=== PATIENT | male | born 1980 | race Caucasian/White ===

== ENCOUNTER 2019-05-05 13:33 | Inpatient (IN) | payer SELFPAY ==
--- NOTE | 2019-05-05 15:06 | CT ---
CT LEFT FOOT WITHOUT CONTRAST: 05/05/19 HISTORY: Ulcer. Prior amputation. COMPARISON: Foot radiographs same day. FINDINGS: There is a large plantar ulcer centered at the third metatarsal head with gas extending up to the fle xor tendon without significant gas within the tendon sheath. No definite loss of cortical integrity o f the third metatarsal head. The gas is approximately 5 mm from the cortex of the third metatarsal head. Prior fourth metatarsal amputation. Gas does not extend into the musculature. Mild circumferential so ft tissue swelling of the forefoot and hindfoot. IMPRESSION: 1. Plantar soft tissue ulcer at the level of the third metatarsal head with gas extending up to 5 mm from the cortex without loss of cortical integrity. No definite CT evidence of osteomyelitis. Ga s does extend up to the level of the flexor digitorum brevis tendon although without definite evidenc e for infectious tenosynovitis although MRI has greater sensitivity. 2. Circumferential soft tissue swelling may reflect cellulitis or venous insufficiency versus ly mphedema. 3. Prior fourth metatarsal amputation with sharp margins. POS: HOME
[2019-05-05] MEDS ORDERED: Morphine 4 MG/ML VIAL ONE (15:09)
[2019-05-05] MEDS ORDERED: Insulin Regular 300 UNITS/3 ML VIAL ONE (15:13)
[2019-05-05] MEDS ORDERED: Benzocaine 20% Spray 60 ML CAN ONE (15:13)
[2019-05-05] MEDS ORDERED: Ondansetron PF 4 MG/2 ML Vial IVP PRN ×2 (17:12→19:21)
[2019-05-05] MEDS ORDERED: Ondansetron ODT 4 MG TAB SL PRN (17:12)
[2019-05-05] MEDS ORDERED: Sodium Chloride 0.9% 1,000 ML IV SCH (17:12)
[2019-05-05 18:25] VITALS: BMI 38.1
[2019-05-05] MEDS: Piperacillin/Tazobactam 3.375 GM in Sodium Chloride 0.9% 100 ML IVPB SCH (19:02)
[2019-05-05] MEDS: Sodium Chloride 0.9% 1,000 ML IV SCH (19:02)
[2019-05-05] MEDS ORDERED: Acetaminophen 325 MG TAB PO PRN (19:21)
[2019-05-05] MEDS ORDERED: Ondansetron ODT 4 MG TAB PO PRN (19:21)
[2019-05-05] MEDS ORDERED: Calcium Carbonate 500 MG ChewTAB PO PRN (19:21)
--- NOTE | 2019-05-05 20:02 | HP ---
PRIMARY CARE PHYSICIAN: [facility]. PRIMARY INSTRUMENTATION TECHNICIAN: Asif Steve DPM CHIEF COMPLAINT: Fever with increased drainage from the diabetic foot ulcer. HISTORY OF PRESENT ILLNESS: The patient is a 38-year-old male with diabetes mellitus type 2, on insulin, hypertension, hyperlipidemia, was presented to the emergency room at [facility] with above complaints. The patient underwent left fourth toe amputation in the left foot in October of this year at [facility] by Dr. Mathis. Later on, he started developing chronic ulcer around this wound. He is currently followed by Dr. Steve, research lab assistant. Two weeks ago, he was evaluated by Dr. Steve and was started on doxycycline. There was some improvement in the wound. However, over the last 2 days, he has not been feeling well. He has significant fever along with chills. He also noticed increased pain along with drainage from the wound. He denies any injuries. He is compliant with insulin. In the emergency room at [facility], his initial vital signs showed temperature of 99.1, pulse rate of 130, blood pressure of 141/97 with O2 saturation of 96% on room air. He received vancomycin and Zosyn with IV fluids, and was sent to this facility for hospital admission. At this facility, he underwent lower extremity CT scan, that showed plantar soft tissue ulcer at the level of the third metatarsal head with gas extending up to 5 mm from the cortex without loss of cortical integrity. There was no CT evidence of osteomyelitis. PAST MEDICAL HISTORY: 1. Diabetes mellitus, type 2. 2. Hypertension. 3. Hyperlipidemia. 4. Obesity with a BMI of 38.2. 5. Anxiety. 6. Depression. PAST SURGICAL HISTORY: 1. Fourth toe amputation of the left foot in October of this year. 2. Appendectomy in 2013. ALLERGIES: NO KNOWN DRUG ALLERGIES. CURRENT HOME MEDICATIONS: 1. Amlodipine 10 mg daily. 2. Abilify 10 mg daily. 3. TriCor 48 mg daily. 4. Humalog 25 units three times daily. 5. Levemir 70 units at bedtime. 6. Lisinopril 40 mg daily. 7. Ibuprofen as needed. SOCIAL HISTORY: The patient currently lives at home with his family. He denies tobacco or drug use. He denies any history of obstructive sleep apnea. FAMILY HISTORY: Positive for heart disease. REVIEW OF SYSTEMS: All other review of systems reviewed and were found negative. PHYSICAL EXAMINATION: VITAL SIGNS: As discussed above. GENERAL: This is a 38-year-old male, in no significant distress. HEENT: Head, atraumatic and normocephalic. Sclerae anicteric. Moist mucous membranes. No oral lesion. NECK: Supple. No JVD. No carotid bruit. LUNGS: Clear to auscultation bilaterally. No wheezing, rales or rhonchi. HEART: S1 and S2 present. Regular rate and rhythm. Tachycardic. No heaves or pulsation. ABDOMEN: Soft, obese. Bowel sounds present. EXTREMITIES: No calf tenderness. SKIN: There is amputation of the fourth toe of the left foot. He has 2 plantar foot ulcers, which are chronic. There is foul order along with necrotic tissue in one of the ulcers. There is significant erythema along with tenderness on palpation. LYMPH NODES: No palpable lymph nodes in the neck or groin. NEUROLOGIC: Grossly nonfocal, moves all 4 extremities. PSYCHIATRIC: Alert, awake, and oriented x3. LABORATORY FINDINGS: WBC 14.4, hemoglobin 14.6, hematocrit 44.9, and platelet of 341. Chemistry showed sodium 129, potassium 4, chloride 96, bicarb 20, BUN 13, and creatinine 1.04. CRP of 17.2. Lactic acid 1.8. Serum osmolality 292. Ketones were 0.72. RADIOLOGICAL FINDINGS: Lower extremity CT by my review showed changes consistent with cellulitis along with gas extending from the plantar soft tissue ulcer. EKG by my review showed sinus tachycardia. IMPRESSION: 1. Sepsis with acute organ dysfunction secondary to infected diabetic foot ulcer. 2. Uncontrolled diabetes mellitus, type 2. 3. Hypertension. 4. Obesity with a body mass index of 38. 5. Metabolic acidosis. 6. Chronic kidney disease, stage 2. 7. Diabetic neuropathy. 8. Anxiety. 9. Depression, mild, stable. 10. Dyslipidemia. PLAN: The patient will be monitored on the medical floor. I discussed the case with Podiatry, Dr. Steve. We will continue IV fluids. We will continue vancomycin and Zosyn. We will add clindamycin. The patient will be kept n.p.o. past midnight. Vital signs q.4 hourly. Recheck labs in a.m. Resume selected home medications. We will start Lantus at low dose. Plan of care was discussed with the patient in detail. He stated understanding. Job ID: [id number]
[2019-05-05] MEDS: Senokot S 8.6-50 MG TAB PO SCH (20:36)
[2019-05-05] MEDS: Lisinopril 10 MG TAB PO SCH (20:38)
[2019-05-05] MEDS: Clindamycin/D5W 300 MG/50 ML BAG IVPB SCH (20:39)
[2019-05-05] MEDS: Vancomycin HCl 1.75 GM in Sodium Chloride 0.9% 500 ML IVPB SCH (20:52)
[2019-05-05] MEDS ORDERED: Dextrose 50% Abboject 50 ML SYRINGE SLOW IVP PRN (22:09)
[2019-05-05] MEDS ORDERED: Dextrose 5% in Water 1,000 ML IV PRN (22:09)
[2019-05-05] MEDS ORDERED: Vancomycin HCl 1 GM in Premix Bag 1 BAG IVPB SCH (23:59)
[2019-05-06] MEDS: Piperacillin/Tazobactam 3.375 GM in Sodium Chloride 0.9% 100 ML IVPB SCH ×4 (00:08→18:41)
[2019-05-06] MEDS: HYDROcodone/Acetaminophen 5/325 mg Tablet PO PRN (00:11)
[2019-05-06] MEDS: Sodium Chloride 0.9% 1,000 ML IV SCH ×3 (01:30→18:42)
--- NOTE | 2019-05-06 02:13 | HP ---
REASON FOR CONSULTATION: Left foot infected ulceration. HISTORY OF PRESENT ILLNESS: This 38-year-old male with history of diabetes, hypertension, and hyperlipidemia. He has been seen in my office, being treated for a chronic ulceration to the plantar aspect of the left foot, and this was after he had a previous amputation of the 4th toe performed by another physician back in October when he had a history of recurrent infections. He recently was on doxycycline, once he finished the doxycycline, he said immediately started to smell and began getting swelling and redness. He had fevers and chills and presented to the emergency department where he was admitted for IV antibiotics. PAST MEDICAL HISTORY: 1. Diabetes. 2. Hypertension. 3. Hyperlipidemia. 4. Obesity. 5. Anxiety. 6. Depression. PAST SURGICAL HISTORY: 1. 4th toe amputation of left foot. 2. Appendectomy. HOME MEDICATIONS: 1. Amlodipine. 2. Abilify. 3. Tricor. 4. Humalog. 5. Levemir. 6. Lisinopril. 7. Ibuprofen. ALLERGIES: NO KNOWN DRUG ALLERGIES. SOCIAL HISTORY: Lives at home with family. Denies tobacco or drug use. Denies sleep apnea. FAMILY HISTORY: Positive for heart disease. REVIEW OF SYSTEMS: CONSTITUTIONAL: Relates some fevers and chills. INTEGUMENTARY: Relates a wound which has worsened to the left foot. MUSCULOSKELETAL: Denies pain in the lower extremity. PHYSICAL EXAMINATION: VITAL SIGNS: Temperature 99.8, pulse 123, respirations 16, blood pressure 134/71. EXTREMITIES: Focal lower extremity dermatological exam of the left foot shows full-thickness ulceration with necrotic tissue measuring 2 cm in diameter to the plantar aspect of the left 3rd metatarsal head. Wound probes to deep tissues, but not to bone. There is some tunneling to the lateral ulceration, smaller in size, which is under the 5th metatarsal head. There is malodor. There is purulent drainage expressed from the wound. Periwound is erythematous. Plantar aspect of the foot is entirely erythematous, erythema extends on the dorsal foot over the 3rd toe, but not onto the dorsum of the forefoot. LABORATORY DATA: X-rays were negative for signs of osseous destruction or cortical erosion. CT exam shows some gas within the soft tissues extending from the wound site, but does not extend to the flexor tendons, most likely this is air from the wound itself. ASSESSMENT: Nonhealing wound to the left forefoot, now with abscess formation and cellulitis, failed conservative treatment. PLAN: This patient needs incision and drainage and debridement of the wound. We will subsequently put on a wound VAC. Deep cultures to be taken at that time to determine sensitivities for outpatient therapy once he is stabilized. The patient is on-call to the OR tomorrow afternoon. We will have him n.p.o. after breakfast tomorrow. Thank you for the consultation. Job ID: [id number]
[2019-05-06] MEDS: Clindamycin/D5W 300 MG/50 ML BAG IVPB SCH ×4 (02:58→19:49)
[2019-05-06] MEDS: Vancomycin HCl 1.75 GM in Sodium Chloride 0.9% 500 ML IVPB SCH ×2 (03:02→12:44)
[2019-05-06 06:04] LABS: #Basophils 0.1 thou/uL (0.0-0.2); #Eosinphils 0.3 thou/uL (0.0-0.7); #Lymphocytes 2.3 thou/uL (1.20-3.40); #Monocytes 1.2 thou/uL (0.11-0.59); #Neutrophils 9.4 thou/uL (1.40-6.50); %Basophils 0.6 % (0.0-1.0); %Eosinophils 2.1 % (0.0-10.0); %Monocytes 9.1 % (0.0-10.0); %Neutrophils 71.2 % (42.0-75.0); Hemoglobin 14.2 g/dL (14.0-18.0); Mean Corpuscular HGB CONC 30.7 g/dL (32.0-36.0); Mean Corpuscular Hemoglobin 26.6 pg (27.0-31.0); Mean Corpuscular Volume 86.4 fL (78.0-98.0); Mean Platelet Volume 7.3 fL (7.4-10.4); Platelet Count 393 thou/uL (130-400); RBC Distribution Width 11.8 % (11.5-14.5); Red Blood Cell (RBC) Count 5.34 mill/uL (4.70-6.10); White Blood Cell (WBC) Count 13.3 thou/uL (4.8-10.8)
[2019-05-06] MEDS: HumaLOG 300 UNITS/3 ML VIAL SC PRN (06:11)
[2019-05-06 06:22] LABS: ALT (SGPT) 15 U/L (8-55); AST (SGOT) 15 U/L (5-34); Albumin 3.3 g/dL (3.5-5.0); Alkaline Phosphatase 94 U/L (40-150); Anion Gap 15 mmol/L (10-20); BUN (Urea Nitrogen) 11 mg/dL (8.9-20.6); Bilirubin, Total 0.7 mg/dL (0.2-1.2); Calc. Creatinine Clearance 211 mL/min (70-130); Calcium 9.5 mg/dL (7.8-10.44); Carbon Dioxide 24 mmol/L (22-29); Chloride 101 mmol/L (98-107); Estimated GFR-MDRD Greater than 90; Globulin 4.1 g/dL (2.4-3.5); Glucose 233 mg/dL (70-105); Magnesium 1.5 mg/dL (1.6-2.6); Potassium 3.8 mmol/L (3.5-5.1); Protein, Total 7.4 g/dL (6.0-8.3); Sodium 136 mmol/L (136-145)
[2019-05-06] MEDS ORDERED: Magnesium 2 GM/50 ML 2 GM in Premix Bag 1 BAG IVPB SCH (07:00)
[2019-05-06] MEDS: Aripiprazole 10 MG TAB PO SCH (08:05)
[2019-05-06] MEDS: Saccharomyces boulardii 250 MG CAP PO SCH (08:05)
[2019-05-06] MEDS: Lisinopril 10 MG TAB PO SCH ×2 (08:06→19:49)
[2019-05-06] MEDS: Fenofibrate 48 MG TAB PO SCH (08:06)
[2019-05-06] MEDS: Amlodipine 5 MG TAB PO SCH ×2 (08:06→19:49)
[2019-05-06] MEDS: Senokot S 8.6-50 MG TAB PO SCH ×2 (08:07→21:42)
--- NOTE | 2019-05-06 10:11 | PRG ---
DATE OF SERVICE: 05/06/2019 SUBJECTIVE: A 38-year-old male with diabetes mellitus type 2 with chronic ulceration, hypertension, hyperlipidemia, presented with fever along with increased drainage from the chronic foot ulcer. His workup was consistent with sepsis secondary to infected diabetic foot ulcer. He is currently on broad-spectrum antibiotics. He denies any overnight event. He is scheduled for incision and drainage and debridement of the wound later today by Dr. Steve. He denies significant pain. No significant change in the erythema of the foot reported. REVIEW OF SYSTEMS: The patient denies any nausea, vomiting, diarrhea, chest pain, shortness of breath, or palpitations. OBJECTIVE: VITAL SIGNS: Temperature 99.4 with T-max of 100.5, pulse rate of 111, respirations of 18, blood pressure 139/84, O2 saturation 92% on room air. GENERAL: A 38-year-old male, in no apparent distress. LUNGS: Clear to auscultation bilaterally. No wheezing, rales, or rhonchi. HEART: S1 and S2 present. Regular rate and rhythm. No rubs or gallops. ABDOMEN: Soft, obese. Bowel sounds present. EXTREMITIES: Dressing over the left foot noted. No calf tenderness. There is 1+ edema in left lower extremity. PSYCHIATRY: Normal affect. The patient is alert, awake, and oriented x3. NEUROLOGIC: Grossly nonfocal. LABORATORY FINDINGS: WBC 13.3 with hemoglobin 14.2. Magnesium 1.5 with potassium 3.8, sodium 136, CRP 17.2. Blood cultures so far negative. Lower extremity CT by my review showed cellulitis with gas extending from the plantar soft tissue ulcer. IMPRESSION: 1. Sepsis with acute organ dysfunction secondary to infected diabetic foot ulcer. Please note, the patient failed conservative treatment. He also failed outpatient therapy. 2. Diabetes mellitus type 2, uncontrolled. 3. Hypertension. 4. Obesity with a BMI of 38. 5. Metabolic acidosis, improving. 6. Chronic kidney disease, stage 2. 7. Anxiety. 8. Dyslipidemia. 9. Depression, mild, stable. 10. Diabetic neuropathy. 11. Hypomagnesemia. PLAN: The patient will continue vancomycin, Zosyn along with clindamycin. I discussed the case with Dr. Steve. We will monitor vancomycin level. We will continue moderate sliding scale. We will resume Lantus tonight. We will recheck labs in a.m. Wound care. We will change the sliding scale to aggressive later today. Recheck labs in a.m. Vancomycin level later today. Plan was discussed with the patient in detail. He stated understanding. Job ID: [id number]
[2019-05-06] MEDS ORDERED: ePHEDrine 50 MG/ML VIAL ONE (11:16)
[2019-05-06] MEDS ORDERED: Succinylcholine Chloride 20 MG/ML 10 ml SYRINGE FS ONE (11:16)
[2019-05-06] MEDS ORDERED: Lidocaine 1% PF 5 ML VIAL ONE (11:16)
[2019-05-06] MEDS ORDERED: Ondansetron PF 4 MG/2 ML Vial ONE (11:16)
[2019-05-06] MEDS ORDERED: PROPOFOL 200 MG/20 ML VIAL ONE (11:16)
[2019-05-06] MEDS ORDERED: Fentanyl 100 MCG/2 ML VIAL ONE (16:30)
[2019-05-06] MEDS ORDERED: Bupivacaine PF 0.5% 30 ML VIAL ONE (16:43)
[2019-05-06] MEDS ORDERED: Sodium Chloride 0.9% 30 ML ONE (16:44)
[2019-05-06] MEDS ORDERED: Albuterol Sulfate HFA (OR ONLY) ONE ×2 (17:17→17:18)
[2019-05-06] MEDS ORDERED: Ondansetron HCl/PF 4 MG/2 ML Vial IVP PRN (17:51)
[2019-05-06] MEDS ORDERED: HYDROmorphone 2 MG/ML VIAL SLOW IVP PRN (17:51)
[2019-05-06] MEDS ORDERED: Meperidine HCl/PF 25 MG/ML VIAL SLOW IVP PRN (17:51)
[2019-05-06] MEDS ORDERED: Promethazine HCl 25 MG/ML VIAL SLOW IVP PRN (17:51)
[2019-05-06] MEDS ORDERED: Promethazine HCl 25 MG/ML VIAL IM PRN (17:51)
[2019-05-06] MEDS ORDERED: PACU-Morphine 4MG/ML VIAL SLOW IVP PRN (17:51)
[2019-05-06] MEDS ORDERED: Morphine Sulfate 2 MG/ML SYRINGE SLOW IVP PRN (17:51)
[2019-05-06 19:19] LABS: Vancomycin, Trough 22.6 ug/mL
[2019-05-06] MEDS: Vancomycin HCl 1.5 GM in Sodium Chloride 0.9% 250 ML 300 ML IVPB SCH (20:43)
[2019-05-06] MEDS ORDERED: Insulin Glargine 25 UNITS in Pre-Filled Syringe 1 EACH SC SCH (21:00)
--- NOTE | 2019-05-07 00:04 | OP ---
DATE OF PROCEDURE: 05/06/2019 PREOPERATIVE DIAGNOSIS: Abscess, left foot. POSTOPERATIVE DIAGNOSIS: Abscess, left foot. PROCEDURE PERFORMED: Incision and drainage of left foot abscess. PATHOLOGY: Deep tissue culture of the deep abscess for Gram stain, aerobic and anaerobic and fungal cultures. HEMOSTASIS: None. ESTIMATED BLOOD LOSS: 30 mL. MATERIALS: Bandage materials including Surgicel, 4x4s, ABD pad, Kerlix, and Mateus wrap. INJECTABLES: 10 mL 0.5% Marcaine plain preoperatively. COMPLICATIONS: None. DESCRIPTION OF PROCEDURE: The patient was brought to the operative suite, placed supine on the operative table. Time-out performed, identifying correct patient, procedure, and operative site. The foot was prepped and draped in an aseptic manner. Attention was directed to the plantar aspect of the foot. He had two ulcerations, one sub 3rd metatarsal head and one sub 5th metatarsal head. Probing of these areas did notice communication tunnel between the two, so incision was made between the two wounds. The necrotic tissue within the sub 3rd metatarsal head wound was excised in total. All nonviable tissue was excised with a 15 blade. Deep probing to the area just under the 3rd metatarsal head ulceration found a large pocket of purulence approximately 10 mL of creamy white purulent drainage along with a significant malodor coming from the wound once this was released. This pus and deep abscess were cultured for aerobic, anaerobic, and fungal cultures. All nonviable tissue within the wound including portion of the plantar fascia and flexor tendons to the 3rd toe was excised. Probing of the wound found that there was also communicative tract continued proximally along the course of the plantar fascia and another incision was made from the 3rd metatarsal head wound proximally along this tunnel, opening this area and removing all nonviable tissue from this site. The wound was then irrigated with pulse lavage, 3 L mixed with 3 vials of bacitracin, 50,000 units of bacitracin per vial. After irrigation, all postop bleeders were cauterized. There was still a significant amount of bleeding from the wound edges, so decision was made not to apply the wound VAC at this time, placed in a compressive bandage until tomorrow when they can place a wound VAC. Surgicel was placed into the bandage base, the bandages were 4x4 gauze, ABD pad, Kerlix, and an Mateus wrap for compression. The patient tolerated the procedure well. He was transported out of the operative suite to the postanesthetic care unit for monitoring until stable and then transferred back to his room. Job ID: [id number]
[2019-05-07] MEDS: Sodium Chloride 0.9% 1,000 ML IV SCH ×4 (00:47→17:43)
[2019-05-07] MEDS: Piperacillin/Tazobactam 3.375 GM in Sodium Chloride 0.9% 100 ML IVPB SCH ×4 (01:11→17:51)
[2019-05-07] MEDS: Clindamycin/D5W 300 MG/50 ML BAG IVPB SCH ×4 (01:11→20:38)
[2019-05-07] MEDS: Vancomycin HCl 1.5 GM in Sodium Chloride 0.9% 250 ML 300 ML IVPB SCH ×2 (04:27→12:11)
[2019-05-07] MEDS: HumaLOG 300 UNITS/3 ML VIAL SC PRN ×4 (04:28→20:39)
[2019-05-07] MEDS: HYDROcodone/Acetaminophen 5/325 mg Tablet PO PRN ×3 (04:32→13:56)
[2019-05-07 04:52] LABS: #Eosinphils 0.2 thou/uL (0.0-0.7); #Lymphocytes 1.4 thou/uL (1.20-3.40); #Monocytes 0.9 thou/uL (0.11-0.59); #Neutrophils 6.1 thou/uL (1.40-6.50); %Eosinophils 2.2 % (0.0-10.0); %Lymphocytes 15.9 % (21.0-51.0); %Monocytes 10.8 % (0.0-10.0); %Neutrophils 71.1 % (42.0-75.0); Hemoglobin 12.4 g/dL (14.0-18.0); Mean Corpuscular HGB CONC 31.8 g/dL (32.0-36.0); Mean Corpuscular Hemoglobin 27.7 pg (27.0-31.0); Mean Corpuscular Volume 87.3 fL (78.0-98.0); Mean Platelet Volume 7.1 fL (7.4-10.4); Platelet Count 334 thou/uL (130-400); RBC Distribution Width 11.7 % (11.5-14.5); Red Blood Cell (RBC) Count 4.48 mill/uL (4.70-6.10); White Blood Cell (WBC) Count 8.6 thou/uL (4.8-10.8)
[2019-05-07 05:12] LABS: Anion Gap 13 mmol/L (10-20); BUN (Urea Nitrogen) 16 mg/dL (8.9-20.6); Calc. Creatinine Clearance 116 mL/min (70-130); Calcium 8.7 mg/dL (7.8-10.44); Carbon Dioxide 21 mmol/L (22-29); Chloride 103 mmol/L (98-107); Estimated GFR-MDRD 48; Glucose 366 mg/dL (70-105); Sodium 133 mmol/L (136-145)
[2019-05-07] MEDS ORDERED: HumaLOG 300 UNITS/3 ML VIAL SC SCH ×5 (08:00→17:00)
[2019-05-07] MEDS ORDERED: Insulin Glargine 35 UNITS in Pre-Filled Syringe 1 EACH SC SCH (09:00)
[2019-05-07] MEDS: Saccharomyces boulardii 250 MG CAP PO SCH (10:04)
[2019-05-07] MEDS: Lisinopril 10 MG TAB PO SCH ×2 (10:04→20:39)
[2019-05-07] MEDS: Amlodipine 5 MG TAB PO SCH ×2 (10:05→20:38)
[2019-05-07] MEDS: Fenofibrate 48 MG TAB PO SCH (10:06)
[2019-05-07] MEDS: Aripiprazole 10 MG TAB PO SCH (10:06)
[2019-05-07] MEDS: Senokot S 8.6-50 MG TAB PO SCH ×2 (10:10→20:40)
[2019-05-07] MEDS: HumaLOG 300 UNITS/3 ML VIAL SC SCH (17:45)
[2019-05-07 19:52] LABS: Vancomycin, Trough 35.8 ug/mL
[2019-05-07] MEDS: Insulin Glargine 40 UNITS in Pre-Filled Syringe 1 EACH SC SCH (20:39)
--- NOTE | 2019-05-07 22:52 | PDOC.PN ---
- Subjective Encounter Start Date: 05/07/19 Encounter Start Time: 17:00 Patient seen and examined for diabetic foot infection. Pain controlled. No fever. No new complaints. No overnight events - Objective Resuscitation Status - Order Detail: 05/05/19 19:21 Resuscitation Status Routine Resuscitation Status: FULL: Full Resuscitation MAR Reviewed: Yes Vital Signs & Weight: Vital Signs (12 hours) Temp Pulse Resp BP Pulse Ox 05/07/19 19:00 98.6 F 105 H 20 139/87 96 Weight Admit Weight 289 lb 4 oz Weight 289 lb 4 oz I&O: 05/06/19 05/07/19 05/08/19 06:59 06:59 06:59 Intake Total 2280 1440 Balance 2280 1440 Result Diagrams: 05/09/19 05:44 05/09/19 05:44 Additional Labs: Accuchecks 05/07/19 05/07/19 05/07/19 20:35 16:49 10:58 POC Glucose 336 H 356 H 415 H 05/07/19 03:05 POC Glucose 345 H Phys Exam - Physical Examination Constitutional: NAD Respiratory: no wheezing, no rhonchi Cardiovascular: RRR, no rub Gastrointestinal: soft, non-tender, positive bowel sounds Musculoskeletal: no edema foot dressing + Dx/Plan - Plan plan discussed w/ family, continue antibiotics, DVT proph w/lovenox, DVT proph w /SCDs IMPRESSION: 1. Sepsis with acute organ dysfunction secondary to infected diabetic foot ulcer. (failed conservative treatment) 2. Diabetes mellitus type 2, uncontrolled. 3. Hypertension. 4. Obesity with a BMI of 38. 5. Metabolic acidosis, improving. 6. Chronic kidney disease, stage 2. 7. Anxiety. 8. Dyslipidemia. 9. Depression, mild, stable. 10. Diabetic neuropathy. 11. Hypomagnesemia. PLAN: Cont Vancomycin, Zosyn and clindamycin. Monitor vancomycin level. Change sliding scale to aggressive Add 10 units to sliding scale TID Increase Lantus to 40 BID. Cont Wound care. AM labs Reduce IV fluids ID consult Review of Systems - Review of Systems Respiratory: negative: Cough, Dry, Shortness of Breath, Hemoptysis, SOB with Excertion, Pleuritic Pain, Sputum, Wheezing Cardiovascular: negative: chest pain, palpitations, orthopnea, paroxysmal nocturnal dyspnea, edema, light headedness, other Gastrointestinal: negative: Nausea, Vomiting, Abdominal Pain, Diarrhea, Constipation, Melena, Hematochezia, Other - Medications/Allergies Allergies/Adverse Reactions: Allergies Allergy/AdvReac Type Severity Reaction Status Date / Time No Known Allergies Allergy Verified 05/05/19 18:29 Medications: Current Medications Acetaminophen (Tylenol) 650 mg PO Q4H PRN PRN Reason: Headache/Fever/Mild Pain (1-3) Last Admin: 05/05/19 20:36 Dose: 650 mg Hydrocodone Bitart/Acetaminophen ([place] 5/325) 1 tab PO Q4H PRN PRN Reason: Mild-Moderate Pain (1-5) Last Admin: 05/07/19 13:56 Dose: 1 tab Amlodipine Besylate (Norvasc) 5 mg PO BID [facility] Last Admin: 05/07/19 20:38 Dose: 5 mg Aripiprazole (Abilify) 10 mg PO DAILY [facility] Last Admin: 05/07/19 10:06 Dose: 10 mg Calcium Carbonate (Tums) 1,000 mg PO Q4H PRN PRN Reason: Heartburn or Indigestion Clindamycin Phosphate/Dextrose (Cleocin) 300 mg IVPB 0200,0800,1400,2000 [facility] Last Admin: 05/07/19 20:38 Dose: 300 mg Dextrose/Water (Dextrose 50%) 25 gm SLOW IVP PRN PRN PRN Reason: Hypoglycemia Fenofibrate (Tricor) 48 mg PO DAILY [facility] Last Admin: 05/07/19 10:06 Dose: 48 mg Glucagon (Glucagon) 1 mg IM PRN PRN PRN Reason: Hypoglycemia Piperacillin Sod/Tazobactam (Sod 3.375 gm/ Sodium Chloride) 100 mls @ 200 mls/ hr IVPB 0100,0700,1300,1900 [facility] Last Admin: 05/07/19 17:51 Dose: 100 mls Sodium Chloride (Normal Saline 0.9%) 1,000 mls @ 150 mls/hr IV .Q6H40M [facility] Last Admin: 05/07/19 17:43 Dose: 1,000 mls Dextrose/Water (D5w) 1,000 mls @ 0 mls/hr IV .Q0M PRN PRN Reason: Hypoglycemia Insulin Glargine 40 units/ (Miscellaneous Medication) 0.4 mls @ 0 mls/hr SC BID [facility] Last Admin: 05/07/19 20:39 Dose: 0.4 mls Insulin Human Lispro (Humalog) 0 units SC .BEDTIME SLIDING SC PRN PRN Reason: Bedtime Correctional Scale Last Admin: 05/07/19 20:39 Dose: 4 units Insulin Human Lispro (Humalog) 0 units SC .AGGRESSIVE SLIDING PRN PRN Reason: Aggressive Correctional Scale Last Admin: 05/07/19 17:49 Dose: 13 units Insulin Human Lispro (Humalog) 10 units SC 0800,1200,1700 [facility] Last Admin: 05/07/19 17:45 Dose: 10 units Lisinopril (Zestril) 10 mg PO BID [facility] Last Admin: 05/07/19 20:39 Dose: 10 mg Miscellaneous Medication (Pharmacy To Dose) 1 each IVPB ONE PRN PRN Reason: Pharmacy to dose Stop: 05/17/19 19:56 Ondansetron HCl (Zofran Odt) 4 mg PO Q6H PRN PRN Reason: Nausea/Vomiting Ondansetron HCl (Zofran) 4 mg IVP Q6H PRN PRN Reason: Nausea/Vomiting Saccharomyces Boulardii (Florastor) 250 mg PO DAILY [facility] Last Admin: 05/07/19 10:04 Dose: 250 mg Senna/Docusate Sodium (Senokot S) 2 tab PO BID [facility] Last Admin: 05/07/19 20:40 Dose: Not Given Sodium Chloride (Flush - Normal Saline) 10 ml IVF PRN PRN PRN Reason: Saline Flush
[2019-05-08] MEDS: Piperacillin/Tazobactam 3.375 GM in Sodium Chloride 0.9% 100 ML IVPB SCH ×4 (00:36→18:08)
[2019-05-08] MEDS: Sodium Chloride 0.9% 1,000 ML IV SCH (00:39)
--- NOTE | 2019-05-08 01:15 | PRG ---
DATE OF SERVICE: 05/07/2019 SUBJECTIVE: A 38-year-old male patient seen at bedside today. He is in no acute distress. He is 1 day status post incision and drainage of left foot abscess. States he has been feeling little sweats and chills throughout the day, but overall is feeling better. Occasional sharp pains in the foot. PHYSICAL EXAMINATION: The dressing to the left foot is clean, dry, and intact. It was left in place. Wound VAC was placed today and is set to be changed again on Saturday. No calf tenderness. Still some erythema seen at the base of the toes. LABORATORY DATA: White blood cell count today was 8.6, down from 13.3, hemoglobin and hematocrit were 12.4 and 39.2. ASSESSMENT: 1. One day status post incision and drainage of abscess to the left foot. PLAN: 1. Culture results are pending. Initial Gram stain shows polymicrobial infection with many gram-variable rods and moderate gram-positive cocci in pairs, chains and clusters. We will need to wait until we get sensitivities on this before determining what oral antibiotics to switch him to. 2. We could see his white blood cell count has already trended downward, although he is still somewhat feverish. Expect this will improve. We will continue the IV antibiotics as ordered. 3. I plan to come and check on the patient on Saturday when they do the wound VAC change, so I can evaluate the wound at that time. Job ID: [id number]
[2019-05-08] MEDS: Clindamycin/D5W 300 MG/50 ML BAG IVPB SCH ×4 (02:00→20:08)
[2019-05-08 05:45] LABS: #Eosinphils 0.3 thou/uL (0.0-0.7); #Lymphocytes 1.4 thou/uL (1.20-3.40); #Monocytes 0.7 thou/uL (0.11-0.59); #Neutrophils 4.8 thou/uL (1.40-6.50); %Basophils 0.1 % (0.0-1.0); %Eosinophils 3.7 % (0.0-10.0); %Lymphocytes 19.1 % (21.0-51.0); %Monocytes 9.7 % (0.0-10.0); %Neutrophils 67.4 % (42.0-75.0); Hemoglobin 11.5 g/dL (14.0-18.0); Mean Corpuscular HGB CONC 32.3 g/dL (32.0-36.0); Mean Corpuscular Hemoglobin 27.7 pg (27.0-31.0); Mean Corpuscular Volume 85.6 fL (78.0-98.0); Mean Platelet Volume 6.9 fL (7.4-10.4); Platelet Count 314 thou/uL (130-400); RBC Distribution Width 11.7 % (11.5-14.5); Red Blood Cell (RBC) Count 4.16 mill/uL (4.70-6.10); White Blood Cell (WBC) Count 7.1 thou/uL (4.8-10.8)
[2019-05-08 06:18] LABS: Anion Gap 11 mmol/L (10-20); BUN (Urea Nitrogen) 16 mg/dL (8.9-20.6); Calc. Creatinine Clearance 112 mL/min (70-130); Calcium 8.8 mg/dL (7.8-10.44); Carbon Dioxide 20 mmol/L (22-29); Chloride 107 mmol/L (98-107); Estimated GFR-MDRD 46; Glucose 253 mg/dL (70-105); Potassium 3.4 mmol/L (3.5-5.1); Sodium 135 mmol/L (136-145)
[2019-05-08] MEDS ORDERED: Sodium Chloride 0.9% 1,000 ML IV SCH (07:08)
[2019-05-08] MEDS: Lisinopril 10 MG TAB PO SCH (08:29)
[2019-05-08] MEDS: Amlodipine 5 MG TAB PO SCH ×2 (08:29→20:08)
[2019-05-08] MEDS: Saccharomyces boulardii 250 MG CAP PO SCH ×2 (08:30→20:08)
[2019-05-08] MEDS: Senokot S 8.6-50 MG TAB PO SCH (08:30)
[2019-05-08] MEDS: Aripiprazole 10 MG TAB PO SCH (08:32)
[2019-05-08] MEDS: Fenofibrate 48 MG TAB PO SCH (08:33)
[2019-05-08] MEDS: HumaLOG 300 UNITS/3 ML VIAL SC SCH ×3 (08:35→18:09)
[2019-05-08] MEDS: Enoxaparin Sodium 40 MG/0.4 ML SYRINGE SC SCH (08:37)
[2019-05-08] MEDS: Insulin Glargine 40 UNITS in Pre-Filled Syringe 1 EACH SC SCH (08:39)
--- NOTE | 2019-05-08 12:42 | MRI ---
EXAM: MRI left forefoot PROVIDED CLINICAL HISTORY: Wound COMPARISON: None FINDINGS: There is cutaneous deficiency at the plantar aspect of the third MTP joint compatible with the provid ed clinical history of wound in this region. There is patchy signal alteration on fluid sensitive sequences involving the third metatarsal head with mild signal alteration on T1-weighted sequences. T here is second-third intermetatarsal bursal fluid. There is greater than physiologic third MTP joint fluid. There is diffuse signal alteration within the intrinsic foot musculature typical for diabetic patient s. There is no significant tenosynovial fluid. Intact fibers of the third digit flexor tendon are not identified. IMPRESSION: 1. 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 2. Second-third metatarsal bursitis, possibly infectious. 3. Greater than physiologic third MTP joint fluid may reflect septic arthritis.
[2019-05-08] MEDS ORDERED: cloNIDine 0.1 MG TAB PO PRN (14:41)
--- NOTE | 2019-05-08 15:15 | PRG ---
DATE OF SERVICE: 05/08/2019 SUBJECTIVE: A 38-year-old male with diabetes mellitus type 2. He is currently admitted for sepsis secondary to diabetic foot ulcer. He underwent debridement by Dr. Steve on May 08. He denies any fever or chills. He started developing diarrhea since last night. He denies any abdominal pain. REVIEW OF SYSTEMS: As discussed above. No hematochezia or melena reported. OBJECTIVE: VITAL SIGNS: Temperature 98.6, pulse 100, respirations 20, blood pressure 139/84, and O2 saturation 94% on room air. Intake of 1440, output unavailable. Weight of 289 pounds. GENERAL: A 38-year-old male, in no apparent distress. LUNGS: Clear to auscultation bilaterally. HEART: S1 and S2 present. Regular. ABDOMEN: Soft and obese. Bowel sounds present. EXTREMITIES: No edema or calf tenderness in right lower extremity. There is dressing on the left foot. There is also some edema and erythema in the left leg. CURRENT MEDICATIONS: Reviewed. The patient is on; 1. Lantus. 2. Vancomycin. 3. Clindamycin. 4. Zosyn, along with other home medications. LABORATORY FINDINGS: WBC 7.1 and hemoglobin 11.5. Sodium 135, potassium 3.5, chloride 107, bicarb 20, and creatinine 1.68. Vancomycin trough last night was 35.8. Blood cultures negative. Wound cultures showed group B Streptococcus. MRI of the lower extremity showed findings compatible with third metatarsal head, osteomyelitis with second and third metatarsal bursitis with questionable septic arthritis. IMPRESSION: 1. Sepsis with acute organ dysfunction secondary to infected diabetic foot ulcer with third metatarsal head osteomyelitis (the patient failed outpatient therapy). 2. Diarrhea, rule out Clostridium difficile colitis. 3. Hypokalemia. 4. Acute kidney injury, probably secondary to sepsis. 5. Diabetes mellitus type 2, uncontrolled. 6. Hypertension. 7. Obesity with a BMI of 38. 8. Chronic kidney disease stage 2. 9. Metabolic acidosis. 10. Anxiety. 11. Dyslipidemia. 12. Depression. 13. Diabetic neuropathy. 14. Hypomagnesemia. PLAN: IV antibiotics will be continued. We will increase Lantus to 45 units b.i.d. We will continue aggressive sliding scale along with 10 units of Humalog 3 times daily with meals. Per the patient request, IV fluids were discontinued. We will hold lisinopril for now due to acute kidney injury. We will recheck labs in a.m. Monitor vancomycin level. We will continue probiotic. We will stop Senokot-S. Continue other medications as below. Recheck labs in a.m. Plan was discussed with the patient in detail, he stated understanding. Job ID: [id number]
[2019-05-08] MEDS: HumaLOG 300 UNITS/3 ML VIAL SC PRN ×2 (18:09→20:20)
[2019-05-08] MEDS: HYDROcodone/Acetaminophen 5/325 mg Tablet PO PRN (18:36)
[2019-05-08 19:22] LABS: Vancomycin, Random 14.1 ug/mL (See Comment)
--- NOTE | 2019-05-08 19:35 | CON ---
DATE OF CONSULTATION: 05/08/2019 REASON FOR CONSULTATION: New ulcer, left foot plantar aspect, status post debridement. HISTORY OF PRESENT ILLNESS: A 38-year-old, whom I had treated at [facility] for left foot osteomyelitis involving the fourth toe status post amputation and protracted IV antimicrobial therapy. The patient now has developed an ulcer in third MPJ skin site, plantar aspect and was admitted for management. He had some fever, chills, drainage, and [id number] pain. No headaches. No shortness of breath or chest pain. No abdominal pain or diarrhea. Voiding without difficulty. PAST MEDICAL HISTORY: Type 2 diabetes, neuropathy, hypertension, hyperlipidemia, obesity, anxiety, and depression. PAST SURGICAL HISTORY: Fourth toe amputation left foot in [facility] on protracted IV antimicrobial therapy and appendectomy. ALLERGIES: NONE. SOCIAL HISTORY: Lives with family in [place]. Does not smoke cigarettes. No drug use. He is disabled. FAMILY HISTORY: Coronary artery disease. CURRENT MEDICATIONS: 1. Tylenol. 2. [place]. 3. Norvasc. 4. Abilify. 5. Tums. 6. Clindamycin. 7. Enoxaparin. 8. TriCor. 9. Insulin. 10. Zestril. 11. Zofran. 12. Zosyn. PHYSICAL EXAMINATION: VITAL SIGNS: T-max 100.5. He has been afebrile since. Other vital signs are fairly normal. O2 saturation 94. SKIN: Shows the ulcer with inflammatory changes and callus at the forefoot plantar aspect left side right behind the MPJ skin site. The previous amputation site fourth toe appears normal with no inflammatory changes. Then, we have the photo from after the debridements with white area of irregular debridements with whitish material at the center and red material with some linear darkish baez material interspersed and at the bottom aspect of the plantar sore. The patient has a peripheral IV access. No lymphadenopathy. HEENT: Ocular movements conjugate. Oral cavity was not remarkable. NECK: Supple. LUNGS: Symmetric clear breath sounds. HEART: S1 and S2. Regular rate. No S3 or S4. ABDOMEN: Soft, not distended or tender. No ascites. No bladder distention. EXTREMITIES: Pulses are 1+ in dorsalis pedis and posterior tibialis. Cap refill normal. Popliteals are 1+. He moves extremities equally with limitations imposed by inflammatory process. NEUROLOGIC: Cognitive function appears to be intact. LABORATORY DATA: White cell count was 13.3 down to 7.1, hemoglobin 11.5, platelets 314, 67% neutrophils, and 19% lymphocytes. Sodium 135 and creatinine 1.68, which is higher than baseline, which was 0.89. Liver profile was normal. Albumin 3.3. Vancomycin trough 35. Microbiology with group G and group B strep retrieved. This is a preliminary result. In the Gram stain, there is some Gram variable rods, but no Gram negatives. There are some gram-positive cocci in clusters. The patient had a lower extremity MRI done just now and it showed osteomyelitis of the third metatarsal head. ASSESSMENT AND DISCUSSION: Type 2 diabetes, neuropathy, recent amputation fourth toe left foot for osteomyelitis of the toe, now with osteomyelitis of the third metatarsophalangeal joint, status post debridement. The patient will need continuation of protracted antimicrobial therapy. Depending on the organisms retrieved, we could try oral antimicrobial therapy. For example, if he had just streptococci isolated, we could try a combination of Keflex plus a rifampin for protracted periods of time. In the other hand, if there is Staphylococcus aureus, the possibility of methicillin-resistant Staphylococcus aureus, gram-negative rods, then I would advise a peripherally inserted central catheter line placement and protracted IV antimicrobial therapy administration. We will wait for the final identification susceptibility profile of the organisms retrieved from the culture and then make a decision. No other sites of distant involvement noted at this time. Job ID: [id number]
[2019-05-08] MEDS: Insulin Glargine 45 UNITS in Pre-Filled Syringe 1 EACH SC SCH (20:20)
[2019-05-08] MEDS: Vancomycin HCl 1.5 GM in Sodium Chloride 0.9% 250 ML 300 ML IVPB SCH (20:21)
[2019-05-09] MEDS: HumaLOG 300 UNITS/3 ML VIAL SC PRN ×5 (01:24→21:14)
[2019-05-09] MEDS: Piperacillin/Tazobactam 3.375 GM in Sodium Chloride 0.9% 100 ML IVPB SCH ×2 (01:25→06:18)
[2019-05-09] MEDS: Clindamycin/D5W 300 MG/50 ML BAG IVPB SCH ×2 (01:29→08:50)
[2019-05-09 06:39] LABS: #Eosinphils 0.2 thou/uL (0.0-0.7); #Lymphocytes 1.1 thou/uL (1.20-3.40); #Monocytes 0.6 thou/uL (0.11-0.59); %Basophils 0.2 % (0.0-1.0); %Eosinophils 3.2 % (0.0-10.0); %Lymphocytes 18.9 % (21.0-51.0); %Monocytes 10.2 % (0.0-10.0); %Neutrophils 67.5 % (42.0-75.0); Hemoglobin 12.1 g/dL (14.0-18.0); Mean Corpuscular HGB CONC 32.5 g/dL (32.0-36.0); Mean Corpuscular Hemoglobin 27.9 pg (27.0-31.0); Mean Corpuscular Volume 85.8 fL (78.0-98.0); Platelet Count 325 thou/uL (130-400); RBC Distribution Width 11.6 % (11.5-14.5); Red Blood Cell (RBC) Count 4.33 mill/uL (4.70-6.10); White Blood Cell (WBC) Count 5.9 thou/uL (4.8-10.8)
[2019-05-09 07:01] LABS: Albumin 2.8 g/dL (3.5-5.0); Anion Gap 11 mmol/L (10-20); BUN (Urea Nitrogen) 13 mg/dL (8.9-20.6); BUN/Creatinine Ratio 7.07; Calc. Creatinine Clearance 102 mL/min (70-130); Calcium 9.3 mg/dL (7.8-10.44); Carbon Dioxide 24 mmol/L (22-29); Chloride 104 mmol/L (98-107); Estimated GFR-MDRD 42; Glucose 360 mg/dL (70-105); Magnesium 1.6 mg/dL (1.6-2.6); Phosphorus 4.2 mg/dL (2.3-4.7); Potassium 3.2 mmol/L (3.5-5.1); Sodium 136 mmol/L (136-145)
[2019-05-09] MEDS ORDERED: Loperamide HCl 2 MG CAP PO PRN (08:09)
[2019-05-09] MEDS: Sodium Chloride 0.9% 1,000 ML IV SCH (08:24)
[2019-05-09] MEDS: Vancomycin HCl 1.5 GM in Sodium Chloride 0.9% 250 ML 300 ML IVPB SCH (08:27)
[2019-05-09] MEDS: Aripiprazole 10 MG TAB PO SCH (08:32)
[2019-05-09] MEDS: Fenofibrate 48 MG TAB PO SCH (08:33)
[2019-05-09] MEDS: HumaLOG 300 UNITS/3 ML VIAL SC SCH ×3 (08:33→17:43)
[2019-05-09] MEDS: Amlodipine 5 MG TAB PO SCH ×2 (08:33→21:14)
[2019-05-09] MEDS: Saccharomyces boulardii 250 MG CAP PO SCH (08:33)
[2019-05-09] MEDS: Enoxaparin Sodium 40 MG/0.4 ML SYRINGE SC SCH (08:49)
[2019-05-09] MEDS: Magnesium Chloride 64 MG TAB PO SCH ×2 (08:49→21:14)
--- NOTE | 2019-05-09 10:04 | HP ---
SUBJECTIVE: A 38-year-old male patient seen at bedside today, in no acute distress. He is 3 days status post incision and drainage of abscess of left foot. He denies nausea, vomiting, fevers, or chills. At this time, said he is feeling much better and still having a little bit of pain in the foot. Did see Dr. Ortez with Infectious Disease, and has had an MRI since I last saw him, but I had not heard anything about the results of that. PHYSICAL EXAMINATION: Dressing was removed today with large surgical wound site on the plantar surface of the left forefoot, 90% granulation tissue with 10% slough. No necrosis within the wound. No purulence or areas of fluctuance identified. Erythema has significantly decreased on the foot. No exposed bone. IMAGING STUDIES: MRI was ordered. MRI results were consistent with osteomyelitis in the third metatarsal head. While I viewed the MRI, it did not appear that there was any cortical breakdown or erosions, but there was certainly fluid within the metatarsal and the third metatarsophalangeal joint. ASSESSMENT: Three days status post incision and drainage of left foot abscess with apparent osteomyelitis of the left third metatarsal. PLAN: Discussed these results with the patient and told that I am going to defer to Dr. Ortez' recommendations for antibiotics, but more than likely he will require some long-term IV antibiotics as an outpatient. Preliminary culture results show group G and group B hemolytic Streptococcus, which is globally sensitive to penicillin, but again I will defer to Dr. Ortez for antibiotic choice. I am going to continue to monitor his progress, and he will need a wound VAC on discharge. He is also scheduled for another wound VAC change on Saturday, if he is still here, and I will be there to evaluate the wound at that time. Job ID: [id number]
[2019-05-09] MEDS: Insulin Glargine 45 UNITS in Pre-Filled Syringe 1 EACH SC SCH ×2 (10:52→21:14)
--- NOTE | 2019-05-09 11:56 | PDOC.PN ---
- Subjective Encounter Start Date: 05/09/19 Encounter Start Time: 10:00 Patient seen and examined for diabetic foot infection. Diarrhea improved. No new complaints. No overnight events - Objective Resuscitation Status - Order Detail: 05/05/19 19:21 Resuscitation Status Routine Resuscitation Status: FULL: Full Resuscitation MAR Reviewed: Yes Vital Signs & Weight: Vital Signs (12 hours) Temp Pulse Resp BP BP Pulse Ox 05/09/19 11:00 98.7 F 100 18 140/88 94 L 05/09/19 08:33 92 154/96 H 05/09/19 08:25 96 05/09/19 07:18 98.0 F 92 18 154/96 H 96 05/09/19 04:00 98.8 F 97 18 160/98 H 92 L 05/09/19 00:00 98.6 F 96 18 168/111 H 93 L Weight Admit Weight 289 lb 4 oz Weight 289 lb 4 oz I&O: 05/08/19 05/09/19 05/10/19 06:59 06:59 06:59 Intake Total 1440 Balance 1440 Result Diagrams: 05/09/19 05:44 05/09/19 05:44 Additional Labs: Accuchecks 05/09/19 05/09/19 05/08/19 05:45 01:26 20:21 POC Glucose 307 H 379 H 346 H 05/08/19 05/08/19 16:02 11:10 POC Glucose 308 H 283 H Phys Exam - Physical Examination Constitutional: NAD Respiratory: no wheezing, no rhonchi Cardiovascular: RRR, no rub Gastrointestinal: soft, non-tender, positive bowel sounds Musculoskeletal: no edema wound vac+ Neurological: moves all 4 limbs Dx/Plan - Plan DVT proph w/lovenox, DVT proph w/SCDs IMPRESSION: 1. Sepsis with acute organ dysfunction secondary to infected diabetic foot ulcer.(failed conservative treatment) 2. Diabetes mellitus type 2. 3. Hypertension. 4. Obesity with a BMI of 38. 5. Metabolic acidosis, improving. 6. TRACY on CKD 2 - prob due to Sepsis 7. Anxiety. 8. Dyslipidemia. 9. Depression, mild, stable. 10. Diabetic neuropathy. 11. Hypomagnesemia/Hypokalemia 12. Diarrhea - resolved PLAN: Replace Potassium Cont Vancomycin, Zosyn and clindamycin. Monitor vancomycin level. Cont Agg. sliding scale with 15 units TID Add 10 units to sliding scale TID Cont Wound care/wound vac AM labs Restart IVF Review of Systems - Review of Systems Respiratory: negative: Cough, Dry, Shortness of Breath, Hemoptysis, SOB with Excertion, Pleuritic Pain, Sputum, Wheezing Cardiovascular: negative: chest pain, palpitations, orthopnea, paroxysmal nocturnal dyspnea, edema, light headedness, other - Medications/Allergies Allergies/Adverse Reactions: Allergies Allergy/AdvReac Type Severity Reaction Status Date / Time No Known Allergies Allergy Verified 05/05/19 18:29 Medications: Current Medications Acetaminophen (Tylenol) 650 mg PO Q4H PRN PRN Reason: Headache/Fever/Mild Pain (1-3) Last Admin: 05/05/19 20:36 Dose: 650 mg Hydrocodone Bitart/Acetaminophen ([place] 5/325) 1 tab PO Q4H PRN PRN Reason: Mild-Moderate Pain (1-5) Last Admin: 05/08/19 18:36 Dose: 1 tab Amlodipine Besylate (Norvasc) 5 mg PO BID [facility] Last Admin: 05/09/19 08:33 Dose: 5 mg Aripiprazole (Abilify) 10 mg PO DAILY [facility] Last Admin: 05/09/19 08:32 Dose: 10 mg Calcium Carbonate (Tums) 1,000 mg PO Q4H PRN PRN Reason: Heartburn or Indigestion Clindamycin Phosphate/Dextrose (Cleocin) 300 mg IVPB 0200,0800,1400,2000 [facility] Last Admin: 05/09/19 08:50 Dose: 300 mg Clonidine (Catapres) 0.1 mg PO Q4H PRN PRN Reason: SBP Greater Than 180 Dextrose/Water (Dextrose 50%) 25 gm SLOW IVP PRN PRN PRN Reason: Hypoglycemia Enoxaparin Sodium (Lovenox) 40 mg SC 0900 [facility] Last Admin: 05/09/19 08:49 Dose: 40 mg Fenofibrate (Tricor) 48 mg PO DAILY [facility] Last Admin: 05/09/19 08:33 Dose: 48 mg Glucagon (Glucagon) 1 mg IM PRN PRN PRN Reason: Hypoglycemia Piperacillin Sod/Tazobactam (Sod 3.375 gm/ Sodium Chloride) 100 mls @ 200 mls/ hr IVPB 0100,0700,1300,1900 [facility] Last Admin: 05/09/19 06:18 Dose: 100 mls Dextrose/Water (D5w) 1,000 mls @ 0 mls/hr IV .Q0M PRN PRN Reason: Hypoglycemia Insulin Glargine 45 units/ (Miscellaneous Medication) 0.45 mls @ 0 mls/hr SC BID [facility] Last Admin: 05/09/19 10:52 Dose: 0.45 mls Vancomycin HCl 1.5 gm/ Sodium (Chloride) 300 mls @ 200 mls/hr IVPB Q12H [facility] Last Admin: 05/09/19 08:27 Dose: 300 mls Sodium Chloride (Normal Saline 0.9%) 1,000 mls @ 70 mls/hr IV .[id number] [facility] Last Admin: 05/09/19 08:24 Dose: 1,000 mls Insulin Human Lispro (Humalog) 0 units SC .BEDTIME SLIDING SC PRN PRN Reason: Bedtime Correctional Scale Last Admin: 05/09/19 01:24 Dose: 5 units Insulin Human Lispro (Humalog) 0 units SC .AGGRESSIVE SLIDING PRN PRN Reason: Aggressive Correctional Scale Last Admin: 05/09/19 06:19 Dose: 11 units Insulin Human Lispro (Humalog) 15 units SC 0800,1200,1700 [facility] Last Admin: 05/09/19 08:33 Dose: 15 unit Lisinopril (Zestril) 10 mg PO BID [facility] Last Admin: 05/08/19 08:29 Dose: 10 mg Loperamide HCl (Imodium) 2 mg PO PRN PRN PRN Reason: Diarrhea/Loose Stools Magnesium Chloride (Slow-Mag) 64 mg PO BID [facility] Last Admin: 05/09/19 08:49 Dose: 64 mg Miscellaneous Medication (Pharmacy To Dose) 1 each IVPB ONE PRN PRN Reason: Pharmacy to dose Stop: 05/17/19 19:56 Ondansetron HCl (Zofran Odt) 4 mg PO Q6H PRN PRN Reason: Nausea/Vomiting Ondansetron HCl (Zofran) 4 mg IVP Q6H PRN PRN Reason: Nausea/Vomiting Potassium Chloride (Klor-Con 10) 10 meq PO TID[facility] Stop: 05/10/19 08:01 Saccharomyces Boulardii (Florastor) 250 mg PO BID [facility] Last Admin: 05/09/19 08:33 Dose: 250 mg Sodium Chloride (Flush - Normal Saline) 10 ml IVF PRN PRN PRN Reason: Saline Flush
[2019-05-09] MEDS ORDERED: Cephalexin 250 MG CAP PO SCH (12:15)
[2019-05-09] MEDS: Potassium Chloride 10 MEQ TAB PO SCH ×2 (12:51→17:42)
[2019-05-09] MEDS: Cephalexin 250 MG CAP PO SCH (17:42)
[2019-05-09] MEDS: Rifampin 300 MG CAP PO SCH (21:14)
[2019-05-10] MEDS: Sodium Chloride 0.9% 1,000 ML IV SCH (00:08)
[2019-05-10] MEDS: Cephalexin 250 MG CAP PO SCH ×4 (00:08→17:17)
[2019-05-10 05:27] LABS: #Eosinphils 0.2 thou/uL (0.0-0.7); #Lymphocytes 1.6 thou/uL (1.20-3.40); #Monocytes 0.6 thou/uL (0.11-0.59); #Neutrophils 4.3 thou/uL (1.40-6.50); %Basophils 0.7 % (0.0-1.0); %Lymphocytes 24.1 % (21.0-51.0); %Monocytes 8.5 % (0.0-10.0); %Neutrophils 63.7 % (42.0-75.0); Hemoglobin 12.4 g/dL (14.0-18.0); Mean Corpuscular HGB CONC 32.6 g/dL (32.0-36.0); Mean Corpuscular Hemoglobin 27.8 pg (27.0-31.0); Mean Corpuscular Volume 85.4 fL (78.0-98.0); Mean Platelet Volume 6.5 fL (7.4-10.4); Platelet Count 368 thou/uL (130-400); RBC Distribution Width 11.6 % (11.5-14.5); Red Blood Cell (RBC) Count 4.46 mill/uL (4.70-6.10); White Blood Cell (WBC) Count 6.7 thou/uL (4.8-10.8)
[2019-05-10 05:34] LABS: Hemoglobin A1c 12.4 % (4.0-6.0)
[2019-05-10 05:48] LABS: Anion Gap 12 mmol/L (10-20); BUN (Urea Nitrogen) 13 mg/dL (8.9-20.6); Calc. Creatinine Clearance 124 mL/min (70-130); Calcium 9.7 mg/dL (7.8-10.44); Carbon Dioxide 22 mmol/L (22-29); Chloride 107 mmol/L (98-107); Estimated GFR-MDRD 52; Glucose 184 mg/dL (70-105); Potassium 3.3 mmol/L (3.5-5.1); Sodium 138 mmol/L (136-145)
[2019-05-10] MEDS: HumaLOG 300 UNITS/3 ML VIAL SC PRN ×4 (06:28→21:12)
[2019-05-10] MEDS ORDERED: Sodium Chloride 0.9% 1,000 ML IV SCH (08:03)
[2019-05-10] MEDS: Potassium Chloride 10 MEQ TAB PO SCH (08:39)
[2019-05-10] MEDS: Rifampin 300 MG CAP PO SCH ×2 (08:39→21:10)
[2019-05-10] MEDS: Insulin Glargine 45 UNITS in Pre-Filled Syringe 1 EACH SC SCH ×2 (08:40→21:11)
[2019-05-10] MEDS: Aripiprazole 10 MG TAB PO SCH (08:40)
[2019-05-10] MEDS: Saccharomyces boulardii 250 MG CAP PO SCH (08:40)
[2019-05-10] MEDS: Enoxaparin Sodium 40 MG/0.4 ML SYRINGE SC SCH (08:40)
[2019-05-10] MEDS: Fenofibrate 48 MG TAB PO SCH (08:40)
[2019-05-10] MEDS: Amlodipine 5 MG TAB PO SCH ×2 (08:40→21:10)
[2019-05-10] MEDS: HumaLOG 300 UNITS/3 ML VIAL SC SCH ×3 (08:41→17:17)
[2019-05-10] MEDS: Magnesium Chloride 64 MG TAB PO SCH ×2 (12:13→21:11)
--- NOTE | 2019-05-10 15:19 | PDOC.PN ---
- Subjective Encounter Start Date: 05/10/19 Encounter Start Time: 07:00 Patient seen and examined for foot infection. No pain/fever. No new complaints. No overnight events - Objective Resuscitation Status - Order Detail: 05/05/19 19:21 Resuscitation Status Routine Resuscitation Status: FULL: Full Resuscitation MAR Reviewed: Yes Vital Signs & Weight: Vital Signs (12 hours) Temp Pulse Resp BP BP Pulse Ox 05/10/19 11:00 98.7 F 95 18 162/96 H 93 L 05/10/19 09:00 155/88 H 92 L 05/10/19 08:40 97 155/88 H 05/10/19 07:15 98.6 F 97 18 92 L 05/10/19 04:00 98.2 F 89 18 156/98 H 95 Weight Admit Weight 289 lb 4 oz Weight 289 lb 4 oz Result Diagrams: 05/10/19 04:54 05/10/19 04:54 Additional Labs: Accuchecks 05/10/19 05/10/19 05/10/19 11:23 05:38 01:24 POC Glucose 184 H 179 H 162 H 05/09/19 05/09/19 20:15 16:15 POC Glucose 212 H 173 H Laboratory Tests 05/10/19 05/10/19 04:54 04:54 Potassium 3.3 L Creatinine 1.51 H Hemoglobin A1c 12.4 H Phys Exam - Physical Examination Constitutional: NAD Respiratory: no wheezing, no rhonchi Cardiovascular: RRR, no rub Gastrointestinal: soft, non-tender, positive bowel sounds Musculoskeletal: no edema foot dressing + Dx/Plan - Plan DVT proph w/lovenox, DVT proph w/SCDs IMPRESSION: 1. Sepsis with acute organ dysfunction secondary to infected diabetic foot ulcer (failed conservative treatment) 2. Diabetes mellitus type 2. on Lantus/sliding scale 3. Hypertension. 4. Obesity with a BMI of 38. 5. Metabolic acidosis, improving. 6. TRACY on CKD 2 - prob due to Sepsis - improving, Lisinopril on hold 7. Anxiety. 8. Dyslipidemia. 9. Depression, mild, stable. 10. Diabetic neuropathy. 11. Hypomagnesemia/Hypokalemia 12. Diarrhea - resolved PLAN: On Keflex with Rifampin per ID Stable for dc once wound care/vac is arranged Cont Aggressive sliding scale with 15 units TID Cont Wound care/wound vac DC IVF - patient requested Review of Systems - Review of Systems Respiratory: negative: Cough, Dry, Shortness of Breath, Hemoptysis, SOB with Excertion, Pleuritic Pain, Sputum, Wheezing Cardiovascular: negative: chest pain, palpitations, orthopnea, paroxysmal nocturnal dyspnea, edema, light headedness, other - Medications/Allergies Allergies/Adverse Reactions: Allergies Allergy/AdvReac Type Severity Reaction Status Date / Time No Known Allergies Allergy Verified 05/05/19 18:29 Medications: Current Medications Acetaminophen (Tylenol) 650 mg PO Q4H PRN PRN Reason: Headache/Fever/Mild Pain (1-3) Last Admin: 05/05/19 20:36 Dose: 650 mg Hydrocodone Bitart/Acetaminophen ([place] 5/325) 1 tab PO Q4H PRN PRN Reason: Mild-Moderate Pain (1-5) Last Admin: 05/08/19 18:36 Dose: 1 tab Amlodipine Besylate (Norvasc) 5 mg PO BID [facility] Last Admin: 05/10/19 08:40 Dose: 5 mg Aripiprazole (Abilify) 10 mg PO DAILY [facility] Last Admin: 05/10/19 08:40 Dose: 10 mg Calcium Carbonate (Tums) 1,000 mg PO Q4H PRN PRN Reason: Heartburn or Indigestion Cephalexin (Keflex) 500 mg PO Q6HR [facility] Last Admin: 05/10/19 12:13 Dose: 500 mg Clonidine (Catapres) 0.1 mg PO Q4H PRN PRN Reason: SBP Greater Than 180 Dextrose/Water (Dextrose 50%) 25 gm SLOW IVP PRN PRN PRN Reason: Hypoglycemia Enoxaparin Sodium (Lovenox) 40 mg SC 0900 [facility] Last Admin: 05/10/19 08:40 Dose: 40 mg Fenofibrate (Tricor) 48 mg PO DAILY [facility] Last Admin: 05/10/19 08:40 Dose: 48 mg Glucagon (Glucagon) 1 mg IM PRN PRN PRN Reason: Hypoglycemia Dextrose/Water (D5w) 1,000 mls @ 0 mls/hr IV .Q0M PRN PRN Reason: Hypoglycemia Insulin Glargine 45 units/ (Miscellaneous Medication) 0.45 mls @ 0 mls/hr SC BID [facility] Last Admin: 05/10/19 08:40 Dose: 0.45 mls Insulin Human Lispro (Humalog) 0 units SC .BEDTIME SLIDING SC PRN PRN Reason: Bedtime Correctional Scale Last Admin: 05/09/19 21:14 Dose: 2 units Insulin Human Lispro (Humalog) 0 units SC .AGGRESSIVE SLIDING PRN PRN Reason: Aggressive Correctional Scale Last Admin: 05/10/19 12:12 Dose: 3 units Insulin Human Lispro (Humalog) 15 units SC 0800,1200,1700 [facility] Last Admin: 05/10/19 12:11 Dose: 15 unit Lisinopril (Zestril) 10 mg PO BID [facility] Last Admin: 05/08/19 08:29 Dose: 10 mg Loperamide HCl (Imodium) 2 mg PO PRN PRN PRN Reason: Diarrhea/Loose Stools Magnesium Chloride (Slow-Mag) 64 mg PO BID [facility] Last Admin: 05/10/19 12:13 Dose: 64 mg Miscellaneous Medication (Pharmacy To Dose) 1 each IVPB PRN PRN PRN Reason: Pharmacy to dose Ondansetron HCl (Zofran Odt) 4 mg PO Q6H PRN PRN Reason: Nausea/Vomiting Ondansetron HCl (Zofran) 4 mg IVP Q6H PRN PRN Reason: Nausea/Vomiting Rifampin (Rifadin) 300 mg PO 1000,2200 [facility] Last Admin: 05/10/19 08:39 Dose: 300 mg Saccharomyces Boulardii (Florastor) 250 mg PO DAILY [facility] Last Admin: 05/10/19 08:40 Dose: 250 mg Sodium Chloride (Flush - Normal Saline) 10 ml IVF PRN PRN PRN Reason: Saline Flush
[2019-05-11] MEDS: Cephalexin 250 MG CAP PO SCH ×4 (00:21→17:16)
[2019-05-11] MEDS: HumaLOG 300 UNITS/3 ML VIAL SC PRN ×4 (00:22→17:17)
[2019-05-11 05:26] LABS: Anion Gap 15 mmol/L (10-20); BUN (Urea Nitrogen) 15 mg/dL (8.9-20.6); Calc. Creatinine Clearance 114 mL/min (70-130); Calcium 9.5 mg/dL (7.8-10.44); Carbon Dioxide 20 mmol/L (22-29); Chloride 104 mmol/L (98-107); Estimated GFR-MDRD 48; Glucose 256 mg/dL (70-105); Potassium 3.5 mmol/L (3.5-5.1); Sodium 135 mmol/L (136-145)
[2019-05-11] MEDS: Sodium Chloride 0.9% 1,000 ML IV SCH (08:03)
--- NOTE | 2019-05-11 08:58 | PDOC.PN ---
- Subjective Encounter Start Date: 05/11/19 Encounter Start Time: 08:55 Patient seen and examined for foot infection. No pain/fever. No new complaints. No overnight events - Objective Resuscitation Status - Order Detail: 05/05/19 19:21 Resuscitation Status Routine Resuscitation Status: FULL: Full Resuscitation MAR Reviewed: Yes Vital Signs & Weight: Vital Signs (12 hours) Temp Pulse Resp BP BP Pulse Ox 05/11/19 08:29 98.4 F 86 18 164/105 H 95 05/11/19 03:59 98.5 F 90 20 169/101 H 95 05/11/19 00:00 98.8 F 90 20 151/85 H 95 05/10/19 21:10 86 169/99 H Weight Admit Weight 289 lb 4 oz Weight 289 lb 4 oz I&O: 05/10/19 05/11/19 05/12/19 06:59 06:59 06:59 Intake Total 1600 Balance 1600 Result Diagrams: 05/10/19 04:54 05/11/19 04:54 Additional Labs: Accuchecks 05/11/19 05/11/19 05/10/19 04:05 00:20 19:08 POC Glucose 253 H 288 H 336 H 05/10/19 05/10/19 15:51 11:23 POC Glucose 308 H 184 H Phys Exam - Physical Examination Constitutional: NAD Respiratory: no wheezing, no rhonchi Cardiovascular: RRR, no rub Gastrointestinal: soft, non-tender, positive bowel sounds Musculoskeletal: no edema foot dressing with wound vac+ Neurological: non-focal, moves all 4 limbs Dx/Plan - Plan DVT proph w/SCDs IMPRESSION: 1. Sepsis with acute organ dysfunction secondary to infected diabetic foot ulcer (failed conservative treatment) 2. Diabetes mellitus type 2 - uncontrolled - A1c 12.4 - on Lantus/sliding scale 3. Hypertension. 4. Obesity with a BMI of 38. 5. Metabolic acidosis, improving. 6. TRACY on CKD 2 - prob due to Sepsis - improving, Lisinopril on hold 7. Anxiety. 8. Dyslipidemia. 9. Depression, mild, stable. Denies any suicidal ideation 10. Diabetic neuropathy. 11. Hypomagnesemia/Hypokalemia 12. Diarrhea - resolved PLAN: Cont Keflex/Rifampin per ID Stable for dc once wound care/vac is arranged Cont Lantus with sliding scale + 15 units TID Humalog Cont Wound care/wound vac Resume Abilify at home dose (30 mg daily - Patient has med at bedside) BMP in AM Check UA and consult Nephrology Review of Systems - Review of Systems Respiratory: negative: Cough, Dry, Shortness of Breath, Hemoptysis, SOB with Excertion, Pleuritic Pain, Sputum, Wheezing Cardiovascular: negative: chest pain, palpitations, orthopnea, paroxysmal nocturnal dyspnea, edema, light headedness, other - Medications/Allergies Allergies/Adverse Reactions: Allergies Allergy/AdvReac Type Severity Reaction Status Date / Time No Known Allergies Allergy Verified 05/05/19 18:29 Medications: Current Medications Acetaminophen (Tylenol) 650 mg PO Q4H PRN PRN Reason: Headache/Fever/Mild Pain (1-3) Last Admin: 05/05/19 20:36 Dose: 650 mg Hydrocodone Bitart/Acetaminophen ([place] 5/325) 1 tab PO Q4H PRN PRN Reason: Mild-Moderate Pain (1-5) Last Admin: 05/08/19 18:36 Dose: 1 tab Amlodipine Besylate (Norvasc) 5 mg PO BID [facility] Last Admin: 05/10/19 21:10 Dose: 5 mg Aripiprazole (Abilify) 30 mg PO DAILY [facility] Calcium Carbonate (Tums) 1,000 mg PO Q4H PRN PRN Reason: Heartburn or Indigestion Cephalexin (Keflex) 500 mg PO Q6HR [facility] Last Admin: 05/11/19 05:17 Dose: 500 mg Clonidine (Catapres) 0.1 mg PO Q4H PRN PRN Reason: SBP Greater Than 180 Dextrose/Water (Dextrose 50%) 25 gm SLOW IVP PRN PRN PRN Reason: Hypoglycemia Enoxaparin Sodium (Lovenox) 40 mg SC 0900 [facility] Last Admin: 05/10/19 08:40 Dose: 40 mg Fenofibrate (Tricor) 48 mg PO DAILY [facility] Last Admin: 05/10/19 08:40 Dose: 48 mg Glucagon (Glucagon) 1 mg IM PRN PRN PRN Reason: Hypoglycemia Dextrose/Water (D5w) 1,000 mls @ 0 mls/hr IV .Q0M PRN PRN Reason: Hypoglycemia Insulin Glargine 45 units/ (Miscellaneous Medication) 0.45 mls @ 0 mls/hr SC BID [facility] Last Admin: 05/10/19 21:11 Dose: 0.45 mls Insulin Human Lispro (Humalog) 0 units SC .BEDTIME SLIDING SC PRN PRN Reason: Bedtime Correctional Scale Last Admin: 05/11/19 00:22 Dose: 3 units Insulin Human Lispro (Humalog) 0 units SC .AGGRESSIVE SLIDING PRN PRN Reason: Aggressive Correctional Scale Last Admin: 05/11/19 05:18 Dose: 9 units Insulin Human Lispro (Humalog) 15 units SC 0800,1200,1700 [facility] Last Admin: 05/10/19 17:17 Dose: 15 unit Lisinopril (Zestril) 10 mg PO BID [facility] Last Admin: 05/08/19 08:29 Dose: 10 mg Loperamide HCl (Imodium) 2 mg PO PRN PRN PRN Reason: Diarrhea/Loose Stools Magnesium Chloride (Slow-Mag) 64 mg PO BID [facility] Last Admin: 05/10/19 21:11 Dose: 64 mg Miscellaneous Medication (Pharmacy To Dose) 1 each IVPB PRN PRN PRN Reason: Pharmacy to dose Miscellaneous Medication (Pharmacy To Dose) 1 each PO .KEFLEX/RIFAMPIN PRN PRN Reason: Pharmacy to dose Ondansetron HCl (Zofran Odt) 4 mg PO Q6H PRN PRN Reason: Nausea/Vomiting Ondansetron HCl (Zofran) 4 mg IVP Q6H PRN PRN Reason: Nausea/Vomiting Rifampin (Rifadin) 300 mg PO 1000,2200 [facility] Last Admin: 05/10/19 21:10 Dose: 300 mg Saccharomyces Boulardii (Florastor) 250 mg PO DAILY [facility] Last Admin: 05/10/19 08:40 Dose: 250 mg Sodium Chloride (Flush - Normal Saline) 10 ml IVF PRN PRN PRN Reason: Saline Flush
[2019-05-11] MEDS ORDERED: Senokot 8.6 MG TAB PO PRN (09:00)
[2019-05-11] MEDS: Saccharomyces boulardii 250 MG CAP PO SCH (09:14)
[2019-05-11] MEDS: Amlodipine 5 MG TAB PO SCH (09:14)
[2019-05-11] MEDS: Magnesium Chloride 64 MG TAB PO SCH (09:15)
[2019-05-11] MEDS: Fenofibrate 48 MG TAB PO SCH (09:15)
[2019-05-11] MEDS: Rifampin 300 MG CAP PO SCH (09:16)
[2019-05-11] MEDS: HumaLOG 300 UNITS/3 ML VIAL SC SCH ×3 (09:16→17:17)
[2019-05-11] MEDS: Insulin Glargine 45 UNITS in Pre-Filled Syringe 1 EACH SC SCH (09:17)
[2019-05-11] MEDS: Enoxaparin Sodium 40 MG/0.4 ML SYRINGE SC SCH (09:18)
[2019-05-11] MEDS ORDERED: Aripiprazole 15 MG TAB PO SCH (10:15)
--- NOTE | 2019-05-11 12:01 | PRG ---
DATE OF SERVICE: 05/10/2019 SUBJECTIVE: The patient denies any headaches. No shortness of breath or abdominal pain. No diarrhea. OBJECTIVE: VITAL SIGNS: His vital signs are stable except for elevation of systolic blood pressure. GENERAL: Appears in no distress. LUNGS: Clear. HEART: S1 and S2, regular rate. ABDOMEN: Soft, not distended. EXTREMITIES: The left foot dressing was not removed. LABORATORY DATA: White cell count 6.7, hemoglobin 12.4, platelets 368. Creatinine 1.64, GFR 48. Microbiology with group G Streptococcus and group B Streptococcus. ASSESSMENT AND DISCUSSION: Type 2 diabetes, neuropathy, recent fourth toe amputation, left foot for management of osteomyelitis with resolution and healing and now with a third MPJ skin site abscess with debridement and MRI findings that are concerning for early osteitis/osteomyelitis. In view of the organisms retrieved, we will advise oral Keflex plus oral rifampin for at least 6 weeks. Follow up in the clinic with followup x-rays and laboratory data on a weekly basis, CBC, C-reactive protein, comprehensive metabolic panel. Job ID: [id number]
[2019-05-11 12:17] LABS: Bacteria/HPF None Seen HPF (None Seen); Bilirubin Negative (Negative); Blood, Urine Trace (Negative); Clarity Clear (Clear); Glucose, Urine (Dipstick) Greater than 1000 mg/dL (Negative); Leukocyte Negative Leu/uL (Negative); Nitrite Negative (Negative); Protein, Urine (Dipstick) 10 mg/dL (Neg-Trace); RBC/HPF 0-3 HPF (0-3); Squamous Epithelial None Seen HPF (0-3); Urobilinogen Normal mg/dL (Less than 2); WBC/HPF 0-3 HPF (0-3)
[2019-05-11 16:25] VITALS: TEMP 97.9
[2019-05-11 17:09] LABS: Fungus Stain Final report (.)
[2019-05-11] MEDS ORDERED: hydrALAZINE 20 MG/ML VIAL SLOW IVP PRN (17:21)
[2019-05-11] MEDS ORDERED: hydrALAZINE 20 MG/ML VIAL SLOW IVP SCH (17:30)
[2019-05-11] MEDS ORDERED: Amlodipine 5 MG TAB PO SCH (17:45)
[2019-05-11] MEDS ORDERED: hydrALAZINE 25 MG TAB PO SCH ×2 (17:45→21:00)
--- NOTE | 2019-05-11 18:51 | CON ---
DATE OF CONSULTATION: CONSULTING PHYSICIAN: Froy Seaman MD. REQUESTING PHYSICIAN: Dr. Spears. REASON FOR CONSULTATION: Acute kidney injury. IMPRESSION: 1. Acute kidney injury. This is likely medication related in the context of supratherapeutic vancomycin. 2. Morbid obesity. 3. Hypertension. 4. Diabetes mellitus, type 2. PLAN: 1. Vancomycin to be placed on hold. 2. I do agree with holding lisinopril until the renal function improves. 3. Outpatient Nephrology followup within the next 2 weeks to re-evaluate the kidney function. HISTORY OF PRESENT ILLNESS: History is that of a 38-year-old gentleman, who presented here with left foot infected ulceration. The patient was started on broad-spectrum antibiotics including vancomycin on the 18th of this month and it was noted that vancomycin was supratherapeutic with the level above 37. The patient at the same time noted with elevated creatinine. Ever since then, creatinine has been above the patient's baseline creatinine of 0.8. The patient's creatinine now hovers around 1.6. As a result of these findings, decision has been taken to involve Renal in the management of this case. The patient did receive some IV fluid, but no significant change in the GFR. PAST MEDICAL HISTORY: Significant for diabetes mellitus type 2, hypertension, dyslipidemia, obesity, anxiety, and depression. MEDICATIONS: Reviewed and as documented on [employer]. The patient has been counseled on not to touch any nonsteroidal anti-inflammatory drugs. ALLERGIES: NO KNOWN DRUG ALLERGIES. SOCIAL HISTORY: , living with the . No alcohol, tobacco, or illicit drug use. REVIEW OF SYSTEMS: As documented in the body of the history. All the other systems were reviewed and found not to be significantly related to present illness. PHYSICAL EXAMINATION: GENERAL: The patient was found not to be in any obvious distress, very eager to go home. VITAL SIGNS: Noted with the following vital signs; afebrile, temperature 98.4, pulse 86, respiratory rate of 18, O2 saturations of 95%, with blood pressure of 164/105. HEENT: Unremarkable. Moist oral mucosa. NECK: Supple. No conjunctival injection or icterus. CARDIOVASCULAR SYSTEM: First and second heart sounds were heard. RESPIRATORY SYSTEM: Clear to auscultation. DIGESTIVE SYSTEM: Revealed a benign abdomen. EXTREMITIES: No peripheral edema. SKIN: No new gross rash. LYMPHATICS: No peripheral lymphadenopathy. SUMMARY: A 38-year-old morbidly obese gentleman with diabetes mellitus, who presented here with nonhealing diabetic ulcer, now experiencing acute kidney injury. Thank you for this consultation. We will follow with you. Job ID: [id number]
[2019-05-11 19:02] VITALS: BP 163/90
[2019-05-12] MEDS ORDERED: Aripiprazole 15 MG TAB PO SCH (09:00)
--- NOTE | 2019-05-12 09:53 | DIS ---
DATE OF ADMISSION: 05/05/2019 DATE OF DISCHARGE: 05/11/2019 DISCHARGE DISPOSITION: Home. FOLLOWUP: 1. Follow up with primary care physician at [facility]. 2. Follow up with Dr. Froy Seaman in 1 week. 3. Repeat basic metabolic profile next week is recommended. Primary care physician advised to follow. 4. Follow up with Dr. Ortez and Podiatry, Dr. Steve as scheduled. 5. CBC, CMP, and CRP every week. 6. Antibiotics for approximately 6 weeks, which include Keflex 500 mg every 6 hourly and rifampin 300 mg twice a day. Lisinopril was held due to acute kidney injury. Instead, hydralazine 25 mg t.i.d. was added. All other home medications were left unchanged. 7. The patient was seen and examined on the day of discharge. Denies any new complaints. Please refer to my progress notes for detail. DIAGNOSTIC TESTS: 1. WBC on admission 13.3, at discharge 6.7. 2. CRP 17.2, magnesium 1.5. Urinalysis was negative for WBC bacteria. 3. Fungal stain is pending at this time. 4. Blood cultures negative. Stool for Clostridium difficile was negative. Foot culture showed Streptococcus group B. Anaerobic cultures are pending at this time. Primary care physician advised to follow. 5. Lower extremity CT on admission showed plantar soft tissue ulcer at the level of the 3rd metatarsal head with gas extending up to 5 mm from the cortex. 6. MRI of the left lower extremity showed findings compatible with 3rd metatarsal head osteomyelitis and 2nd and 3rd metatarsal bursitis. Questionable septic arthritis of the 3rd MTP. BRIEF HOSPITAL COURSE: The patient is a 38-year-old male with diabetes mellitus type 2, hypertension, hyperlipidemia, and obesity, presented to the hospital with fever and increased drainage from the diabetic foot ulcer. His workup was consistent with sepsis with acute organ dysfunction secondary to diabetic foot ulcer. He was seen by Podiatry, Dr. Steve as well as Infectious Disease, Dr. Ortez. On 06 May 2019, the patient underwent incision and drainage of the left foot abscess. Cultures are still pending at this time. He will continue Keflex with rifampin per Infectious Disease recommendation for 6 weeks. The patient was initially placed on vancomycin, Zosyn, and clindamycin. He developed acute kidney injury with maximum creatinine of 1.84. His creatinine on admission was 0.89. He was seen by Nephrology, Dr. Mcduffie. Dr. Mcduffie will follow up the patient as outpatient. His acute kidney injury was probably due to supratherapeutic vancomycin level. Lisinopril will be held. He will follow up with Dr. Mcduffie as outpatient. FINAL DIAGNOSES: 1. Sepsis with acute organ dysfunction secondary to infected diabetic foot ulcer with osteomyelitis. 2. Diabetes mellitus type 2, uncontrolled. His A1c was 12.4. 3. Hypertension. 4. Obesity with a BMI of 38. 5. Metabolic acidosis. 6. Acute kidney injury on chronic kidney disease stage 2 probably secondary to sepsis/supratherapeutic vancomycin level. 7. Anxiety. 8. Dyslipidemia. 9. Depression, mild, stable. 10. Diabetic neuropathy. 11. Hypokalemia, replaced. 12. Hypomagnesemia, replaced. 13. Diarrhea. Clostridium difficile ruled out. TIME SPENT WITH PATIENT: Total time coordinating the discharge of this patient was 33 minutes. Job ID: [id number]
== END 2019-05-11 19:30 | disposition home or self-care (01) | DRG 872 ==
LOC: ERS 13:33 → T4-A 17:08
PROVIDERS: ADMIT Internal Medicine; ATTEND Internal Medicine
PROC: 0Y9N0ZZ Drainage of Left Foot, Open Approach (ICD-10-PCS; principal; 2019-05-06)
DX: A41.9 Sepsis, unspecified organism (principal); E87.2 Acidosis; N17.9 Acute kidney failure, unspecified; E78.5 Hyperlipidemia, unspecified; I12.9 Hypertensive chronic kidney disease with stage 1 through stage 4 chronic kidney disease, or unspecified chronic kidney disease; E11.22 Type 2 diabetes mellitus with diabetic chronic kidney disease; E66.9 Obesity, unspecified; F32.9 Major depressive disorder, single episode, unspecified; R65.20 Severe sepsis without septic shock; N18.2 Chronic kidney disease, stage 2 (mild); F41.9 Anxiety disorder, unspecified; E11.40 Type 2 diabetes mellitus with diabetic neuropathy, unspecified; E83.42 Hypomagnesemia; R19.7 Diarrhea, unspecified; E87.6 Hypokalemia; E11.621 Type 2 diabetes mellitus with foot ulcer; L97.529 Non-pressure chronic ulcer of other part of left foot with unspecified severity; Z79.899 Other long term (current) drug therapy; Z68.38 Body mass index [BMI] 38.0-38.9, adult; Z79.4 Long term (current) use of insulin
CPT/HCPCS: 36415; 36416; 80048; 80053; 80069; 80202; 81003; 81015; 82010; 83036; 83735; 83930; 85025; 85652; 86140; 87070; 87077; 87102; 87205; 87206; 87324; 87449; 96361; 96374; 96375; J1650; J1815; J2001; J2270; J2405; J2543; J2704; J3010; J3370; J3475; J3490; J7050; S0020

== ENCOUNTER 2019-05-13 13:09 | Outpatient (CLI) | payer SELFPAY ==
[2019-05-14] MEDS ORDERED: Sodium Chloride 0.9% 15 ML NEB ONE (19:00)
== END 2019-05-13 13:10 | disposition home or self-care (01) ==
LOC: WCC 13:09
PROVIDERS: ATTEND Family Medicine
DX: T81.89XD Other complications of procedures, not elsewhere classified, subsequent encounter (principal)
CPT/HCPCS: 97605

== ENCOUNTER 2019-05-18 09:35 | Outpatient (CLI) | payer SELFPAY ==
--- NOTE | 2019-05-18 11:05 | HP ---
HISTORY OF PRESENT ILLNESS: Mr. Ari Patricio is a very pleasant 38-year-old gentleman, who presents to the Wound Center for evaluation of a wound of the plantar surface of the left foot subsequent to incision and drainage of a left foot abscess on 05/06/[address] Steve. The patient states that negative pressure therapy was initiated subsequent to surgery and upon discharge from [facility], the patient was referred to the Wound Center for assistance with dressing changes of the wound VAC. MRI obtained on 05/08/2019 revealed osteomyelitis of the third metatarsal head. During the patient's hospital stay, Mr. Patricio was seen in consultation by Dr. Ray Ortez of Infectious Diseases. The patient states that he is now taking p.o. antibiotics as per Dr. Ortez. The patient states he will be taking p.o. antibiotics for 6 weeks. PAST MEDICAL HISTORY: 1. Diabetes mellitus. 2. Hypertension. PAST SURGICAL HISTORY: 1. Incision and drainage of a groin abscess. 2. Laparoscopic appendectomy on 09/09/2013. 3. Fourth toe amputation on the left at [facility] in October of this year by Dr. Lambert in conjunction with a 6-week course of IV antibiotics. 4. Incision and drainage of left foot abscess as per HPI. MEDICATIONS: 1. Hydralazine. 2. Rifampin. 3. Clonidine. 4. Cephalexin. 5. Levemir. 6. Humalog. 7. Norvasc. 8. TriCor. ALLERGIES: NO KNOWN DIAGNOSED ALLERGIES. SOCIAL HISTORY: The patient states that he dips tobacco. He states that he uses less than one can per day and has done so for the past 10 years. Social history is negative for EtOH use. FAMILY HISTORY: Family history is significant for diabetes mellitus. The patient states that his maternal grandfather was diagnosed with diabetes mellitus. Family history is also significant for coronary artery disease. The patient states that his maternal grandfather was also diagnosed with coronary artery disease. PHYSICAL EXAMINATION: VITAL SIGNS: Temperature 98.1, pulse 116, respirations 20, and blood pressure 181/117. Accu-Chek 238. GENERAL: A 38-year-old gentleman, sitting on table in examination room, in no acute distress. HEENT: Normocephalic and atraumatic. NECK: No nuchal rigidity. CHEST: Clear to auscultation. CV: Regular rate and rhythm. ABDOMEN: Soft. EXTREMITIES: A wound of the plantar surface of the left foot is present, which measures approximately 5.1 x 4.8 cm. Granulation tissue is present within the wound margins. No purulent drainage is associated with the wound. Erythema of the skin surrounding the wound is present. No maceration of the skin of the periwound is noted. A dorsalis pedis pulse and posterior tibial pulse are both palpable on the left. Edema of the left foot is also present on exam today. NEUROLOGIC: Grossly nonfocal. ASSESSMENT AND PLAN: 1. Wound of plantar surface of left foot as described above. Negative pressure therapy will be continued with dressing changes of the wound VAC here in the Wound Center. As stated above, the patient is receiving p.o. antibiotics as per Dr. Ray Ortez of Infectious Diseases. The patient states that he will be contacted by Dr. Steve in regard to a followup appointment. I will see Mr. Patricio again in 2 weeks. 2. Diabetes mellitus. The patient's Accu-Chek in clinic today is 238. The patient has been told that for optimal wound healing, his blood glucoses should remain below 150. 3. Hypertension. Job ID: [id number]
[2019-05-18] MEDS ORDERED: Sodium Chloride 0.9% 15 ML NEB ONE (15:00)
== END 2019-05-18 09:36 | disposition home or self-care (01) ==
LOC: WCC 09:35
PROVIDERS: ATTEND Family Medicine
DX: T81.89XD Other complications of procedures, not elsewhere classified, subsequent encounter (principal); E11.9 Type 2 diabetes mellitus without complications; I10 Essential (primary) hypertension
CPT/HCPCS: 97605; 99203; A4218; G0463

== ENCOUNTER 2019-05-21 16:12 | Outpatient (CLI) | payer SELFPAY ==
[2019-05-23] MEDS ORDERED: Sodium Chloride 0.9% 15 ML NEB ONE (14:34)
== END 2019-05-21 16:13 | disposition home or self-care (01) ==
LOC: WCC 16:12
PROVIDERS: ATTEND Family Medicine
DX: T81.89XD Other complications of procedures, not elsewhere classified, subsequent encounter (principal)
CPT/HCPCS: 97605

== ENCOUNTER 2019-05-29 11:04 | Outpatient (CLI) | payer SELFPAY ==
[2019-05-29] MEDS ORDERED: Sodium Chloride 0.9% 15 ML NEB ONE (15:00)
== END 2019-05-29 11:05 | disposition home or self-care (01) ==
LOC: WCC 11:04
PROVIDERS: ATTEND Family Medicine
DX: T81.89XD Other complications of procedures, not elsewhere classified, subsequent encounter (principal)
CPT/HCPCS: A4218

== ENCOUNTER 2019-06-01 15:23 | Outpatient (CLI) | payer SELFPAY ==
[~2019-06-01 15:23] MED LIST: Sodium Chloride 0.9% 15 ML NEB ONE
== END 2019-06-01 15:24 | disposition home or self-care (01) ==
LOC: WCC 15:23
PROVIDERS: ATTEND Family Medicine
DX: T81.89XD Other complications of procedures, not elsewhere classified, subsequent encounter (principal)
CPT/HCPCS: 97605; A4218

== ENCOUNTER 2019-06-04 09:35 | Outpatient (CLI) | payer SELFPAY ==
[2019-06-04] MEDS ORDERED: Sodium Chloride 0.9% 15 ML NEB ONE (11:11)
== END 2019-06-04 09:36 | disposition home or self-care (01) ==
LOC: WCC 09:35
PROVIDERS: ATTEND Family Medicine
DX: T81.89XD Other complications of procedures, not elsewhere classified, subsequent encounter (principal)
CPT/HCPCS: 87070; 87077; 87186; 87205; 97605; A4218

== ENCOUNTER 2019-06-09 10:57 | Outpatient (CLI) | payer SELFPAY | END 2019-06-09 10:58 | disposition home or self-care (01) | LOC: WCC 10:57 | PROVIDERS: ATTEND Family Medicine | DX: T81.89XD Other complications of procedures, not elsewhere classified, subsequent encounter (principal) | CPT/HCPCS: 97605 ==

== ENCOUNTER 2019-06-12 11:02 | Outpatient (CLI) | payer SELFPAY | END 2019-06-12 11:03 | disposition home or self-care (01) | LOC: WCC 11:02 | PROVIDERS: ATTEND Family Medicine | DX: T81.89XD Other complications of procedures, not elsewhere classified, subsequent encounter (principal) | CPT/HCPCS: 97605 ==

== ENCOUNTER 2019-06-16 10:47 | Outpatient (CLI) | payer SELFPAY | END 2019-06-16 10:48 | disposition home or self-care (01) | LOC: WCC 10:47 | PROVIDERS: ATTEND Family Medicine | DX: T81.89XD Other complications of procedures, not elsewhere classified, subsequent encounter (principal) | CPT/HCPCS: A4218 ==

== ENCOUNTER 2019-06-19 12:02 | Outpatient (CLI) | payer SELFPAY | END 2019-06-19 12:03 | disposition home or self-care (01) | LOC: WCC 12:02 | PROVIDERS: ATTEND Family Medicine | DX: T81.89XD Other complications of procedures, not elsewhere classified, subsequent encounter (principal) | CPT/HCPCS: 97605; A4218 ==

== ENCOUNTER 2019-06-20 22:39 | Emergency (ER) | payer SELFPAY | END 2019-06-21 00:40 | disposition home or self-care (01) | LOC: ERS 22:39 | DX: T85.698A Other mechanical complication of other specified internal prosthetic devices, implants and grafts, initial encounter (principal); I10 Essential (primary) hypertension; E11.9 Type 2 diabetes mellitus without complications; E78.5 Hyperlipidemia, unspecified; E78.00 Pure hypercholesterolemia, unspecified; F41.9 Anxiety disorder, unspecified; F32.9 Major depressive disorder, single episode, unspecified; F17.220 Nicotine dependence, chewing tobacco, uncomplicated; Z79.899 Other long term (current) drug therapy; Z79.4 Long term (current) use of insulin | CPT/HCPCS: 99282 ==

== ENCOUNTER 2019-06-23 09:55 | Outpatient (CLI) | payer SELFPAY | END 2019-06-23 09:56 | disposition home or self-care (01) | LOC: WCC 09:55 | PROVIDERS: ATTEND Family Medicine | DX: T81.89XD Other complications of procedures, not elsewhere classified, subsequent encounter (principal) | CPT/HCPCS: 97605 ==

== ENCOUNTER 2019-06-26 09:38 | Outpatient (CLI) | payer SELFPAY | END 2019-06-26 09:39 | disposition home or self-care (01) | LOC: WCC 09:38 | PROVIDERS: ATTEND Family Medicine | DX: T81.89XD Other complications of procedures, not elsewhere classified, subsequent encounter (principal) | CPT/HCPCS: 97605; A4218 ==

== ENCOUNTER 2019-06-30 11:15 | Outpatient (CLI) | payer SELFPAY | END 2019-06-30 11:16 | disposition home or self-care (01) | LOC: WCC 11:15 | PROVIDERS: ATTEND Family Medicine | DX: T81.89XD Other complications of procedures, not elsewhere classified, subsequent encounter (principal) | CPT/HCPCS: A4218 ==

== ENCOUNTER 2019-07-02 11:41 | Outpatient (CLI) | payer SELFPAY ==
--- NOTE | 2019-07-02 12:05 | PRG ---
DATE OF SERVICE: 07/02/2019 HISTORY: Mr. Ari Patricio is a very pleasant 38-year-old gentleman who presents to the Wound Center for evaluation of a wound of the plantar surface of the left foot subsequent to incision and drainage of a left foot abscess on 05/06/2019, by Dr. Steve. The patient stated that negative pressure therapy was initiated subsequent to surgery and upon discharge from [facility], the patient was referred to the Wound Center for assistance with dressing changes of the wound VAC. MRI obtained on 05/08/2019, revealed osteomyelitis of the third metatarsal head. During the patient's hospital stay, Mr. Patricio was seen in consultation by Dr. Ray Ortez of Infectious Diseases. The patient was placed on a course of p.o. antibiotics by Dr. Ortez which he stated he will be taking for 6 weeks. PHYSICAL EXAMINATION: VITAL SIGNS: Temperature 97.8, pulse 110, respirations 21, and blood pressure 139/104. Accu-Chek 200. EXTREMITIES: A wound of the plantar surface of the left foot is present, which measures approximately 4.8 x 4.8 cm. Granulation tissue is present within the wound margins. No purulent drainage is associated with the wound. No cellulitis of the left foot is appreciated. No maceration of the skin of the periwound is noted. A dorsalis pedis pulse and posterior tibial pulse are both palpable on the left. No significant edema of the left foot is present on exam today. ASSESSMENT AND PLAN: 1. Wound of plantar surface of left foot as described above. Negative pressure therapy will be continued with dressing changes of the wound VAC here in the Wound Center. As stated above, the patient is receiving p.o. antibiotics as per Dr. Ray Ortez of Infectious Diseases. The patient states that he was seen by Dr. Steve last week. I will see Mr. Patricio again in 2 weeks. 2. Diabetes mellitus. he patient's Accu-Chek in clinic today is 200. The patient has been reminded that for optimal wound healing, his blood glucoses should remain below 150. 3. Hypertension. Job ID: [id number]
== END 2019-07-02 11:42 | disposition home or self-care (01) ==
LOC: WCC 11:41
PROVIDERS: ATTEND Family Medicine
DX: T81.89XD Other complications of procedures, not elsewhere classified, subsequent encounter (principal); E11.9 Type 2 diabetes mellitus without complications; I10 Essential (primary) hypertension
CPT/HCPCS: A4218

== ENCOUNTER 2019-07-07 14:57 | Outpatient (CLI) | payer SELFPAY ==
[2019-07-07] MEDS ORDERED: Sodium Chloride 0.9% 15 ML NEB ONE (15:00)
== END 2019-07-07 14:58 | disposition home or self-care (01) ==
LOC: WCC 14:57
PROVIDERS: ATTEND Family Medicine
DX: T81.89XD Other complications of procedures, not elsewhere classified, subsequent encounter (principal)
CPT/HCPCS: A4218

== ENCOUNTER 2019-07-10 14:41 | Outpatient (CLI) | payer SELFPAY ==
[2019-07-10] MEDS ORDERED: Sodium Chloride 0.9% 15 ML NEB ONE (17:55)
== END 2019-07-10 14:42 | disposition home or self-care (01) ==
LOC: WCC 14:41
PROVIDERS: ATTEND Family Medicine
DX: T81.89XD Other complications of procedures, not elsewhere classified, subsequent encounter (principal)
CPT/HCPCS: 97605; A4218

== ENCOUNTER 2019-07-14 13:04 | Outpatient (CLI) | payer SELFPAY | END 2019-07-14 13:05 | disposition home or self-care (01) | LOC: WCC 13:04 | PROVIDERS: ATTEND Family Medicine | DX: T81.89XD Other complications of procedures, not elsewhere classified, subsequent encounter (principal) | CPT/HCPCS: 97605 ==

== ENCOUNTER 2019-07-17 10:51 | Outpatient (CLI) | payer SELFPAY ==
[2019-07-17] MEDS ORDERED: Sodium Chloride 0.9% 15 ML NEB ONE (15:00)
== END 2019-07-17 10:52 | disposition home or self-care (01) ==
LOC: WCC 10:51
PROVIDERS: ATTEND Family Medicine
DX: T81.89XD Other complications of procedures, not elsewhere classified, subsequent encounter (principal)
CPT/HCPCS: A4218

== ENCOUNTER 2019-07-20 14:18 | Outpatient (CLI) | payer SELFPAY ==
[2019-07-20] MEDS ORDERED: Sodium Chloride 0.9% 15 ML NEB ONE (18:22)
== END 2019-07-20 14:19 | disposition home or self-care (01) ==
LOC: WCC 14:18
PROVIDERS: ATTEND Family Medicine
DX: T81.89XD Other complications of procedures, not elsewhere classified, subsequent encounter (principal)
CPT/HCPCS: 97605; A4218

== ENCOUNTER 2019-07-23 15:29 | Outpatient (CLI) | payer SELFPAY | END 2019-07-23 15:30 | disposition home or self-care (01) | LOC: WCC 15:29 | PROVIDERS: ATTEND Family Medicine | DX: T81.89XD Other complications of procedures, not elsewhere classified, subsequent encounter (principal) | CPT/HCPCS: 97605 ==

== ENCOUNTER 2019-08-10 12:21 | Inpatient (IN) | payer SELFPAY ==
[2019-08-10 12:58] LABS: #Basophils 0.1 thou/uL (0.0-0.2); #Eosinphils 0.1 thou/uL (0.0-0.7); #Lymphocytes 2.2 thou/uL (1.20-3.40); #Monocytes 0.7 thou/uL (0.11-0.59); #Neutrophils 8.6 thou/uL (1.40-6.50); %Basophils 0.4 % (0.0-1.0); %Eosinophils 1.2 % (0.0-10.0); %Lymphocytes 19.1 % (21.0-51.0); %Neutrophils 73.4 % (42.0-75.0); Hemoglobin 14.3 g/dL (14.0-18.0); Mean Corpuscular HGB CONC 33.7 g/dL (32.0-36.0); Mean Corpuscular Hemoglobin 27.2 pg (27.0-31.0); Mean Corpuscular Volume 80.6 fL (78.0-98.0); Mean Platelet Volume 7.3 fL (7.4-10.4); Platelet Count 473 thou/uL (130-400); RBC Distribution Width 12.3 % (11.5-14.5); Red Blood Cell (RBC) Count 5.27 mill/uL (4.70-6.10); White Blood Cell (WBC) Count 11.7 thou/uL (4.8-10.8)
[2019-08-10 13:20] LABS: ALT (SGPT) 10 U/L (8-55); AST (SGOT) 9 U/L (5-34); Albumin 3.3 g/dL (3.5-5.0); Alkaline Phosphatase 122 U/L (40-110); Anion Gap 20 mmol/L (10-20); BUN (Urea Nitrogen) 9 mg/dL (8.9-20.6); Bilirubin, Total 0.3 mg/dL (0.2-1.2); Calc. Creatinine Clearance 0 mL/min (70-130); Calcium 9.4 mg/dL (7.8-10.44); Carbon Dioxide 19 mmol/L (22-29); Chloride 96 mmol/L (98-107); Estimated GFR-MDRD 71; Globulin 4.6 g/dL (2.4-3.5); Glucose 526 mg/dL (70-105); Potassium 3.8 mmol/L (3.5-5.1); Protein, Total 7.9 g/dL (6.0-8.3); Sodium 131 mmol/L (136-145)
[2019-08-10] MEDS ORDERED: Insulin Regular 300 UNITS/3 ML VIAL ONE (13:43)
--- NOTE | 2019-08-10 13:56 | RAD ---
Left foot:3 views INDICATION:Foot infection COMPARISON:05/05/2019 FINDINGS: Tarsals appear intact. There is been prior amputation of the fourth metatarsal, midshaft. Destructive process is now seen involving the mid and distal fifth metatarsal consistent with osteomy elitis. This is occurred since prior exam. Erosive change involving the head of the third metatarsal consistent with osteomyelitis. Erosive murrell ge involving the proximal phalanx of third digit at the MTP joint. Periosteal reaction involving proximal phalanx of third and fifth toes. Soft tissue swelling laterally and dorsally. I cannot exclude gas in the dorsal soft tissues. IMPRESSION: Evidence of osteomyelitis involving the fifth metatarsal, distal third metatarsal, proximal phalanx o f the third and fifth toes. Soft tissue swelling with soft tissue gas density.
[2019-08-10] MEDS ORDERED: Heparin 1,000 UNITS/ML VIAL ONE (15:00)
[2019-08-10 17:18] LABS: Lactic Acid 2.6 mmol/L (0.5-2.2)
[2019-08-10 18:40] VITALS: BMI 35.7
[2019-08-10] MEDS ORDERED: Dextrose 50% Abboject 50 ML SYRINGE SLOW IVP PRN (20:10)
[2019-08-10] MEDS ORDERED: Acetaminophen 500 MG TAB PO PRN (20:10)
[2019-08-10] MEDS ORDERED: Ondansetron ODT 4 MG TAB PO PRN (20:10)
[2019-08-10] MEDS ORDERED: hydrALAZINE 20 MG/ML VIAL SLOW IVP PRN (20:10)
[2019-08-10] MEDS ORDERED: Ondansetron PF 4 MG/2 ML Vial IVP PRN (20:10)
[2019-08-10] MEDS ORDERED: HumaLOG 300 UNITS/3 ML VIAL SC PRN (20:10)
[2019-08-10] MEDS ORDERED: Dextrose 5% in Water 1,000 ML IV PRN (20:10)
[2019-08-10] MEDS ORDERED: Non-Formulary Item 1 EACH (Insulin Detemir [Levemir] 50 UNIT) SQ SCH (21:00)
[2019-08-10] MEDS: Sodium Chloride 0.9% 1,000 ML IV SCH (21:11)
[2019-08-10] MEDS: Famotidine 20 MG TAB PO SCH (21:46)
[2019-08-10] MEDS: Insulin Glargine 50 UNITS in Pre-Filled Syringe 1 EACH SC SCH (21:48)
[2019-08-10] MEDS: HumaLOG 300 UNITS/3 ML VIAL SC SCH (21:51)
[2019-08-10] MEDS: Piperacillin/Tazobactam 4.5 GM in Sodium Chloride 0.9% 100 ML IVPB SCH (23:10)
--- NOTE | 2019-08-11 01:08 | HP ---
[facility] CHIEF COMPLAINT: Diabetic left foot infection. HISTORY OF PRESENT ILLNESS: This is a 38-year-old male, who presented to [facility] complaining of 2-3 day history of malodorous discharge from the left foot wound in the context of prior diabetic foot ulceration. The patient was admitted to [facility] in April 2019, diagnosed with diabetic foot infection including sepsis with osteomyelitis. The patient underwent incision and drainage of the left foot abscess and discharged home on oral Keflex and rifampin x6 weeks. The patient had been initially treated with vancomycin, Zosyn, and clindamycin. However, developed acute kidney injury due to likely vancomycin component. The patient states he noted a dime-sized ulcer on the top portion of his left foot within the last 24 to 48 hours with malodorous discharge. The patient states he has been compliant with his diabetic regimen, however, has been titrated on his home insulin regimen by his primary care provider. Last A1c evaluation on review of the electronic record shows hemoglobin A1c of 12.4 on 05/10/2019. The patient describes minimal pain to the left foot with decreased and loss of sensation to the left outer portion of his foot and small toe. In the emergency room, the patient underwent general evaluation including plain radiographs of the left foot showing evidence of osteomyelitis with bony destruction of the distal 3rd and 5th metatarsals as well as proximal phalanx of the same toes. The patient received IV Levaquin in addition to vancomycin and intravenous normal saline. PAST MEDICAL HISTORY: 1. Left diabetic foot osteomyelitis and infection, status post incision and drainage of abscess. 2. Diabetes mellitus type 2, insulin-requiring with peripheral neuropathy and chronic kidney disease. 3. Hyperlipidemia. 4. Morbid obesity. 5. Hyperlipidemia. 6. Anxiety/depression. 7. Smokeless tobacco use. PAST SURGICAL HISTORY: 1. 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 2. Status post incision and drainage of left foot abscess, 04/2019. 3. Status post appendectomy 2012. CURRENT MEDICATIONS: 1. Amlodipine 10 mg p.o. daily. 2. Abilify 30 mg p.o. daily. 3. Tricor 48 mg p.o. daily. 4. Humalog 30 units subcutaneously t.i.d. 5. Levemir 50 units subcutaneously b.i.d. 6. Lisinopril 40 mg p.o. daily. ALLERGIES: NO KNOWN DRUG ALLERGIES. FAMILY HISTORY: Positive for coronary artery disease. SOCIAL HISTORY: The patient lives with his family in [place], [place]. Smokeless tobacco use daily. Occasional alcohol use. No illicit drug use. REVIEW OF SYSTEMS: CONSTITUTIONAL: Negative for weight loss or gain, ability to conduct usual activities. SKIN: Negative for rash, itching. EYES: Negative for double vision, pain. ENT/MOUTH: Negative for nose bleeding, neck stiffness, pain, tenderness. CARDIOVASCULAR: Negative for palpitations, dyspnea on exertion, orthopnea. RESPIRATORY: Negative for shortness of breath, wheezing, cough, hemoptysis, fever or night sweats. GASTROINTESTINAL: Negative for poor appetite, abdominal pain, heartburn, nausea, vomiting, constipation, or diarrhea. GENITOURINARY: Negative for urgency, frequency, dysuria, nocturia. MUSCULOSKELETAL: Negative for pain, swelling. NEUROLOGIC/PSYCHIATRIC: Negative for anxiety, depression. ALLERGY/IMMUNOLOGIC: Negative for skin rash, bleeding tendency. Otherwise negative except as stated per HPI. PHYSICAL EXAMINATION: VITAL SIGNS: On admission, blood pressure 143/72, pulse 110, respiratory rate 16, temperature 98.3 degrees Fahrenheit, O2 saturation 93% on room air. GENERAL APPEARANCE: This is a 38-year-old male, alert and oriented x3, pleasant, responsive, in no acute distress. HEENT: Pupils are equal, round, reactive to light and accommodation. Extraocular muscles are intact. No scleral icterus. No conjunctival injection. Nares patent, OP is clear, teeth in fair repair. NECK: Supple. No cervical adenopathy. No thyromegaly. No carotid bruits. No JVD appreciated. Cervical spine with full active and passive range of motion. No meningeal signs noted. CHEST: Lungs are clear to auscultation bilaterally. CARDIOVASCULAR: S1, S2 without noted murmur, rub, or gallop. Positive tachycardia. ABDOMEN: Obese, soft, nontender, and nondistended. Bowel sounds are positive in all 4 quadrants. There is no hepatosplenomegaly. No abdominal bruits. No rebound or guarding appreciated. EXTREMITIES: Warm and dry with fair turgor. Edema noted to the left foot with amputation of the left 4th toe. Ulceration noted on the dorsum and lateral aspect of the left foot with malodorous purulence. Positive erythema and edema with mild tenderness to palpation. NEUROLOGIC: Cranial nerves 2 through 12 are grossly intact. Decreased sensation to light and sharp discrimination of the left lower extremity and foot. PERTINENT LAB AND X-RAY FINDINGS: Sodium 131, potassium 3.8, chloride 96, CO2 of 19, BUN 9, creatinine 1.16, estimated GFR 71, glucose 526, lactic acid level ranged between 2.6 to 3.7. LFTs within normal limits. CBC showed a white blood cell count of 11.7, hemoglobin 14, hematocrit 43, platelet count 473 with 73% neutrophils. Three views of the left foot dated 08/10/2019, showed osteomyelitis of the 3rd and 5th metatarsal as well as proximal phalanx of the 3rd and 5th toes. Soft tissue edema and gas noted. IMAGING: EKG dated 08/10/2019 by my interpretation shows sinus tachycardia with heart rates in the 120s. Poor R-wave progression noted in the precordial leads. Normal axis. No acute ST-T wave changes noted. ASSESSMENT/PLAN: 1. Sepsis secondary to left diabetic foot infection. The patient will be admitted to the medical floor. We will continue vancomycin 1.75 g IV q.12 hours with additional Zosyn 4.5 g IV q.6 hours. Blood cultures pending. Consult Surgical Service for evaluation and consideration for debridement versus amputation. Wound care consult for local care and monitoring. 2. Diabetes mellitus type 2 with diabetic nephropathy, uncontrolled. Continue insulin sliding scale for reflexive coverage. Confirm home insulin regimen. ADA diet. Consider repeat hemoglobin A1c assessment. 3. Hyponatremia. Suspect secondary to hyperglycemia. We will continue intravenous normal saline at 100 mL/hour. Repeat sodium level in the a.m. 4. Chronic kidney disease, stage 2. Avoid nephrotoxic agents limit contrast exposure. Serial creatinine monitoring. 5. Hypertension. Resume home antihypertensive regimen and monitor clinical response. 6. Prophylaxis. Hold sequential compression devices due to edema of the left lower extremity and active infection. Lovenox 40 mg subcutaneously daily. Wound care consult. CODE STATUS: Full. Surrogate medical decision maker is the patient's spouse. Job ID: [id number]
[2019-08-11] MEDS: Vancomycin HCl 1.75 GM in Sodium Chloride 0.9% 500 ML IVPB SCH ×2 (01:18→13:21)
[2019-08-11] MEDS: Piperacillin/Tazobactam 4.5 GM in Sodium Chloride 0.9% 100 ML IVPB SCH ×2 (05:28→11:30)
[2019-08-11] MEDS: Sodium Chloride 0.9% 1,000 ML IV SCH ×4 (05:31→21:49)
[2019-08-11] MEDS: HumaLOG 300 UNITS/3 ML VIAL SC PRN ×3 (05:34→17:17)
[2019-08-11 05:38] LABS: Band 1 % (5-11); Eosinophils 4 % (0-10); Hemoglobin 12.6 g/dL (14.0-18.0); Lymphocytes 37 % (21-51); MDiff Complete? YES; Mean Corpuscular HGB CONC 34.1 g/dL (32.0-36.0); Mean Corpuscular Hemoglobin 27.2 pg (27.0-31.0); Mean Corpuscular Volume 79.9 fL (78.0-98.0); Mean Platelet Volume 6.9 fL (7.4-10.4); Metamyelocyte 1 % (0-0); Monocytes 7 % (0-10); Neutrophil 50 % (42-75); Platelet Count 408 thou/uL (130-400); Platelet Morphology Comment Appears Increased; RBC Distribution Width 12.1 % (11.5-14.5); Red Blood Cell (RBC) Count 4.61 mill/uL (4.70-6.10); White Blood Cell (WBC) Count 7.3 thou/uL (4.8-10.8)
[2019-08-11 05:51] LABS: Anion Gap 11 mmol/L (10-20); BUN (Urea Nitrogen) 9 mg/dL (8.9-20.6); Calc. Creatinine Clearance 202 mL/min (70-130); Calcium 8.8 mg/dL (7.8-10.44); Carbon Dioxide 27 mmol/L (22-29); Chloride 104 mmol/L (98-107); Estimated GFR-MDRD Greater than 90; Glucose 178 mg/dL (70-105); Potassium 3.5 mmol/L (3.5-5.1); Sodium 138 mmol/L (136-145)
[2019-08-11] MEDS: Lisinopril 20 MG TAB PO SCH (08:26)
[2019-08-11] MEDS: Fenofibrate 48 MG TAB PO SCH (08:26)
[2019-08-11] MEDS: Amlodipine 10 MG TAB PO SCH (08:26)
[2019-08-11] MEDS: Famotidine 20 MG TAB PO SCH ×2 (08:26→20:01)
[2019-08-11] MEDS: Aripiprazole 10 MG TAB PO SCH (08:26)
[2019-08-11] MEDS: Enoxaparin Sodium 40 MG/0.4 ML SYRINGE SC SCH (08:27)
[2019-08-11] MEDS: Insulin Glargine 50 UNITS in Pre-Filled Syringe 1 EACH SC SCH ×2 (08:28→21:48)
[2019-08-11] MEDS: HumaLOG 300 UNITS/3 ML VIAL SC SCH ×3 (08:29→21:49)
[2019-08-11] MEDS ORDERED: FLU VACC QS2019-20(6MOS UP)/PF 60 MCG/0.5 ML SYRINGE IM ONE (09:00)
--- NOTE | 2019-08-11 11:04 | PDOC.HOSPP ---
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 - Objective Vital Signs & Weight: Vital Signs (12 hours) Temp Pulse Resp BP Pulse Ox 08/11/19 08:30 99 08/11/19 07:14 98.0 F 87 18 159/97 H 99 08/11/19 04:00 97.6 F 76 18 154/87 H 97 08/11/19 00:00 97.6 F 87 18 131/77 94 L Weight Weight 271 lb I&O: 08/10/19 08/11/19 08/12/19 06:59 06:59 06:59 Intake Total 1840 Balance 1840 Result Diagrams: 08/11/19 05:09 08/11/19 05:09 Additional Labs: Accuchecks 08/11/19 08/10/19 08/10/19 04:15 19:22 18:00 POC Glucose 153 H 319 H 305 H Hospitalist ROS - Medication Medications: Active Medications Generic Name Dose Route Start Last Admin Trade Name Freq PRN Reason Stop Dose Admin Acetaminophen 1,000 mg 08/10/19 20:10 08/10/19 21:30 Tylenol PO 1,000 mg Q6H PRN Administration Mild Pain (1-3) Amlodipine Besylate 10 mg 08/11/19 09:00 08/11/19 08:26 Norvasc PO 10 mg DAILY BHAVNA Administration Aripiprazole 30 mg 08/11/19 09:00 08/11/19 08:26 Abilify PO 30 mg DAILY BHAVNA Administration Enoxaparin Sodium 40 mg 08/11/19 09:00 08/11/19 08:27 Lovenox SC 40 mg 0900 BHAVNA Administration Famotidine 20 mg 08/10/19 21:00 08/11/19 08:26 Pepcid PO 20 mg BID BHAVNA Administration Fenofibrate 48 mg 08/11/19 09:00 08/11/19 08:26 Tricor PO 48 mg DAILY BHAVNA Administration Sodium Chloride 1,000 mls @ 100 mls/hr 08/10/19 20:10 08/11/19 05:31 Normal Saline 0.9% IV Not Given .Q10H BHAVNA Piperacillin Sod/Tazobactam 100 mls @ 200 mls/hr 08/10/19 23:59 08/11/19 05: 28 Sod 4.5 gm/ Sodium Chloride IVPB 100 mls Q6HR BHAVNA Administration Vancomycin HCl 1.75 gm/ Sodium 500 mls @ 250 mls/hr 08/11/19 01:00 08/11/19 01:18 Chloride IVPB 500 mls 0100,1300 BHAVNA Administration Insulin Glargine 50 units/ 0.5 mls @ 0 mls/hr 08/10/19 21:00 08/11/19 08:28 Miscellaneous Medication SC 0.5 mls BID BHAVNA Administration Insulin Human Lispro 0 units 08/10/19 20:10 08/11/19 05:34 Humalog SC 2 unit .MODERATE SLIDING SC PRN Administration Moderate Correctional Scale Insulin Human Lispro 30 units 08/10/19 21:00 08/11/19 08:29 Humalog SC Not Given TID BHAVNA Lisinopril 40 mg 08/11/19 09:00 08/11/19 08:26 Zestril PO 40 mg DAILY BHAVNA Administration Sodium Chloride 10 ml 08/10/19 21:00 08/11/19 08:27 Flush - Normal Saline IVF 10 ml Q12HR BHAVNA Administration - Exam General Appearance: NAD, awake alert, ill appearing Eye: PERRL, anicteric sclera, scleral icterus ENT: normocephalic atraumatic, no oropharyngeal lesions, moist mucosa, dry oral mucosa Neck: supple, symmetric, no JVD, no thyromegaly, no lymphadenopathy, no carotid bruit, JVD Heart: RRR, no murmur, no gallops, no rubs, normal peripheral pulses, irregular , diminshed peripheral pulses, murmur present, II/IV, III/IV Gastrointestinal: soft, non-tender, non-distended, normal bowel sounds, no palpable masses, no hepatomegaly, no splenomegaly, no bruit, no guarding, no rigidity, tender to palpation, distended, diminished bowl sounds, voluntary guarding Extremities: no cyanosis, no clubbing, no edema, 1+ LE edema, 2+ LE edema, clubbing Extremities - other findings: bandage applied Hosp A/P (1) Osteomyelitis Code(s): M86.9 - OSTEOMYELITIS, UNSPECIFIED Status: Acute (2) Diabetic foot infection Code(s): E11.628 - TYPE 2 DIABETES MELLITUS WITH OTHER SKIN COMPLICATIONS; L08.9 - LOCAL INFECTION OF THE SKIN AND SUBCUTANEOUS TISSUE, UNSP Status: Acute - Plan plan discussed w/ family, continue antibiotics, PT/OT, DVT proph w/lovenox Continue antibiotics, consult ID and podiatry. General surgery deffered the care to Podiatry.
[2019-08-11] MEDS: Cefepime 1 GM in Sodium Chloride 0.9% 100 ML IVPB SCH ×2 (13:27→21:47)
[2019-08-11] MEDS: metroNIDAZOLE 500 MG TAB PO SCH ×2 (15:59→20:01)
--- NOTE | 2019-08-11 18:10 | CON ---
DATE OF CONSULTATION: REASON FOR CONSULTATION: Left foot inflammatory process recrudescence. HISTORY OF PRESENT ILLNESS: This is a 38-year-old, whom I had seen recently in April when he presented with an inflammatory process in the left 5th metatarsal and a history of type 2 diabetes mellitus. He had previously been treated at [facility] for left foot osteomyelitis involving the 4th toe, had an amputation and protracted IV antimicrobial therapy, and developed an ulcer in the 3rd MPJ skin site plantar aspect and was admitted for management. He had debridement of the area. The operative report is reviewed again with an intervention by Dr. Steve and the foot was prepped and there were 2 ulcerations, 1 below the 3rd metatarsal head and 1 below the 5th metatarsal head. Probing of the area showed communication between the 2, so incision was made between the 2 wounds and necrotic tissue within the sub 3rd metatarsal head was excised and there was a large pocket of purulence under the 3rd metatarsal head. All nonviable tissue was excised. There was a communicative contract proximally along the course of the plantar fascia. Another incision was made from the 3rd metatarsal along this tunnel. The patient had an MRI of the area in April and it showed findings consistent with 3rd metatarsal head osteomyelitis and 2nd and 3rd metatarsal bursitis. His cultures then yielded Strep group G, group B strep in 3 different anaerobes. The anaerobes were actually reported after discharge date. By the discharge date, the only organisms identified were group G Streptococcus and group B strep. He was discharged on oral Keflex plus oral rifampin and followup in the clinic recommended. I did not see him in the clinic and he had a wound VAC placed and 6 weeks later the dressing was removed and the plantar wound had almost completely healed and the erythematous changes had improved as well. Then 2 or 3 weeks later, he developed what he describes as an odor and a new opening at this time in the dorsal aspect of the 4th metatarsal, associated with erythema around that area. Also, the wound in the plantar aspect re-opened with quite prominent drainage with purulent bloody drainage as well. He was therefore referred for re-admission. He denied any headaches. No shortness of breath or chest pain. No abdominal pain or diarrhea. No vomiting. No bleeding. No genitourinary symptoms. PAST MEDICAL HISTORY: 1. Type 2 diabetes. 2. Neuropathy. 3. Complications in the left foot, which have led to the partial amputations and surgical debridement. PROCEDURES: Prior appendectomy. SOCIAL HISTORY: Current smoker. No other drug use. ALLERGIES: NONE. FAMILY HISTORY: Noncontributory. CURRENT MEDICATIONS: 1. [place]. 2. Abilify. 3. Lovenox. 4. Pepcid. 5. TriCor. 6. Insulin. 7. Lisinopril. 8. Zosyn. 9. Vancomycin. PHYSICAL EXAMINATION: VITAL SIGNS: Temperature has been normal, blood pressure 150/90, pulse 92, respirations 20, and O2 saturation 96. GENERAL: He appears in no distress. SKIN: The left foot inflammatory changes with 2 openings, 1 in the dorsal aspect of the 4th metatarsal and a second 1 in the plantar aspect. There is moderate swelling associated with this area. The bottom aspect ulcer is about 2 cm in diameter with a bloody purulent drainage at the base. The patient has a peripheral IV access and is voiding in the toilet. No lymphadenopathy. HEENT: Ocular movements conjugate. Nasal passages are patent. Oral cavity with numerous teeth with some decay and gum disease. NECK: Supple. No jugular vein distention or carotid bruits. LUNGS: Symmetric. Clear breath sounds. HEART: S1 and S2. Regular rate. No S3 or S4. ABDOMEN: Soft, not distended or tender. No ascites. No bladder distention. Abdomen is flat. EXTREMITIES: No joint inflammatory activity. Pulses are 1+ in dorsalis pedis. Cap refill is normal. NEUROLOGIC: Nonfocal including cognitive function. LABORATORY DATA: White cell count is 11.7 and 7.3, hemoglobin 12.6, and platelets 408 with 50% neutrophils. Sodium 138 and creatinine 0.87. Liver profile within normal limits except for alkaline phosphatase of 122 and albumin 3.3. Two sets of blood cultures are pending. The final anaerobic culture from May was no growth in 4 days. Foot x-ray from this admission with osteomyelitis 5th and distal 3rd metatarsal and proximal phalanx of 3rd and 5th toes. ASSESSMENT: Type 2 diabetes with recurrent inflammatory process in the left foot at the 3rd and 5th metatarsal amputation areas and recent debridement. DISCUSSION: The recrudescence is probably due to the anaerobic component was present plus the presence of osteomyelitis. He will likely need amputation of the 3rd and debridement of the 5th ray again plus debridement of the areas of necrotic tissue. At this time, he will require PICC line placement and protracted IV antimicrobial therapy administration following the results of the cultures obtained during surgery. For the time being, we will continue with the current regimen. Job ID: [id number]
[2019-08-11] MEDS: HYDROcodone/Acetaminophen 5/325 mg Tablet PO PRN (19:41)
[2019-08-12 00:59] LABS: Vancomycin, Trough 3.5 ug/mL
[2019-08-12] MEDS: Cefepime 1 GM in Sodium Chloride 0.9% 100 ML IVPB SCH ×3 (05:29→21:01)
[2019-08-12] MEDS: HumaLOG 300 UNITS/3 ML VIAL SC PRN (05:30)
[2019-08-12] MEDS: metroNIDAZOLE 500 MG TAB PO SCH ×3 (08:53→20:19)
[2019-08-12] MEDS: Aripiprazole 10 MG TAB PO SCH (08:53)
[2019-08-12] MEDS: Fenofibrate 48 MG TAB PO SCH (08:53)
[2019-08-12] MEDS: Famotidine 20 MG TAB PO SCH ×2 (08:53→20:18)
[2019-08-12] MEDS: Enoxaparin Sodium 40 MG/0.4 ML SYRINGE SC SCH (08:54)
[2019-08-12] MEDS: Lisinopril 20 MG TAB PO SCH (08:54)
[2019-08-12] MEDS: Amlodipine 10 MG TAB PO SCH (08:59)
[2019-08-12] MEDS: Insulin Glargine 50 UNITS in Pre-Filled Syringe 1 EACH SC SCH ×2 (09:06→20:20)
[2019-08-12] MEDS: HumaLOG 300 UNITS/3 ML VIAL SC SCH ×3 (09:07→20:19)
--- NOTE | 2019-08-12 09:53 | PDOC.HOSPP ---
- Subjective Encounter Date: 08/12/19 Encounter Time: 09:51 Subjective: No new complaints, the patient has been resting - Objective Vital Signs & Weight: Vital Signs (12 hours) Temp Pulse Resp BP BP Pulse Ox 08/12/19 08:59 98 166/109 H 08/12/19 08:54 166/109 H 08/12/19 07:19 98.4 F 89 18 159/100 H 96 08/12/19 04:00 97.9 F 87 18 160/98 H 97 08/12/19 00:00 97.8 F 94 18 134/74 97 Weight Admit Weight 271 lb Weight 271 lb I&O: 08/11/19 08/12/19 08/13/19 06:59 06:59 06:59 Intake Total 1840 4800 Balance 1840 4800 Result Diagrams: 08/11/19 05:09 08/11/19 05:09 Additional Labs: Accuchecks 08/12/19 08/11/19 08/11/19 04:36 20:16 16:27 POC Glucose 201 H 296 H 315 H 08/11/19 10:39 POC Glucose 201 H Hospitalist ROS - Medication Medications: Active Medications Generic Name Dose Route Start Last Admin Trade Name Freq PRN Reason Stop Dose Admin Acetaminophen 1,000 mg 08/10/19 20:10 08/10/19 21:30 Tylenol PO 1,000 mg Q6H PRN Administration Mild Pain (1-3) Hydrocodone Bitart/Acetaminophen 1 tab 08/10/19 20:10 08/11/19 19:41 [place] 5/325 PO 1 tab Q4H PRN Administration Moderate Pain (4-6) Amlodipine Besylate 10 mg 08/11/19 09:00 08/12/19 08:59 Norvasc PO 10 mg DAILY BHAVNA Administration Aripiprazole 30 mg 08/11/19 09:00 08/12/19 08:53 Abilify PO 30 mg DAILY BHAVNA Administration Enoxaparin Sodium 40 mg 08/11/19 09:00 08/12/19 08:54 Lovenox SC 40 mg 0900 BHAVNA Administration Famotidine 20 mg 08/10/19 21:00 08/12/19 08:53 Pepcid PO 20 mg BID BHAVNA Administration Fenofibrate 48 mg 08/11/19 09:00 08/12/19 08:53 Tricor PO 48 mg DAILY BHAVNA Administration Sodium Chloride 1,000 mls @ 100 mls/hr 08/10/19 20:10 08/11/19 21:49 Normal Saline 0.9% IV 1,000 mls .Q10H BHAVNA Administration Insulin Glargine 50 units/ 0.5 mls @ 0 mls/hr 08/10/19 21:00 08/11/19 21:48 Miscellaneous Medication SC 0.5 mls BID BHAVNA Administration Cefepime HCl 1 gm/ Sodium 100 mls @ 200 mls/hr 08/11/19 14:00 08/12/19 05:29 Chloride IVPB 100 mls Q8HR BHAVNA Administration Insulin Human Lispro 0 units 08/10/19 20:10 08/12/19 05:30 Humalog SC 4 unit .MODERATE SLIDING SC PRN Administration Moderate Correctional Scale Insulin Human Lispro 30 units 08/10/19 21:00 08/11/19 21:49 Humalog SC 30 unit TID BHAVNA Administration Lisinopril 40 mg 08/11/19 09:00 08/12/19 08:54 Zestril PO 40 mg DAILY BHAVNA Administration Metronidazole 500 mg 08/11/19 15:00 08/12/19 08:53 Flagyl PO 500 mg TID BHAVNA Administration Sodium Chloride 10 ml 08/10/19 21:00 08/11/19 19:45 Flush - Normal Saline IVF Not Given Q12HR BHAVNA - Exam General Appearance: NAD, awake alert, ill appearing Eye: PERRL, anicteric sclera, scleral icterus ENT: normocephalic atraumatic, no oropharyngeal lesions, moist mucosa, dry oral mucosa Neck: supple, symmetric, no JVD, no thyromegaly, no lymphadenopathy, no carotid bruit, JVD Heart: RRR, no murmur, no gallops, no rubs, normal peripheral pulses, irregular , diminshed peripheral pulses, murmur present, II/IV, III/IV Gastrointestinal: soft, non-tender, non-distended, normal bowel sounds, no palpable masses, no hepatomegaly, no splenomegaly, no bruit, no guarding, no rigidity, tender to palpation, distended, diminished bowl sounds, voluntary guarding Extremities: no cyanosis, no clubbing, no edema, 1+ LE edema, 2+ LE edema, clubbing Extremities - other findings: the banadage applied this morning. Hosp A/P (1) Osteomyelitis Code(s): M86.9 - OSTEOMYELITIS, UNSPECIFIED Status: Acute (2) Diabetic foot infection Code(s): E11.628 - TYPE 2 DIABETES MELLITUS WITH OTHER SKIN COMPLICATIONS; L08.9 - LOCAL INFECTION OF THE SKIN AND SUBCUTANEOUS TISSUE, UNSP Status: Acute - Plan Continue antibiotics, consult ID and podiatry. General surgery deffered the care to Podiatry. Apreciate ID consult. Await podiatry consult.
[2019-08-12] MEDS: Sodium Chloride 0.9% 1,000 ML IV SCH ×2 (12:42→20:24)
[2019-08-12] MEDS: HYDROcodone/Acetaminophen 5/325 mg Tablet PO PRN (15:35)
--- NOTE | 2019-08-12 16:21 | PRG ---
DATE OF SERVICE: 08/12/2019 SUBJECTIVE: Feeling well. Dr. Ruff has not yet scheduled the procedure. No changes in symptoms. OBJECTIVE: VITAL SIGNS: T-max 99.1, slight elevation of systolic blood pressure. GENERAL: Awake, alert, oriented. LUNGS: Clear. HEART: S1, S2, regular rate. ABDOMEN: Soft, not distended. EXTREMITIES: Foot unchanged. LABORATORY DATA: White cell count 7.3, hemoglobin 12.6, platelets 408 with 50% neutrophils. Sodium 138 from yesterday. Creatinine 0.87. Blood culture, no growth. ASSESSMENT AND DISCUSSION: Type 2 diabetes and recurrent inflammatory process of left foot third and fifth metatarsal amputation areas with recrudescence of the infection is the likely scenario with osteomyelitis of the remnant. The patient to undergo surgical resection and protracted IV antimicrobial therapy following the culture results, probably something like Flagyl oral plus Rocephin intravenously depending on the culture results of course. Job ID: [id number]
[2019-08-13] MEDS: Cefepime 1 GM in Sodium Chloride 0.9% 100 ML IVPB SCH ×3 (05:37→21:03)
[2019-08-13] MEDS: HumaLOG 300 UNITS/3 ML VIAL SC PRN (05:38)
[2019-08-13] MEDS: Amlodipine 10 MG TAB PO SCH (09:29)
[2019-08-13] MEDS: Famotidine 20 MG TAB PO SCH ×2 (09:32→20:50)
[2019-08-13] MEDS: Fenofibrate 48 MG TAB PO SCH (09:32)
[2019-08-13] MEDS: Lisinopril 20 MG TAB PO SCH (09:32)
[2019-08-13] MEDS: metroNIDAZOLE 500 MG TAB PO SCH ×3 (09:33→20:50)
[2019-08-13] MEDS: Aripiprazole 10 MG TAB PO SCH (09:40)
[2019-08-13] MEDS: Sodium Chloride 0.9% 1,000 ML IV SCH ×2 (09:40→20:52)
[2019-08-13] MEDS: Enoxaparin Sodium 40 MG/0.4 ML SYRINGE SC SCH (09:41)
[2019-08-13] MEDS: Insulin Glargine 50 UNITS in Pre-Filled Syringe 1 EACH SC SCH ×2 (09:42→20:51)
[2019-08-13] MEDS: HumaLOG 300 UNITS/3 ML VIAL SC SCH ×3 (09:42→20:51)
[2019-08-13] MEDS ORDERED: Lidocaine 1% PF 5 ML VIAL ONE (12:49)
[2019-08-13] MEDS ORDERED: PROPOFOL 200 MG/20 ML VIAL ONE (12:49)
--- NOTE | 2019-08-13 16:11 | PDOC.HOSPP ---
- Subjective Encounter Date: 08/13/19 Encounter Time: 16:09 - Objective Vital Signs & Weight: Vital Signs (12 hours) Temp Pulse Resp BP BP Pulse Ox 08/13/19 15:35 98.5 F 100 16 149/84 H 97 08/13/19 10:56 98.3 F 104 H 16 158/100 H 99 08/13/19 09:32 166/107 H 08/13/19 09:29 102 H 166/107 H 08/13/19 08:00 96 08/13/19 07:55 98.2 F 97 16 179/111 H 96 08/13/19 05:25 98.2 F 96 19 157/105 H 97 08/13/19 05:15 169/99 H Weight Admit Weight 271 lb Weight 271 lb I&O: 08/12/19 08/13/19 08/14/19 06:59 06:59 06:59 Intake Total 4800 1900 Balance 4800 1900 Result Diagrams: 08/11/19 05:09 08/11/19 05:09 Additional Labs: Accuchecks 08/13/19 08/13/19 08/12/19 11:01 04:30 19:47 POC Glucose 205 H 171 H 227 H 08/12/19 16:13 POC Glucose 196 H Hospitalist ROS - Medication Medications: Active Medications Generic Name Dose Route Start Last Admin Trade Name Freq PRN Reason Stop Dose Admin Acetaminophen 1,000 mg 08/10/19 20:10 08/10/19 21:30 Tylenol PO 1,000 mg Q6H PRN Administration Mild Pain (1-3) Hydrocodone Bitart/Acetaminophen 1 tab 08/10/19 20:10 08/12/19 15:35 [place] 5/325 PO 1 tab Q4H PRN Administration Moderate Pain (4-6) Amlodipine Besylate 10 mg 08/11/19 09:00 08/13/19 09:29 Norvasc PO 10 mg DAILY BHAVNA Administration Aripiprazole 30 mg 08/11/19 09:00 08/13/19 09:40 Abilify PO 30 mg DAILY BHAVNA Administration Enoxaparin Sodium 40 mg 08/11/19 09:00 08/13/19 09:41 Lovenox SC 40 mg 0900 BHAVNA Administration Famotidine 20 mg 08/10/19 21:00 08/13/19 09:32 Pepcid PO 20 mg BID BHAVNA Administration Fenofibrate 48 mg 08/11/19 09:00 08/13/19 09:32 Tricor PO 48 mg DAILY BHAVNA Administration Hydralazine HCl 10 mg 08/10/19 20:10 08/12/19 20:22 Apresoline SLOW IVP 10 mg Q4H PRN Administration SBP > 180 and HR < 70 Sodium Chloride 1,000 mls @ 100 mls/hr 08/10/19 20:10 08/13/19 09:40 Normal Saline 0.9% IV 1,000 mls .Q10H BHAVNA Administration Insulin Glargine 50 units/ 0.5 mls @ 0 mls/hr 08/10/19 21:00 08/13/19 09:42 Miscellaneous Medication SC 0.5 mls BID BHAVNA Administration Cefepime HCl 1 gm/ Sodium 100 mls @ 200 mls/hr 08/11/19 14:00 08/13/19 15:06 Chloride IVPB 100 mls Q8HR BHAVNA Administration Insulin Human Lispro 0 units 08/10/19 20:10 08/13/19 05:38 Humalog SC 2 unit .MODERATE SLIDING SC PRN Administration Moderate Correctional Scale Insulin Human Lispro 30 units 08/10/19 21:00 08/13/19 15:06 Humalog SC 30 unit TID BHAVNA Administration Lisinopril 40 mg 08/11/19 09:00 08/13/19 09:32 Zestril PO 40 mg DAILY BHAVNA Administration Metronidazole 500 mg 08/11/19 15:00 08/13/19 15:05 Flagyl PO 500 mg TID BHAVNA Administration Sodium Chloride 10 ml 08/10/19 21:00 08/13/19 09:41 Flush - Normal Saline IVF Not Given Q12HR BHAVNA - Exam General Appearance: NAD, awake alert, ill appearing Eye: PERRL, anicteric sclera, scleral icterus ENT: normocephalic atraumatic, no oropharyngeal lesions, moist mucosa, dry oral mucosa Neck: supple, symmetric, no JVD, no thyromegaly, no lymphadenopathy, no carotid bruit, JVD Heart: RRR, no murmur, no gallops, no rubs, normal peripheral pulses, irregular , diminshed peripheral pulses, murmur present, II/IV, III/IV Respiratory: CTAB, no wheezes, no rales, no ronchi, normal chest expansion, no tachypnea, normal percussion, rales, rhonchi, tachypneic, wheezes Gastrointestinal: soft, non-tender, non-distended, normal bowel sounds, no palpable masses, no hepatomegaly, no splenomegaly, no bruit, no guarding, no rigidity, tender to palpation, distended, diminished bowl sounds, voluntary guarding Extremities: no cyanosis, no clubbing, no edema, 1+ LE edema, 2+ LE edema, clubbing Neurological: cranial nerve grossly intact, normal sensation to touch, no weakness, no focal deficits, no new deficit, facial droop, hemiplegia, speech deficit, vision deficit Musculoskeletal: normal tone, normal strength, no muscle wasting, generalized weakness, diffuse muscle atrophy Hosp A/P (1) Osteomyelitis Code(s): M86.9 - OSTEOMYELITIS, UNSPECIFIED Status: Acute (2) Diabetic foot infection Code(s): E11.628 - TYPE 2 DIABETES MELLITUS WITH OTHER SKIN COMPLICATIONS; L08.9 - LOCAL INFECTION OF THE SKIN AND SUBCUTANEOUS TISSUE, UNSP Status: Acute Plan: Possible surgery in am(podiatry). Hold lovenox in am - Plan Continue antibiotics, consult ID and podiatry. General surgery deffered the care to Podiatry. Apreciate ID consult. Await podiatry consult.
[2019-08-14] MEDS: Cefepime 1 GM in Sodium Chloride 0.9% 100 ML IVPB SCH ×3 (05:14→22:25)
[2019-08-14] MEDS: Sodium Chloride 0.9% 1,000 ML IV SCH ×2 (05:16→14:15)
[2019-08-14] MEDS ORDERED: Fentanyl 100 MCG/2 ML VIAL ONE ×2 (07:51→10:37)
[2019-08-14] MEDS ORDERED: Bupivacaine PF 0.5% 30 ML VIAL ONE (08:54)
[2019-08-14] MEDS ORDERED: Lidocaine 2% PF 5 ML VIAL ONE (08:54)
[2019-08-14] MEDS ORDERED: Neomycin-Polymyxin 1 ML AMP ONE (08:54)
[2019-08-14] MEDS: metroNIDAZOLE 500 MG TAB PO SCH ×3 (10:50→20:06)
[2019-08-14] MEDS: HumaLOG 300 UNITS/3 ML VIAL SC SCH ×3 (10:50→20:08)
[2019-08-14] MEDS: Insulin Glargine 50 UNITS in Pre-Filled Syringe 1 EACH SC SCH ×2 (10:51→20:09)
[2019-08-14] MEDS: Famotidine 20 MG TAB PO SCH ×2 (12:01→20:07)
[2019-08-14] MEDS: Fenofibrate 48 MG TAB PO SCH (12:02)
[2019-08-14] MEDS: Lisinopril 20 MG TAB PO SCH (12:02)
[2019-08-14] MEDS: Amlodipine 10 MG TAB PO SCH (12:02)
[2019-08-14] MEDS: Aripiprazole 10 MG TAB PO SCH (12:18)
--- NOTE | 2019-08-14 12:56 | RAD ---
XR Foot Lt 2 View HISTORY: Left foot infection and amputation FINDINGS: Intraoperative spot fluoroscopic images of the left foot demonstrate changes of amputation of the sha fts of the third and fourth metatarsals in the amputation at the level of the base of the fifth metatarsal.
[2019-08-14] MEDS: HYDROcodone/Acetaminophen 5/325 mg Tablet PO PRN ×2 (14:14→20:06)
--- NOTE | 2019-08-14 14:44 | PDOC.HOSPP ---
- Subjective Encounter Date: 08/14/19 Encounter Time: 14:43 Subjective: The patient is scheduled for the surgery. - Objective Vital Signs & Weight: Vital Signs (12 hours) Temp Pulse Resp BP BP Pulse Ox 08/14/19 12:32 97.5 F L 93 14 158/102 H 96 08/14/19 12:23 98.2 F 94 16 161/110 H 94 L 08/14/19 12:02 94 166/107 H 08/14/19 07:04 98.1 F 94 12 161/114 H 97 08/14/19 05:18 97.8 F 95 19 157/101 H 98 Weight Admit Weight 271 lb Weight 271 lb I&O: 08/13/19 08/14/19 08/15/19 06:59 06:59 06:59 Intake Total 1899 1859 Balance 1899 1859 Result Diagrams: 08/11/19 05:09 08/11/19 05:09 Additional Labs: Accuchecks 08/14/19 08/14/19 08/13/19 12:35 04:35 19:20 POC Glucose 189 H 195 H 252 H 08/13/19 15:41 POC Glucose 249 H Hospitalist ROS - Medication Medications: Active Medications Generic Name Dose Route Start Last Admin Trade Name Freq PRN Reason Stop Dose Admin Acetaminophen 1,000 mg 08/10/19 20:10 08/10/19 21:30 Tylenol PO 1,000 mg Q6H PRN Administration Mild Pain (1-3) Hydrocodone Bitart/Acetaminophen 1 tab 08/10/19 20:10 08/14/19 14:14 [place] 5/325 PO 1 tab Q4H PRN Administration Moderate Pain (4-6) Amlodipine Besylate 10 mg 08/11/19 09:00 08/14/19 12:02 Norvasc PO 10 mg DAILY BHAVNA Administration Aripiprazole 30 mg 08/11/19 09:00 08/14/19 12:18 Abilify PO 30 mg DAILY BHAVNA Administration Famotidine 20 mg 08/10/19 21:00 08/14/19 12:01 Pepcid PO 20 mg BID BHAVNA Administration Fenofibrate 48 mg 08/11/19 09:00 08/14/19 12:02 Tricor PO 48 mg DAILY BHAVNA Administration Hydralazine HCl 10 mg 08/10/19 20:10 08/12/19 20:22 Apresoline SLOW IVP 10 mg Q4H PRN Administration SBP > 180 and HR < 70 Sodium Chloride 1,000 mls @ 100 mls/hr 08/10/19 20:10 08/14/19 14:15 Normal Saline 0.9% IV 1,000 mls .Q10H BHAVNA Administration Insulin Glargine 50 units/ 0.5 mls @ 0 mls/hr 08/10/19 21:00 08/14/19 10:51 Miscellaneous Medication SC Not Given BID BHAVNA Cefepime HCl 1 gm/ Sodium 100 mls @ 200 mls/hr 08/11/19 14:00 08/14/19 14:15 Chloride IVPB 100 mls Q8HR BHAVNA Administration Insulin Human Lispro 0 units 08/10/19 20:10 08/13/19 05:38 Humalog SC 2 unit .MODERATE SLIDING SC PRN Administration Moderate Correctional Scale Insulin Human Lispro 30 units 08/10/19 21:00 08/14/19 10:50 Humalog SC Not Given TID BHAVNA Lisinopril 40 mg 08/11/19 09:00 08/14/19 12:02 Zestril PO 40 mg DAILY BHAVNA Administration Metronidazole 500 mg 08/11/19 15:00 08/14/19 14:13 Flagyl PO 500 mg TID BHAVNA Administration Ondansetron HCl 4 mg 08/10/19 20:10 08/14/19 12:00 Zofran IVP 4 mg Q6H PRN Administration Nausea/Vomiting Sodium Chloride 10 ml 08/10/19 21:00 08/14/19 10:51 Flush - Normal Saline IVF Not Given Q12HR BHAVNA - Exam General Appearance: NAD, awake alert, ill appearing Eye: PERRL, anicteric sclera, scleral icterus ENT: normocephalic atraumatic, no oropharyngeal lesions, moist mucosa, dry oral mucosa Neck: supple, symmetric, no JVD, no thyromegaly, no lymphadenopathy, no carotid bruit, JVD Heart: RRR, no murmur, no gallops, no rubs, normal peripheral pulses, irregular , diminshed peripheral pulses, murmur present, II/IV, III/IV Respiratory: CTAB, no wheezes, no rales, no ronchi, normal chest expansion, no tachypnea, normal percussion, rales, rhonchi, tachypneic, wheezes Gastrointestinal: soft, non-tender, non-distended, normal bowel sounds, no palpable masses, no hepatomegaly, no splenomegaly, no bruit, no guarding, no rigidity, tender to palpation, distended, diminished bowl sounds, voluntary guarding Extremities: no cyanosis, no clubbing, no edema, 1+ LE edema, 2+ LE edema, clubbing Skin: normal turgor, no lesions, no rashes, tenting Hosp A/P (1) Osteomyelitis Code(s): M86.9 - OSTEOMYELITIS, UNSPECIFIED Status: Acute (2) Diabetic foot infection Code(s): E11.628 - TYPE 2 DIABETES MELLITUS WITH OTHER SKIN COMPLICATIONS; L08.9 - LOCAL INFECTION OF THE SKIN AND SUBCUTANEOUS TISSUE, UNSP Status: Acute - Plan Continue antibiotics, consult ID and podiatry. General surgery deffered the care to Podiatry. Apreciate ID consult. Await podiatry consult.Going for surgery today
[2019-08-14] MEDS: HumaLOG 300 UNITS/3 ML VIAL SC PRN (16:32)
[2019-08-15] MEDS: Sodium Chloride 0.9% 1,000 ML IV SCH ×3 (05:28→21:45)
[2019-08-15] MEDS: Cefepime 1 GM in Sodium Chloride 0.9% 100 ML IVPB SCH ×3 (05:28→21:44)
[2019-08-15] MEDS: Lisinopril 20 MG TAB PO SCH (08:13)
[2019-08-15] MEDS: Fenofibrate 48 MG TAB PO SCH (08:14)
[2019-08-15] MEDS: Famotidine 20 MG TAB PO SCH ×2 (08:14→21:42)
[2019-08-15] MEDS: HYDROcodone/Acetaminophen 5/325 mg Tablet PO PRN ×3 (08:14→21:45)
[2019-08-15] MEDS: Aripiprazole 10 MG TAB PO SCH (08:15)
[2019-08-15] MEDS: metroNIDAZOLE 500 MG TAB PO SCH ×3 (08:15→21:43)
[2019-08-15] MEDS: Amlodipine 10 MG TAB PO SCH (08:15)
[2019-08-15] MEDS: Insulin Glargine 50 UNITS in Pre-Filled Syringe 1 EACH SC SCH ×2 (09:17→21:43)
[2019-08-15] MEDS: HumaLOG 300 UNITS/3 ML VIAL SC SCH ×3 (09:17→21:43)
--- NOTE | 2019-08-15 22:54 | PDOC.HOSPP ---
- Subjective Encounter Date: 08/15/19 Encounter Time: 16:00 Subjective: Kj ruggiero states that he is having some mild pain after his amputation. He denies any malodorous discharge or pus. Denies any fevers, chills. Dressing changed this morning - Objective Vital Signs & Weight: Vital Signs (12 hours) Temp Pulse Resp BP Pulse Ox 08/15/19 20:00 98.5 F 105 H 18 111/73 94 L Weight Admit Weight 271 lb Weight 271 lb I&O: 08/14/19 08/15/19 08/16/19 06:59 06:59 06:59 Intake Total 1860 1440 2655 Output Total 320 Balance 1860 1120 2655 Result Diagrams: 08/11/19 05:09 08/11/19 05:09 Additional Labs: Accuchecks 08/15/19 08/15/19 08/15/19 19:48 16:15 11:06 POC Glucose 220 H 179 H 186 H 08/15/19 04:52 POC Glucose 110 Hospitalist ROS - Review of Systems Constitutional: denies: fever, chills Eyes: denies: vision change - Medication Medications: Active Medications Generic Name Dose Route Start Last Admin Trade Name Freq PRN Reason Stop Dose Admin Acetaminophen 1,000 mg 08/10/19 20:10 08/10/19 21:30 Tylenol PO 1,000 mg Q6H PRN Administration Mild Pain (1-3) Hydrocodone Bitart/Acetaminophen 1 tab 08/10/19 20:10 08/14/19 14:14 [place] 5/325 PO 1 tab Q4H PRN Administration Moderate Pain (4-6) Hydrocodone Bitart/Acetaminophen 2 tab 08/10/19 20:10 08/15/19 21:45 [place] 5/325 PO 2 tab Q4H PRN Administration Severe Pain (7-10) Amlodipine Besylate 10 mg 08/11/19 09:00 08/15/19 08:15 Norvasc PO 10 mg DAILY BHAVNA Administration Aripiprazole 30 mg 08/11/19 09:00 08/15/19 08:15 Abilify PO 30 mg DAILY BHAVNA Administration Famotidine 20 mg 08/10/19 21:00 08/15/19 21:42 Pepcid PO 20 mg BID BHAVNA Administration Fenofibrate 48 mg 08/11/19 09:00 08/15/19 08:14 Tricor PO 48 mg DAILY BHAVNA Administration Hydralazine HCl 10 mg 08/10/19 20:10 08/12/19 20:22 Apresoline SLOW IVP 10 mg Q4H PRN Administration SBP > 180 and HR < 70 Sodium Chloride 1,000 mls @ 100 mls/hr 08/10/19 20:10 08/15/19 21:45 Normal Saline 0.9% IV 1,000 mls .Q10H BHAVNA Administration Insulin Glargine 50 units/ 0.5 mls @ 0 mls/hr 08/10/19 21:00 08/15/19 21:43 Miscellaneous Medication SC 0.5 mls BID BHAVNA Administration Cefepime HCl 1 gm/ Sodium 100 mls @ 200 mls/hr 08/11/19 14:00 08/15/19 21:44 Chloride IVPB 100 mls Q8HR BHAVNA Administration Insulin Human Lispro 0 units 08/10/19 20:10 08/14/19 16:32 Humalog SC 6 unit .MODERATE SLIDING SC PRN Administration Moderate Correctional Scale Insulin Human Lispro 30 units 08/10/19 21:00 08/15/19 21:43 Humalog SC 30 unit TID BHAVNA Administration Lisinopril 40 mg 08/11/19 09:00 08/15/19 08:13 Zestril PO 40 mg DAILY BHAVNA Administration Metronidazole 500 mg 08/11/19 15:00 08/15/19 21:43 Flagyl PO 500 mg TID BHAVNA Administration Ondansetron HCl 4 mg 08/10/19 20:10 08/14/19 12:00 Zofran IVP 4 mg Q6H PRN Administration Nausea/Vomiting Sodium Chloride 10 ml 08/10/19 21:00 08/15/19 21:44 Flush - Normal Saline IVF Not Given Q12HR BHAVNA - Exam General Appearance: NAD, awake alert Eye: PERRL, anicteric sclera ENT: normocephalic atraumatic, no oropharyngeal lesions Neck: supple, symmetric, no JVD Heart: RRR, no murmur, no gallops, no rubs Respiratory: CTAB, no wheezes, no rales, no ronchi Gastrointestinal: soft, non-tender, non-distended Hosp A/P - Plan Foot X ray 08/10: osteomyelitis fifth metatarsal, distal third metatarsal, proximal phalanx of third and fifth toes Foot X ray 08/14: SC soft tissue swelling This is 38 year old female with past medical history of diabetes, hypertension who presented with ulcer on his left foot Left third and fifth toe osteomyelitis - patient is s/p amputation of left third and fifth toe . Blood cultures negative, bacterial cultures pending from surgery but prelim negative - on metronidazole and cefepime. Discussed with Dr. rider regarding antibiotic duration. He will inform case filler tomorrow Hypertension - continue amlodipine and lisinopril Leukocytosis - resolved ANemia - Hb 12.6, recheck tomorrow Dispo: await ID recs with regards to abx duration Code status: full code
[2019-08-16] MEDS: Cefepime 1 GM in Sodium Chloride 0.9% 100 ML IVPB SCH ×3 (05:07→21:21)
[2019-08-16 06:32] LABS: Hemoglobin 12.8 g/dL (14.0-18.0); Mean Corpuscular HGB CONC 31.2 g/dL (32.0-36.0); Mean Corpuscular Hemoglobin 25.6 pg (27.0-31.0); Mean Corpuscular Volume 82.2 fL (78.0-98.0); Mean Platelet Volume 6.3 fL (7.4-10.4); Platelet Count 436 thou/uL (130-400); RBC Distribution Width 12.7 % (11.5-14.5); Red Blood Cell (RBC) Count 5.01 mill/uL (4.70-6.10); White Blood Cell (WBC) Count 9.2 thou/uL (4.8-10.8)
[2019-08-16 06:46] LABS: Anion Gap 8 mmol/L (10-20); BUN (Urea Nitrogen) 6 mg/dL (8.9-20.6); Calc. Creatinine Clearance 238 mL/min (70-130); Calcium 8.8 mg/dL (7.8-10.44); Carbon Dioxide 29 mmol/L (22-29); Chloride 106 mmol/L (98-107); Estimated GFR-MDRD Greater than 90; Glucose 109 mg/dL (70-105); Potassium 3.7 mmol/L (3.5-5.1); Sodium 139 mmol/L (136-145)
[2019-08-16] MEDS: Aripiprazole 10 MG TAB PO SCH (07:52)
[2019-08-16] MEDS: metroNIDAZOLE 500 MG TAB PO SCH ×3 (07:53→20:41)
[2019-08-16] MEDS: Famotidine 20 MG TAB PO SCH ×2 (07:53→20:41)
[2019-08-16] MEDS: Fenofibrate 48 MG TAB PO SCH (07:53)
[2019-08-16] MEDS: Lisinopril 20 MG TAB PO SCH (07:53)
[2019-08-16] MEDS: HYDROcodone/Acetaminophen 5/325 mg Tablet PO PRN ×2 (07:54→20:41)
[2019-08-16] MEDS: Insulin Glargine 50 UNITS in Pre-Filled Syringe 1 EACH SC SCH ×2 (07:54→20:43)
[2019-08-16] MEDS: Amlodipine 10 MG TAB PO SCH (07:55)
[2019-08-16] MEDS: Sodium Chloride 0.9% 1,000 ML IV SCH ×2 (07:55→18:22)
[2019-08-16] MEDS: HumaLOG 300 UNITS/3 ML VIAL SC SCH ×3 (08:12→20:42)
--- NOTE | 2019-08-16 19:09 | PDOC.HOSPP ---
- Subjective Encounter Date: 08/16/19 Encounter Time: 15:00 Subjective: The patient states he has no complaints, no foot pain or swelling. No discharge. Discussed ID recommendation about IV antibiotics until October 01. Patient states he does not have insurance and may not be able to afford this. Alternative regimen is cipro and flagyl for four weeks. - Objective Vital Signs & Weight: Vital Signs (12 hours) Temp Pulse Resp BP BP Pulse Ox 08/16/19 16:00 98.6 F 101 H 20 157/96 H 98 08/16/19 11:00 98.3 F 95 18 137/84 96 08/16/19 07:55 98 159/98 H 08/16/19 07:53 159/98 H 08/16/19 07:52 98.3 F 98 18 159/98 H 100 08/16/19 07:45 100 Weight Admit Weight 271 lb Weight 271 lb I&O: 08/15/19 08/16/19 08/17/19 06:59 06:59 06:59 Intake Total 1440 2655 3700 Output Total 320 Balance 1120 2655 3700 Result Diagrams: 08/16/19 06:05 08/16/19 06:05 Additional Labs: Accuchecks 08/16/19 08/16/19 08/16/19 16:27 11:42 00:40 POC Glucose 232 H 152 H 154 H 08/15/19 19:48 POC Glucose 220 H Hospitalist ROS - Review of Systems Constitutional: denies: fever, chills - Medication Medications: Active Medications Generic Name Dose Route Start Last Admin Trade Name Freq PRN Reason Stop Dose Admin Acetaminophen 1,000 mg 08/10/19 20:10 08/10/19 21:30 Tylenol PO 1,000 mg Q6H PRN Administration Mild Pain (1-3) Hydrocodone Bitart/Acetaminophen 1 tab 08/10/19 20:10 08/14/19 14:14 [place] 5/325 PO 1 tab Q4H PRN Administration Moderate Pain (4-6) Hydrocodone Bitart/Acetaminophen 2 tab 08/10/19 20:10 08/16/19 07:54 [place] 5/325 PO 2 tab Q4H PRN Administration Severe Pain (7-10) Amlodipine Besylate 10 mg 08/11/19 09:00 08/16/19 07:55 Norvasc PO 10 mg DAILY BHAVNA Administration Aripiprazole 30 mg 08/11/19 09:00 08/16/19 07:52 Abilify PO 30 mg DAILY BHAVNA Administration Famotidine 20 mg 08/10/19 21:00 08/16/19 07:53 Pepcid PO 20 mg BID BHAVNA Administration Fenofibrate 48 mg 08/11/19 09:00 08/16/19 07:53 Tricor PO 48 mg DAILY BHAVNA Administration Hydralazine HCl 10 mg 08/10/19 20:10 08/12/19 20:22 Apresoline SLOW IVP 10 mg Q4H PRN Administration SBP > 180 and HR < 70 Sodium Chloride 1,000 mls @ 100 mls/hr 08/10/19 20:10 08/16/19 18:22 Normal Saline 0.9% IV 1,000 mls .Q10H BHAVNA Administration Insulin Glargine 50 units/ 0.5 mls @ 0 mls/hr 08/10/19 21:00 08/16/19 07:54 Miscellaneous Medication SC 0.5 mls BID BHAVNA Administration Cefepime HCl 1 gm/ Sodium 100 mls @ 200 mls/hr 08/11/19 14:00 08/16/19 14:23 Chloride IVPB 100 mls Q8HR BHAVNA Administration Insulin Human Lispro 0 units 08/10/19 20:10 08/14/19 16:32 Humalog SC 6 unit .MODERATE SLIDING SC PRN Administration Moderate Correctional Scale Insulin Human Lispro 30 units 08/10/19 21:00 08/16/19 16:34 Humalog SC 30 unit TID BHAVNA Administration Lisinopril 40 mg 08/11/19 09:00 08/16/19 07:53 Zestril PO 40 mg DAILY BHAVNA Administration Metronidazole 500 mg 08/11/19 15:00 08/16/19 14:22 Flagyl PO 500 mg TID BHAVNA Administration Ondansetron HCl 4 mg 08/10/19 20:10 08/14/19 12:00 Zofran IVP 4 mg Q6H PRN Administration Nausea/Vomiting Sodium Chloride 10 ml 08/10/19 21:00 08/16/19 07:56 Flush - Normal Saline IVF Not Given Q12HR BHAVNA - Exam General Appearance: NAD, awake alert Eye: PERRL, anicteric sclera ENT: normocephalic atraumatic Neck: supple, symmetric, no JVD Heart: RRR, no murmur, no gallops, no rubs Respiratory: CTAB, no wheezes, no rales, no ronchi Gastrointestinal: soft, non-tender, non-distended, normal bowel sounds Extremities: no cyanosis, no clubbing, no edema Skin: normal turgor, no lesions, no rashes Neurological: cranial nerve grossly intact, normal sensation to touch, no focal deficits, no new deficit Musculoskeletal: normal tone, normal strength, no muscle wasting Psychiatric: normal affect, normal behavior, A&O x 3, oriented to person Hosp A/P - Plan Foot X ray 08/10: osteomyelitis fifth metatarsal, distal third metatarsal, proximal phalanx of third and fifth toes Foot X ray 08/14: SC soft tissue swelling This is 38 year old female with past medical history of diabetes, hypertension who presented with ulcer on his left foot Left third and fifth toe osteomyelitis - patient is s/p amputation of left third and fifth toe . Blood cultures negative, bacterial cultures pending from surgery but prelim negative - on metronidazole and cefepime. Discussed with Dr. rider regarding antibiotic duration. Needs IV antibiotics until October 01. Will discuss with case management about whether insurance will cover or not. - otherwise d/c with cipro and flagyl for four weeks Hypertension - continue amlodipine and lisinopril Leukocytosis - resolved ANemia - Hb 12.6, recheck tomorrow Dispo: PICC line tomorrow if IV antibiotics managed, otherwise d/c on oral Code status: full code
[2019-08-17] MEDS: Cefepime 1 GM in Sodium Chloride 0.9% 100 ML IVPB SCH ×3 (05:38→22:22)
[2019-08-17] MEDS: Sodium Chloride 0.9% 1,000 ML IV SCH ×2 (05:42→14:07)
[2019-08-17 07:13] LABS: Hemoglobin 13.1 g/dL (14.0-18.0); Mean Corpuscular HGB CONC 32.1 g/dL (32.0-36.0); Mean Corpuscular Hemoglobin 26.5 pg (27.0-31.0); Mean Corpuscular Volume 82.5 fL (78.0-98.0); Mean Platelet Volume 6.6 fL (7.4-10.4); Platelet Count 405 thou/uL (130-400); RBC Distribution Width 12.6 % (11.5-14.5); Red Blood Cell (RBC) Count 4.94 mill/uL (4.70-6.10); White Blood Cell (WBC) Count 6.7 thou/uL (4.8-10.8)
[2019-08-17 08:12] LABS: Prothrombin Time 13.5 SEC (12.0-14.7)
[2019-08-17] MEDS: Amlodipine 10 MG TAB PO SCH (09:35)
[2019-08-17] MEDS: metroNIDAZOLE 500 MG TAB PO SCH ×3 (09:35→20:18)
[2019-08-17] MEDS: Aripiprazole 10 MG TAB PO SCH (09:35)
[2019-08-17] MEDS: Famotidine 20 MG TAB PO SCH ×2 (09:36→20:19)
[2019-08-17] MEDS: Fenofibrate 48 MG TAB PO SCH (09:36)
[2019-08-17] MEDS: Lisinopril 20 MG TAB PO SCH (09:36)
[2019-08-17] MEDS: HumaLOG 300 UNITS/3 ML VIAL SC SCH ×3 (09:38→20:17)
[2019-08-17] MEDS: Insulin Glargine 50 UNITS in Pre-Filled Syringe 1 EACH SC SCH ×2 (09:39→20:17)
[2019-08-17] MEDS: HumaLOG 300 UNITS/3 ML VIAL SC PRN (12:40)
[2019-08-17] MEDS: HYDROcodone/Acetaminophen 5/325 mg Tablet PO PRN (14:08)
--- NOTE | 2019-08-17 15:34 | SPC ---
SPC CVP LINE PICC INITAL >5 History: Long-term IV access Comparison: None Findings: Patient was brought to the specials suite. Informed consent was obtained. Timeout performed . The patient's left arm was prepped and draped in normal sterile fashion. Using ultrasound guidance th e left basilic vein was accessed. Over a wire and through a peel-away sheath using fluoroscopic guidance a 44 cm single lumen PICC was placed with tip in good position at the inferior SVC. Patient tolerated the procedure well without complication. Impression: Technically successful ultrasound fluoroscopic guided PICC line placement. Fluoroscopy time: 1.7 minutes
--- NOTE | 2019-08-17 17:12 | PDOC.HOSPP ---
- Subjective Encounter Date: 08/17/19 Encounter Time: 17:00 Subjective: Patient is doing well and has no complaints. He denies tingling or numbness in his foot, no discharge. Patient got PICC line today. He has no insurance, currently waiting on approval. Alternative is oral but patient already failed a course of oral antibiotics. - Objective Vital Signs & Weight: Vital Signs (12 hours) Temp Pulse Resp BP BP Pulse Ox 08/17/19 09:36 141/93 H 08/17/19 09:35 96 141/93 H 08/17/19 08:00 96 08/17/19 07:21 98.4 F 96 16 141/93 H 97 Weight Admit Weight 271 lb Weight 271 lb I&O: 08/16/19 08/17/19 08/18/19 06:59 06:59 06:59 Intake Total 2655 5900 480 Balance 2655 5900 480 Result Diagrams: 08/17/19 06:33 08/16/19 06:05 Additional Labs: Accuchecks 08/17/19 08/17/19 08/16/19 11:35 05:04 20:33 POC Glucose 150 H 172 H 302 H 08/16/19 16:27 POC Glucose 232 H Hospitalist ROS - Review of Systems Constitutional: denies: fever, chills, sweats Eyes: denies: vision change Respiratory: denies: dry - Medication Medications: Active Medications Generic Name Dose Route Start Last Admin Trade Name Freq PRN Reason Stop Dose Admin Acetaminophen 1,000 mg 08/10/19 20:10 08/10/19 21:30 Tylenol PO 1,000 mg Q6H PRN Administration Mild Pain (1-3) Hydrocodone Bitart/Acetaminophen 1 tab 08/10/19 20:10 08/14/19 14:14 [place] 5/325 PO 1 tab Q4H PRN Administration Moderate Pain (4-6) Hydrocodone Bitart/Acetaminophen 2 tab 08/10/19 20:10 08/17/19 14:08 [place] 5/325 PO 2 tab Q4H PRN Administration Severe Pain (7-10) Amlodipine Besylate 10 mg 08/11/19 09:00 08/17/19 09:35 Norvasc PO 10 mg DAILY BHAVNA Administration Aripiprazole 30 mg 08/11/19 09:00 08/17/19 09:35 Abilify PO 30 mg DAILY BHAVNA Administration Famotidine 20 mg 08/10/19 21:00 08/17/19 09:36 Pepcid PO Not Given BID BHAVNA Fenofibrate 48 mg 08/11/19 09:00 08/17/19 09:36 Tricor PO 48 mg DAILY BHAVNA Administration Hydralazine HCl 10 mg 08/10/19 20:10 08/12/19 20:22 Apresoline SLOW IVP 10 mg Q4H PRN Administration SBP > 180 and HR < 70 Sodium Chloride 1,000 mls @ 100 mls/hr 08/10/19 20:10 08/17/19 14:07 Normal Saline 0.9% IV 1,000 mls .Q10H BHAVNA Administration Insulin Glargine 50 units/ 0.5 mls @ 0 mls/hr 08/10/19 21:00 08/17/19 09:39 Miscellaneous Medication SC 0.5 mls BID BHAVNA Administration Cefepime HCl 1 gm/ Sodium 100 mls @ 200 mls/hr 08/11/19 14:00 08/17/19 14:07 Chloride IVPB 100 mls Q8HR BHAVNA Administration Insulin Human Lispro 0 units 08/10/19 20:10 08/17/19 12:40 Humalog SC 2 unit .MODERATE SLIDING SC PRN Administration Moderate Correctional Scale Insulin Human Lispro 30 units 08/10/19 21:00 08/17/19 15:59 Humalog SC 30 unit TID BHAVNA Administration Lisinopril 40 mg 08/11/19 09:00 08/17/19 09:36 Zestril PO 40 mg DAILY BHAVNA Administration Metronidazole 500 mg 08/11/19 15:00 08/17/19 15:59 Flagyl PO 500 mg TID BHAVNA Administration Ondansetron HCl 4 mg 08/10/19 20:10 08/14/19 12:00 Zofran IVP 4 mg Q6H PRN Administration Nausea/Vomiting Sodium Chloride 10 ml 08/10/19 21:00 08/17/19 09:39 Flush - Normal Saline IVF Not Given Q12HR BHAVNA - Exam General Appearance: NAD, awake alert Eye: PERRL, anicteric sclera ENT: normocephalic atraumatic, no oropharyngeal lesions Neck: supple, symmetric, no JVD, no thyromegaly Heart: RRR, no murmur, no gallops, no rubs Respiratory: CTAB, no wheezes, no rales, no ronchi Gastrointestinal: soft, non-tender, non-distended, normal bowel sounds Extremities: no cyanosis, no clubbing, no edema Extremities - other findings: Swelling left foot, 2+ pulses Skin: normal turgor, no lesions, no rashes Neurological: cranial nerve grossly intact, normal sensation to touch, no focal deficits, no new deficit Musculoskeletal: normal tone, normal strength, no muscle wasting Psychiatric: normal affect, normal behavior, A&O x 3, oriented to person Hosp A/P - Plan Foot X ray 08/10: osteomyelitis fifth metatarsal, distal third metatarsal, proximal phalanx of third and fifth toes Foot X ray 08/14: SC soft tissue swelling This is 38 year old female with past medical history of diabetes, hypertension who presented with ulcer on his left foot Left third and fifth toe osteomyelitis - patient is s/p amputation of left third and fifth toe . Blood cultures negative - on metronidazole and cefepime. Needed prolonged IV antibiotics with IV rocephin 2 grams/ day + cipro 500 mg bid+ flagyl 500 mg tid until 09/19. Then after 09/19 rocephin 2 g/day + cipro 500 bid until 10/01. Patient got PICC line today - Preliminarily cultures 08/17 now growing enterococcus and coag negative staph. Will ask ID about changes to this regimen Hypertension - continue amlodipine and lisinopril Leukocytosis - resolved ANemia - Hb 13.1 Dispo: PICC line today, pending insurance approval Code status: full code
[2019-08-18] MEDS: Cefepime 1 GM in Sodium Chloride 0.9% 100 ML IVPB SCH ×2 (05:22→12:40)
[2019-08-18 05:24] LABS: Hemoglobin 12.5 g/dL (14.0-18.0); Mean Corpuscular HGB CONC 31.6 g/dL (32.0-36.0); Mean Corpuscular Hemoglobin 25.7 pg (27.0-31.0); Mean Corpuscular Volume 81.2 fL (78.0-98.0); Mean Platelet Volume 6.5 fL (7.4-10.4); Platelet Count 423 thou/uL (130-400); RBC Distribution Width 12.7 % (11.5-14.5); Red Blood Cell (RBC) Count 4.86 mill/uL (4.70-6.10); White Blood Cell (WBC) Count 9.3 thou/uL (4.8-10.8)
[2019-08-18 05:51] LABS: Anion Gap 10 mmol/L (10-20); BUN (Urea Nitrogen) 8 mg/dL (8.9-20.6); Calc. Creatinine Clearance 259 mL/min (70-130); Calcium 8.8 mg/dL (7.8-10.44); Carbon Dioxide 26 mmol/L (22-29); Chloride 106 mmol/L (98-107); Estimated GFR-MDRD Greater than 90; Glucose 118 mg/dL (70-105); Potassium 3.4 mmol/L (3.5-5.1); Sodium 139 mmol/L (136-145)
[2019-08-18] MEDS: Aripiprazole 10 MG TAB PO SCH (08:43)
[2019-08-18] MEDS: metroNIDAZOLE 500 MG TAB PO SCH ×2 (08:43→15:46)
[2019-08-18] MEDS: Amlodipine 10 MG TAB PO SCH (08:43)
[2019-08-18] MEDS: Insulin Glargine 50 UNITS in Pre-Filled Syringe 1 EACH SC SCH (08:44)
[2019-08-18] MEDS: Famotidine 20 MG TAB PO SCH (08:44)
[2019-08-18] MEDS: Fenofibrate 48 MG TAB PO SCH (08:45)
[2019-08-18] MEDS: HumaLOG 300 UNITS/3 ML VIAL SC SCH ×2 (08:45→15:47)
[2019-08-18] MEDS: Lisinopril 20 MG TAB PO SCH (08:50)
[2019-08-18 10:03] VITALS: BP 164/101; TEMP 98.7
[2019-08-18] MEDS ORDERED: Potassium Chloride 20 MEQ TAB PO SCH (12:00)
--- NOTE | 2019-08-18 19:14 | OP ---
DATE OF PROCEDURE: 08/14/2019 ASSISTANTS: None. FACILITY: [place], [place]. PREOPERATIVE DIAGNOSIS: Left foot osteomyelitis, third metatarsal, base of proximal phalanx third digit, left fifth metatarsal. POSTOPERATIVE DIAGNOSIS: Left foot osteomyelitis third metatarsal, base of proximal phalanx third digit left fifth metatarsal. PROCEDURES: Amputation of third and fifth digits, partial amputation of left fifth metatarsal, partial amputation of left third metatarsal. ANESTHESIA: General with local. FLUIDS: P.r.n. anesthesia. ESTIMATED BLOOD LOSS: Less than 20 mL. DESCRIPTION OF PROCEDURE: The patient was brought to the OR and placed in the supine position. Left foot was prepped and draped in the usual sterile manner. Approximately 20 mL of 2% plain lidocaine and 0.5% Marcaine mixed 50:50 were injected in H-block across the left third and left fifth metatarsal bases. A surgical marker was then used to delineate 2 racquet-shaped incisions compassing the left third digit and the left fifth digit, lines extending dorsal proximally. The tourniquet was inflated to 100 over systolic. Identical procedures were performed on left third and left fifth metatarsals. A #10 blade was used to make a single linear incision dorsally with a left third metatarsal extending distally into a racquet-shaped incision. The left third toe was amputated. A #15 blade was then used to extend the depth of the incision down to the third metatarsal. The soft tissue was retracted exposing the dorsal aspect of the left third metatarsal. A 15-blade along with Metzenbaums were then used to separate the soft tissue structures from the metatarsal. Sagittal saw was used to transect the third metatarsal proximal to the osteomyelitic area. This portion of the metatarsal was then removed from the site. The osteomyelitic fifth metatarsal was palpated and bony fragments were noted within the soft tissue. Bony fragments were then dissected free and removed from the wound site as pathology for culture. Both incisions were palpated and no bony fragments were noted. The wounds were then copiously lavaged with a solution. Racquet-shaped incisions distally were closed with 3-0 prolene in a simple interrupted manner on both digits 3 and 5. Vertical mattress sutures were placed into the proximal aspect of both incisions, however, approximately 80% of both wounds were packed open with 0.5 inch iodoform gauze. The ulcer on the plantar aspect of the left foot beneath the fifth metatarsal was debrided. This area was then flushed with a sterile solution. All wounds were then dressed with 4x4, Kerlix, and Mateus wrap. X-rays were obtained to evaluate for remaining bony fragments. None were noted. The tourniquet was deflated. Tourniquet time was approximately 1 hour. The patient was discharged back to the room. Orders were left for elevation of the foot. Wound Care consulted. The patient tolerated the procedure well and left the OR with all vital signs stable and intact. Job ID: [id number]
--- NOTE | 2019-08-19 14:24 | DIS ---
DATE OF ADMISSION: 08/10/2019 DATE OF DISCHARGE: 08/18/2019 DISCHARGE DIAGNOSES: Left third and fifth toe osteomyelitis, status post amputation, hypertension, leukocytosis, anemia. CONSULTATIONS: Podiatry, Dr. Ruff; Infectious Disease, Dr. Ray Ortez. BRIEF HISTORY OF PRESENT ILLNESS: This is a 38-year-old male who presented to [facility] ER complaining of 2 to 3 day history of malodorous discharge from his left foot. The patient was treated for osteomyelitis in April with Keflex and rifampin for 6 weeks. However, over the past 24 to 48 hours, he noticed an ulcer on the top portion of his left foot. The patient had an x-ray of his left foot in the ER, which showed osteomyelitis of the distal third and fifth metatarsals. The patient was given IV Levaquin and vancomycin. Left third and fifth toe osteomyelitis: The patient underwent partial amputation of his left third and fifth toes on 08/14. The patient was initially treated with metronidazole and cefepime. Bacterial cultures from the surgery grew Enterococcus faecalis and coag-negative staph. Blood cultures were negative. Infectious Disease was consulted and recommended the patient be treated with prolonged IV antibiotics. The patient will get IV Rocephin 2 g a day plus Cipro 500 mg b.i.d. plus Flagyl 500 mg t.i.d. until 09/19, and then afterwards, Rocephin 2 g a day plus Cipro 500 b.i.d. until 10/01. The patient received a PICC line on 08/17. After discussion with Case Management, the patient was improved for home infusion. The patient will need weekly labs including CBC , CMP, CRP. He needs to follow up with his PCP in a week and Dr. Steve in a week and Dr. Ray Ortez in a week. Hypertension: Continue amlodipine and lisinopril. Leukocytosis: The patient had a white count of 11.7 on 08/10 that resolved to 9.3 on 08/18. Anemia: Stable with a hemoglobin of 12.5. The patient should have a repeat CBC as an outpatient. DISCHARGE PHYSICAL EXAMINATION: VITAL SIGNS: Temperature 98.7, heart rate 105, BP 154/97, O2 saturation 98% on room air General: The patient is morbidly obese. Alert and oriented x3. CVS: Regular rate and rhythm with no murmurs, rubs, or gallops. LUNGS: Clear to auscultation bilaterally. ABDOMEN: Positive bowel sounds, soft, nontender, and nondistended. EXTREMITIES: The patient is status post amputation of his left third and fifth toes. There is serous drainage noted with gauze wrapped around the area. No purulence noted. PERTINENT LABS: CBC, 08/18: Remarkable for anemia with a hemoglobin and hematocrit of 12.5/39.4. BMP, 08/18: Potassium was 3.4. This was replaced prior to discharge. PERTINENT IMAGING: Foot x-ray, 08/10: Osteomyelitis of the fifth metatarsal, distal third metatarsal, proximal phalanx of third and fifth toes. Foot x-ray, 08/14: Subcutaneous soft tissue swelling. DISCHARGE CONDITION: Stable. The patient was given an offloading boot to wear on his foot and was advised to wear it for 1 month. DIET: Heart healthy diet and consistent carbohydrate diet. DISCHARGE MEDICATIONS: 1. Amlodipine 10 mg p.o. daily. 2. Aripiprazole 30 mg p.o. daily. 3. Ceftriaxone 2 g IV daily. 4. Cipro 500 mg p.o. q.12 hours. 5. Fenofibrate 40 mg p.o. daily. 6. Humalog 30 units subcu t.i.d. 7. Insulin Levemir 50 units subcu b.i.d. 8. Lisinopril 40 mg p.o. daily. 9. Metronidazole 500 mg p.o. t.i.d. DISCHARGE INSTRUCTIONS: The patient should follow up with his PCP in a week and Dr. Steve in a week and Dr. Ray Ortez in a week. He needs weekly labs including CBC, CMP, CRP. He needs to wear an offloading boot for every day for a month. Job ID: [id number] [facility]
--- NOTE | 2019-08-20 09:01 | PQF ---
Ari Patricio CHARLES DO [id number] CLINICAL DOCUMENTATION CLARIFICATION FORM: POST DISCHARGE Addendum to original discharge summary date: ____ Late entry note date: __ Send query to Dr. Joshi who saw the patient the most during the hospital stay. I admitted them only and they stayed for a week. Thanks, Dr. Dumont DATE:08/20/2019 ATTN: TREVA DUMONT DO Please exercise your independent, professional judgment in responding to the clarification form. Clinical indicators are provided on the bottom of this form for your review Please check appropriate box(s) to clarify if the following diagnosis has been ruled in or ruled out: Sepsis [ ] Ruled in diagnosis [ ] Continue to treat [ ] Resolved [ ] Ruled out diagnosis [ ] Cannot rule out diagnosis [ ] Other diagnosis [ ] Unable to determine In addition, please specify: Present on Admission (POA): [ ] Yes [ ] No [ ] Unable to determine For continuity of documentation, please document condition throughout progress notes and discharge summary. Thank You. CLINICAL INDICATORS - SIGNS / SYMPTOMS / LABS [id number] in ED on 08/10 by Erika Sánchez Dgkr-11-Jjciqeddru in ED on 08/10 by Erika Sánchez Left foot osteomyelitis-Documented in ED on 08/10 by Erika Sánchez Sepsis secondary to left diabtic foot infection-Documented in H&P on 08/10 by TREVA DUMONT DO WBC-11.7-Documented in Laboratory RISK FACTORS DM-Documented in H&P on 08/10 by TREVA DUMONT DO HTN-Documented in H&P on 08/10 by TREVA DUMONT DO Left foot osteomyelitis-Documented in ED on 08/10 by Erika Sánchez TREATMENTS Vancomycin 1.75 g IV-Documented in H&P on 08/10 by TREVA DUMONT DO Zosyn 4.5 g IV-Documented in H&P on 08/10 by TREVA DUMONT DO 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 All Rights Reserved [email or web address] [not provided] MTDD
--- NOTE | 2019-08-24 22:50 | PQF ---
Ari Patricio UMA [id number] CLINICAL DOCUMENTATION CLARIFICATION FORM: POST DISCHARGE Addendum to original discharge summary date: ____ Late entry note date: __ DATE:08/24/2019 ATTN:CHEYANNE HANSON Please exercise your independent, professional judgment in responding to the clarification form. Clinical indicators are provided on the bottom of this form for your review Please check appropriate box(s) to clarify if the following diagnosis has been ruled in or ruled out: Sepsis [X ] Ruled in diagnosis [ ] Continue to treat [ ] Resolved [ ] Ruled out diagnosis [ ] Cannot rule out diagnosis [ ] Other diagnosis [ ] Unable to determine In addition, please specify: Present on Admission (POA): [ X ] Yes [ ] No [ ] Unable to determine For continuity of documentation, please document condition throughout progress notes and discharge summary. Thank You. CLINICAL INDICATORS - SIGNS / SYMPTOMS / LABS [id number] in ED on 08/10 by Erika Sánchez Pwac-[id number] in ED on 08/10 by Erika Sánchez Left foot osteomyelitis-Documented in ED on 08/10 by Erika Sánchez Sepsis secondary to left diabtic foot infection-Documented in H&P on 08/10 by mary marino Do WBC-11.7-Documented in laboratory RISK FACTORS DM-Documented in H&P on 08/10 by mary marino Do HTN-Documented in H&P on 08/10 by mary marino Do Left foot osteomyelitis-Documented in ED on 08/10 by Erika Sánchez TREATMENTS Vancomycin 1.75 g IV-Documented in H&P on 08/10 by mary marino Do Zosyn 4.5 g IV-Documented in H&P on 08/10 by mary marino Do 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 All Rights Reserved [email or web address] [not provided] MTDD
== END 2019-08-18 17:25 | disposition home or self-care (01) | DRG 854 ==
LOC: ERS 12:21 → T4-B 14:38
PROVIDERS: ADMIT Family Medicine; ATTEND Family Medicine
PROC: 0Y6N0ZC Detachment at Left Foot, Partial 3rd Ray, Open Approach (ICD-10-PCS; principal; 2019-08-14)
PROC: 0Y6N0ZF Detachment at Left Foot, Partial 5th Ray, Open Approach (ICD-10-PCS; 2019-08-14)
DX: A41.9 Sepsis, unspecified organism (principal); M86.8X7 Other osteomyelitis, ankle and foot; E87.1 Hypo-osmolality and hyponatremia; E11.69 Type 2 diabetes mellitus with other specified complication; F41.9 Anxiety disorder, unspecified; F32.9 Major depressive disorder, single episode, unspecified; E78.5 Hyperlipidemia, unspecified; E11.65 Type 2 diabetes mellitus with hyperglycemia; E11.51 Type 2 diabetes mellitus with diabetic peripheral angiopathy without gangrene; I12.9 Hypertensive chronic kidney disease with stage 1 through stage 4 chronic kidney disease, or unspecified chronic kidney disease; E11.22 Type 2 diabetes mellitus with diabetic chronic kidney disease; N18.2 Chronic kidney disease, stage 2 (mild); E11.621 Type 2 diabetes mellitus with foot ulcer; L97.529 Non-pressure chronic ulcer of other part of left foot with unspecified severity; D64.9 Anemia, unspecified
CPT/HCPCS: 36415; 36416; 36569; 76000; 80048; 80053; 80202; 83605; 85007; 85025; 85027; 85610; 87040; 87070; 87077; 87186; 87205; 88305; 88307; 88311; 90471; 90686; 93005; 96365; 96366; 96367; 96375; C1751; G0008; J0360; J0692; J1644; J1650; J1815; J1956; J2001; J2405; J2543; J2704; J3010; J3370; J3490; J7050; S0020

== ENCOUNTER 2019-11-15 11:56 | Inpatient (IN) | payer SELFPAY ==
[2019-11-15] MEDS ORDERED: Cefepime 2 GM VIAL ONE (12:46)
[2019-11-15 13:03] LABS: Hemoglobin 15.4 g/dL (14.0-18.0); Mean Corpuscular HGB CONC 32.2 g/dL (32.0-36.0); Mean Corpuscular Hemoglobin 27.1 pg (27.0-31.0); Mean Corpuscular Volume 84.1 fL (78.0-98.0); Mean Platelet Volume 7.7 fL (7.4-10.4); Platelet Count 246 thou/uL (130-400); RBC Distribution Width 12.6 % (11.5-14.5); White Blood Cell (WBC) Count 16.2 thou/uL (4.8-10.8)
--- NOTE | 2019-11-15 13:17 | RAD ---
EXAM: Left foot: 3 views INDICATIONS: Diabetic foot ulcer COMPARISON: 08/10/2019 FINDINGS: There has been amputation of the third, fourth, and fifth digits since prior exam. Third an d fourth digits have been amputated at the mid metatarsal. Fifth digit has been amputated at the proximal fifth metatarsal. Soft tissue prominence at the amputation site in the forefoot and midfoot region. Subtle lucency with in this soft tissue could potentially represent soft tissue gas. First and second digits are unremarkable. No evidence of acute osteomyelitis. IMPRESSION: Amputations involving third, fourth, and fifth digits as described. Soft tissue prominenc e with subtle lucency within the soft tissue as noted above.
[2019-11-15 13:18] LABS: Band 4 % (5-11); Eosinophils 1 % (0-10); Lymphocytes 9 % (21-51); MDiff Complete? YES; Monocytes 2 % (0-10); Neutrophil 83 % (42-75); Platelet Morphology Comment Appears Adequate; RBC Morphology Normal
[2019-11-15 13:20] LABS: ALT (SGPT) 18 U/L (8-55); AST (SGOT) 18 U/L (5-34); Albumin 3.6 g/dL (3.5-5.0); Alkaline Phosphatase 72 U/L (40-110); Anion Gap 13 mmol/L (10-20); BUN (Urea Nitrogen) 16 mg/dL (8.9-20.6); Bilirubin, Total 1.2 mg/dL (0.2-1.2); Calc. Creatinine Clearance 0 mL/min (70-130); Calcium 9.5 mg/dL (7.8-10.44); Carbon Dioxide 24 mmol/L (22-29); Chloride 98 mmol/L (98-107); Estimated GFR-MDRD 76; Globulin 3.3 g/dL (2.4-3.5); Glucose 403 mg/dL (70-105); Protein, Total 6.9 g/dL (6.0-8.3); Sodium 131 mmol/L (136-145)
[2019-11-15] MEDS ORDERED: Clindamycin/D5W 900 mg/50 ml Premix Bag ONE (13:20)
[2019-11-15 13:50] LABS: Bacteria/HPF None Seen HPF (None Seen); Bilirubin Negative (Negative); Blood, Urine 1+ (Negative); Clarity Clear (Clear); Glucose, Urine (Dipstick) Greater than 1000 mg/dL (Negative); Leukocyte Negative Leu/uL (Negative); Nitrite Negative (Negative); Protein, Urine (Dipstick) 70 mg/dL (Neg-Trace); RBC/HPF 0-3 HPF (0-3); Squamous Epithelial 0-3 HPF (0-3); Urobilinogen Normal mg/dL (Less than 2); WBC/HPF 0-3 HPF (0-3)
[2019-11-15 16:17] LABS: Lactic Acid 1.5 mmol/L (0.5-2.2)
[2019-11-15] MEDS ORDERED: Dextrose 50% Abboject 50 ML SYRINGE SLOW IVP PRN (17:05)
[2019-11-15] MEDS ORDERED: Dextrose 5% in Water 1,000 ML IV PRN (17:05)
[2019-11-15] MEDS ORDERED: hydrALAZINE 20 MG/ML VIAL SLOW IVP PRN (17:05)
[2019-11-15] MEDS ORDERED: Acetaminophen 325 MG TAB PO PRN (17:05)
[2019-11-15] MEDS: Piperacillin/Tazobactam 3.375 GM in Sodium Chloride 0.9% 100 ML IVPB SCH ×2 (17:58→23:57)
[2019-11-15 18:06] VITALS: BMI 36.7
[2019-11-15] MEDS: HumaLOG 300 UNITS/3 ML VIAL SC PRN (20:26)
--- NOTE | 2019-11-15 22:57 | HP ---
PRIMARY CARE PHYSICIAN: Chayo Parr PA-C CHIEF COMPLAINT: "I have a callus on left foot, which is getting worse." HISTORY OF PRESENT ILLNESS: Mr. Patricio is a pleasant 38-year-old gentleman who has a history of diabetes mellitus, type 2. He has been diabetic; he says for about 12 years. He says back in October, he developed a pressure sore on his foot, which got progressively worse. This resulted in the amputation of his 3rd through 5th toes on the left foot. He says after the amputation, the pressure sore seems to move more medially and got progressively worse. He says that he noticed that there has been odor coming from the foot as well as some drainage. He also noticed some chills at home and says that he "was not really feeling well." He vomited this morning as well and as a result, he came to the ER for further evaluation. In the ER, it was noted that he had leukocytosis. The area of the foot is there is a deep ulcer there as well as on x-ray, there is possible gas, and for this reason, he is being admitted for further evaluation. Otherwise, the patient has no other complaints. REVIEW OF SYSTEMS: All systems were reviewed and are negative except for that mentioned in the History of Present Illness. PAST MEDICAL HISTORY: Significant for diabetes mellitus x12 years, hypertension, obesity, and hyperlipidemia. He admits to smokeless tobacco use and he has had a history of left foot osteomyelitis. PAST SURGICAL HISTORY: He is status post amputation of the 3rd through 5th toes on the left foot. He also had an I and D in April of 2019 of the left foot. He also had an appendectomy in 2012. ALLERGIES: NO KNOWN ALLERGIES, BUT HE SAYS HE DEVELOPED ACUTE KIDNEY INJURY SECONDARY TO VANCOMYCIN. SOCIAL HISTORY: He admits to dipping snuff. He denies any alcohol or any drug use. 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 FAMILY HISTORY: Significant for coronary artery disease as well as diabetes in his grandfather. CURRENT MEDICATIONS: Include: 1. Amlodipine 10 mg p.o. daily. 2. Lisinopril 40 mg p.o. daily. 3. Fenofibrate 48 mg daily. 4. Abilify 30 mg daily. 5. Lantus insulin 110 units subcu at bedtime. 6. Humalog insulin 30 units twice a day with breakfast and dinner. PHYSICAL EXAMINATION: GENERAL: He is alert and oriented. He appears to be in no acute distress. He is well developed and well nourished. VITAL SIGNS: Blood pressure was 164/103, heart rate 118, respiratory rate of 22, and temperature is 99.9. HEENT: Pupils are equal, round, and reactive. Extraocular muscles are intact. His sclerae anicteric. Throat, there is no erythema, no exudates. NECK: No adenopathy. No bruits. LUNGS: Clear to auscultation. There is no wheezing, no rales, no rhonchi. CARDIOVASCULAR: He has a normal S1 and S2. I did not appreciate an S3 or S4. No murmurs or clicks. No rubs. ABDOMEN: Obese. It is soft, nontender, and nondistended. Positive for bowel sounds. There is no rebound, no guarding. EXTREMITIES: On his extremities, there is no calf tenderness, no joint effusions in the knees. NEUROLOGIC: Grossly intact. His cranial nerves 2 through 12 are intact, and muscle strength is 5/5 in both upper and lower extremities. SKIN AND INTEGUMENT: On the left foot, he has an approximately quarter-sized diameter ulcer on the plantar aspect of the foot, which has a dark eschar approximately 1.5 cm deep. I was not able to express any pus, but there is odor emanating from the ulcer, and it is surrounded by callus. He has amputation of the 3rd through the 5th toes and then in between the 1st and 2nd toe, there is some callus and what appears to be some underlying fluctuance. His dorsalis pedis and posterior tibial pulses are palpable at 2+, and they are symmetric bilaterally, and he does have good capillary refill in both the right and left foot. On the right foot, there are no significant lesions except for some hammertoe deformities on the right foot. LABORATORY RESULTS: CBC; white blood cell count is 16.2, hemoglobin 15.4, hematocrit is 47.9, and platelet count is 246. Sodium 131, potassium 4.0, chloride is 98, CO2 is 24, BUN of 16, creatinine 1.09, and glucose is 403. He had a lactic acid of 2.7. Urinalysis was essentially negative other than a significant amount of glucose greater than a 1000 and 1+ blood. IMAGING STUDIES: On his x-ray, this is by my reading, he did have amputations of the 3rd through the 5th metatarsals and a very small lucency within the left foot. ASSESSMENT: This is a 38-year-old gentleman who has a long history of a chronic diabetic foot ulcer on the left foot. He has undergone amputations of the 3rd through 5th toes in the past, who has developed a worsening ulcer on the foot. Also signs of sepsis with an elevated white blood cell count and lactic acid level. 1. With regard to the diabetic foot cellulitis with sepsis, he will be placed on IV antibiotics. We will avoid vancomycin. We will also consult ID to carpet installer helper in the choice and length of therapy. He will also need surgical debridement, possibly even amputation of the at least forefoot. Therefore, we will consult General Surgery. Clinically, he has adequate circulation down to the at least past the dorsalis pedis and posterior tibial. 2. Sepsis. Hopefully, this will improve with IV antibiotics. We will also place him on a moderate amount of IV fluid resuscitation. 3. Diabetes mellitus. We will continue his usual dose of Lantus and place him on NovoLog as well as a sliding scale insulin. Check hemoglobin A1c. He says his last one was around 14. 4. Hypertension. The patient says that he stopped taking amlodipine because he thought the lisinopril was "doing the job by itself." We will restart lisinopril. Continue to monitor his blood pressures and have p.r.n. medications as needed, and we will also titrate the medications as needed. 5. The patient was placed on both deep venous thrombosis and gastrointestinal prophylaxis. Job ID: [id number]
[2019-11-16] MEDS: Piperacillin/Tazobactam 3.375 GM in Sodium Chloride 0.9% 100 ML IVPB SCH ×2 (05:18→14:07)
[2019-11-16] MEDS: HumaLOG 300 UNITS/3 ML VIAL SC PRN ×3 (05:26→17:49)
[2019-11-16 05:46] LABS: #Basophils 0.1 thou/uL (0.0-0.2); #Eosinphils 0.2 thou/uL (0.0-0.7); #Lymphocytes 1.7 thou/uL (1.20-3.40); #Neutrophils 7.5 thou/uL (1.40-6.50); %Basophils 0.7 % (0.0-1.0); %Eosinophils 1.9 % (0.0-10.0); %Lymphocytes 16.2 % (21.0-51.0); %Monocytes 9.2 % (0.0-10.0); %Neutrophils 72.1 % (42.0-75.0); Hemoglobin 13.6 g/dL (14.0-18.0); Mean Corpuscular HGB CONC 30.7 g/dL (32.0-36.0); Mean Corpuscular Volume 84.6 fL (78.0-98.0); Mean Platelet Volume 7.5 fL (7.4-10.4); Platelet Count 213 thou/uL (130-400); RBC Distribution Width 12.3 % (11.5-14.5); Red Blood Cell (RBC) Count 5.24 mill/uL (4.70-6.10); White Blood Cell (WBC) Count 10.4 thou/uL (4.8-10.8)
[2019-11-16 06:08] LABS: Anion Gap 10 mmol/L (10-20); BUN (Urea Nitrogen) 11 mg/dL (8.9-20.6); Calc. Creatinine Clearance 214 mL/min (70-130); Calcium 8.5 mg/dL (7.8-10.44); Carbon Dioxide 24 mmol/L (22-29); Chloride 106 mmol/L (98-107); Estimated GFR-MDRD Greater than 90; Glucose 254 mg/dL (70-105); Potassium 3.6 mmol/L (3.5-5.1); Sodium 136 mmol/L (136-145)
[2019-11-16] MEDS: Enoxaparin Sodium 40 MG/0.4 ML SYRINGE SC SCH (09:18)
[2019-11-16] MEDS ORDERED: Non-Formulary Item 1 EACH (Lisinopril [Lisinopril] 40 MG) PO SCH (09:44)
[2019-11-16] MEDS ORDERED: Lisinopril 20 MG TAB PO SCH (10:00)
[2019-11-16] MEDS ORDERED: Piperacillin/Tazobactam 3.375 GM VIAL ONE (13:07)
[2019-11-16] MEDS ORDERED: Magnevist 469MG/ML 20 ML VIAL ONE (13:34)
[2019-11-16] MEDS ORDERED: Meropenem 1 GM in Sodium Chloride 0.9% 100 ML IVPB SCH (14:00)
--- NOTE | 2019-11-16 15:37 | PDOC.HOSPP ---
- Subjective Encounter Date: 11/16/19 Encounter Time: 15:35 Subjective: Mr. Patricio was seen today in follow-up of diabetic foot infection. He does not have any new complaints. - Objective Vital Signs & Weight: Vital Signs (12 hours) Temp Pulse Resp BP BP Pulse Ox 11/16/19 11:41 98.6 F 102 H 18 142/95 H 97 11/16/19 07:48 98.4 F 101 H 18 151/100 H 97 11/16/19 05:04 98.6 F 95 20 143/90 H 96 Weight Admit Weight 270 lb 15.875 oz Weight 270 lb 15.875 oz I&O: 11/15/19 11/16/19 11/17/19 06:59 06:59 06:59 Intake Total 450 Balance 450 Result Diagrams: 11/16/19 05:29 11/16/19 05:29 Additional Labs: Accuchecks 11/16/19 11/16/19 11/15/19 11:24 05:06 19:53 POC Glucose 309 H 224 H 302 H Hospitalist ROS - Medication Medications: Active Medications Generic Name Dose Route Start Last Admin Trade Name Freq PRN Reason Stop Dose Admin Acetaminophen 650 mg 11/15/19 17:05 11/15/19 20:25 Tylenol PO 650 mg Q4H PRN Administration Headache/Fever/Mild Pain (1-3) Enoxaparin Sodium 40 mg 11/16/19 09:00 11/16/19 09:18 Lovenox SC 40 mg 0900 BHAVNA Administration Hydralazine HCl 10 mg 11/15/19 17:05 11/15/19 18:22 Apresoline SLOW IVP 10 mg Q4H PRN Administration SBP > 180 and HR < 70 Insulin Human Lispro 0 units 11/15/19 17:05 11/16/19 13:05 Humalog SC 8 unit .MODERATE SLIDING SC PRN Administration Moderate Correctional Scale Insulin Human Lispro 0 units 11/15/19 17:11/15/19 20:26 Humalog SC 4 unit .BEDTIME SLIDING SC PRN Administration Bedtime Correctional Scale Sodium Chloride 10 ml 11/16/19 21:00 11/16/19 11:11 Flush - Normal Saline IVF 10 ml Q12HR BHAVNA Administration - Exam Eye: PERRL Heart: RRR, no murmur, no gallops, no rubs, normal peripheral pulses Respiratory: CTAB, no wheezes, no rales, no ronchi, normal chest expansion Gastrointestinal: soft, non-tender, non-distended, normal bowel sounds, no palpable masses, no hepatomegaly Extremities: no cyanosis Hosp A/P (1) Diabetes mellitus type 2 in obese Code(s): E11.69 - TYPE 2 DIABETES MELLITUS WITH OTHER SPECIFIED COMPLICATION; E66.9 - OBESITY, UNSPECIFIED Status: Acute (2) Diabetic foot infection Code(s): E11.628 - TYPE 2 DIABETES MELLITUS WITH OTHER SKIN COMPLICATIONS; L08.9 - LOCAL INFECTION OF THE SKIN AND SUBCUTANEOUS TISSUE, UNSP Status: Acute (3) Hypertension Code(s): I10 - ESSENTIAL (PRIMARY) HYPERTENSION Status: Acute (4) Obesity (BMI 30-39.9) Code(s): E66.9 - OBESITY, UNSPECIFIED Status: Chronic - Plan * Diabetic foot infection- continue local wound care * MRI results are pending * Continue IV antibiotics which have been changed to Meropenem * HTN-- blood pressure is a bit elevated- will continue Lisinopril, and monitor the effect, and titrate the medications as needed * Consult placed to Podiatry
--- NOTE | 2019-11-16 15:44 | MRI ---
MRI LEFT FOREFOOT WITH AND WITHOUT IV CONTRAST: Date: 11/16/2019 PROVIDED CLINICAL HISTORY: Plantar foot wound. FINDINGS: Postoperative changes of prior resection of the third through fifth rays at the level of the metatars als demonstrated. There is cutaneous irregularity and subcutaneous signal alteration at the plantar aspect of the foref oot in the region of the second metatarsal head. There is nonenhancement of a portion of this tissue compatible with devitalization. There is a circumscribed fluid signal intensity structure with peripheral rim enhancement immediately deep and posterior to the plantar wound. This measures approximately 1.4 cm in transverse dimension and approximately 1.0 cm in AP dimension. There is diffuse signal alteration involving the intrinsic foot musculature with enhancement noted involving the more distal forefoot intrinsic musculature. There are second digit MTP and IP joint effusions. There is minimal patchy signal alteration at the p lantar aspect of the second metatarsal head comprised of diminished T1, increased T2 signal intensity , and associated with contrast enhancement. No additional focal marrow signal alteration is evident. There is no evidence for significant regiona l tenosynovial fluid. IMPRESSION: 1. Soft tissue findings at the plantar aspect of the second metatarsal head compatible with the prov ided clinical history of wound. Nonenhancing tissue in this region suggests tissue devitalization. 2. Signal changes within the subjacent second metatarsal head compatible with osteomyelitis. 3. Signal alteration with associated enhancement involving the intrinsic foot musculature suspicious for infectious myositis. There is an abscess noted within the subcutaneous tissues at the plantar as pect of the second metatarsal neck as described above. POS: TPC
[2019-11-16] MEDS: MEROPENEM 1 GM/50 ML 1 GM in Premix Bag 1 BAG IVPB SCH ×2 (16:37→21:32)
[2019-11-16] MEDS ORDERED: Amlodipine 5 MG TAB PO SCH (20:45)
[2019-11-16] MEDS ORDERED: HumaLOG 300 UNITS/3 ML VIAL SC SCH (21:00)
[2019-11-16] MEDS ORDERED: INSULIN GLARGINE SC SCH (21:00)
[2019-11-16] MEDS ORDERED: PRE FILLED SC SCH (21:00)
[2019-11-16] MEDS ORDERED: INSULIN DETEMIR SQ SCH (21:00)
[2019-11-16] MEDS: HumaLOG 300 UNITS/3 ML VIAL SC SCH (21:32)
[2019-11-17] MEDS: HYDROcodone/Acetaminophen 5/325 mg Tablet PO PRN ×2 (04:13→08:36)
[2019-11-17] MEDS: MEROPENEM 1 GM/50 ML 1 GM in Premix Bag 1 BAG IVPB SCH (05:34)
[2019-11-17] MEDS: Fenofibrate 48 MG TAB PO SCH (08:34)
[2019-11-17] MEDS: Aripiprazole 10 MG TAB PO SCH (08:34)
[2019-11-17] MEDS: Lisinopril 20 MG TAB PO SCH (08:34)
[2019-11-17] MEDS: HumaLOG 300 UNITS/3 ML VIAL SC SCH ×2 (08:37→20:47)
[2019-11-17] MEDS: Enoxaparin Sodium 40 MG/0.4 ML SYRINGE SC SCH (08:37)
[2019-11-17] MEDS: HumaLOG 300 UNITS/3 ML VIAL SC PRN ×2 (12:52→18:08)
--- NOTE | 2019-11-17 13:06 | PRG ---
DATE OF SERVICE: 11/17/2019 SUBJECTIVE: Status quo, no changes in his subjective component. OBJECTIVE: VITAL SIGNS: Stable. Some elevation in systolic and diastolic blood pressures. LUNGS: Not changed. HEART: Not changed. ABDOMEN: Not changed. FOOT: Not changed. LABORATORY DATA: White cell count down to 10.4, hemoglobin 13.6, and platelets 213. Creatinine 0.82. Microbiology with Stenotrophomonas maltophilia and Streptococcus group G, either involving the deep infection or just superficial colonization. MRI showed osteomyelitis of the second toe metatarsal head and small abscess in the area right above the ulcerated region. ASSESSMENT AND DISCUSSION: Type 2 diabetes with recurring complications in the right and left feet with now an area of ulceration under the second toe, left feet, with associated osteomyelitis. The patient will need surgical intervention. Hopefully, conservative management with limited debridement if possible. Discontinue antimicrobial therapy and then wait for the cultures and define long-term treatment. Job ID: [id number]
--- NOTE | 2019-11-17 13:54 | CON ---
DATE OF CONSULTATION: 11/16/2019 REASON FOR CONSULTATION: Left foot ulcer with inflammatory changes. HISTORY OF PRESENT ILLNESS: This is a 38-year-old with type 2 diabetes, obesity, neuropathy with recurrent complications in right and left feet, which have led to toe amputations and ray amputations in the past. At the last visit, there was an inflammatory process in the left foot, which required 3rd and 5th ray amputations. He took protracted antimicrobial therapy for it and now he comes in with a new ulcer at the bottom aspect of this second remaining toe, left foot, associated with odor, fever and weakness. No diarrhea or genitourinary symptoms. No neurological symptoms. PAST MEDICAL HISTORY: Type 2 diabetes, neuropathy, obesity, hyperlipidemia, and multiple toe complications with amputations of right and left feet. ALLERGIES: NONE. MEDICATIONS: 1. Abilify. 2. Insulin. 3. Fenofibrate. 4. Lisinopril. 5. Norvasc. 6. Currently, he is also on meropenem. FAMILY HISTORY: Diabetes type 2. PHYSICAL EXAMINATION: VITAL SIGNS: T-max 100.5 on admission, blood pressure 130/90, pulse 94, respirations 20, and O2 sat 95 on room air. SKIN: Round-shaped ulcer at the bottom aspect of the second left toe right behind the metatarsal head skin site. The ulcer measures about 1.5 cm, and I was not able to probe any exposed bone with a Q-tip. There is a little undermining. There is quite a bit of callus formation around the ulcer. The patient has a peripheral IV access and is voiding in the toilet. No lymphadenopathy. HEENT: Ocular movements conjugate. Oral cavity with numerous missing teeth. NECK: Supple. No jugular vein distention. LUNGS: Symmetric with clear breath sounds. HEART: S1 and S2, regular rate. No S3 or S4. ABDOMEN: Soft, not distended or tender. No ascites. No bladder distention. MUSCULOSKELETAL: No other joint inflammatory process. Popliteal is 1+. Dorsalis pedis 1+. Cap refill normal. NEUROLOGIC: Cognitive function normal. LABORATORY DATA: White cell count 16.2, hemoglobin 15, and platelets 246 with a predominance of mature neutrophils. Creatinine is 1.09. Liver profile normal. Sodium 131. Urinalysis is normal except for glycosuria. Previous microbiology from July with coag-negative staph, Enterococcus faecalis. ASSESSMENT: Type 2 diabetes, neuropathy with recurring complications, which have led to amputations, now the remainder of the forefoot region with an ulcer at the bottom aspect of the second metatarsophalangeal. DISCUSSION: The differential diagnosis includes simple cellulitis associated with the ulceration versus abscess plus-minus osteomyelitis of the second MPJ. MRI of the area with contrast and then define management if the patient will need surgical intervention or not. Meropenem for now. Job ID: [id number]
--- NOTE | 2019-11-17 16:24 | PDOC.HOSPP ---
- Subjective Encounter Date: 11/17/19 Encounter Time: 16:23 Subjective: Mr. Patricio was seen today in follow-up of diabetic foot infection. He does not have any new complaints. - Objective Vital Signs & Weight: Vital Signs (12 hours) Temp Pulse Resp BP Pulse Ox 11/17/19 08:00 95 11/17/19 07:43 98.5 F 94 20 137/90 95 Weight Admit Weight 270 lb 15.875 oz Weight 270 lb 15.875 oz I&O: 11/16/19 11/17/19 11/18/19 06:59 06:59 06:59 Intake Total 450 Balance 450 Result Diagrams: 11/16/19 05:29 11/16/19 05:29 Additional Labs: Accuchecks 11/17/19 11/17/19 11/17/19 10:46 04:12 00:21 POC Glucose 226 H 148 H 191 H 11/16/19 11/16/19 19:54 16:05 POC Glucose 345 H 304 H Hospitalist ROS - Medication Medications: Active Medications Generic Name Dose Route Start Last Admin Trade Name Freq PRN Reason Stop Dose Admin Acetaminophen 650 mg 11/15/19 17:05 11/15/19 20:25 Tylenol PO 650 mg Q4H PRN Administration Headache/Fever/Mild Pain (1-3) Hydrocodone Bitart/Acetaminophen 1 tab 11/15/19 17:05 11/17/19 08:36 [place] 5/325 PO 1 tab Q4H PRN Administration Moderate Pain (4-6) Aripiprazole 30 mg 11/17/19 09:00 11/17/19 08:34 Abilify PO 30 mg DAILY BHAVNA Administration Enoxaparin Sodium 40 mg 11/16/19 09:00 11/17/19 08:37 Lovenox SC 40 mg 0900 BHAVNA Administration Fenofibrate 48 mg 11/17/19 09:00 11/17/19 08:34 Tricor PO 48 mg DAILY BHAVNA Administration Hydralazine HCl 10 mg 11/15/19 17:05 11/15/19 18:22 Apresoline SLOW IVP 10 mg Q4H PRN Administration SBP > 180 and HR < 70 Insulin Glargine 110 units/ 1.1 mls @ 0 mls/hr 11/16/19 21:00 11/16/19 21:31 Miscellaneous Medication SC 1.1 mls HS BHAVNA Administration Insulin Human Lispro 0 units 11/15/19 17:05 11/17/19 12:52 Humalog SC 4 unit .MODERATE SLIDING SC PRN Administration Moderate Correctional Scale Insulin Human Lispro 0 units 11/15/19 17:05 11/15/19 20:26 Humalog SC 4 unit .BEDTIME SLIDING SC PRN Administration Bedtime Correctional Scale Insulin Human Lispro 30 units 11/16/19 21:00 11/17/19 08:37 Humalog SC 30 unit BID BHAVNA Administration Lisinopril 40 mg 11/17/19 09:00 11/17/19 08:34 Zestril PO 40 mg DAILY BHAVNA Administration Sodium Chloride 10 ml 11/16/19 21:00 11/17/19 08:40 Flush - Normal Saline IVF 10 ml Q12HR BHAVNA Administration Sodium Chloride 10 ml 11/16/19 09:59 11/16/19 16:38 Flush - Normal Saline IVF 10 ml PRN PRN Administration Saline Flush - Exam Heart: RRR, no murmur, no gallops, normal peripheral pulses Respiratory: CTAB, no wheezes, no rales, no ronchi, normal chest expansion Extremities: no cyanosis, no clubbing, no edema Hosp A/P (1) Diabetes mellitus type 2 in obese Code(s): E11.69 - TYPE 2 DIABETES MELLITUS WITH OTHER SPECIFIED COMPLICATION; E66.9 - OBESITY, UNSPECIFIED Status: Acute (2) Diabetic foot infection Code(s): E11.628 - TYPE 2 DIABETES MELLITUS WITH OTHER SKIN COMPLICATIONS; L08.9 - LOCAL INFECTION OF THE SKIN AND SUBCUTANEOUS TISSUE, UNSP Status: Acute (3) Hypertension Code(s): I10 - ESSENTIAL (PRIMARY) HYPERTENSION Status: Acute (4) Obesity (BMI 30-39.9) Code(s): E66.9 - OBESITY, UNSPECIFIED Status: Chronic - Plan * Diabetic foot infection- continue local wound care * MRI noted evidence of Osteomyelitis of the head of the 2nd metatarsal * Continue IV Meropenem * HTN-- blood pressure is a bit elevated but appears to be trending down- will continue with the current regimen * Dr. Ruff is here to evaluate the patient
[2019-11-17] MEDS: INSULIN GLARGINE SC SCH ×2 (20:46→20:47)
[2019-11-17] MEDS: PRE FILLED SC SCH ×2 (20:46→20:47)
[2019-11-18 08:24] LABS: Anion Gap 13 mmol/L (10-20); BUN (Urea Nitrogen) 9 mg/dL (8.9-20.6); Calc. Creatinine Clearance 220 mL/min (70-130); Calcium 9.1 mg/dL (7.8-10.44); Carbon Dioxide 25 mmol/L (22-29); Chloride 104 mmol/L (98-107); Estimated GFR-MDRD Greater than 90; Glucose 181 mg/dL (70-105); Potassium 3.9 mmol/L (3.5-5.1); Sodium 138 mmol/L (136-145)
[2019-11-18 08:37] LABS: Hemoglobin A1c 10.5 % (4.0-6.0)
[2019-11-18] MEDS: Fenofibrate 48 MG TAB PO SCH (09:06)
[2019-11-18] MEDS: Aripiprazole 10 MG TAB PO SCH (09:06)
[2019-11-18] MEDS: Lisinopril 20 MG TAB PO SCH (09:06)
[2019-11-18] MEDS: HumaLOG 300 UNITS/3 ML VIAL SC SCH ×2 (09:08→21:04)
[2019-11-18] MEDS: Enoxaparin Sodium 40 MG/0.4 ML SYRINGE SC SCH (09:09)
[2019-11-18] MEDS ORDERED: PROPOFOL 200 MG/20 ML VIAL ONE (09:10)
[2019-11-18] MEDS ORDERED: Dexamethasone 20 MG/5 ML VIAL ONE (09:10)
[2019-11-18] MEDS ORDERED: Ondansetron PF 4 MG/2 ML Vial ONE (09:10)
[2019-11-18] MEDS ORDERED: PHENYLEPHRINE-NS 100 MCG/ML 10 ML SYRINGE ONE (09:10)
[2019-11-18] MEDS ORDERED: Lidocaine 1% PF 5 ML VIAL ONE (09:10)
[2019-11-18] MEDS ORDERED: Ondansetron HCl/PF 4 MG/2 ML Vial IVP PRN (14:29)
[2019-11-18] MEDS ORDERED: Promethazine HCl 25 MG/ML VIAL IM PRN (14:29)
[2019-11-18] MEDS ORDERED: Promethazine HCl 25 MG/ML VIAL SLOW IVP PRN (14:29)
[2019-11-18] MEDS ORDERED: Fentanyl 100 MCG/2 ML VIAL ONE ×3 (14:44→17:19)
[2019-11-18] MEDS ORDERED: Bupivacaine PF 0.5% 30 ML VIAL ONE (14:47)
[2019-11-18] MEDS ORDERED: Neomycin-Polymyxin 1 ML AMP ONE ×2 (14:47→15:15)
[2019-11-18] MEDS ORDERED: Labetalol HCl 100 MG/20 ML VIAL ONE (16:56)
[2019-11-18] MEDS ORDERED: hydrALAZINE 20 MG/ML VIAL ONE (17:16)
[2019-11-18] MEDS ORDERED: Labetalol HCl 100 MG/20 ML VIAL SLOW IVP SCH (18:00)
--- NOTE | 2019-11-18 18:21 | PDOC.HOSPP ---
- Subjective Encounter Date: 11/18/19 Encounter Time: 18:18 Subjective: Mr. Patricio was seen today in follow-up of diabetic foot infection. He is back from debridement. He does not have any new complaints. - Objective Vital Signs & Weight: Vital Signs (12 hours) Temp Pulse Resp BP BP Pulse Ox 11/18/19 11:00 99.1 F 106 H 20 169/117 H 96 11/18/19 08:00 98.6 F 98 20 166/108 H 95 Weight Admit Weight 270 lb 15.875 oz Weight 270 lb 15.875 oz Result Diagrams: 11/16/19 05:29 11/18/19 07:50 Additional Labs: Accuchecks 11/18/19 11/18/19 11/17/19 11:14 04:52 19:40 POC Glucose 175 H 167 H 310 H Hospitalist ROS - Medication Medications: Active Medications Generic Name Dose Route Start Last Admin Trade Name Freq PRN Reason Stop Dose Admin Acetaminophen 650 mg 11/15/19 17:05 11/15/19 20:25 Tylenol PO 650 mg Q4H PRN Administration Headache/Fever/Mild Pain (1-3) Hydrocodone Bitart/Acetaminophen 1 tab 11/15/19 17:05 11/17/19 08:36 [place] 5/325 PO 1 tab Q4H PRN Administration Moderate Pain (4-6) Aripiprazole 30 mg 11/17/19 09:00 11/18/19 09:06 Abilify PO 30 mg DAILY BHAVNA Administration Enoxaparin Sodium 40 mg 11/16/19 09:00 11/18/19 09:09 Lovenox SC Not Given 899 BHAVNA Fenofibrate 48 mg 11/17/19 09:00 11/18/19 09:06 Tricor PO 48 mg DAILY BHAVNA Administration Hydralazine HCl 10 mg 11/15/19 17:05 11/15/19 18:22 Apresoline SLOW IVP 10 mg Q4H PRN Administration SBP > 180 and HR < 70 Insulin Glargine 57 units/ 0.57 mls @ 0 mls/hr 11/17/19 21:00 11/17/19 20:46 Miscellaneous Medication SC 0.57 mls HS BHAVNA Administration Insulin Glargine 57 units/ 0.57 mls @ 0 mls/hr 11/17/19 21:00 11/17/19 20:47 Miscellaneous Medication SC 0.57 mls HS BHAVNA Administration Insulin Human Lispro 0 units 11/15/19 17:05 11/17/19 18:08 Humalog SC 6 unit .MODERATE SLIDING SC PRN Administration Moderate Correctional Scale Insulin Human Lispro 0 units 11/15/19 17:05 11/15/19 20:26 Humalog SC 4 unit .BEDTIME SLIDING SC PRN Administration Bedtime Correctional Scale Insulin Human Lispro 30 units 11/16/19 21:00 11/18/19 09:08 Humalog SC 30 unit BID BHAVNA Administration Lisinopril 40 mg 11/17/19 09:00 11/18/19 09:06 Zestril PO 40 mg DAILY BHAVNA Administration Sodium Chloride 10 ml 11/16/19 21:00 11/18/19 09:09 Flush - Normal Saline IVF 10 ml Q12HR BHAVNA Administration Sodium Chloride 10 ml 11/16/19 09:59 11/16/19 16:38 Flush - Normal Saline IVF 10 ml PRN PRN Administration Saline Flush - Exam Eye: PERRL Heart: RRR, no murmur, no gallops, no rubs, normal peripheral pulses Respiratory: CTAB, no wheezes, no rales, no ronchi, normal chest expansion, no tachypnea, normal percussion Gastrointestinal: soft, non-tender, non-distended, normal bowel sounds, no palpable masses, no hepatomegaly Extremities: no cyanosis, 1+ LE edema (trace pedal edema) Hosp A/P (1) Diabetes mellitus type 2 in obese Code(s): E11.69 - TYPE 2 DIABETES MELLITUS WITH OTHER SPECIFIED COMPLICATION; E66.9 - OBESITY, UNSPECIFIED Status: Acute (2) Diabetic foot infection Code(s): E11.628 - TYPE 2 DIABETES MELLITUS WITH OTHER SKIN COMPLICATIONS; L08.9 - LOCAL INFECTION OF THE SKIN AND SUBCUTANEOUS TISSUE, UNSP Status: Acute (3) Hypertension Code(s): I10 - ESSENTIAL (PRIMARY) HYPERTENSION Status: Acute (4) Obesity (BMI 30-39.9) Code(s): E66.9 - OBESITY, UNSPECIFIED Status: Chronic - Plan * Diabetic foot infection- he is s/p wound debridement * Continue IV Meropenem * Will await further ID recommendations with regards to antibiotics going forward * HTN-- blood pressure continues to be elevated- will add Amlodipine * DM- blood glucose is a bit improved
[2019-11-18] MEDS: Piperacillin/Tazobactam 3.375 GM in Sodium Chloride 0.9% 100 ML IVPB SCH (18:45)
[2019-11-18] MEDS: HYDROcodone/Acetaminophen 5/325 mg Tablet PO PRN (18:51)
[2019-11-18] MEDS: INSULIN GLARGINE SC SCH (20:54)
[2019-11-18] MEDS: PRE FILLED SC SCH (20:54)
[2019-11-18] MEDS: Amlodipine 5 MG TAB PO SCH (20:54)
[2019-11-18] MEDS: HumaLOG 300 UNITS/3 ML VIAL SC PRN (20:55)
--- NOTE | 2019-11-18 22:44 | OP ---
DATE OF PROCEDURE: 11/18/2019 PREOPERATIVE DIAGNOSES: Osteomyelitis, left second metatarsal with abscess formation in the left foot. POSTOPERATIVE DIAGNOSES: Osteomyelitis, left second metatarsal with abscess formation in the left foot. PROCEDURE PERFORMED: Transmetatarsal amputation, left foot. ANESTHESIA: Local with monitored anesthetic care. HEMOSTASIS: Pneumatic tourniquet about the left ankle at 250 mmHg. ESTIMATED BLOOD LOSS: Less than 10 mL. MATERIALS: 1. 4-0 Vicryl. 2. 2-0 nylon. INJECTABLES: 10 mL of 0.5% Marcaine plain intraoperatively. COMPLICATIONS: None. JUSTIFICATION FOR SURGERY: The patient is a 38-year-old male, well known to me with history of multiple amputations of the left foot, and recurrent ulcerations and infections. He presented to the hospital with a new ulceration and infection to the left second toe. MRI and x-rays confirmed osteomyelitis of the second metatarsal. After my discussion with the patient, I was recommending a transmetatarsal amputation to complete the parabola and help to reduce any further forefoot pressures. The patient was in agreement, decision for surgery was made. DESCRIPTION OF PROCEDURE: The patient was brought into the operative suite, placed supine on the operative table. Time-out performed, identifying correct patient, procedure, and operative site. Well-padded tourniquet placed about the left ankle. The foot was prepped and draped in an aseptic manner. Tourniquet was raised to 250 mmHg. A fishmouth incision was made about the first and second toe metatarsophalangeal joint. Sharp and blunt dissection through the subcutaneous tissues, avoiding vital structures, ligated bleeders as necessary. The ulcer was ellipsed out at 3-to-1 fashion on the plantar surface of the foot in a proximal distal fashion connecting with the plantar incision for the amputation site. The first and second metatarsals were transected with the power saw, trying to realign a somewhat normal parabola of the metatarsal stumps. The toes and distal aspect of the metatarsals were amputated. A small sample of the second metatarsal head was taken and sent for culture and sensitivity. Bone was noted to be soft upon culturing. A small abscess was seen just deep to the ulceration site, approximately 5 mL of purulent drainage. All nonviable tissue and liquefactive tissue within the ulcer site and abscess site were excised in total. All avascular tissues and tendons were removed from the amputation site. The wound was irrigated with 3 L of normal saline mixed with 3 units of irrigant. The wound was noted to be clean and devoid of all non-devitalized tissue. Proximal amputation site stumps of the metatarsal bones were hard, white, and glistening. Decision was made to close the wound. Subcutaneous tissue was repaired with 4-0 Vicryl and skin with 2-0 nylon. Bandage applied including Xeroform gauze, roll gauze, ABD pad, and Mateus wrap. The patient tolerated the procedure and anesthesia well. Tourniquet was released and immediate hyperemia to the left lower extremity. He will be transferred over to the postanesthetic care unit and kept for a short period of monitoring and then transferred back to his room. He will be restarted on his diet and restarted on the Zosyn antibiotic until we get culture and sensitivity results. At that time, I will defer to Dr. Ortez for antibiotic selection and induration. Job ID: [id number] [facility]
[2019-11-19] MEDS: Piperacillin/Tazobactam 3.375 GM in Sodium Chloride 0.9% 100 ML IVPB SCH ×5 (00:44→23:34)
[2019-11-19] MEDS: Enoxaparin Sodium 40 MG/0.4 ML SYRINGE SC SCH (07:46)
[2019-11-19] MEDS: Aripiprazole 10 MG TAB PO SCH (07:46)
[2019-11-19] MEDS: Lisinopril 20 MG TAB PO SCH (07:47)
[2019-11-19] MEDS: Fenofibrate 48 MG TAB PO SCH (07:47)
[2019-11-19] MEDS: HumaLOG 300 UNITS/3 ML VIAL SC SCH ×2 (07:47→21:02)
[2019-11-19] MEDS: HumaLOG 300 UNITS/3 ML VIAL SC PRN ×2 (15:52→21:03)
--- NOTE | 2019-11-19 17:29 | PDOC.HOSPP ---
- Subjective Encounter Date: 11/19/19 Encounter Time: 17:27 Subjective: Mr. Patricio was seen today in follow-up of diabetic foot infection. He does not have any complaints. - Objective Vital Signs & Weight: Vital Signs (12 hours) Temp Pulse Resp BP Pulse Ox 11/19/19 15:50 98.1 F 107 H 20 143/87 H 98 11/19/19 10:55 98.5 F 107 H 20 156/89 H 97 11/19/19 08:00 96 11/19/19 07:52 97.6 F 92 20 130/79 96 Weight Admit Weight 270 lb 15.875 oz Weight 270 lb 15.875 oz I&O: 11/18/19 11/19/19 11/20/19 06:59 06:59 06:59 Intake Total 720 Balance 720 Result Diagrams: 11/16/19 05:29 11/18/19 07:50 Additional Labs: Accuchecks 11/19/19 11/19/19 11/19/19 15:51 10:56 03:50 POC Glucose 312 H 261 H 281 H 11/18/19 19:38 POC Glucose 346 H Hospitalist ROS - Medication Medications: Active Medications Generic Name Dose Route Start Last Admin Trade Name Freq PRN Reason Stop Dose Admin Acetaminophen 650 mg 11/15/19 17:05 11/15/19 20:25 Tylenol PO 650 mg Q4H PRN Administration Headache/Fever/Mild Pain (1-3) Hydrocodone Bitart/Acetaminophen 1 tab 11/15/19 17:05 11/18/19 18:51 [place] 5/325 PO 1 tab Q4H PRN Administration Moderate Pain (4-6) Amlodipine Besylate 5 mg 11/18/19 20:00 11/18/19 20:54 Norvasc PO 5 mg 2000 BHAVNA Administration Aripiprazole 30 mg 11/17/19 09:00 11/19/19 07:46 Abilify PO 30 mg DAILY BHAVNA Administration Enoxaparin Sodium 40 mg 11/16/19 09:00 11/19/19 07:46 Lovenox SC 40 mg 0900 BHAVNA Administration Fenofibrate 48 mg 11/17/19 09:00 11/19/19 07:47 Tricor PO 48 mg DAILY BHAVNA Administration Hydralazine HCl 10 mg 11/15/19 17:11/15/19 18:22 Apresoline SLOW IVP 10 mg Q4H PRN Administration SBP > 180 and HR < 70 Insulin Glargine 57 units/ 0.57 mls @ 0 mls/hr 11/17/19 21:00 11/18/19 20:54 Miscellaneous Medication SC 0.57 mls HS BHAVNA Administration Insulin Glargine 57 units/ 0.57 mls @ 0 mls/hr 11/17/19 21:00 11/18/19 20:54 Miscellaneous Medication SC 0.57 mls HS BHAVNA Administration Piperacillin Sod/Tazobactam 100 mls @ 200 mls/hr 11/18/19 18:00 11/19/19 17: 21 Sod 3.375 gm/ Sodium Chloride IVPB 100 mls Q6HR BHAVNA Administration Insulin Human Lispro 0 units 11/15/19 17:05 11/19/19 15:52 Humalog SC 8 unit .MODERATE SLIDING SC PRN Administration Moderate Correctional Scale Insulin Human Lispro 0 units 11/15/19 17:05 11/18/19 20:55 Humalog SC 5 unit .BEDTIME SLIDING SC PRN Administration Bedtime Correctional Scale Insulin Human Lispro 30 units 11/16/19 21:00 11/19/19 07:47 Humalog SC 30 unit BID BHAVNA Administration Lisinopril 40 mg 11/17/19 09:00 11/19/19 07:47 Zestril PO 40 mg DAILY BHAVNA Administration Sodium Chloride 10 ml 11/16/19 21:00 11/19/19 07:51 Flush - Normal Saline IVF 10 ml Q12HR BHAVNA Administration Sodium Chloride 10 ml 11/16/19 09:59 11/16/19 16:38 Flush - Normal Saline IVF 10 ml PRN PRN Administration Saline Flush - Exam Eye: PERRL Heart: RRR, no murmur, no gallops, no rubs, normal peripheral pulses Respiratory: CTAB, no wheezes, no rales, no ronchi, normal chest expansion Gastrointestinal: soft, non-tender, non-distended, normal bowel sounds, no palpable masses, no hepatomegaly, no splenomegaly Extremities: no cyanosis Hosp A/P (1) Diabetes mellitus type 2 in obese Code(s): E11.69 - TYPE 2 DIABETES MELLITUS WITH OTHER SPECIFIED COMPLICATION; E66.9 - OBESITY, UNSPECIFIED Status: Acute (2) Diabetic foot infection Code(s): E11.628 - TYPE 2 DIABETES MELLITUS WITH OTHER SKIN COMPLICATIONS; L08.9 - LOCAL INFECTION OF THE SKIN AND SUBCUTANEOUS TISSUE, UNSP Status: Acute (3) Hypertension Code(s): I10 - ESSENTIAL (PRIMARY) HYPERTENSION Status: Acute (4) Obesity (BMI 30-39.9) Code(s): E66.9 - OBESITY, UNSPECIFIED Status: Chronic - Plan * Diabetic foot infection- he is s/p wound debridement * He is on IV Meropenem * Will await further ID recommendations with regards to antibiotics going forward * HTN-- blood pressure is better * DM- blood glucose is still elevated- will add Metformin to see if this will improve his glycemic control.
[2019-11-19] MEDS ORDERED: metFORMIN 500 MG TAB PO SCH (17:45)
--- NOTE | 2019-11-19 21:00 | PRG ---
DATE OF SERVICE: 11/19/2019 SUBJECTIVE: The patient is seen at bedside today, in no acute distress, and relates having no pain. He is 1 day status post transmetatarsal amputation, left foot. Denies nausea, vomiting, fevers, or chills. OBJECTIVE: EXTREMITIES: Focal lower extremity exam; dressing to the left lower extremity is clean, dry, and intact. There is a small patch of dry blood on the plantar surface of the dressing. He is wearing postoperative shoe. No calf tenderness. VITAL SIGNS: T-max over the last 24 hours 98.5, pulse 107, respirations 20, blood pressure 143/87. ASSESSMENT: Day 1 status post left transmetatarsal amputation secondary to osteomyelitis and abscess formation of the left foot. PLAN: 1. Dressings left in place at this time, sterile dressing will be left in place until he will follow up with me in 1 week. No wound care necessary. All wounds have been primarily closed with sutures. 2. Per the Podiatry standpoint, the patient can be discharged. Pending final antibiotic recommendations per Infectious Disease. I have already discussed with the patient that he is to follow up with me and he is going to schedule an appointment tomorrow. Job ID: [id number]
[2019-11-19] MEDS: INSULIN GLARGINE SC SCH ×2 (21:03→21:04)
[2019-11-19] MEDS: PRE FILLED SC SCH ×2 (21:03→21:04)
[2019-11-19] MEDS: Amlodipine 5 MG TAB PO SCH (21:04)
[2019-11-20] MEDS: Piperacillin/Tazobactam 3.375 GM in Sodium Chloride 0.9% 100 ML IVPB SCH ×3 (05:52→18:01)
[2019-11-20] MEDS: Aripiprazole 10 MG TAB PO SCH (08:48)
[2019-11-20] MEDS: metFORMIN 500 MG TAB PO SCH ×2 (08:50→17:26)
[2019-11-20] MEDS: Fenofibrate 48 MG TAB PO SCH (08:51)
[2019-11-20] MEDS: Lisinopril 20 MG TAB PO SCH (08:51)
[2019-11-20] MEDS: Enoxaparin Sodium 40 MG/0.4 ML SYRINGE SC SCH (08:56)
[2019-11-20] MEDS: HumaLOG 300 UNITS/3 ML VIAL SC SCH (08:58)
[2019-11-20] MEDS: HYDROcodone/Acetaminophen 5/325 mg Tablet PO PRN (10:14)
[2019-11-20 15:27] VITALS: BP 145/96; TEMP 98.4
--- NOTE | 2019-11-20 15:29 | PDOC.HOSPP ---
- Subjective Encounter Date: 11/20/19 Encounter Time: 15:27 Subjective: Mr. Patricio was seen today in follow-up of Diabetic foot infection. He does not have any complaints. - Objective Vital Signs & Weight: Vital Signs (12 hours) Temp Pulse Resp BP BP Pulse Ox 11/20/19 15:27 98.4 F 101 H 18 145/96 H 93 L 11/20/19 11:51 98.6 F 85 16 148/93 H 95 11/20/19 07:27 98.0 F 92 16 134/84 94 L 11/20/19 04:00 98.6 F 93 18 128/82 96 Weight Admit Weight 270 lb 15.875 oz Weight 270 lb 15.875 oz I&O: 11/19/19 11/20/19 11/21/19 06:59 06:59 06:59 Intake Total 1080 820 Balance 1080 820 Result Diagrams: 11/16/19 05:29 11/18/19 07:50 Additional Labs: Accuchecks 11/20/19 11/20/19 11/19/19 11:55 05:10 19:57 POC Glucose 141 H 231 H 349 H 11/19/19 15:51 POC Glucose 312 H Hospitalist ROS - Medication Medications: Active Medications Generic Name Dose Route Start Last Admin Trade Name Freq PRN Reason Stop Dose Admin Acetaminophen 650 mg 11/15/19 17:05 11/15/19 20:25 Tylenol PO 650 mg Q4H PRN Administration Headache/Fever/Mild Pain (1-3) Hydrocodone Bitart/Acetaminophen 1 tab 11/15/19 17:05 11/20/19 10:14 [place] 5/325 PO 1 tab Q4H PRN Administration Moderate Pain (4-6) Amlodipine Besylate 5 mg 11/18/19 20:00 11/19/19 21:04 Norvasc PO 5 mg 2000 BHAVNA Administration Aripiprazole 30 mg 11/17/19 09:00 11/20/19 08:48 Abilify PO 30 mg DAILY BHAVNA Administration Enoxaparin Sodium 40 mg 11/16/19 09:00 11/20/19 08:56 Lovenox SC 40 mg 0900 BHAVNA Administration Fenofibrate 48 mg 11/17/19 09:00 11/20/19 08:51 Tricor PO 48 mg DAILY BHAVNA Administration Hydralazine HCl 10 mg 11/15/19 17:05 11/15/19 18:22 Apresoline SLOW IVP 10 mg Q4H PRN Administration SBP > 180 and HR < 70 Insulin Glargine 57 units/ 0.57 mls @ 0 mls/hr 11/17/19 21:00 11/19/19 21:04 Miscellaneous Medication SC 0.57 mls HS BHAVNA Administration Insulin Glargine 57 units/ 0.57 mls @ 0 mls/hr 11/17/19 21:00 11/19/19 21:03 Miscellaneous Medication SC 0.57 mls HS BHAVNA Administration Piperacillin Sod/Tazobactam 100 mls @ 200 mls/hr 11/18/19 18:00 11/20/19 12: 29 Sod 3.375 gm/ Sodium Chloride IVPB 100 mls Q6HR BHAVNA Administration Insulin Human Lispro 0 units 11/15/19 17:05 11/19/19 15:52 Humalog SC 8 unit .MODERATE SLIDING SC PRN Administration Moderate Correctional Scale Insulin Human Lispro 0 units 11/15/19 17:05 11/19/19 21:03 Humalog SC 4 unit .BEDTIME SLIDING SC PRN Administration Bedtime Correctional Scale Insulin Human Lispro 30 units 11/16/19 21:00 11/20/19 08:58 Humalog SC 30 unit BID BHAVNA Administration Lisinopril 40 mg 11/17/19 09:00 11/20/19 08:51 Zestril PO 40 mg DAILY BHAVNA Administration Metformin HCl 500 mg 11/20/19 08:00 11/20/19 08:50 Glucophage PO 500 mg BID- BHAVNA Administration Sodium Chloride 10 ml 11/16/19 21:00 11/20/19 12:30 Flush - Normal Saline IVF 10 ml Q12HR BHAVNA Administration Sodium Chloride 10 ml 11/16/19 09:59 11/16/19 16:38 Flush - Normal Saline IVF 10 ml PRN PRN Administration Saline Flush - Exam Eye: PERRL Heart: RRR, no murmur, no gallops, no rubs, normal peripheral pulses Respiratory: CTAB, no wheezes, no rales, no ronchi, normal chest expansion, no tachypnea, normal percussion Gastrointestinal: soft, non-tender, non-distended, normal bowel sounds Extremities: no cyanosis Hosp A/P (1) Diabetes mellitus type 2 in obese Code(s): E11.69 - TYPE 2 DIABETES MELLITUS WITH OTHER SPECIFIED COMPLICATION; E66.9 - OBESITY, UNSPECIFIED Status: Acute (2) Diabetic foot infection Code(s): E11.628 - TYPE 2 DIABETES MELLITUS WITH OTHER SKIN COMPLICATIONS; L08.9 - LOCAL INFECTION OF THE SKIN AND SUBCUTANEOUS TISSUE, UNSP Status: Acute (3) Hypertension Code(s): I10 - ESSENTIAL (PRIMARY) HYPERTENSION Status: Acute (4) Obesity (BMI 30-39.9) Code(s): E66.9 - OBESITY, UNSPECIFIED Status: Chronic - Plan * Diabetic foot infection- he is s/p wound debridement * Will transition him over to Cipro and Flagyl * Stable for discharge home
--- NOTE | 2019-11-20 17:06 | PDOC.EVN ---
Event Note - Event Note Event Note: I spoke communicated with Dr. Ortez, and he would like to increase the length of therapy to Cipro and Flagyl for 6 weeks. I have called the pharmacy to make this change.
--- NOTE | 2019-11-20 19:33 | DIS ---
DATE OF ADMISSION: 11/15/2019 DATE OF DISCHARGE: 11/20/2019 PRIMARY CARE PHYSICIAN: Chayo Parr PA-C DISCHARGE DISPOSITION: Home. DISCHARGE DIAGNOSES: 1. Diabetic foot infection. 2. Osteomyelitis of the second toe on the left foot. 3. Diabetes mellitus, type 2. 4. Hypertension. 5. Obesity. 6. Hyperlipidemia. DISCHARGE MEDICATIONS: Include; 1. Ciprofloxacin 500 mg twice daily. 2. Flagyl 500 mg t.i.d. 3. Amlodipine 5 mg daily. 4. Lisinopril 40 mg daily. 5. Levemir insulin 110 units q.p.m. 6. NovoLog 30 units twice a day with meals. 7. TriCor 48 mg daily. 8. Abilify 30 mg daily. CODE STATUS: Full code. ALLERGIES: NO KNOWN ALLERGIES. IMAGING DONE DURING HOSPITAL STAY: The patient had a lower extremity MRI showing some findings compatible with tissue devitalization and osteomyelitis of the second metatarsal. The patient also had a transmetatarsal amputation on the left foot. HOSPITAL COURSE: Mr. Patricio is a pleasant 38-year-old gentleman, who was admitted to the hospital after noticing increasing signs of infection of the foot. He has had an ongoing problem with ulceration and callus formation and has had previous amputation of the 3rd and 5th toes on the left foot. He also noted some drainage as well. He was admitted to the hospital and had an MRI done. The MRI showed changes consistent with osteomyelitis of the second digit. His deburring machine operator was consulted. He ultimately underwent transmetatarsal amputation. The patient tolerated the procedure well. The cultures of the wound grew Stenotrophomonas maltophilia, Streptococcus group G, and Staph aureus. The Staph aureus was pansensitive. He was sent home on Cipro and Flagyl. He is to follow up with his primary care physician, Dr. Parr, in 1 week and I also sent Dr. Keshav Gonzalez, notifying her of the discharge and also with Dr. Steve as recommended. Job ID: [id number]
--- NOTE | 2019-11-22 21:41 | PQF ---
Ari Patricio TONI MD [id number] CLINICAL DOCUMENTATION CLARIFICATION FORM: POST DISCHARGE Addendum to original discharge summary date: ____ Late entry note date: __ DATE:11/22/2019 ATTN: Sharif Weaver Please exercise your independent, professional judgment in responding to the clarification form. Clinical indicators are provided on the bottom of this form for your review Please check appropriate box(es): [ ] Sepsis due to Osteomyelitis related to Amputation stump Complication [ X ] Sepsis due to Osteomyelitis not related to Amputation [ ] Localized infection without sepsis [ ] Other diagnosis [ ] Unable to determine In addition, please specify: Present on Admission (POA): [ X ] Yes [ ] No [ ] Unable to determine For continuity of documentation, please document condition throughout progress notes and discharge summary. Thank You. CLINICAL INDICATORS - SIGNS / SYMPTOMS / LABS Vital signs 11/15 - Temp 100.0, Pulse 116, Resp 22, BP 150/79 Laboratory 11/15 WBC 16.2 Lactic Acid 2.7 H&P p1 11/15 Dr Castillo He says back in October, he developed a pressure sore on his foot, which got progressively worse. This resulted in amputation of oh 3rd through 5th toes on the left foot H&P p1 11/15 Dr Castillo HE says after the amputation, the pressure sore seems to move more medially and got progressively worse H&P p1 11/15 Dr Castillo He says that he noticed that there has been odor coming from the foot as well as some drainage. H&P p3 11/15 Dr Castillo He undergone amputations of 2rd to 5th toes in the past, who has developed a worsening ulcer on the foot RISK FACTORS H&P p1 11/15 History of Diabetes Mellitus, type 2 H&P p1 11/15 Admits to smokeless tobacco use H&P p3 11/15 Sepsis H&P p3 11/15 Diabetic foot cellulitis with Sepsis TREATMENTS: DEC 19 IV Cefepime 2gms DEC 19 IV Ceftaroline Fosamil 40 mg DEC 19 IV Zosyn 3.375gms DEC 19 Insulin 30 untis ID consult 11/17 Ray Godoy Operative report p1 11/18 Transmetatarsal Amputation, left foot (This form is maintained as a part of the permanent medical record) 2014 [email or web address]. All Rights Reserved [email or web address]
== END 2019-11-20 18:45 | disposition home or self-care (01) | DRG 854 ==
LOC: ERS 11:56 → T4-B 14:49
PROVIDERS: ADMIT Internal Medicine; ATTEND Internal Medicine
PROC: 0Y6N0Z9 Detachment at Left Foot, Partial 1st Ray, Open Approach (ICD-10-PCS; principal; 2019-11-18)
PROC: 0Y6N0ZB Detachment at Left Foot, Partial 2nd Ray, Open Approach (ICD-10-PCS; 2019-11-18)
DX: A40.8 Other streptococcal sepsis (principal); M86.8X7 Other osteomyelitis, ankle and foot; L02.612 Cutaneous abscess of left foot; A41.1 Sepsis due to other specified staphylococcus; E11.69 Type 2 diabetes mellitus with other specified complication; I10 Essential (primary) hypertension; E66.9 Obesity, unspecified; E78.5 Hyperlipidemia, unspecified; F17.290 Nicotine dependence, other tobacco product, uncomplicated; E11.40 Type 2 diabetes mellitus with diabetic neuropathy, unspecified; L03.032 Cellulitis of left toe; E11.621 Type 2 diabetes mellitus with foot ulcer; L97.529 Non-pressure chronic ulcer of other part of left foot with unspecified severity; B95.4 Other streptococcus as the cause of diseases classified elsewhere; Z68.36 Body mass index [BMI] 36.0-36.9, adult; Z90.49 Acquired absence of other specified parts of digestive tract; Z88.1 Allergy status to other antibiotic agents; Z79.899 Other long term (current) drug therapy; Z79.4 Long term (current) use of insulin; Z89.422 Acquired absence of other left toe(s)
CPT/HCPCS: 36415; 36416; 80048; 80053; 81003; 81015; 83036; 83605; 85025; 87040; 87070; 87076; 87077; 87086; 87186; 87205; 88305; 88311; 93005; 96361; 96365; 96367; A9579; J0360; J0692; J0712; J1100; J1650; J1815; J2001; J2185; J2405; J2543; J2704; J3010; J3370; J3490; J7050; S0020

== ENCOUNTER 2020-07-25 08:17 | Inpatient (IN) | payer OTHER, SELFPAY ==
[~2020-07-25 08:17] MED LIST changes: +Heparin 1,000 UNITS/ML VIAL ONE; -Sodium Chloride 0.9% 15 ML NEB ONE
[2020-07-25] MEDS ORDERED: Vancomycin 1 GM/200 ML BAG ONE (08:41)
[2020-07-25] MEDS ORDERED: Cefepime 2 GM VIAL ONE (08:41)
[2020-07-25 08:48] LABS: #Lymphocytes 1.2 thou/uL (1.20-3.40); #Monocytes 1.4 thou/uL (0.11-0.59); #Neutrophils 9.8 thou/uL (1.40-6.50); %Basophils 0.3 % (0.0-1.0); %Eosinophils 0.2 % (0.0-10.0); %Lymphocytes 9.3 % (21.0-51.0); %Monocytes 11.5 % (0.0-10.0); %Neutrophils 78.8 % (42.0-75.0); Hemoglobin 14.6 g/dL (14.0-18.0); Mean Corpuscular HGB CONC 33.2 g/dL (32.0-36.0); Mean Corpuscular Hemoglobin 27.5 pg (27.0-31.0); Mean Corpuscular Volume 82.8 fL (78.0-98.0); Mean Platelet Volume 7.6 fL (7.4-10.4); Platelet Count 230 thou/uL (130-400); RBC Distribution Width 12.9 % (11.5-14.5); Red Blood Cell (RBC) Count 5.32 mill/uL (4.70-6.10); White Blood Cell (WBC) Count 12.4 thou/uL (4.8-10.8)
--- NOTE | 2020-07-25 08:57 | RAD ---
Chest one view HISTORY: Cough and fever. COMPARISON: 03/23/2019. FINDINGS: Cardiac silhouette is magnified by projection. Shallow inspiration accentuates pulmonary ma rkings. Mediastinum is midline. Calcified granulomata are consistent with healed granulomatous disease. No lobar consolidation or evidence of pneumothorax. IMPRESSION : No active cardiopulmonary abnormalities are demonstrated.
[2020-07-25 09:15] LABS: ALT (SGPT) 9 U/L (8-55); AST (SGOT) 14 U/L (5-34); Albumin 2.6 g/dL (3.5-5.0); Alkaline Phosphatase 108 U/L (40-110); Anion Gap 16 mmol/L (10-20); BUN (Urea Nitrogen) 15 mg/dL (8.9-20.6); Bilirubin, Total 0.9 mg/dL (0.2-1.2); Calc. Creatinine Clearance 0 mL/min (70-130); Calcium 7.8 mg/dL (7.8-10.44); Carbon Dioxide 16 mmol/L (22-29); Chloride 97 mmol/L (98-107); Estimated GFR-MDRD 70; Globulin 3.5 g/dL (2.4-3.5); Glucose 469 mg/dL (70-105); Potassium 3.8 mmol/L (3.5-5.1); Protein, Total 6.1 g/dL (6.0-8.3); Sodium 125 mmol/L (136-145)
--- NOTE | 2020-07-25 09:30 | RAD ---
LEFT FOOT 3 VIEWS: INDICATION: History of lethargy and left foot infection. COMPARISON: Prior dated 05/31/2020. FINDINGS: There is soft tissue ulceration overlying the 2nd digit partial ray amputation as well as the 3rd dig it partial amputation. There is osteopenia and osteolysis involving the residual 3d digit metatarsal as well as irregularity involving the distal aspect of the 2nd digit metatarsal, some of which appea rs new from the prior exam. Findings are overall suspicious for osteomyelitis of the 2nd and 3rd met atarsal. There is soft tissue swelling of the amputation of the stump. There are partial ray amputa tions of the great toe, 4th digit and 5th digit. Lisfranc alignment is preserved. Enthesopathic all nge is seen off the posterior plantar calcaneus. IMPRESSION: Findings radiographically of osteomyelitis involving the distal tip of the 2nd digit metatarsal parti al amputation site as well as the 3rd digit metatarsal shaft. POS: [facility]
[2020-07-25] MEDS ORDERED: Ondansetron PF 4 MG/2 ML Vial IVP PRN (11:50)
[2020-07-25 11:56] LABS: Bilirubin Negative (Negative); Blood, Urine 3+ (Negative); Clarity Clear (Clear); Glucose, Urine (Dipstick) Greater than 1000 mg/dL (Negative); Ketone, Urine 10 mg/dL (Negative); Leukocyte Negative Leu/uL (Negative); Nitrite Negative (Negative); Protein, Urine (Dipstick) 300 mg/dL (Neg-Trace); Specific Gravity, Urine 1.027 (1.002-1.036); Squamous Epithelial 0-3 HPF (0-3); Urobilinogen Normal mg/dL (Less than 2); pH, Urine 5.5 (5.0-9.0)
[2020-07-25] MEDS ORDERED: Dextrose 50% Abboject 50 ML SYRINGE SLOW IVP PRN (12:00)
[2020-07-25] MEDS ORDERED: Dextrose 5% in Water 1,000 ML IV PRN (12:00)
[2020-07-25 12:07] LABS: Bacteria/HPF Rare-Few HPF (None Seen); Yeast-Budding Rare HPF (None Seen)
[2020-07-25] MEDS ORDERED: Insulin Regular 300 UNITS/3 ML VIAL ONE (12:20)
[2020-07-25 13:15] LABS: SARS-CoV-2 NAA Rapid Test Not Detected (NotDetected)
[2020-07-25 14:10] VITALS: BMI 37.1
[2020-07-25] MEDS ORDERED: FLU VACC QS2020-21(6MOS UP)/PF 60 MCG/0.5 ML SYRINGE IM ONE (14:30)
[2020-07-25] MEDS ORDERED: Amlodipine 10 MG TAB PO SCH (14:45)
[2020-07-25] MEDS ORDERED: Metoprolol Tartrate 25 MG TAB PO SCH (14:45)
[2020-07-25] MEDS: Sodium Chloride 0.9% 1,000 ML IV SCH ×2 (15:43→21:13)
[2020-07-25] MEDS: metroNIDAZOLE 500 MG in Premix Bag 1 BAG IVPB SCH (15:44)
[2020-07-25] MEDS: cefTRIAXone\\ROCEPHIN 1 GM in Sodium Chloride 0.9% 100 ML IVPB SCH (15:45)
[2020-07-25] MEDS: Vancomycin 1.5 GRAM/300 ML BAG 1.5 GM in Premix Bag 1 BAG IVPB SCH (17:30)
[2020-07-25] MEDS: HumaLOG 300 UNITS/3 ML VIAL SC PRN ×2 (17:58→21:09)
--- NOTE | 2020-07-25 20:06 | HP ---
CHIEF COMPLAINT: "I've a foot infection." HISTORY OF PRESENT ILLNESS: The patient is a 39-year-old male with past medical history of hypertension, hyperlipidemia, and diabetes mellitus, who underwent left foot ray amputation for diabetic foot infection in May 2020. The patient presented to the emergency department today with complaints of generalized malaise and left foot discharge and discomfort for the past week. The patient stated that the discharge is reddish in color. He denies fever or chills. The patient has been following up with Podiatry since his amputation. In the ER, he was found to be septic with elevated WBC count in addition to tachycardia and tachypnea. He has been complaining of cough over the past few days. His chest x-ray did not show any abnormalities. Rapid COVID test was sent and is pending at this time. REVIEW OF SYSTEMS: Negative except as noted in HPI. PAST MEDICAL HISTORY: As noted above. PAST SURGICAL HISTORY: Left foot amputation and history of appendectomy. SOCIAL HISTORY: The patient is current tobacco smoker. Denies alcohol or illicit drug use. ALLERGIES: MORPHINE. FAMILY HISTORY: Noncontributory for his current presentation. PHYSICAL EXAMINATION: GENERAL: The patient is alert and oriented x3. HEENT: Head is normocephalic and atraumatic. Extraocular muscles are intact. NECK: Supple. CHEST: Auscultation is clear bilaterally. CARDIOVASCULAR: Showing normal S1 and S2 with no murmurs, rubs, or gallops. Regular rate and rhythm. ABDOMEN: Soft, nontender, nondistended. EXTREMITIES: Show no edema or rashes. An ulcer is present over the left second and third metatarsal heads. NEUROLOGIC: Unremarkable. PERTINENT DATA: Chest x-ray did not show any acute abnormalities. LABORATORY STUDIES: Reveal mild leukocytosis of 12.4, normal H and H. His chemistry revealed hyponatremia with sodium of 125 and chloride of 97. His bicarb is low at 16, and his glucose level is elevated at 469. ASSESSMENT: 1. Sepsis. 2. Osteomyelitis of the left foot as seen on left foot x-ray involving the second and third metatarsal area with overlying ulcer. 3. Uncontrolled diabetes mellitus type 2. 4. Hyponatremia and hypochloremia. 5. Metabolic acidosis. 6. Hyperlipidemia. PLAN: The patient will be admitted to the medical floor. We will start him on IV vancomycin, ceftriaxone, and metronidazole to cover both MRSA gram-positive and gram-negative with anaerobes. We will start IV fluids per sepsis protocol. His hyponatremia and hypochloremia are likely hypovolemic and will hopefully improve with IV hydration. His diabetes mellitus will be managed with long-acting Lantus in addition to aggressive sliding scale. I have consulted ID and Podiatry to help with managing this patient. Lovenox for DVT prophylaxis and PT/OT consultation. The patient is requiring oxygen at this time and we are awaiting the results of the rapid COVID test. Job ID: [id number] [facility]
[2020-07-25] MEDS ORDERED: Insulin Glargine 50 UNITS in Pre-Filled Syringe 1 EACH SC SCH (21:00)
[2020-07-25] MEDS ORDERED: Vancomycin 1 GM in Premix Bag 1 BAG IVPB SCH (21:00)
[2020-07-25] MEDS: Insulin Glargine 50 UNITS in Pre-Filled Syringe 1 EACH SC SCH (21:06)
[2020-07-25] MEDS: Metoprolol Tartrate 25 MG TAB PO SCH (21:12)
[2020-07-26] MEDS: metroNIDAZOLE 500 MG in Premix Bag 1 BAG IVPB SCH ×3 (00:11→16:49)
[2020-07-26] MEDS: Vancomycin 1.5 GRAM/300 ML BAG 1.5 GM in Premix Bag 1 BAG IVPB SCH ×3 (00:29→19:02)
[2020-07-26] MEDS ORDERED: Acetaminophen 325 MG TAB PO PRN (00:46)
[2020-07-26] MEDS ORDERED: Morphine 2 MG/ML VIAL SLOW IVP SCH (01:00)
[2020-07-26] MEDS: HumaLOG 300 UNITS/3 ML VIAL SC PRN ×2 (06:11→16:49)
[2020-07-26 06:32] LABS: Anion Gap 10 mmol/L (10-20); BUN (Urea Nitrogen) 18 mg/dL (8.9-20.6); Calc. Creatinine Clearance 192 mL/min (70-130); Calcium 7.6 mg/dL (7.8-10.44); Carbon Dioxide 23 mmol/L (22-29); Chloride 101 mmol/L (98-107); Estimated GFR-MDRD 90; Glucose 275 mg/dL (70-105); Potassium 3.5 mmol/L (3.5-5.1); Sodium 130 mmol/L (136-145)
[2020-07-26 06:46] LABS: Band 3 % (5-11); Eosinophils 1 % (0-10); Hemoglobin 13.3 g/dL (14.0-18.0); Hypochromia SLIGHT = 6-15 cells (100X) (0-5/hpf); Lymphocytes 5 % (21-51); MDiff Complete? YES; Mean Corpuscular HGB CONC 32.5 g/dL (32.0-36.0); Mean Corpuscular Volume 82.9 fL (78.0-98.0); Mean Platelet Volume 7.7 fL (7.4-10.4); Monocytes 18 % (0-10); Neutrophil 73 % (42-75); Platelet Count 224 thou/uL (130-400); Platelet Morphology Comment Appears Adequate; RBC Distribution Width 12.9 % (11.5-14.5); Red Blood Cell (RBC) Count 4.93 mill/uL (4.70-6.10); White Blood Cell (WBC) Count 7.9 thou/uL (4.8-10.8)
--- NOTE | 2020-07-26 08:48 | PDOC.HOSPP ---
- Subjective Encounter Date: 07/26/20 Encounter Time: 08:47 Subjective: Patient seen and examined. No new complaints. No overnight events. Reports diarrhea improved, no BMs since last night. Was having 10-15 per day prior to admission. Denies any fever or chills or malaise. Denies any chest pain, SOB or abdominal pain. Overall, feeling good. - Objective Vital Signs & Weight: Vital Signs (12 hours) Temp Pulse Resp BP BP Pulse Ox 07/26/20 07:12 98.6 F 88 17 129/84 93 L 07/26/20 05:43 98.3 F 93 20 126/81 99 07/26/20 00:12 139/87 07/26/20 00:00 98.5 F 94 20 97 07/25/20 21:10 98.3 F 102 H 20 147/92 H 102 H Weight Weight 281 lb 8.485 oz I&O: 07/25/20 07/26/20 07/27/20 06:59 06:59 06:59 Intake Total 1300 Balance 1300 Result Diagrams: 07/26/20 05:37 07/26/20 05:37 Additional Labs: Accuchecks 07/26/20 07/25/20 07/25/20 05:45 21:10 17:58 POC Glucose 277 H 318 H 373 H 07/25/20 07/25/20 07/25/20 17:50 16:29 16:26 POC Glucose 317 H 349 H 338 H Hospitalist ROS - Review of Systems Constitutional: denies: fever, chills Respiratory: denies: cough, shortness of breath Cardiovascular: denies: chest pain, palpitations Gastrointestinal: denies: nausea, vomiting, abdominal pain Genitourinary: denies: dysuria All other systems reviewed; all pertinent +/- noted in HPI/Subj - Medication Medications: Active Medications Generic Name Dose Route Start Last Admin Trade Name Freq PRN Reason Stop Dose Admin Ceftriaxone Sodium 1 gm/ 100 mls @ 200 mls/hr 07/25/20 15:00 07/25/20 15:45 Sodium Chloride IVPB 100 mls Q24HR BHAVNA Administration Metronidazole 500 mg/ Device 100 mls @ 100 mls/hr 07/25/20 16:00 07/26/20 00:11 IVPB 100 mls 0800,1600,2359 BHAVNA Administration Sodium Chloride 1,000 mls @ 100 mls/hr 07/25/20 12:00 07/25/20 21:13 Normal Saline 0.9% IV 1,000 mls .Q10H BHAVNA Administration Insulin Glargine 50 units/ 0.5 mls @ 0 mls/hr 07/25/20 21:00 07/25/20 21:06 Miscellaneous Medication SC 0.5 mls HS BHAVNA Administration Insulin Glargine 50 units/ 0.5 mls @ 0 mls/hr 07/25/20 21:00 07/25/20 21:12 Miscellaneous Medication SC Not Given HS BHAVNA Vancomycin HCl 1.5 gm/ Device 300 mls @ 200 mls/hr 07/25/20 17:00 07/26/20 00:29 IVPB 300 mls 0100,0900,1700 BHAVNA Administration Insulin Human Lispro 0 units 07/25/20 12:00 07/26/20 06:11 Humalog 300 Units/3 Ml Vial SC 9 unit .AGGRESSIVE SLIDING PRN Administration Aggressive Correctional Scale Metoprolol Tartrate 25 mg 07/25/20 21:00 07/25/20 21:12 Metoprolol Tartrate 25 Mg Tab PO 25 mg Q12HR BHAVNA Administration - Exam General Appearance: NAD, awake alert Eye: anicteric sclera ENT: normocephalic atraumatic Neck: supple, symmetric Heart: RRR, no murmur, no gallops, no rubs, normal peripheral pulses Respiratory: CTAB, no wheezes, no rales, no ronchi, normal chest expansion, no tachypnea Gastrointestinal: soft, non-tender, normal bowel sounds, no guarding, no rigidity Extremities: no cyanosis, no edema Psychiatric: normal affect, A&O x 3 Hosp A/P (1) Sepsis Code(s): A41.9 - SEPSIS, UNSPECIFIED ORGANISM Status: Acute (2) Osteomyelitis of left foot Code(s): M86.9 - OSTEOMYELITIS, UNSPECIFIED Status: Acute (3) Uncontrolled diabetes mellitus Code(s): E11.65 - TYPE 2 DIABETES MELLITUS WITH HYPERGLYCEMIA Status: Acute (4) Hyponatremia Code(s): E87.1 - HYPO-OSMOLALITY AND HYPONATREMIA Status: Acute (5) Diarrhea Code(s): R19.7 - DIARRHEA, UNSPECIFIED Status: Acute (6) HTN (hypertension) Code(s): I10 - ESSENTIAL (PRIMARY) HYPERTENSION Status: Chronic (7) HLD (hyperlipidemia) Code(s): E78.5 - HYPERLIPIDEMIA, UNSPECIFIED Status: Chronic - Plan #Sepsis Cultures no growth at this time Continue IVF and antibiotics # Osteomyelitis left foot WBC trending down 7.9, blood CX negative at this time Continue Vanc, Rocephin, Flagyl IVPB Podiatry and ID consulted #Uncontrolled DM BS 300s Currently on Lantus 50u BID Takes lispro 30u BID at home Will start lispro 10u BID now. Continue Aggressive ISS AC/HS checks. HA1C 10.5 on 11/09. Recheck HA1C. #Hyponatremia Mild. Likely hypotonic from fluid loss Na 130, was 125 Continue IVFs recheck in am #Diarrhea Reports 10-15 watery stools prior to admission Reports 1 watery stool last night, improved Stool CX pending #HTN Continue metoprolol, amlodipine, lisinopril BP stable #HLD Continue fenofibrate. Discussed case with Dr. Mcmillan.
[2020-07-26] MEDS ORDERED: Non-Formulary Item 1 EACH (Lisinopril [Lisinopril] 40 MG Tablet) PO SCH (09:00)
[2020-07-26] MEDS ORDERED: HumaLOG 300 UNITS/3 ML VIAL SC SCH (09:00)
[2020-07-26] MEDS: Fenofibrate 48 MG TAB PO SCH (09:15)
[2020-07-26] MEDS: Aripiprazole 10 MG TAB PO SCH (10:27)
[2020-07-26] MEDS: Amlodipine 10 MG TAB PO SCH (10:29)
[2020-07-26] MEDS: Metoprolol Tartrate 25 MG TAB PO SCH ×2 (10:29→22:23)
[2020-07-26] MEDS: Lisinopril 20 MG TAB PO SCH (10:30)
[2020-07-26] MEDS: Enoxaparin Sodium 40 MG/0.4 ML SYRINGE SC SCH (10:31)
[2020-07-26] MEDS: Sodium Chloride 0.9% 1,000 ML IV SCH ×3 (10:32→22:22)
[2020-07-26] MEDS: HumaLOG 300 UNITS/3 ML VIAL SC SCH ×2 (15:27→22:23)
[2020-07-26] MEDS: cefTRIAXone\\ROCEPHIN 1 GM in Sodium Chloride 0.9% 100 ML IVPB SCH (16:48)
[2020-07-26 17:19] LABS: Vancomycin, Trough 42.7 ug/mL
[2020-07-26] MEDS ORDERED: Loperamide HCl 2 MG CAP PO PRN (19:31)
[2020-07-26] MEDS ORDERED: Vancomycin 1.5 GRAM/300 ML BAG 1.5 GM in Premix Bag 1 BAG IVPB SCH (22:00)
[2020-07-26] MEDS: Insulin Glargine 50 UNITS in Pre-Filled Syringe 1 EACH SC SCH (22:24)
--- NOTE | 2020-07-26 23:08 | CON ---
DATE OF CONSULTATION: REASON FOR CONSULT: General malaise, chills, diarrhea, and left foot changes. HISTORY OF PRESENT ILLNESS: A 39-year-old, who has been multiple times to this hospital for various complications. The last time I saw him was in May of this year when he presented with type 2 diabetes and a scalp abscess with cutaneous abscesses in the occipital area of skin and bacteremia. At that time, the left foot wounds appeared well since the previous amputation in October of this year, so he was treated with Rocephin for 2 weeks and transitioned to oral antimicrobial therapy after that. He did well. He was following with Dr. Steve and Dr. Steve last saw him this past . Apparently, there was a small area of bone exposure, but he said that Dr. Steve stated that his granulation tissue was starting to cover the area. He was not taking any antimicrobial therapy. Then this past Saturday, two days ago, he developed chills and general malaise and started having diarrhea. He had 15 bowel movements that day, liquid stool without blood associated with abdominal cramps. No headaches. No shortness of breath. No respiratory symptoms. No back pain. No genitourinary symptoms. PAST MEDICAL HISTORY: Includes type 2 diabetes, neuropathy, multiple toe amputations, obesity, hyperlipidemia, and scalp abscess. ALLERGIES: NONE. MEDICATIONS: 1. Abilify. 2. Insulin. 3. Fenofibrate. 4. Lisinopril. 5. Currently, he is on ceftriaxone, vancomycin, and Flagyl. FAMILY HISTORY: Noncontributory. PHYSICAL EXAMINATION: VITAL SIGNS: T-max 98.6, BP 108/77, pulse 94, respirations 16, and O2 sat 97. GENERAL: Appears in no distress. SKIN: Shows the two areas of ulceration in the bottom aspect of the transmetatarsal amputation tip at the plantar aspect. Both have irregular shapes, the one lateral is smaller than the one in the medially located. There seemed to have granulation tissue at the base. However, with Q-tip, I am able to probe bone both wounds. A small area of bone, but it is obviously there. Has a peripheral IV access. No Bernal catheter. HEENT: Alopecia. Ocular movements conjugate. Oral cavity was not remarkable. NECK: Supple. LUNGS: Symmetric. Clear breath sounds. HEART: S1, S2. Regular rate. No S3 or S4. ABDOMEN: Soft. Not distended or tender. No ascites. No bladder distention. EXTREMITIES: No joint inflammatory activity. Pulses 1+ in dorsalis pedis. LABORATORY DATA: White cell count 7.9, hemoglobin 13, platelets 224 with 72% neutrophils. Creatinine 0.94. Transaminases normal. Alkaline phosphatase normal. Albumin 2.6. Urinalysis with 300 protein, 4 to 6 wbc's. SARS-CoV is not detected. We have a Clostridium difficile negative. Two blood cultures pending. Stool culture pending. Campy and shiga toxin test negative. IMAGING: Includes a foot x-ray from July 25 with findings of osteomyelitis in the distal tip of the second digit metatarsal partial amputation site. Chest x-ray with no active cardiopulmonary abnormality demonstrated. ASSESSMENT: Type 2 diabetes, neuropathy with multiple toe amputations, persisting wounds with bone exposure at the tip of the left foot trans met amputation and profuse diarrhea. DISCUSSION: Differential diagnosis includes primary diarrhea with general malaise associated with it due to gastrointestinal infection or diarrhea as a secondary phenomenon from transient bacteremia due to the left foot wounds with exposure of bone that is the more likely scenario. Once final stool cultures are back, then we will have to make plans for continuing treatment. Dr. Steve has been consulted. He may have to do an I and D of the tip of the of the wounds to see if it will cover better with granulation tissue. I do not think we need to repeat the MRI at this time. The last cultures included group G strep, group B strep, and Staphylococcus aureus and would have to consider cultures from the site, probably potential for future debridement to be carried out by Dr. Steve. Job ID: [id number]
[2020-07-27] MEDS: metroNIDAZOLE 500 MG in Premix Bag 1 BAG IVPB SCH ×3 (00:19→16:03)
[2020-07-27 05:27] LABS: Vancomycin, Trough 23.4 ug/mL
[2020-07-27 05:38] LABS: Hemoglobin A1c 12.6 % (4.0-6.0)
[2020-07-27] MEDS: HumaLOG 300 UNITS/3 ML VIAL SC PRN ×3 (06:17→16:03)
--- NOTE | 2020-07-27 08:02 | PDOC.HOSPP ---
- Subjective Encounter Date: 07/27/20 Encounter Time: 08:00 Subjective: Patient seen and examined. No new complaints. No overnight events. Reports feeling same, no complaints. Reports still having loose stools, approximately 5 yesterday. Denies any abdominal pain, N/V. No chest pain, light headedness or SOB. Wants the IVF stopped, says its annoying to be connected to tubing all day. Says he is drinking plenty of water daily and tolerating food intake just fine. - Objective Vital Signs & Weight: Vital Signs (12 hours) Temp Pulse Resp BP BP Pulse Ox 07/27/20 07:00 97.6 F 81 16 152/98 H 96 07/27/20 04:57 97.5 F L 88 17 138/95 H 96 07/27/20 00:41 97.7 F 87 18 122/84 96 Weight Admit Weight 281 lb 8 oz Weight 281 lb 8.485 oz I&O: 07/26/20 07/27/20 07/28/20 06:59 06:59 06:59 Intake Total 1300 1300 Balance 1300 1300 Result Diagrams: 07/27/20 07:40 07/26/20 05:37 Additional Labs: Accuchecks 07/27/20 07/26/20 07/26/20 04:31 19:42 15:14 POC Glucose 186 H 277 H 281 H 07/26/20 07/25/20 07/25/20 11:15 21:10 16:29 POC Glucose 243 H 318 H 349 H 07/25/20 16:26 POC Glucose 338 H Hospitalist ROS - Review of Systems Constitutional: denies: fever, chills Respiratory: denies: cough, shortness of breath, hemoptysis Cardiovascular: denies: chest pain, palpitations, light headedness Gastrointestinal: reports: diarrhea. denies: nausea, vomiting, abdominal pain, melena, hematochezia Neurological: denies: weakness, change in speech All other systems reviewed; all pertinent +/- noted in HPI/Subj - Medication Medications: Active Medications Generic Name Dose Route Start Last Admin Trade Name Freq PRN Reason Stop Dose Admin Amlodipine Besylate 10 mg 07/26/20 09:00 07/26/20 10:29 Amlodipine 10 Mg Tab PO 10 mg DAILY BHAVNA Administration Aripiprazole 30 mg 07/26/20 09:00 07/26/20 10:27 Aripiprazole 10 Mg Tab PO 30 mg DAILY BHAVNA Administration Enoxaparin Sodium 40 mg 07/26/20 09:00 07/26/20 10:31 Enoxaparin Sodium 40 Mg/0.4 Ml Syringe SC 40 mg 0900 BHAVNA Administration Fenofibrate 48 mg 07/26/20 09:00 07/26/20 09:15 Fenofibrate 48 Mg Tab PO Not Given DAILY BHAVNA Ceftriaxone Sodium 1 gm/ 100 mls @ 200 mls/hr 07/25/20 15:00 07/26/20 16:48 Sodium Chloride IVPB 100 mls Q24HR BHVANA Administration Metronidazole 500 mg/ Device 100 mls @ 100 mls/hr 07/25/20 16:00 07/27/20 00: 19 IVPB 100 mls 0800,1600,2359 BHAVNA Administration Insulin Glargine 50 units/ 0.5 mls @ 0 mls/hr 07/25/20 21:00 07/26/20 22:24 Miscellaneous Medication SC 0.5 mls HS BHAVNA Administration Insulin Human Lispro 0 units 07/25/20 12:00 07/27/20 06:17 Humalog 300 Units/3 Ml Vial SC 3 unit .AGGRESSIVE SLIDING PRN Administration Aggressive Correctional Scale Lisinopril 40 mg 07/26/20 09:00 07/26/20 10:30 Lisinopril 20 Mg Tab PO 40 mg DAILY BHAVNA Administration Metoprolol Tartrate 25 mg 07/25/20 21:00 07/26/20 22:23 Metoprolol Tartrate 25 Mg Tab PO 25 mg Q12HR BHAVNA Administration - Exam General Appearance: NAD, awake alert Heart: RRR, no murmur, no gallops, no rubs, normal peripheral pulses Respiratory: CTAB, no wheezes, no rales, no ronchi, normal chest expansion, no tachypnea Gastrointestinal: soft, non-tender, non-distended, normal bowel sounds, no guarding, no rigidity Skin: no rashes Neurological: no focal deficits Psychiatric: normal affect, A&O x 3 Hosp A/P (1) Sepsis Code(s): A41.9 - SEPSIS, UNSPECIFIED ORGANISM Status: Acute (2) Osteomyelitis of left foot Code(s): M86.9 - OSTEOMYELITIS, UNSPECIFIED Status: Acute (3) Uncontrolled diabetes mellitus Code(s): E11.65 - TYPE 2 DIABETES MELLITUS WITH HYPERGLYCEMIA Status: Chronic (4) Hyponatremia Code(s): E87.1 - HYPO-OSMOLALITY AND HYPONATREMIA Status: Acute (5) Diarrhea Code(s): R19.7 - DIARRHEA, UNSPECIFIED Status: Acute (6) HTN (hypertension) Code(s): I10 - ESSENTIAL (PRIMARY) HYPERTENSION Status: Chronic (7) HLD (hyperlipidemia) Code(s): E78.5 - HYPERLIPIDEMIA, UNSPECIFIED Status: Chronic - Plan #Sepsis Cultures no growth at this time Continue IV abx. Tolerating oral intake, will stop IVF. # Osteomyelitis left foot Blood CX neg., no leukocytosis Continue Vanc, Rocephin, Flagyl IVPB ID recs appreciated. Awaiting podiatry input. #Uncontrolled DM BS 186 this morning Currently on Lantus 50u BID Takes lispro 30u BID at home, started lispro 10u BID Increase lispro to 15u BID Continue Aggressive ISS AC/HS checks. HA1C 12.6. #Hyponatremia Mild. adjusted for hyperglycemia 133. Stopped IVF, tolerating oral intake. recheck in am #Diarrhea Reports 5 loose stools yesterday. Stool Cx negative. Awaiting Blood CX results, no growth at this time. Add probiotic. #HTN Continue metoprolol, amlodipine, lisinopril BP stable. #HLD Continue fenofibrate. Discussed case with Dr. Mcmillan.
[2020-07-27 08:05] LABS: #Eosinphils 0.1 thou/uL (0.0-0.7); #Lymphocytes 1.1 thou/uL (1.20-3.40); #Monocytes 0.6 thou/uL (0.11-0.59); %Basophils 0.8 % (0.0-1.0); %Lymphocytes 23.4 % (21.0-51.0); %Monocytes 11.8 % (0.0-10.0); Hemoglobin 13.7 g/dL (14.0-18.0); Mean Corpuscular HGB CONC 33.2 g/dL (32.0-36.0); Mean Corpuscular Hemoglobin 27.6 pg (27.0-31.0); Mean Corpuscular Volume 83.1 fL (78.0-98.0); Mean Platelet Volume 7.8 fL (7.4-10.4); Platelet Count 238 thou/uL (130-400); RBC Distribution Width 12.9 % (11.5-14.5); Red Blood Cell (RBC) Count 4.95 mill/uL (4.70-6.10); White Blood Cell (WBC) Count 4.8 thou/uL (4.8-10.8)
[2020-07-27 08:32] LABS: Anion Gap 11 mmol/L (10-20); BUN (Urea Nitrogen) 16 mg/dL (8.9-20.6); Calc. Creatinine Clearance 226 mL/min (70-130); Calcium 7.7 mg/dL (7.8-10.44); Carbon Dioxide 22 mmol/L (22-29); Chloride 106 mmol/L (98-107); Estimated GFR-MDRD Greater than 90; Glucose 187 mg/dL (70-105); Potassium 3.5 mmol/L (3.5-5.1); Sodium 135 mmol/L (136-145)
[2020-07-27] MEDS: Amlodipine 10 MG TAB PO SCH (09:24)
[2020-07-27] MEDS: Lisinopril 20 MG TAB PO SCH (09:24)
[2020-07-27] MEDS: Fenofibrate 48 MG TAB PO SCH (09:24)
[2020-07-27] MEDS: Enoxaparin Sodium 40 MG/0.4 ML SYRINGE SC SCH (09:24)
[2020-07-27] MEDS: Aripiprazole 10 MG TAB PO SCH (09:24)
[2020-07-27] MEDS: Metoprolol Tartrate 25 MG TAB PO SCH ×2 (09:24→20:47)
[2020-07-27] MEDS: HumaLOG 300 UNITS/3 ML VIAL SC SCH ×2 (09:27→20:46)
[2020-07-27] MEDS: Insulin Glargine 50 UNITS in Pre-Filled Syringe 1 EACH SC SCH ×2 (09:27→20:46)
[2020-07-27] MEDS: Saccharomyces boulardii 250 MG CAP PO SCH (09:31)
[2020-07-27] MEDS: cefTRIAXone\\ROCEPHIN 1 GM in Sodium Chloride 0.9% 100 ML IVPB SCH (15:05)
[2020-07-28] MEDS: metroNIDAZOLE 500 MG in Premix Bag 1 BAG IVPB SCH ×3 (00:17→15:44)
[2020-07-28 06:36] LABS: #Eosinphils 0.1 thou/uL (0.0-0.7); #Lymphocytes 1.8 thou/uL (1.20-3.40); #Monocytes 0.5 thou/uL (0.11-0.59); #Neutrophils 3.6 thou/uL (1.40-6.50); %Basophils 0.3 % (0.0-1.0); %Monocytes 8.9 % (0.0-10.0); %Neutrophils 58.9 % (42.0-75.0); Hemoglobin 14.1 g/dL (14.0-18.0); Mean Corpuscular HGB CONC 32.7 g/dL (32.0-36.0); Mean Corpuscular Hemoglobin 27.4 pg (27.0-31.0); Mean Corpuscular Volume 83.8 fL (78.0-98.0); Mean Platelet Volume 7.4 fL (7.4-10.4); Platelet Count 264 thou/uL (130-400); RBC Distribution Width 12.8 % (11.5-14.5); Red Blood Cell (RBC) Count 5.14 mill/uL (4.70-6.10); White Blood Cell (WBC) Count 6.1 thou/uL (4.8-10.8)
[2020-07-28 07:10] LABS: Anion Gap 10 mmol/L (10-20); BUN (Urea Nitrogen) 9 mg/dL (8.9-20.6); Calc. Creatinine Clearance 262 mL/min (70-130); Calcium 7.9 mg/dL (7.8-10.44); Carbon Dioxide 20 mmol/L (22-29); Chloride 109 mmol/L (98-107); Estimated GFR-MDRD Greater than 90; Glucose 152 mg/dL (70-105); Potassium 3.2 mmol/L (3.5-5.1); Sodium 136 mmol/L (136-145)
[2020-07-28] MEDS: Enoxaparin Sodium 40 MG/0.4 ML SYRINGE SC SCH (10:12)
[2020-07-28] MEDS: Saccharomyces boulardii 250 MG CAP PO SCH (10:13)
[2020-07-28] MEDS: Aripiprazole 10 MG TAB PO SCH (10:13)
[2020-07-28] MEDS: Metoprolol Tartrate 25 MG TAB PO SCH ×2 (10:13→20:53)
[2020-07-28] MEDS: Lisinopril 20 MG TAB PO SCH (10:13)
[2020-07-28] MEDS: Amlodipine 10 MG TAB PO SCH (10:13)
[2020-07-28] MEDS: Fenofibrate 48 MG TAB PO SCH (10:14)
[2020-07-28] MEDS: Insulin Glargine 50 UNITS in Pre-Filled Syringe 1 EACH SC SCH ×2 (10:14→20:52)
[2020-07-28] MEDS: HumaLOG 300 UNITS/3 ML VIAL SC SCH ×2 (10:15→20:53)
--- NOTE | 2020-07-28 10:30 | MRI ---
MRI Lower Ext Jt Lt WO Con History: Evaluate for osteomyelitis Comparison: Foot radiograph 3 days prior Findings: Bones: Loss of normal marrow T1 signal within the second and third metatarsals. Mild loss o f normal marrow edema within the fourth metatarsal base. Moderate edema throughout the fourth metatarsal as well as cuboid and cuneiforms, stress related. Soft tissues: Although limited without intravenous contrast, abnormal phlegmonous collection of fluid surrounding the second metatarsal with a with large plantar ulcer an adjacent smaller plantar ulcer near the third metatarsal amputation site. Muscles: Mild muscle atrophy and diabetic myositis. Evaluation for pyomyositis is limited without int ravenous contrast. Impression: 1. Osteomyelitis of the second, third, and fourth metatarsals extending to the tarsometatarsal joints . 2. Stress type changes of the cuneiforms and cuboid. 3. 2 separate plantar ulcers of the soft tissue flap at the second and third metatarsal amputation si te with phlegmonous debris surrounding the second metatarsal diaphysis.
[2020-07-28] MEDS: HumaLOG 300 UNITS/3 ML VIAL SC PRN ×2 (12:43→18:36)
--- NOTE | 2020-07-28 12:59 | PDOC.HOSPP ---
- Subjective Encounter Date: 07/28/20 Encounter Time: 11:10 Subjective: is sitting in chair has chronic back pain - Objective Vital Signs & Weight: Vital Signs (12 hours) Temp Pulse Resp BP BP BP Pulse Ox 07/28/20 11:22 98.3 F 91 18 168/106 H 95 07/28/20 10:13 151/92 H 07/28/20 07:16 98.3 F 94 20 171/112 H 95 07/28/20 04:00 97.5 F L 90 18 168/111 H 96 Weight Admit Weight 281 lb 8 oz Weight 281 lb 8.485 oz I&O: 07/27/20 07/28/20 07/29/20 06:59 06:59 06:59 Intake Total 1300 1200 Balance 1300 1200 Result Diagrams: 07/28/20 05:40 07/28/20 05:40 Additional Labs: Accuchecks 07/28/20 07/28/20 07/27/20 11:31 05:30 20:28 POC Glucose 216 H 137 H 319 H 07/27/20 15:43 POC Glucose 193 H Hospitalist ROS - Medication Medications: Active Medications Generic Name Dose Route Start Last Admin Trade Name Freq PRN Reason Stop Dose Admin Amlodipine Besylate 10 mg 07/26/20 09:00 07/28/20 10:13 Amlodipine 10 Mg Tab PO 10 mg DAILY BHAVNA Administration Aripiprazole 30 mg 07/26/20 09:00 07/28/20 10:13 Aripiprazole 10 Mg Tab PO 30 mg DAILY BHAVNA Administration Enoxaparin Sodium 40 mg 07/26/20 09:00 07/28/20 10:12 Enoxaparin Sodium 40 Mg/0.4 Ml Syringe SC 40 mg 0900 BHAVNA Administration Fenofibrate 48 mg 07/26/20 09:00 07/28/20 10:14 Fenofibrate 48 Mg Tab PO 48 mg DAILY BHAVNA Administration Ceftriaxone Sodium 1 gm/ 100 mls @ 200 mls/hr 07/25/20 15:00 07/27/20 15:05 Sodium Chloride IVPB 100 mls Q24HR BHAVNA Administration Metronidazole 500 mg/ Device 100 mls @ 100 mls/hr 07/25/20 16:00 07/28/20 10:14 IVPB 100 mls 0800,1600,2359 BHAVNA Administration Insulin Glargine 50 units/ 0.5 mls @ 0 mls/hr 07/25/20 21:00 07/27/20 20:46 Miscellaneous Medication SC 0.5 mls HS BHAVNA Administration Insulin Glargine 50 units/ 0.5 mls @ 0 mls/hr 07/27/20 09:00 07/28/20 10:14 Miscellaneous Medication SC 0.5 mls QAM BHAVNA Administration As Directed Vancomycin HCl 2 gm/ Sodium 500 mls @ 250 mls/hr 07/27/20 09:00 07/28/20 11:32 Chloride IVPB 500 mls Q12HR BHAVNA Administration Insulin Human Lispro 0 units 07/25/20 12:00 07/28/20 12:43 Humalog 300 Units/3 Ml Vial SC 6 unit .AGGRESSIVE SLIDING PRN Administration Aggressive Correctional Scale Insulin Human Lispro 15 units 07/27/20 09:00 07/28/20 10:15 Humalog 300 Units/3 Ml Vial SC 15 unit BID BHAVNA Administration Lisinopril 40 mg 07/26/20 09:00 07/28/20 10:13 Lisinopril 20 Mg Tab PO 40 mg DAILY BHAVNA Administration Metoprolol Tartrate 25 mg 07/25/20 21:00 07/28/20 10:13 Metoprolol Tartrate 25 Mg Tab PO 25 mg Q12HR BHAVNA Administration Saccharomyces Boulardii 250 mg 07/27/20 09:00 07/28/20 10:13 Saccharomyces Boulardii 250 Mg Cap PO 250 mg DAILY BHAVNA Administration - Exam General Appearance: awake alert Eye: PERRL, anicteric sclera ENT: no oropharyngeal lesions, moist mucosa Neck: supple, no JVD Heart: RRR, no murmur Respiratory: no wheezes, no rales Gastrointestinal: soft, non-tender, non-distended, normal bowel sounds Extremities: no edema Extremities - other findings: left fore foot in dressing Neurological: cranial nerve grossly intact, no focal deficits Psychiatric: normal affect, A&O x 3 Hosp A/P (1) Osteomyelitis of left foot Code(s): M86.9 - OSTEOMYELITIS, UNSPECIFIED Status: Acute Qualifiers: Osteomyelitis type: unspecified type Qualified Code(s): M86.9 - Osteomyelitis, unspecified (2) DM type 2 (diabetes mellitus, type 2) Status: Chronic Qualifiers: Diabetes mellitus [employer] insulin use: with [facility] use (3) HLD (hyperlipidemia) Code(s): E78.5 - HYPERLIPIDEMIA, UNSPECIFIED Status: Chronic (4) HTN (hypertension) Code(s): I10 - ESSENTIAL (PRIMARY) HYPERTENSION Status: Chronic Qualifiers: Hypertension type: essential hypertension Qualified Code(s): I10 - Essential (primary) hypertension (5) Hypertension Code(s): I10 - ESSENTIAL (PRIMARY) HYPERTENSION Status: Chronic Qualifiers: Hypertension type: essential hypertension Qualified Code(s): I10 - Essential (primary) hypertension (6) Obesity (BMI 30-39.9) Code(s): E66.9 - OBESITY, UNSPECIFIED Status: Chronic - Plan is on ceftriaxone, flagyl and vancomycin MRI shows findings s/o osteomyelitis of 2,3,4 metatarsals extending to tar sometatarsal joints await 's opinion likely to OR in am hemostable continue lantus bid, humalog, tricor, abilify, norvasc, lopressor
[2020-07-28] MEDS: cefTRIAXone\\ROCEPHIN 1 GM in Sodium Chloride 0.9% 100 ML IVPB SCH (15:01)
[2020-07-28 20:45] LABS: Vancomycin, Trough 15.4 ug/mL
--- NOTE | 2020-07-28 23:52 | CON ---
DATE OF CONSULTATION: 07/28/2020 REASON FOR CONSULTATION: Infection of left foot. HISTORY OF PRESENT ILLNESS: This is a 39-year-old male, well known to myself for multiple foot infections and amputations, who presented to the hospital earlier in the week on the , presenting with malaise, diarrhea, and nausea. He was admitted for IV antibiotics, said this all began on Saturday. We have been treating him for an open wound on the plantar aspect of the left foot, status post left foot transmetatarsal amputation, had been improving, but recently developed a secondary wound lateral to the first, which did probe to bone. I have been performing outpatient conservative wound management for these wounds. PAST MEDICAL HISTORY: Hypertension, hyperlipidemia, and diabetes. PAST SURGICAL HISTORY: Multiple amputations of bilateral feet and appendectomy. SOCIAL HISTORY: Current tobacco user. Denies alcohol or illicit drug use. ALLERGIES: MORPHINE. FAMILY HISTORY: Noncontributory for his current presentation. FOCAL LOWER EXTREMITY PHYSICAL EXAM: Ulceration of the plantar aspect of the 2nd metatarsal measures approximately 1.4 cm in diameter, has a granular wound base. Just lateral and proximal to this wound is a secondary wound, which has about 0.8 cm of depth and about 0.5 cm in diameter. This does probe down to bone. Minimal periwound erythema, edema, and warmth. No purulent drainage. No areas of fluctuance noted. DIAGNOSTIC DATA: X-rays and MRI were reviewed which showed changes consistent with osteomyelitis to the 2nd, 3rd, and 4th metatarsals, 3rd metatarsal being consistent all the way to the tarsometatarsal joint. ASSESSMENT: 1. Osteomyelitis of the left foot. 2. Diabetes with peripheral neuropathy. PLAN: I discussed with the patient the different treatment options including revisional amputation proximally at the tarsometatarsal joint versus below-knee amputation, which would have a high rate of success, which he understands, but he would like to maintain as much of the foot as possible, so my plan is to proceed with the amputation at the level of the tarsometatarsal joint tomorrow. Hopefully, we can get primary closure, assuming all infection is excised. He will be placed n.p.o. tonight after midnight. He is on-call to the OR tomorrow afternoon. We will order a COVID-19 test for preoperative clearance, and I will follow up with him postoperatively. Job ID: [id number]
[2020-07-29] MEDS: metroNIDAZOLE 500 MG in Premix Bag 1 BAG IVPB SCH ×4 (00:30→23:01)
[2020-07-29] MEDS: Metoprolol Tartrate 25 MG TAB PO SCH ×2 (06:38→21:31)
[2020-07-29 06:57] LABS: #Basophils 0.1 thou/uL (0.0-0.2); #Eosinphils 0.1 thou/uL (0.0-0.7); #Monocytes 0.5 thou/uL (0.11-0.59); %Eosinophils 1.8 % (0.0-10.0); %Lymphocytes 25.8 % (21.0-51.0); %Monocytes 6.6 % (0.0-10.0); %Neutrophils 64.7 % (42.0-75.0); Hemoglobin 14.7 g/dL (14.0-18.0); Mean Corpuscular HGB CONC 34.2 g/dL (32.0-36.0); Mean Corpuscular Hemoglobin 28.2 pg (27.0-31.0); Mean Corpuscular Volume 82.4 fL (78.0-98.0); Mean Platelet Volume 7.2 fL (7.4-10.4); Platelet Count 327 thou/uL (130-400); RBC Distribution Width 12.9 % (11.5-14.5); Red Blood Cell (RBC) Count 5.24 mill/uL (4.70-6.10); White Blood Cell (WBC) Count 7.8 thou/uL (4.8-10.8)
[2020-07-29 07:18] LABS: Anion Gap 12 mmol/L (10-20); BUN (Urea Nitrogen) 5 mg/dL (8.9-20.6); Calc. Creatinine Clearance 251 mL/min (70-130); Carbon Dioxide 23 mmol/L (22-29); Chloride 106 mmol/L (98-107); Estimated GFR-MDRD Greater than 90; Glucose 147 mg/dL (70-105); Sodium 138 mmol/L (136-145)
[2020-07-29 07:21] LABS: Potassium 2.9 mmol/L (3.5-5.1)
[2020-07-29] MEDS: Lisinopril 20 MG TAB PO SCH (07:47)
[2020-07-29] MEDS ORDERED: Potassium Chloride 20 MEQ in Premix Bag 1 BAG IVPB SCH (08:15)
[2020-07-29] MEDS: Amlodipine 10 MG TAB PO SCH (09:03)
[2020-07-29] MEDS: Aripiprazole 10 MG TAB PO SCH (09:05)
[2020-07-29] MEDS: Fenofibrate 48 MG TAB PO SCH (09:06)
[2020-07-29] MEDS: Enoxaparin Sodium 40 MG/0.4 ML SYRINGE SC SCH (09:06)
[2020-07-29] MEDS: HumaLOG 300 UNITS/3 ML VIAL SC SCH ×2 (09:06→21:30)
[2020-07-29] MEDS: Saccharomyces boulardii 250 MG CAP PO SCH (09:07)
[2020-07-29] MEDS: Insulin Glargine 50 UNITS in Pre-Filled Syringe 1 EACH SC SCH ×2 (09:07→21:30)
[2020-07-29] MEDS ORDERED: Metoclopramide HCl 10 MG/2 ML VIAL ONE (10:11)
[2020-07-29] MEDS ORDERED: Ketorolac Tromethamine 30 MG/ML VIAL ONE (10:11)
[2020-07-29] MEDS ORDERED: Lidocaine 1% PF 5 ML VIAL ONE (10:11)
[2020-07-29] MEDS ORDERED: PROPOFOL 200 MG/20 ML VIAL ONE (10:11)
[2020-07-29] MEDS ORDERED: Ondansetron PF 4 MG/2 ML Vial ONE (10:11)
--- NOTE | 2020-07-29 12:10 | PDOC.HOSPP ---
- Subjective Encounter Date: 07/29/20 Encounter Time: 10:35 Subjective: is npo for surgery today no sob or palp - Objective Vital Signs & Weight: Vital Signs (12 hours) Temp Pulse Resp BP BP BP Pulse Ox 07/29/20 11:00 98.1 F 100 20 183/108 H 96 07/29/20 09:03 88 155/95 H 07/29/20 08:59 155/95 H 07/29/20 08:00 94 L 07/29/20 07:47 168/110 H 07/29/20 07:30 98.1 F 88 20 168/110 H 94 L 07/29/20 04:00 98.2 F 100 18 161/102 H 98 Weight Admit Weight 281 lb 8 oz Weight 281 lb 8.485 oz I&O: 07/28/20 07/29/20 07/30/20 06:59 06:59 06:59 Intake Total 2400 Balance 2400 Result Diagrams: 07/29/20 06:41 07/29/20 06:41 Additional Labs: Accuchecks 07/29/20 07/29/20 07/28/20 11:16 05:42 19:16 POC Glucose 129 H 107 H 242 H 07/28/20 16:17 POC Glucose 208 H Hospitalist ROS - Medication Medications: Active Medications Generic Name Dose Route Start Last Admin Trade Name Freq PRN Reason Stop Dose Admin Amlodipine Besylate 10 mg 07/26/20 09:00 07/29/20 09:03 Amlodipine 10 Mg Tab PO 10 mg DAILY BHAVNA Administration Aripiprazole 30 mg 07/26/20 09:00 07/29/20 09:05 Aripiprazole 10 Mg Tab PO Not Given DAILY BHAVNA Enoxaparin Sodium 40 mg 07/26/20 09:00 07/29/20 09:06 Enoxaparin Sodium 40 Mg/0.4 Ml Syringe SC Not Given 0900 BHAVNA Fenofibrate 48 mg 07/26/20 09:00 07/29/20 09:06 Fenofibrate 48 Mg Tab PO Not Given DAILY BHAVNA Ceftriaxone Sodium 1 gm/ 100 mls @ 200 mls/hr 07/25/20 15:00 07/28/20 15:01 Sodium Chloride IVPB 100 mls Q24HR BHAVNA Administration Metronidazole 500 mg/ Device 100 mls @ 100 mls/hr 07/25/20 16:00 07/29/20 07:47 IVPB 100 mls 0800,1600,2359 BHAVNA Administration Insulin Glargine 50 units/ 0.5 mls @ 0 mls/hr 07/25/20 21:00 07/28/20 20:52 Miscellaneous Medication SC 0.5 mls HS BHAVNA Administration Insulin Glargine 50 units/ 0.5 mls @ 0 mls/hr 07/27/20 09:00 07/29/20 09:07 Miscellaneous Medication SC Not Given QAM BHAVNA As Directed Vancomycin HCl 2 gm/ Sodium 500 mls @ 250 mls/hr 07/27/20 09:00 07/29/20 11:32 Chloride IVPB 500 mls Q12HR BHAVNA Administration Insulin Human Lispro 0 units 07/25/20 12:00 07/28/20 18:36 Humalog 300 Units/3 Ml Vial SC 6 unit .AGGRESSIVE SLIDING PRN Administration Aggressive Correctional Scale Insulin Human Lispro 15 units 07/27/20 09:00 07/29/20 09:06 Humalog 300 Units/3 Ml Vial SC Not Given BID BHANVA Lisinopril 40 mg 07/26/20 09:00 07/29/20 07:47 Lisinopril 20 Mg Tab PO 40 mg DAILY BHAVNA Administration Metoprolol Tartrate 25 mg 07/25/20 21:00 07/29/20 06:38 Metoprolol Tartrate 25 Mg Tab PO 25 mg Q12HR BHAVNA Administration Saccharomyces Boulardii 250 mg 07/27/20 09:00 07/29/20 09:07 Saccharomyces Boulardii 250 Mg Cap PO Not Given DAILY BHAVNA Sodium Chloride 10 ml 07/29/20 09:00 07/29/20 09:07 Flush - Normal Saline 10 Ml Syringe IVF 10 ml Q12HR BHAVNA Administration - Exam General Appearance: awake alert Eye: PERRL, anicteric sclera ENT: no oropharyngeal lesions, moist mucosa Neck: supple, no JVD Heart: RRR, no murmur Respiratory: no wheezes, no rales Gastrointestinal: soft, non-tender, non-distended, normal bowel sounds Extremities: no cyanosis, 1+ LE edema Neurological: cranial nerve grossly intact, no focal deficits Psychiatric: normal affect, A&O x 3 Hosp A/P (1) Osteomyelitis of left foot Code(s): M86.9 - OSTEOMYELITIS, UNSPECIFIED Status: Acute Qualifiers: Osteomyelitis type: unspecified type Qualified Code(s): M86.9 - Osteomyelitis, unspecified (2) DM type 2 (diabetes mellitus, type 2) Status: Chronic Qualifiers: Diabetes mellitus senior living insulin use: with senior living use (3) HLD (hyperlipidemia) Code(s): E78.5 - HYPERLIPIDEMIA, UNSPECIFIED Status: Chronic (4) HTN (hypertension) Code(s): I10 - ESSENTIAL (PRIMARY) HYPERTENSION Status: Chronic Qualifiers: Hypertension type: essential hypertension Qualified Code(s): I10 - Essential (primary) hypertension (5) Hypertension Code(s): I10 - ESSENTIAL (PRIMARY) HYPERTENSION Status: Chronic Qualifiers: Hypertension type: essential hypertension Qualified Code(s): I10 - Essential (primary) hypertension (6) Obesity (BMI 30-39.9) Code(s): E66.9 - OBESITY, UNSPECIFIED Status: Chronic - Plan is on ceftriaxone, flagyl and vancomycin MRI shows findings s/o osteomyelitis of 2,3,4 metatarsals extending to tarsome tatarsal joints for further amputation in OR today by hemcatrachita continue lantus bid, humalog, tricor, abilify, norvasc, lopressor
[2020-07-29] MEDS ORDERED: Potassium Chloride 20 MEQ TAB PO SCH (13:00)
[2020-07-29] MEDS ORDERED: Sodium Chloride 0.9% 100 ML ONE (14:49)
[2020-07-29] MEDS ORDERED: cefTRIAXone\\ROCEPHIN 1 GM VIAL ONE (14:49)
[2020-07-29] MEDS ORDERED: Fentanyl 100 MCG/2 ML VIAL ONE ×3 (16:27→18:53)
[2020-07-29] MEDS: cefTRIAXone\\ROCEPHIN 1 GM in Sodium Chloride 0.9% 100 ML IVPB SCH (16:34)
[2020-07-29] MEDS ORDERED: Bupivacaine PF 0.5% 30 ML VIAL ONE (16:56)
[2020-07-29] MEDS ORDERED: Neomycin-Polymyxin 1 ML AMP ONE (16:56)
[2020-07-29] MEDS ORDERED: Ondansetron HCl/PF 4 MG/2 ML Vial IVP PRN (17:43)
[2020-07-29] MEDS ORDERED: Labetalol HCl 100 MG/20 ML VIAL ONE (18:41)
[2020-07-29] MEDS: Potassium Chloride 20 MEQ TAB PO SCH (20:00)
[2020-07-29] MEDS: Morphine 2 MG/ML VIAL SLOW IVP PRN (22:57)
[2020-07-29 23:43] LABS: Hemoglobin 12.5 g/dL (14.0-18.0)
--- NOTE | 2020-07-30 00:29 | OP ---
DATE OF PROCEDURE: 07/29/2020 PREOPERATIVE DIAGNOSIS: Osteomyelitis, left foot second, third, and fourth metatarsals. POSTOPERATIVE DIAGNOSIS: Osteomyelitis, left foot second, third, and fourth metatarsals. PROCEDURE PERFORMED: Amputation through the tarsometatarsal joint, left foot. ANESTHESIA: Monitored anesthetic care. HEMOSTASIS: Pneumatic tourniquet about the left ankle at 250 mmHg. ESTIMATED BLOOD LOSS: Less than 10 mL. MATERIALS: 1. 4-0 Vicryl. 2. 2-0 nylon. INJECTABLES: None. COMPLICATIONS: None. PATHOLOGY: Amputation stump and metatarsal to Pathology for gross and microscopic evaluation and bone fragment from the third metatarsal to Microbiology for culture and sensitivity. DESCRIPTION OF PROCEDURE: The patient was brought to the operative suite, placed supine on the operative table. Time-out was performed, identifying correct patient, procedure, and operative site. Well-padded tourniquet placed on the left ankle. Foot was prepped and draped in an aseptic manner. Tourniquet was raised to 250 mmHg. [place] incision was made over the distal aspect of the stump, excising the ulcered tissue on the plantar aspect of the forefoot stump area, sharp and blunt dissection through the subcutaneous tissues, avoiding vital structures, ligating bleeders as necessary down to the metatarsal bases. The forefoot stump was amputated through the tarsometatarsal joint, disarticulating at the joint surfaces and removed. Samples were taken for microbiology and the remaining portion was sent to Pathology. The wound was then irrigated with 3 L of normal saline mixed with 3 units of in the irrigant by pulse lavage. After cleansing, there was no necrotic tissue or liquefactive tissue noted within the wound base. All remaining tissue appeared viable. The subcutaneous tissue was closed with 4-0 Vicryl and the skin was repaired with 2-0 nylon. Bandage applied including Xeroform gauze, roll gauze, bandage, and ABD pad. Tourniquet was released, noting immediate hyperemia to the amputation stump. The patient tolerated the procedure and anesthesia well and was transported out of the operative suite. Vital signs stable. Neurovascular status intact to the left lower extremity, kept for a short period of monitoring and then transferred back to his inpatient room. Job ID: [id number]
[2020-07-30] MEDS: Potassium Chloride 20 MEQ TAB PO SCH ×2 (01:35→06:05)
[2020-07-30] MEDS: Morphine 2 MG/ML VIAL SLOW IVP PRN ×2 (04:28→20:37)
[2020-07-30 06:08] LABS: #Basophils 0.1 thou/uL (0.0-0.2); #Eosinphils 0.2 thou/uL (0.0-0.7); #Lymphocytes 1.6 thou/uL (1.20-3.40); #Monocytes 0.9 thou/uL (0.11-0.59); #Neutrophils 9.7 thou/uL (1.40-6.50); %Basophils 0.6 % (0.0-1.0); %Eosinophils 1.8 % (0.0-10.0); %Lymphocytes 12.8 % (21.0-51.0); %Monocytes 7.3 % (0.0-10.0); %Neutrophils 77.5 % (42.0-75.0); Hemoglobin 12.7 g/dL (14.0-18.0); Mean Corpuscular HGB CONC 33.3 g/dL (32.0-36.0); Mean Corpuscular Hemoglobin 27.9 pg (27.0-31.0); Mean Corpuscular Volume 83.6 fL (78.0-98.0); Platelet Count 352 thou/uL (130-400); RBC Distribution Width 13.2 % (11.5-14.5); Red Blood Cell (RBC) Count 4.55 mill/uL (4.70-6.10); White Blood Cell (WBC) Count 12.5 thou/uL (4.8-10.8)
[2020-07-30 06:28] LABS: Anion Gap 10 mmol/L (10-20); BUN (Urea Nitrogen) 6 mg/dL (8.9-20.6); Calc. Creatinine Clearance 206 mL/min (70-130); Calcium 7.4 mg/dL (7.8-10.44); Carbon Dioxide 24 mmol/L (22-29); Chloride 107 mmol/L (98-107); Estimated GFR-MDRD Greater than 90; Glucose 169 mg/dL (70-105); Potassium 3.8 mmol/L (3.5-5.1); Sodium 137 mmol/L (136-145)
[2020-07-30 08:18] LABS: Vancomycin, Trough 23.4 ug/mL
[2020-07-30] MEDS: metroNIDAZOLE 500 MG in Premix Bag 1 BAG IVPB SCH (08:37)
[2020-07-30] MEDS: Saccharomyces boulardii 250 MG CAP PO SCH (08:44)
[2020-07-30] MEDS: Lisinopril 20 MG TAB PO SCH (08:44)
[2020-07-30] MEDS: Amlodipine 10 MG TAB PO SCH (08:45)
[2020-07-30] MEDS: Aripiprazole 10 MG TAB PO SCH (08:45)
[2020-07-30] MEDS: Fenofibrate 48 MG TAB PO SCH (08:46)
[2020-07-30] MEDS: Enoxaparin Sodium 40 MG/0.4 ML SYRINGE SC SCH (08:46)
[2020-07-30] MEDS: Metoprolol Tartrate 25 MG TAB PO SCH ×2 (08:57→20:50)
[2020-07-30] MEDS: Insulin Glargine 50 UNITS in Pre-Filled Syringe 1 EACH SC SCH ×3 (08:57→20:49)
[2020-07-30] MEDS: HumaLOG 300 UNITS/3 ML VIAL SC SCH ×2 (08:59→20:52)
--- NOTE | 2020-07-30 12:31 | PDOC.HOSPP ---
- Subjective Encounter Date: 07/30/20 Encounter Time: 09:00 Subjective: had bleeding in his surgical site over feet, currently stable mild pain in his foot has not ambulated yet post procedure - Objective Vital Signs & Weight: Vital Signs (12 hours) Temp Pulse Resp BP BP Pulse Ox 07/30/20 11:10 98.3 F 99 14 154/107 H 96 07/30/20 08:45 103 H 168/101 H 07/30/20 08:44 168/101 H 07/30/20 07:46 98.2 F 103 H 20 168/101 H 94 L 07/30/20 04:00 98.4 F 97 20 148/95 H 96 Weight Admit Weight 281 lb 8 oz Weight 281 lb 8.485 oz I&O: 07/29/20 07/30/20 07/31/20 06:59 06:59 06:59 Intake Total 2400 1550 Balance 2400 1550 Result Diagrams: 07/30/20 05:42 07/30/20 05:42 Additional Labs: Accuchecks 07/30/20 07/30/20 07/29/20 11:14 04:27 20:28 POC Glucose 157 H 172 H 182 H Hospitalist ROS - Medication Medications: Active Medications Generic Name Dose Route Start Last Admin Trade Name Freq PRN Reason Stop Dose Admin Amlodipine Besylate 10 mg 07/26/20 09:00 07/30/20 08:45 Amlodipine 10 Mg Tab PO 10 mg DAILY BHAVNA Administration Aripiprazole 30 mg 07/26/20 09:00 07/30/20 08:45 Aripiprazole 10 Mg Tab PO 30 mg DAILY BHAVNA Administration Enoxaparin Sodium 40 mg 07/26/20 09:00 07/30/20 08:46 Enoxaparin Sodium 40 Mg/0.4 Ml Syringe SC 40 mg 0900 BHAVNA Administration Fenofibrate 48 mg 07/26/20 09:00 07/30/20 08:46 Fenofibrate 48 Mg Tab PO 48 mg DAILY BHAVNA Administration Ceftriaxone Sodium 1 gm/ 100 mls @ 200 mls/hr 07/25/20 15:00 07/29/20 16:34 Sodium Chloride IVPB 100 mls Q24HR BHAVNA Administration Metronidazole 500 mg/ Device 100 mls @ 100 mls/hr 07/25/20 16:00 07/30/20 08:37 IVPB 100 mls 0800,1600,2359 BHAVNA Administration Insulin Glargine 50 units/ 0.5 mls @ 0 mls/hr 07/25/20 21:00 07/29/20 21:30 Miscellaneous Medication SC Not Given HS BHAVNA Insulin Glargine 50 units/ 0.5 mls @ 0 mls/hr 07/27/20 09:00 07/30/20 11:37 Miscellaneous Medication SC 0.5 mls QAM BHAVNA Administration As Directed Insulin Human Lispro 0 units 07/25/20 12:00 07/28/20 18:36 Humalog 300 Units/3 Ml Vial SC 6 unit .AGGRESSIVE SLIDING PRN Administration Aggressive Correctional Scale Insulin Human Lispro 15 units 07/27/20 09:00 07/30/20 08:59 Humalog 300 Units/3 Ml Vial SC 15 unit BID BHAVNA Administration Lisinopril 40 mg 07/26/20 09:00 07/30/20 08:44 Lisinopril 20 Mg Tab PO 40 mg DAILY BHAVNA Administration Metoprolol Tartrate 25 mg 07/25/20 21:00 07/30/20 08:57 Metoprolol Tartrate 25 Mg Tab PO 25 mg Q12HR BHAVNA Administration Morphine Sulfate 2 mg 07/29/20 21:28 07/30/20 04:28 Morphine 2 Mg/Ml Vial SLOW IVP 2 mg Q4H PRN Administration Moderate to Severe Pain (4-10) Saccharomyces Boulardii 250 mg 07/27/20 09:00 07/30/20 08:44 Saccharomyces Boulardii 250 Mg Cap PO 250 mg DAILY BHAVNA Administration Sodium Chloride 10 ml 07/29/20 09:00 07/30/20 08:59 Flush - Normal Saline 10 Ml Syringe IVF 10 ml Q12HR BHAVNA Administration - Exam General Appearance: awake alert Eye: PERRL, anicteric sclera ENT: no oropharyngeal lesions, moist mucosa Neck: supple, no JVD Heart: RRR, no murmur Respiratory: no wheezes, no rales Gastrointestinal: soft, non-tender, non-distended, normal bowel sounds Extremities: 1+ LE edema Extremities - other findings: left foot in dressing Neurological: cranial nerve grossly intact, no focal deficits Psychiatric: normal affect, A&O x 3 Hosp A/P (1) Osteomyelitis of left foot Code(s): M86.9 - OSTEOMYELITIS, UNSPECIFIED Status: Acute Qualifiers: Osteomyelitis type: unspecified type Qualified Code(s): M86.9 - Osteomyelitis, unspecified (2) DM type 2 (diabetes mellitus, type 2) Status: Chronic Qualifiers: Diabetes mellitus long term care administrator insulin use: with long term care administrator use (3) HLD (hyperlipidemia) Code(s): E78.5 - HYPERLIPIDEMIA, UNSPECIFIED Status: Chronic (4) HTN (hypertension) Code(s): I10 - ESSENTIAL (PRIMARY) HYPERTENSION Status: Chronic Qualifiers: Hypertension type: essential hypertension Qualified Code(s): I10 - Essential (primary) hypertension (5) Hypertension Code(s): I10 - ESSENTIAL (PRIMARY) HYPERTENSION Status: Chronic Qualifiers: Hypertension type: essential hypertension Qualified Code(s): I10 - Essential (primary) hypertension (6) Obesity (BMI 30-39.9) Code(s): E66.9 - OBESITY, UNSPECIFIED Status: Chronic - Plan s/p tarsometatarsal joint amputation at 2,3 and 4 metatarsals, operative wound cs are growing gm +ve cocci from 07/29/20 await full culture results for dc plan, weight bearing per 's advice. is on ceftriaxone, flagyl and vancomycin MRI shows findings s/o osteomyelitis of 2,3,4 metatarsals extending to tarsometatarsal joints hemostable continue lantus bid, humalog, tricor, abilify, norvasc, lopressor
[2020-07-30] MEDS: HumaLOG 300 UNITS/3 ML VIAL SC PRN ×3 (12:57→20:53)
[2020-07-30] MEDS: cefTRIAXone\\ROCEPHIN 1 GM in Sodium Chloride 0.9% 100 ML IVPB SCH (14:02)
[2020-07-30] MEDS: metroNIDAZOLE 500 MG TAB PO SCH ×2 (14:03→20:50)
[2020-07-30] MEDS: Acetaminophen 325 MG TAB PO PRN (14:03)
--- NOTE | 2020-07-30 14:06 | PRG ---
DATE OF SERVICE: 07/30/2020 SUBJECTIVE: The patient had a surgical procedure by Dr. Steve earlier today. Basically, it consisted of amputation to the tarsometatarsal joint of left foot. All the areas are felt to be viable. Numerous sample submitted for cultures. The patient right now is asymptomatic. Due to neuropathy, no pain is felt. No respiratory symptoms. No abdominal issues. No diarrhea. OBJECTIVE: VITAL SIGNS: He has been afebrile since admission, BP 150/107, heart rate 99, respiratory rate 14, and O2 saturation 96. SKIN: Left foot dressed, dressing not removed. LUNGS: Clear. HEART: S1 and S2. Regular rate. ABDOMEN: Slightly distended, but not tender. No bladder distention. No organomegaly. No ascites. NEUROLOGIC: Cognitive function appears to be intact. Neuro examination nonfocal. LABORATORY DATA: White cell count 12.5, hemoglobin 12.7, and platelets 352. Creatinine 0.88. We have actually one sample from the foot procedure with the Gram stain with a few gram-positive cocci. It looks like it is a mixed culture, possible pathogen isolation in process. ASSESSMENT AND DISCUSSION: 1. Type 2 diabetes. 2. Neuropathy. 3. Multiple toe amputations. 4. Persistence of wound at the tip of the left foot transmetatarsal amputation site with bone exposure, status post revision of the site with a more proximal transmetatarsal amputation. We will wait for the culture results and then define outpatient therapy. Probably, he will need again IV therapy for a protracted period of time. Job ID: [id number]
[2020-07-31] MEDS: Acetaminophen 325 MG TAB PO PRN ×4 (00:05→23:34)
[2020-07-31 05:55] LABS: #Eosinphils 0.3 thou/uL (0.0-0.7); #Lymphocytes 2.1 thou/uL (1.20-3.40); #Neutrophils 6.6 thou/uL (1.40-6.50); %Basophils 0.1 % (0.0-1.0); %Eosinophils 2.8 % (0.0-10.0); %Monocytes 9.9 % (0.0-10.0); %Neutrophils 66.2 % (42.0-75.0); Hemoglobin 12.2 g/dL (14.0-18.0); Mean Corpuscular HGB CONC 33.2 g/dL (32.0-36.0); Mean Corpuscular Hemoglobin 27.8 pg (27.0-31.0); Mean Corpuscular Volume 83.5 fL (78.0-98.0); Mean Platelet Volume 7.1 fL (7.4-10.4); Platelet Count 346 thou/uL (130-400); RBC Distribution Width 13.3 % (11.5-14.5); Red Blood Cell (RBC) Count 4.41 mill/uL (4.70-6.10)
[2020-07-31 06:19] LABS: Anion Gap 10 mmol/L (10-20); BUN (Urea Nitrogen) 10 mg/dL (8.9-20.6); Calc. Creatinine Clearance 176 mL/min (70-130); Calcium 8.1 mg/dL (7.8-10.44); Carbon Dioxide 25 mmol/L (22-29); Chloride 106 mmol/L (98-107); Estimated GFR-MDRD 81; Glucose 117 mg/dL (70-105); Potassium 3.6 mmol/L (3.5-5.1); Sodium 137 mmol/L (136-145)
[2020-07-31] MEDS: Amlodipine 10 MG TAB PO SCH (06:21)
[2020-07-31] MEDS: Metoprolol Tartrate 25 MG TAB PO SCH (06:21)
[2020-07-31] MEDS: Lisinopril 20 MG TAB PO SCH (06:21)
[2020-07-31 08:23] LABS: Vancomycin, Random 10.1 ug/mL (See Comment)
[2020-07-31] MEDS ORDERED: Hydrochlorothiazide 25 MG TAB PO SCH (09:00)
[2020-07-31] MEDS: Aripiprazole 10 MG TAB PO SCH (09:03)
[2020-07-31] MEDS: metroNIDAZOLE 500 MG TAB PO SCH ×3 (09:04→20:28)
[2020-07-31] MEDS: Saccharomyces boulardii 250 MG CAP PO SCH (09:06)
[2020-07-31] MEDS: Fenofibrate 48 MG TAB PO SCH (09:07)
[2020-07-31] MEDS: Insulin Glargine 50 UNITS in Pre-Filled Syringe 1 EACH SC SCH ×2 (09:08→20:27)
[2020-07-31] MEDS: HumaLOG 300 UNITS/3 ML VIAL SC SCH ×2 (09:09→20:28)
[2020-07-31] MEDS: Enoxaparin Sodium 40 MG/0.4 ML SYRINGE SC SCH ×2 (09:11→09:30)
[2020-07-31] MEDS: Morphine 2 MG/ML VIAL SLOW IVP PRN ×2 (11:35→20:24)
[2020-07-31] MEDS: HumaLOG 300 UNITS/3 ML VIAL SC PRN ×2 (11:41→16:19)
[2020-07-31] MEDS ORDERED: Furosemide 40 MG TAB PO SCH (12:15)
--- NOTE | 2020-07-31 12:15 | PDOC.HOSPP ---
- Subjective Encounter Date: 07/31/20 Encounter Time: 09:35 Subjective: is scared to ambulate as he bled when he tried x2 yesterday mild pain in his foot no sob or chest pain - Objective Vital Signs & Weight: Vital Signs (12 hours) Temp Pulse Resp BP BP BP Pulse Ox 07/31/20 11:11 98.7 F 109 H 20 192/106 H 95 07/31/20 08:03 98 F 96 32 H 145/88 H 91 L 07/31/20 06:21 108 H 191/107 H 07/31/20 05:45 98.3 F 108 H 20 191/107 H Weight Admit Weight 281 lb 8 oz Weight 281 lb 8.485 oz I&O: 07/30/20 07/31/20 08/01/20 06:59 06:59 06:59 Intake Total 1550 3160 Output Total 2100 Balance 1550 1060 Result Diagrams: 07/31/20 05:42 07/31/20 05:42 Additional Labs: Accuchecks 07/31/20 07/31/20 07/30/20 11:12 05:54 20:04 POC Glucose 156 H 117 H 270 H Hospitalist ROS - Medication Medications: Active Medications Generic Name Dose Route Start Last Admin Trade Name Freq PRN Reason Stop Dose Admin Acetaminophen 650 mg 07/30/20 13:57 07/31/20 09:06 Acetaminophen 325 Mg Tab PO 650 mg Q6H PRN Administration Headache/Fever or Pain Amlodipine Besylate 10 mg 07/26/20 09:00 07/31/20 06:21 Amlodipine 10 Mg Tab PO 10 mg DAILY BHAVNA Administration Aripiprazole 30 mg 07/26/20 09:00 07/31/20 09:03 Aripiprazole 10 Mg Tab PO 30 mg DAILY BHAVNA Administration Enoxaparin Sodium 40 mg 07/26/20 09:00 07/31/20 09:30 Enoxaparin Sodium 40 Mg/0.4 Ml Syringe SC Not Given 09 BHAVNA Fenofibrate 48 mg 07/26/20 09:00 07/31/20 09:07 Fenofibrate 48 Mg Tab PO 48 mg DAILY BHAVNA Administration Ceftriaxone Sodium 1 gm/ 100 mls @ 200 mls/hr 07/25/20 15:00 07/30/20 14:02 Sodium Chloride IVPB 100 mls Q24HR BHAVNA Administration Insulin Glargine 50 units/ 0.5 mls @ 0 mls/hr 07/25/20 21:00 07/30/20 20:49 Miscellaneous Medication SC 0.5 mls HS BHAVNA Administration Insulin Glargine 50 units/ 0.5 mls @ 0 mls/hr 07/27/20 09:00 07/31/20 09:08 Miscellaneous Medication SC 0.5 mls QAM BHAVNA Administration As Directed Insulin Human Lispro 0 units 07/25/20 12:00 07/31/20 11:41 Humalog 300 Units/3 Ml Vial SC 3 unit .AGGRESSIVE SLIDING PRN Administration Aggressive Correctional Scale Insulin Human Lispro 15 units 07/27/20 09:00 07/31/20 09:09 Humalog 300 Units/3 Ml Vial SC 15 unit BID BHAVNA Administration Lisinopril 40 mg 07/26/20 09:00 07/31/20 06:21 Lisinopril 20 Mg Tab PO 40 mg DAILY BHAVNA Administration Metronidazole 500 mg 07/30/20 15:00 07/31/20 09:04 Metronidazole 500 Mg Tab PO 500 mg TID BHAVNA Administration Morphine Sulfate 2 mg 07/29/20 21:28 07/31/20 11:35 Morphine 2 Mg/Ml Vial SLOW IVP 2 mg Q4H PRN Administration Moderate to Severe Pain (4-10) Saccharomyces Boulardii 250 mg 07/27/20 09:00 07/31/20 09:06 Saccharomyces Boulardii 250 Mg Cap PO 250 mg DAILY BHAVNA Administration Sodium Chloride 10 ml 07/29/20 09:00 07/31/20 09:11 Flush - Normal Saline 10 Ml Syringe IVF 10 ml Q12HR BHAVNA Administration - Exam General Appearance: awake alert Eye: PERRL, anicteric sclera ENT: no oropharyngeal lesions, moist mucosa Neck: supple, no JVD Heart: RRR, no murmur Respiratory: no wheezes, no rales Gastrointestinal: soft, non-tender, non-distended, normal bowel sounds Extremities: no edema Extremities - other findings: left foot in dressing Neurological: cranial nerve grossly intact, no focal deficits Psychiatric: normal affect, A&O x 3 Hosp A/P (1) Osteomyelitis of left foot Code(s): M86.9 - OSTEOMYELITIS, UNSPECIFIED Status: Acute Qualifiers: Osteomyelitis type: unspecified type Qualified Code(s): M86.9 - Osteomyelitis, unspecified (2) DM type 2 (diabetes mellitus, type 2) Status: Chronic Qualifiers: Diabetes mellitus mcfp insulin use: with mcfp use (3) HLD (hyperlipidemia) Code(s): E78.5 - HYPERLIPIDEMIA, UNSPECIFIED Status: Chronic (4) HTN (hypertension) Code(s): I10 - ESSENTIAL (PRIMARY) HYPERTENSION Status: Chronic Qualifiers: Hypertension type: essential hypertension Qualified Code(s): I10 - Essential (primary) hypertension (5) Hypertension Code(s): I10 - ESSENTIAL (PRIMARY) HYPERTENSION Status: Chronic Qualifiers: Hypertension type: essential hypertension Qualified Code(s): I10 - Essential (primary) hypertension (6) Obesity (BMI 30-39.9) Code(s): E66.9 - OBESITY, UNSPECIFIED Status: Chronic - Plan s/p tarsometatarsal joint amputation at 2,3 and 4 metatarsals, operative wound cs are growing staph with others from 07/29/20 await full culture results for dc plan, weight bearing per 's advice. is on ceftriaxone, flagyl and vancomycin MRI showed findings s/o osteomyelitis of 2,3,4 metatarsals extending to tarsome tatarsal joints hemostable continue lantus bid, humalog, tricor, abilify, norvasc, lopressor will likely need iv antibiotics for dc plan, ?picc line, await full culture from the OR sample to have a look at his feet to make sure he can ambulate on dc (per staff he had a lot of bleeding when he tried to walk the second time yesterday)
[2020-07-31] MEDS: Vancomycin 1.5 GRAM/300 ML BAG 1.5 GM in Premix Bag 1 BAG IVPB SCH ×3 (12:53→23:27)
[2020-07-31] MEDS: cefTRIAXone\\ROCEPHIN 1 GM in Sodium Chloride 0.9% 100 ML IVPB SCH (16:09)
[2020-07-31] MEDS: Metoprolol Tartrate 50 MG TAB PO SCH (20:28)
[2020-08-01] MEDS: HumaLOG 300 UNITS/3 ML VIAL SC PRN ×2 (04:51→16:19)
[2020-08-01] MEDS: Morphine 2 MG/ML VIAL SLOW IVP PRN ×2 (06:20→14:12)
[2020-08-01] MEDS: Furosemide 40 MG TAB PO SCH (08:25)
[2020-08-01] MEDS: Amlodipine 10 MG TAB PO SCH (08:26)
[2020-08-01] MEDS: Lisinopril 20 MG TAB PO SCH (08:26)
[2020-08-01] MEDS: Saccharomyces boulardii 250 MG CAP PO SCH (08:26)
[2020-08-01] MEDS: Metoprolol Tartrate 50 MG TAB PO SCH (08:27)
[2020-08-01] MEDS: Fenofibrate 48 MG TAB PO SCH (08:27)
[2020-08-01] MEDS: metroNIDAZOLE 500 MG TAB PO SCH ×3 (08:27→20:42)
[2020-08-01] MEDS: Aripiprazole 10 MG TAB PO SCH (08:27)
[2020-08-01] MEDS: Enoxaparin Sodium 40 MG/0.4 ML SYRINGE SC SCH (08:27)
[2020-08-01] MEDS: HumaLOG 300 UNITS/3 ML VIAL SC SCH ×2 (08:28→20:43)
[2020-08-01] MEDS: Insulin Glargine 50 UNITS in Pre-Filled Syringe 1 EACH SC SCH ×2 (08:31→20:41)
[2020-08-01] MEDS: Vancomycin 1.5 GRAM/300 ML BAG 1.5 GM in Premix Bag 1 BAG IVPB SCH ×2 (10:41→23:31)
--- NOTE | 2020-08-01 11:09 | PRG ---
DATE OF SERVICE: 08/01/2020 SUBJECTIVE: The patient is seen at bedside today, resting comfortably in the bed. His foot elevated. He has recently had bandage changed. He continues to have some strikethrough bleeding, although this morning. Denies nausea, vomiting, fevers, or chills. He says that the bleeding is usually when he puts any pressure on the foot. Did have his Lovenox held yesterday and has not been given today yet. OBJECTIVE: Bandages were taken down. There is strikethrough bleeding on the inner aspect of the bandage, but not the reinforced area. No calf tenderness. Incision is well coapted. No dehiscence. Sutures are intact. There is no active bleeding at the time of bandage removal. There is some light bruising on the dorsal flap of the amputation site. No erythema, edema, or warmth. LABORATORY DATA: Most recent labs were yesterday at 5:00 a.m. White blood cell count of 10, red blood cell 4.41, hemoglobin 12.2, hematocrit 36.8, and platelets 346. Microbiology, culture results were preliminary from the 3rd metatarsal bone. Intraoperatively, they are coming back as Staph aureus with global susceptibility. ASSESSMENT: Three days status post left foot tarsometatarsal joint amputation. PLAN: 1. The bandage was changed today and then it will need to be changed again. 2. The patient to remain nonweightbearing. He does have a knee scooter at home, so once he is discharged, he can use that for nonweightbearing status. 3. I will defer to the hospitalist and Dr. Ortez for outpatient antibiotic therapy choice. 4. I plan to see the patient as an outpatient in my clinic on unless there is some further need for me to see him while he is in-house or any other complications. Job ID: [id number]
[2020-08-01] MEDS: cefTRIAXone\\ROCEPHIN 1 GM in Sodium Chloride 0.9% 100 ML IVPB SCH (14:13)
--- NOTE | 2020-08-01 14:53 | PDOC.HOSPP ---
- Subjective Encounter Date: 08/01/20 Subjective: Patient says he is doing okay. He denies any specific complaints. He does occasionally have some pain in his foot which he anticipated. - Objective Vital Signs & Weight: Vital Signs (12 hours) Temp Pulse Resp BP Pulse Ox 08/01/20 11:00 98.2 F 94 20 164/111 H 96 08/01/20 07:45 98.4 F 101 H 20 196/112 H 96 08/01/20 04:40 98.2 F 98 20 165/111 H 94 L Weight Admit Weight 281 lb 8 oz Weight 281 lb 8.485 oz I&O: 07/31/20 08/01/20 08/02/20 06:59 06:59 06:59 Intake Total 3160 2440 Output Total 2100 2250 Balance 1060 190 Result Diagrams: 07/31/20 05:42 07/31/20 05:42 Additional Labs: Accuchecks 08/01/20 08/01/20 07/31/20 11:16 04:24 19:35 POC Glucose 143 H 189 H 201 H 07/31/20 07/30/20 15:58 15:32 POC Glucose 208 H 204 H Hospitalist ROS - Medication Medications: Active Medications Generic Name Dose Route Start Last Admin Trade Name Freq PRN Reason Stop Dose Admin Acetaminophen 650 mg 07/30/20 13:57 07/31/20 23:34 Acetaminophen 325 Mg Tab PO 650 mg Q6H PRN Administration Headache/Fever or Pain Amlodipine Besylate 10 mg 07/26/20 09:00 08/01/20 08:26 Amlodipine 10 Mg Tab PO 10 mg DAILY BHAVNA Administration Aripiprazole 30 mg 07/26/20 09:00 08/01/20 08:27 Aripiprazole 10 Mg Tab PO 30 mg DAILY BHAVNA Administration Fenofibrate 48 mg 07/26/20 09:00 08/01/20 08:27 Fenofibrate 48 Mg Tab PO 48 mg DAILY BHAVNA Administration Furosemide 40 mg 08/01/20 07:30 08/01/20 08:25 Furosemide 40 Mg Tab PO Not Given DAILY-AC BHAVNA Ceftriaxone Sodium 1 gm/ 100 mls @ 200 mls/hr 07/25/20 15:00 08/01/20 14:13 Sodium Chloride IVPB 100 mls Q24HR BHAVNA Administration Insulin Glargine 50 units/ 0.5 mls @ 0 mls/hr 07/25/20 21:00 07/31/20 20:27 Miscellaneous Medication SC 0.5 mls HS BHAVNA Administration Insulin Glargine 50 units/ 0.5 mls @ 0 mls/hr 07/27/20 09:00 08/01/20 08:31 Miscellaneous Medication SC 0.5 mls QAM BHAVNA Administration As Directed Vancomycin HCl 1.5 gm/ Device 300 mls @ 200 mls/hr 07/31/20 11:00 08/01/20 10:41 IVPB 300 mls 1100,2300 BHAVNA Administration Insulin Human Lispro 0 units 07/25/20 12:00 08/01/20 04:51 Humalog 300 Units/3 Ml Vial SC 3 unit .AGGRESSIVE SLIDING PRN Administration Aggressive Correctional Scale Insulin Human Lispro 15 units 07/27/20 09:00 08/01/20 08:28 Humalog 300 Units/3 Ml Vial SC 15 unit BID BHAVNA Administration Lisinopril 40 mg 07/26/20 09:00 08/01/20 08:26 Lisinopril 20 Mg Tab PO 40 mg DAILY BHAVNA Administration Metoprolol Tartrate 50 mg 07/31/20 21:00 08/01/20 08:27 Metoprolol Tartrate 50 Mg Tab PO 50 mg BID BHAVNA Administration Metronidazole 500 mg 07/30/20 15:00 08/01/20 14:12 Metronidazole 500 Mg Tab PO 500 mg TID BHAVNA Administration Morphine Sulfate 2 mg 07/29/20 21:28 08/01/20 14:12 Morphine 2 Mg/Ml Vial SLOW IVP 2 mg Q4H PRN Administration Moderate to Severe Pain (4-10) Saccharomyces Boulardii 250 mg 07/27/20 09:00 08/01/20 08:26 Saccharomyces Boulardii 250 Mg Cap PO 250 mg DAILY BHAVNA Administration Sodium Chloride 10 ml 07/29/20 09:00 08/01/20 08:29 Flush - Normal Saline 10 Ml Syringe IVF 10 ml Q12HR BHAVNA Administration Sodium Chloride 10 ml 07/29/20 08:15 07/31/20 13:30 Flush - Normal Saline 10 Ml Syringe IVF 10 ml PRN PRN Administration Saline Flush - Exam General Appearance: NAD, awake alert General - other findings: Obese Heart: RRR, no murmur, no gallops, no rubs, normal peripheral pulses Respiratory: CTAB, no wheezes, no rales, no ronchi, normal chest expansion, no tachypnea, normal percussion Gastrointestinal: soft, non-tender, non-distended, normal bowel sounds, no palpable masses, no hepatomegaly, no splenomegaly, no bruit Extremities: no cyanosis, no clubbing, no edema Extremities - other findings: Left midfoot amputation with surgical dressing and wrap Musculoskeletal: normal tone, normal strength, no muscle wasting Psychiatric: normal affect, normal behavior, A&O x 3 Hosp A/P (1) Osteomyelitis of left foot Code(s): M86.9 - OSTEOMYELITIS, UNSPECIFIED Status: Acute Qualifiers: Osteomyelitis type: unspecified type Qualified Code(s): M86.9 - Osteomyelitis, unspecified (2) DM type 2 (diabetes mellitus, type 2) Status: Chronic Qualifiers: Diabetes mellitus longterm insulin use: with terminal carman use (3) HLD (hyperlipidemia) Code(s): E78.5 - HYPERLIPIDEMIA, UNSPECIFIED Status: Chronic (4) HTN (hypertension) Code(s): I10 - ESSENTIAL (PRIMARY) HYPERTENSION Status: Chronic Qualifiers: Hypertension type: essential hypertension Qualified Code(s): I10 - Essential (primary) hypertension (5) Obesity (BMI 30-39.9) Code(s): E66.9 - OBESITY, UNSPECIFIED Status: Chronic (6) Diarrhea Code(s): R19.7 - DIARRHEA, UNSPECIFIED Status: Resolved - Plan Osteomyelitis of the left foot: Growing MRSA. Dr. Ortez has sent orders to case management for a full course of long-term IV antibiotics. Status post left midfoot amputation: Appreciate podiatry. Had an area dressing placed. Plan is for outpatient follow-up on . He is to continue nonweightbearing status till then. Diabetes mellitus: Fair overall controlled. No significant change. Hypertension: Patient's blood pressure continues to be very poorly controlled. He also remains somewhat tachycardic. Will increase his metoprolol from 50 mg twice daily to 100 mg twice daily. Hyperlipidemia: Does not appear the patient has had a cholesterol panel checked here since 2017. At that time his triglycerides were over 600. We will repeat a fasting lipid panel in the morning. Tobacco abuse: Patient appears to be using smokeless tobacco. Likely contributing to his blood pressure and tachycardia. Patient will be counseled thusly. DVT prophylaxis: Lovenox. Disposition: Patient would like to go to [facility] to receive the course of the IV antibiotics. Case management is working on that.
[2020-08-01] MEDS: Metoprolol Tartrate 100 MG TAB PO SCH (20:42)
[2020-08-01] MEDS ORDERED: Clopidogrel Bisulfate 75 MG TAB ONE (22:51)
[2020-08-01 22:58] LABS: Vancomycin, Trough 18.2 ug/mL
[2020-08-02 06:58] LABS: Cardiac Risk 6.2 (Less than 4.5)
[2020-08-02] MEDS: HumaLOG 300 UNITS/3 ML VIAL SC SCH ×2 (08:00→22:02)
[2020-08-02] MEDS: Aripiprazole 10 MG TAB PO SCH (08:01)
[2020-08-02] MEDS: Lisinopril 20 MG TAB PO SCH (08:01)
[2020-08-02] MEDS: metroNIDAZOLE 500 MG TAB PO SCH ×3 (08:01→21:54)
[2020-08-02] MEDS: Saccharomyces boulardii 250 MG CAP PO SCH (08:01)
[2020-08-02] MEDS: Metoprolol Tartrate 100 MG TAB PO SCH ×2 (08:01→21:54)
[2020-08-02] MEDS: Amlodipine 10 MG TAB PO SCH (08:02)
[2020-08-02] MEDS: Fenofibrate 48 MG TAB PO SCH (08:02)
[2020-08-02] MEDS: Furosemide 40 MG TAB PO SCH (08:02)
[2020-08-02] MEDS: Insulin Glargine 50 UNITS in Pre-Filled Syringe 1 EACH SC SCH ×2 (08:35→21:54)
[2020-08-02] MEDS: Vancomycin 1.5 GRAM/300 ML BAG 1.5 GM in Premix Bag 1 BAG IVPB SCH ×2 (11:06→23:00)
[2020-08-02] MEDS: HumaLOG 300 UNITS/3 ML VIAL SC PRN (11:07)
--- NOTE | 2020-08-02 15:53 | SPC ---
Left upper extremity PICC placement sonographic guided HISTORY: Recurrent infection. FINDINGS: After explaining the procedure and answering all questions, the left upper extremity was pr epped and draped in usual sterile fashion. Sterile technique, buffered local anesthesia, sonographic guidance, and a 22-gauge needle were used t o carefully access the left cephalic vein. Standard technique was used to place the tip of a 5 Gabonese single lumen PICC so that the tip lies at the level of the superior vena cava. Catheter was flushed and secured externally. Patient tolerated the procedure well and was returned in unchanged condition. IMPRESSION : Left upper extremity PICC is ready for use.
--- NOTE | 2020-08-02 16:05 | PDOC.HOSPP ---
- Subjective Encounter Date: 08/02/20 Subjective: Feels ok. Said he barely put any weight on his foot and it started bleeding. (See nurse's notes). Feels ok today. No complaints. - Objective Vital Signs & Weight: Vital Signs (12 hours) Temp Pulse Resp BP BP BP Pulse Ox 08/02/20 15:19 98.2 F 102 H 16 144/87 H 97 08/02/20 11:04 98.4 F 87 16 129/84 96 08/02/20 08:02 91 08/02/20 08:01 166/108 H 08/02/20 07:30 98.2 F 91 18 166/108 H 93 L Weight Admit Weight 281 lb 8 oz Weight 281 lb 8.485 oz I&O: 08/01/20 08/02/20 08/03/20 06:59 06:59 06:59 Intake Total 2440 2200 Output Total 2250 Balance 190 2200 Result Diagrams: 07/31/20 05:42 07/31/20 05:42 Additional Labs: Accuchecks 08/02/20 08/02/20 08/02/20 15:38 11:09 05:15 POC Glucose 145 H 181 H 145 H 08/01/20 19:59 POC Glucose 159 H Hospitalist ROS - Medication Medications: Active Medications Generic Name Dose Route Start Last Admin Trade Name Freq PRN Reason Stop Dose Admin Acetaminophen 650 mg 07/30/20 13:57 07/31/20 23:34 Acetaminophen 325 Mg Tab PO 650 mg Q6H PRN Administration Headache/Fever or Pain Amlodipine Besylate 10 mg 07/26/20 09:00 08/02/20 08:02 Amlodipine 10 Mg Tab PO 10 mg DAILY BHAVNA Administration Aripiprazole 30 mg 07/26/20 09:00 08/02/20 08:01 Aripiprazole 10 Mg Tab PO 30 mg DAILY BHAVNA Administration Fenofibrate 48 mg 07/26/20 09:00 08/02/20 08:02 Fenofibrate 48 Mg Tab PO 48 mg DAILY BHAVNA Administration Furosemide 40 mg 08/01/20 07:30 08/02/20 08:02 Furosemide 40 Mg Tab PO Not Given DAILY-AC BHAVNA Ceftriaxone Sodium 1 gm/ 100 mls @ 200 mls/hr 07/25/20 15:00 08/01/20 14:13 Sodium Chloride IVPB 100 mls Q24HR BHAVNA Administration Insulin Glargine 50 units/ 0.5 mls @ 0 mls/hr 07/25/20 21:00 08/01/20 20:41 Miscellaneous Medication SC 0.5 mls HS BHAVNA Administration Insulin Glargine 50 units/ 0.5 mls @ 0 mls/hr 07/27/20 09:00 08/02/20 08:35 Miscellaneous Medication SC 0.5 mls QAM BHAVNA Administration As Directed Vancomycin HCl 1.5 gm/ Device 300 mls @ 200 mls/hr 07/31/20 11:00 08/02/20 11:06 IVPB 300 mls 1100,2300 BHAVNA Administration Insulin Human Lispro 0 units 07/25/20 12:00 08/02/20 11:07 Humalog 300 Units/3 Ml Vial SC 3 unit .AGGRESSIVE SLIDING PRN Administration Aggressive Correctional Scale Insulin Human Lispro 15 units 07/27/20 09:00 08/02/20 08:00 Humalog 300 Units/3 Ml Vial SC 15 unit BID BHAVNA Administration Lisinopril 40 mg 07/26/20 09:00 08/02/20 08:01 Lisinopril 20 Mg Tab PO 40 mg DAILY BHAVNA Administration Metoprolol Tartrate 100 mg 08/01/20 21:00 08/02/20 08:01 Metoprolol Tartrate 100 Mg Tab PO 100 mg BID BHVANA Administration Metronidazole 500 mg 07/30/20 15:00 08/02/20 08:01 Metronidazole 500 Mg Tab PO 500 mg TID BHAVNA Administration Morphine Sulfate 2 mg 07/29/20 21:28 08/01/20 14:12 Morphine 2 Mg/Ml Vial SLOW IVP 2 mg Q4H PRN Administration Moderate to Severe Pain (4-10) Saccharomyces Boulardii 250 mg 07/27/20 09:00 08/02/20 08:01 Saccharomyces Boulardii 250 Mg Cap PO 250 mg DAILY BHAVNA Administration Sodium Chloride 10 ml 07/29/20 09:00 08/02/20 09:22 Flush - Normal Saline 10 Ml Syringe IVF 10 ml Q12HR BHAVNA Administration Sodium Chloride 10 ml 07/29/20 08:15 07/31/20 13:30 Flush - Normal Saline 10 Ml Syringe IVF 10 ml PRN PRN Administration Saline Flush - Exam General Appearance: NAD, awake alert General - other findings: Morbidly obese. Heart: RRR, no murmur, no gallops, no rubs, normal peripheral pulses Respiratory: CTAB, no wheezes, no rales, no ronchi, normal chest expansion, no tachypnea, normal percussion Gastrointestinal: soft, non-tender, non-distended, normal bowel sounds, no palpable masses, no hepatomegaly, no splenomegaly, no bruit Extremities: no cyanosis, no clubbing, no edema Extremities - other findings: Left foot with post-op dressing. Skin: normal turgor Neurological: cranial nerve grossly intact, normal sensation to touch, no weakness, no focal deficits, no new deficit Musculoskeletal: normal tone, normal strength, no muscle wasting Psychiatric: normal affect, normal behavior, A&O x 3 Hosp A/P (1) Osteomyelitis of left foot Code(s): M86.9 - OSTEOMYELITIS, UNSPECIFIED Status: Acute Qualifiers: Osteomyelitis type: unspecified type Qualified Code(s): M86.9 - Osteomyelitis, unspecified (2) DM type 2 (diabetes mellitus, type 2) Status: Chronic Qualifiers: Diabetes mellitus supervisor intermediates insulin use: with supervisor intermediates use (3) HLD (hyperlipidemia) Code(s): E78.5 - HYPERLIPIDEMIA, UNSPECIFIED Status: Chronic (4) HTN (hypertension) Code(s): I10 - ESSENTIAL (PRIMARY) HYPERTENSION Status: Chronic Qualifiers: Hypertension type: essential hypertension Qualified Code(s): I10 - Essential (primary) hypertension (5) Obesity (BMI 30-39.9) Code(s): E66.9 - OBESITY, UNSPECIFIED Status: Chronic (6) Diarrhea Code(s): R19.7 - DIARRHEA, UNSPECIFIED Status: Resolved - Plan Osteomyelitis of the left foot: Growing MRSA. Dr. Ortez has sent orders to case management for a full course of long-term IV antibiotics, through 09/11. Status post left midfoot amputation: Non-weight bearing. Has attempted some light pressure on the foot a couple of times and had some bleeding. He has a knee scooter at home and says he doesn't need one here. Diabetes mellitus: Fair overall controlled. No significant change. Hypertension: Patient's blood pressure continues to be very poorly controlled. He also remains somewhat tachycardic. Will increase his metoprolol from 50 mg twice daily to 100 mg twice daily. With that he is still borderline tachycardic. BP is a little better. Hyperlipidemia: Cholesterol panel appears a little strange here. Recommend a repeat after his acute illness is resolved. Tobacco abuse: Patient appears to be using smokeless tobacco. Likely contributing to his blood pressure and tachycardia. Patient will be counseled thusly. DVT prophylaxis: Lovenox. Disposition: Patient would like to go to [facility] to receive the course of the IV antibiotics. Case management is working on that.
[2020-08-02] MEDS: cefTRIAXone\\ROCEPHIN 1 GM in Sodium Chloride 0.9% 100 ML IVPB SCH (16:15)
[2020-08-03] MEDS: metroNIDAZOLE 500 MG TAB PO SCH ×2 (09:52→14:54)
[2020-08-03] MEDS: Saccharomyces boulardii 250 MG CAP PO SCH (09:52)
[2020-08-03] MEDS: Metoprolol Tartrate 100 MG TAB PO SCH (09:52)
[2020-08-03] MEDS: Fenofibrate 48 MG TAB PO SCH (09:53)
[2020-08-03] MEDS: Amlodipine 10 MG TAB PO SCH (09:53)
[2020-08-03] MEDS: Lisinopril 20 MG TAB PO SCH (09:53)
[2020-08-03] MEDS: Aripiprazole 10 MG TAB PO SCH (09:53)
[2020-08-03] MEDS: Furosemide 40 MG TAB PO SCH (09:54)
[2020-08-03] MEDS: Insulin Glargine 50 UNITS in Pre-Filled Syringe 1 EACH SC SCH (09:56)
[2020-08-03] MEDS: HumaLOG 300 UNITS/3 ML VIAL SC SCH (09:57)
[2020-08-03] MEDS ORDERED: Vancomycin HCl 1.25 GM in Sodium Chloride 0.9% 250 ML 250 ML IVPB SCH (11:00)
[2020-08-03] MEDS: HumaLOG 300 UNITS/3 ML VIAL SC PRN (12:13)
[2020-08-03] MEDS: cefTRIAXone\\ROCEPHIN 1 GM in Sodium Chloride 0.9% 100 ML IVPB SCH (14:54)
[2020-08-03 16:18] VITALS: BP 165/91; TEMP 98.7
--- NOTE | 2020-08-03 21:21 | DIS ---
DATE OF ADMISSION: 07/25/2020 DATE OF DISCHARGE: 08/03/2020 DISCHARGE DIAGNOSES: 1. Osteomyelitis of the left foot, status post transmetatarsal amputation 07/29/2020. 2. Diabetes mellitus type 2 with peripheral neuropathy. 3. Hypertension. 4. Acute kidney injury, resolved. CONSULTATIONS: 1. Dr. Ortez with Infectious Disease Service. 2. Dr. Asif Steve with Podiatry Service. PERTINENT LABORATORY AND X-RAY FINDINGS: Creatinine ranged between 0.69-1.16, estimated GFR ranged between 70 to greater than 90. Hemoglobin A1c 12.6. Blood cultures x2 dated 07/25/2020, showed no growth at 5 days. Clostridium difficile antigen and toxin dated 07/25/2020, negative. GI stool culture dated 07/26/2020, showed normal enteric carey. Left foot bone culture dated 07/29/2020, positive for Staphylococcus aureus and Enterococcus faecalis. Three views of the left foot dated 07/25/2020, showed osteomyelitis of the distal tip of the second digit metatarsal with partial amputation site as well as the third digit metatarsal shaft. MRI of the left foot dated 07/28/2020, showed osteomyelitis of the second, third, and fourth metatarsals extending to the tarsometatarsal joints. Stress type changes of the cuneiform and cuboid. Two separate plantar ulcers noted. HOSPITAL COURSE: The patient was initially admitted after complaining of infectious process of the left foot in the context of known uncontrolled diabetes mellitus type 2 with peripheral neuropathy with previous ray amputation of the left foot in May 2020. The patient noted left foot discharge, pain, and malodorous drainage with initial evaluation showing evidence of diabetic foot ulceration. The patient was placed on broad-spectrum IV antibiotic therapy with vancomycin, Rocephin, and metronidazole. The patient was evaluated by the Infectious Disease Service with recommendations for long-term antibiotic coverage, undergoing left upper extremity PICC line placement. The patient recommended to transition to Rocephin 2 g daily until 09/11/2020. The patient received local wound care during the hospital course after undergoing transmetatarsal amputation of the left foot on 07/29/2020. The patient remained clinically stable during the hospital course, tolerating regular oral intake with stable vital signs. I have examined the patient at the time of discharge and discussed followup instructions. The patient verbalized understanding and agreement, ready for discharge on 08/03/2020. DISCHARGE MEDICATIONS: 1. Rocephin 2 g IV daily until 09/11/2020. 2. Abilify 30 mg p.o. daily. 3. Glargine insulin 100 units subcutaneously at bedtime. 4. Humalog 30 units subcutaneously b.i.d. 5. Lisinopril 40 mg p.o. daily. 6. Fenofibrate 48 mg p.o. daily. 7. Metoprolol tartrate 25 mg p.o. b.i.d. 8. Amlodipine 10 mg p.o. daily. FOLLOWUP: The patient may follow up with Dr. Asif Steve with Podiatry Service. The patient will follow up with [facility] for primary care. CONDITION ON DISCHARGE: Fair. ACTIVITY: Ad-ashwini. DIET: ADA and heart healthy. SPECIAL INSTRUCTIONS: Outpatient Infusion Clinic at [facility], 08/04/2020. CODE STATUS: Full. DISPOSITION: To home, 08/03/2020. TIME SPENT: Total time preparing and coordinating discharge, 33 minutes. Job ID: [id number]
== END 2020-08-03 17:01 | disposition home or self-care (01) | DRG 854 ==
LOC: ERS 08:17 → T4-B 11:54
PROVIDERS: ADMIT Internal Medicine; ATTEND Internal Medicine
PROC: 0Y6N0Z0 Detachment at Left Foot, Complete, Open Approach (ICD-10-PCS; principal; 2020-07-29)
PROC: 02HV33Z Insertion of Infusion Device into Superior Vena Cava, Percutaneous Approach (ICD-10-PCS; 2020-08-02)
PROC: B548ZZA Ultrasonography of Superior Vena Cava, Guidance (ICD-10-PCS; 2020-08-02)
DX: A41.02 Sepsis due to Methicillin resistant Staphylococcus aureus (principal); M86.172 Other acute osteomyelitis, left ankle and foot; E87.1 Hypo-osmolality and hyponatremia; E87.2 Acidosis; N17.9 Acute kidney failure, unspecified; E11.52 Type 2 diabetes mellitus with diabetic peripheral angiopathy with gangrene; I96 Gangrene, not elsewhere classified; I10 Essential (primary) hypertension; E78.5 Hyperlipidemia, unspecified; E78.00 Pure hypercholesterolemia, unspecified; Z20.828 Contact with and (suspected) exposure to other viral communicable diseases; F41.9 Anxiety disorder, unspecified; F32.9 Major depressive disorder, single episode, unspecified; E11.69 Type 2 diabetes mellitus with other specified complication; E11.621 Type 2 diabetes mellitus with foot ulcer; E11.65 Type 2 diabetes mellitus with hyperglycemia; L97.529 Non-pressure chronic ulcer of other part of left foot with unspecified severity; E11.42 Type 2 diabetes mellitus with diabetic polyneuropathy; F17.210 Nicotine dependence, cigarettes, uncomplicated; Z88.5 Allergy status to narcotic agent; Z79.4 Long term (current) use of insulin; Z79.899 Other long term (current) drug therapy; Z68.37 Body mass index [BMI] 37.0-37.9, adult
CPT/HCPCS: 36415; 36416; 36569; 71045; 80048; 80053; 80061; 80202; 81003; 81015; 83036; 83605; 85025; 87040; 87045; 87046; 87070; 87077; 87186; 87205; 87324; 87427; 87449; 88305; 88311; 96361; 96365; 96375; C1751; J0692; J0696; J1650; J1815; J1885; J2270; J2405; J2704; J2765; J3010; J3370; J3480; J3490; J7030; J7050; S0020; U0002

== ENCOUNTER 2020-08-03 20:50 | Emergency (ER) | payer SELFPAY | END 2020-08-03 22:23 | disposition home or self-care (01) | LOC: ERS 20:50 | DX: M96.830 Postprocedural hemorrhage of a musculoskeletal structure following a musculoskeletal system procedure (principal); I10 Essential (primary) hypertension; E78.5 Hyperlipidemia, unspecified; E78.00 Pure hypercholesterolemia, unspecified; F17.220 Nicotine dependence, chewing tobacco, uncomplicated; Z79.899 Other long term (current) drug therapy | CPT/HCPCS: 99283 ==

== ENCOUNTER → 2020-08-30 | Day surgery (SDC) | payer SELFPAY ==
[~2020-08-30] MED LIST changes: -Heparin 1,000 UNITS/ML VIAL ONE; +Iopamidol 300 61% 50 ML VIAL FS ONE
--- NOTE | 2020-08-30 12:40 | SPC ---
PICC PLACEMENT ULTRASOUND-GUIDED VENOUS ACCESS: (Peripherally inserted central catheter) DATE: 08/30/2020 HISTORY: 39-year-old male with osteomyelitis of left foot requiring long-term IV antibiotics. The location of the PICC tip at the right subclavian vein was reported by Dr. Del Rosario via message left on Dr. Ortez voicemail at 11:32 AM 08/30/2020 TECHNIQUE: Catheter caliber: 5 Welsh Catheter trim length:33 cm Catheter lumen number:single Catheter tip location:Right subclavian vein Vein accessed:right basilic Total fluoroscopy time: 3.4 min. Dose area product: 27,754 mGy*cm^2 Signed, informed consent was obtained. A tourniquet was applied at the proximal aspect of the arm. Th e arm was prepped and draped in the usual sterile fashion. A 25-gauge needle was used to applied buffered lidocaine superficially. The vein was punctured with a 21-gauge micropuncture needle under u ltrasound guidance. A 0.018 inch guidewire was advanced through the micropuncture needle and into the vein. Under fluoroscopic guidance, the guidewire was advanced to the superior vena cava. The PICC was flushed and trimmed to the appropriate length. The micropuncture needle was exchanged over the guidewire for a 5 Welsh peel-away dilator sheath. The dilator was exchanged over the guidewire for t he PICC, which was then further advanced under fluoroscopy. There was resistance to advancement of the catheter at the right subclavian vein, despite the wire being advanced to the inferior vena cava. The sheath and guidewire were removed. The PICC was flushed again and secured in place at the arm after adjustment of tip position. The patient tolerated the procedure well. There was no complication . IMPRESSION: 1. Successful placement of PICC (peripherally inserted central catheter). 2. However, the catheter tip was placed in the right subclavian vein because of either stricture of t hat vein (patient stated that he has history of previous central venous catheter) or vasospasm.
== END ==
LOC: SPEC 09:26
PROVIDERS: ATTEND Internal Medicine Infectious Disease
PROC: 05H533Z Insertion of Infusion Device into Right Subclavian Vein, Percutaneous Approach (ICD-10-PCS; principal; 2020-08-30)
PROC: B546ZZA Ultrasonography of Right Subclavian Vein, Guidance (ICD-10-PCS; principal; 2020-08-30)
DX: M86.8X7 Other osteomyelitis, ankle and foot (principal)
CPT/HCPCS: 36569; C1751; Q9967

== ENCOUNTER 2021-01-28 18:16 | Inpatient (IN) | payer SELFPAY ==
[2021-01-28] MEDS ORDERED: Clindamycin/D5W 900 mg/50 ml Premix Bag ONE (18:46)
[2021-01-28] MEDS ORDERED: VANCOMYCIN 2 GRAM/400 ML BAG 2 GM in Premix Bag 1 BAG IVPB ONE (19:00)
[2021-01-28] MEDS ORDERED: Midazolam HCl 2 mg/2 ml Vial ONE (19:46)
[2021-01-28] MEDS ORDERED: Fentanyl 100 MCG/2 ML VIAL ONE ×2 (19:46→21:20)
[2021-01-28] MEDS ORDERED: Insulin Regular 300 UNITS/3 ML VIAL ONE (20:07)
[2021-01-28] MEDS ORDERED: ePHEDrine Sulfate 50 MG/10 ML VIAL ONE (20:15)
[2021-01-28] MEDS ORDERED: PHENYLEPHRINE-NS 100 MCG/ML 10 ML SYRINGE ONE (20:15)
[2021-01-28] MEDS ORDERED: PROPOFOL 200 MG/20 ML VIAL ONE (20:15)
[2021-01-28] MEDS ORDERED: Lidocaine 1% PF 5 ML VIAL ONE (20:15)
[2021-01-28] MEDS ORDERED: Succinylcholine 200 MG/10 ml SYRINGE FS ONE (20:15)
[2021-01-28] MEDS ORDERED: Neomycin-Polymyxin 1 ML AMP ONE (20:39)
[2021-01-28] MEDS ORDERED: Meperidine HCl/PF 25 MG/ML VIAL ONE (21:33)
[2021-01-28] MEDS ORDERED: Ondansetron PF 4 MG/2 ML Vial ONE (21:33)
[2021-01-28 21:39] LABS: Bacteria/HPF None Seen HPF (None Seen); Bilirubin Negative (Negative); Blood, Urine 3+ (Negative); Clarity Clear (Clear); Glucose, Urine (Dipstick) Greater than 1000 mg/dL (Negative); Ketone, Urine Negative (Negative); Leukocyte Negative Leu/uL (Negative); Nitrite Negative (Negative); Protein, Urine (Dipstick) 300 mg/dL (Neg-Trace); RBC/HPF 21-50 HPF (0-3); Specific Gravity, Urine 1.048 (1.002-1.036); Squamous Epithelial None Seen HPF (0-3); Urobilinogen Normal mg/dL (Less than 2)
[2021-01-28] MEDS ORDERED: Ondansetron HCl/PF 4 MG/2 ML Vial IVP PRN (21:40)
[2021-01-28] MEDS ORDERED: Promethazine HCl 25 MG/ML VIAL SLOW IVP PRN (21:40)
[2021-01-28] MEDS ORDERED: Meperidine HCl/PF 25 MG/ML VIAL SLOW IVP PRN (21:40)
[2021-01-28] MEDS ORDERED: Promethazine HCl 25 MG/ML VIAL IM PRN (21:40)
[2021-01-28] MEDS ORDERED: Metoprolol Tartrate 5 MG/5 ML VIAL ONE (21:57)
[2021-01-28] MEDS ORDERED: Ondansetron PF 4 MG/2 ML Vial IVP PRN (23:15)
[2021-01-28] MEDS ORDERED: Acetaminophen 325 MG TAB PO PRN (23:15)
[2021-01-28] MEDS ORDERED: Ondansetron ODT 4 MG TAB SL PRN (23:15)
[2021-01-29 00:15] VITALS: BMI 43.4
[2021-01-29 00:18] LABS: SARS-CoV-2 PCR by NAA Not Detected (NotDetected)
[2021-01-29] MEDS ORDERED: hydrALAZINE 20 MG/ML VIAL SLOW IVP PRN (00:18)
[2021-01-29] MEDS ORDERED: Labetalol HCl 100 MG/20 ML VIAL SLOW IVP PRN (00:20)
[2021-01-29] MEDS ORDERED: Dextrose 50% Abboject 50 ML SYRINGE IVP PRN (00:30)
[2021-01-29] MEDS ORDERED: Dextrose 5% in Water 1,000 ML IV PRN ×2 (00:30→09:39)
[2021-01-29] MEDS: HumaLOG 300 UNITS/3 ML VIAL SC PRN ×2 (00:31→05:20)
[2021-01-29] MEDS: Sodium Chloride 0.9% 1,000 ML IV SCH ×2 (00:32→11:20)
[2021-01-29] MEDS: Piperacillin/Tazobactam 4.5 GM in Sodium Chloride 0.9% 100 ML IVPB SCH ×2 (00:32→05:20)
[2021-01-29] MEDS: Clindamycin/D5W 900 MG in Premix Bag 1 BAG IVPB SCH ×3 (01:16→09:32)
[2021-01-29 04:00] LABS: #Basophils 0.1 thou/uL (0.0-0.2); #Eosinphils 0.1 thou/uL (0.0-0.7); #Lymphocytes 1.6 thou/uL (1.20-3.40); #Monocytes 1.3 thou/uL (0.11-0.59); #Neutrophils 12.6 thou/uL (1.40-6.50); %Basophils 0.4 % (0.0-1.0); %Eosinophils 0.8 % (0.0-10.0); %Lymphocytes 10.2 % (21.0-51.0); %Monocytes 8.1 % (0.0-10.0); %Neutrophils 80.6 % (42.0-75.0); Mean Corpuscular HGB CONC 31.8 g/dL (32.0-36.0); Mean Corpuscular Hemoglobin 24.7 pg (27.0-31.0); Mean Corpuscular Volume 77.9 fL (78.0-98.0); Mean Platelet Volume 9.6 fL (7.4-10.4); Platelet Count 169 thou/uL (130-400); RBC Distribution Width 14.6 % (11.5-14.5); Red Blood Cell (RBC) Count 5.28 mill/uL (4.70-6.10); White Blood Cell (WBC) Count 15.6 thou/uL (4.8-10.8)
[2021-01-29 04:03] LABS: Anion Gap 13 mmol/L (10-20); Calcium 7.5 mg/dL (7.8-10.44); Carbon Dioxide 17 mmol/L (22-29); Chloride 105 mmol/L (98-107); Potassium 3.9 mmol/L (3.5-5.1); Sodium 131 mmol/L (136-145)
[2021-01-29 04:10] LABS: BUN (Urea Nitrogen) 14 mg/dL (8.9-20.6); Calc. Creatinine Clearance 129 mL/min (70-130); Glucose 409 mg/dL (70-105)
[2021-01-29] MEDS ORDERED: VANCOMYCIN 2 GRAM/400 ML BAG 2 GM in Premix Bag 1 BAG IVPB SCH (08:00)
[2021-01-29] MEDS ORDERED: Lantus 1000 UNITS/10 ML VIAL SC SCH ×2 (09:00→13:00)
[2021-01-29] MEDS: Aripiprazole 10 MG TAB PO SCH (09:30)
[2021-01-29] MEDS: Amlodipine 10 MG TAB PO SCH (09:31)
[2021-01-29] MEDS: Metoprolol Tartrate 25 MG TAB PO SCH ×2 (09:33→20:21)
[2021-01-29] MEDS ORDERED: Dextrose 50% Abboject 50 ML SYRINGE SLOW IVP PRN (09:39)
[2021-01-29] MEDS: Morphine 2 MG/ML VIAL SLOW IVP PRN ×2 (09:56→14:17)
[2021-01-29] MEDS: Insulin Regular 300 UNITS/3 ML VIAL SC PRN ×2 (11:21→16:12)
[2021-01-29] MEDS: HYDROcodone/Acetaminophen 10/325 mg Tablet PO PRN (12:33)
[2021-01-29] MEDS: Lantus 1000 UNITS/10 ML VIAL SC SCH (20:22)
[2021-01-29] MEDS ORDERED: Insulin Glargine 80 UNITS in Pre-Filled Syringe 1 EACH SC SCH (21:00)
[2021-01-30] MEDS: Sodium Chloride 0.9% 1,000 ML IV SCH ×2 (00:08→06:25)
[2021-01-30] MEDS: Insulin Regular 300 UNITS/3 ML VIAL SC PRN ×4 (05:56→20:19)
[2021-01-30] MEDS: Morphine 4 MG/ML VIAL SLOW IVP PRN ×2 (05:56→10:36)
[2021-01-30] MEDS ORDERED: Dextrose 5% in Water 1,000 ML IV PRN (08:18)
[2021-01-30] MEDS ORDERED: Dextrose 50% Abboject 50 ML SYRINGE SLOW IVP PRN (08:18)
[2021-01-30] MEDS: Piperacillin/Tazobactam 3.375 GM in Sodium Chloride 0.9% 100 ML IVPB SCH ×3 (08:44→20:17)
[2021-01-30] MEDS: Lisinopril 20 MG TAB PO SCH (08:45)
[2021-01-30] MEDS: Metoprolol Tartrate 25 MG TAB PO SCH (08:45)
[2021-01-30] MEDS: Aripiprazole 10 MG TAB PO SCH (08:45)
[2021-01-30] MEDS: Amlodipine 10 MG TAB PO SCH (08:45)
[2021-01-30] MEDS ORDERED: Carvedilol 6.25 MG TAB PO SCH (09:00)
[2021-01-30] MEDS: Lantus 1000 UNITS/10 ML VIAL SC SCH ×2 (12:47→20:19)
[2021-01-30] MEDS: HYDROcodone/Acetaminophen 10/325 mg Tablet PO PRN ×2 (15:51→20:31)
[2021-01-30] MEDS: Carvedilol 6.25 MG TAB PO SCH (16:20)
[2021-01-30] MEDS ORDERED: Non-Formulary Item 1 EACH (Insulin Detemir [Levemir] 100 UNIT/ML Vial) SQ SCH (21:00)
[2021-01-31] MEDS: Piperacillin/Tazobactam 3.375 GM in Sodium Chloride 0.9% 100 ML IVPB SCH ×2 (02:59→08:11)
[2021-01-31] MEDS: Morphine 4 MG/ML VIAL SLOW IVP PRN (05:00)
[2021-01-31 07:20] LABS: #Basophils 0.1 thou/uL (0.0-0.2); #Eosinphils 0.6 thou/uL (0.0-0.7); #Lymphocytes 1.8 thou/uL (1.20-3.40); #Neutrophils 9.4 thou/uL (1.40-6.50); %Basophils 0.6 % (0.0-1.0); %Eosinophils 4.6 % (0.0-10.0); %Lymphocytes 14.3 % (21.0-51.0); %Monocytes 7.5 % (0.0-10.0); Hemoglobin 12.1 g/dL (14.0-18.0); Mean Corpuscular HGB CONC 31.5 g/dL (32.0-36.0); Mean Corpuscular Hemoglobin 24.6 pg (27.0-31.0); Mean Platelet Volume 7.7 fL (7.4-10.4); Platelet Count 383 thou/uL (130-400); Red Blood Cell (RBC) Count 4.91 mill/uL (4.70-6.10); White Blood Cell (WBC) Count 12.9 thou/uL (4.8-10.8)
[2021-01-31 07:37] LABS: Anion Gap 12 mmol/L (10-20); BUN (Urea Nitrogen) 16 mg/dL (8.9-20.6); Calc. Creatinine Clearance 143 mL/min (70-130); Calcium 8.2 mg/dL (7.8-10.44); Carbon Dioxide 23 mmol/L (22-29); Chloride 104 mmol/L (98-107); Glucose 143 mg/dL (70-105); Potassium 3.1 mmol/L (3.5-5.1); Sodium 136 mmol/L (136-145)
[2021-01-31] MEDS: Lisinopril 20 MG TAB PO SCH (08:12)
[2021-01-31] MEDS: HYDROcodone/Acetaminophen 5/325 mg Tablet PO PRN ×2 (08:12→13:45)
[2021-01-31] MEDS: Amlodipine 10 MG TAB PO SCH (08:13)
[2021-01-31] MEDS: Carvedilol 6.25 MG TAB PO SCH ×2 (08:13→16:28)
[2021-01-31] MEDS: Aripiprazole 10 MG TAB PO SCH (09:08)
[2021-01-31] MEDS: Lantus 1000 UNITS/10 ML VIAL SC SCH ×2 (12:17→20:06)
[2021-01-31] MEDS: cefTRIAXone\\ROCEPHIN 1 GM in Sodium Chloride 0.9% 100 ML IVPB SCH (13:46)
[2021-01-31] MEDS: Insulin Regular 300 UNITS/3 ML VIAL SC PRN ×2 (16:29→20:07)
[2021-01-31] MEDS: HYDROcodone/Acetaminophen 10/325 mg Tablet PO PRN (19:31)
[2021-02-01] MEDS: Morphine 4 MG/ML VIAL SLOW IVP PRN ×2 (04:27→09:45)
[2021-02-01] MEDS: HYDROcodone/Acetaminophen 5/325 mg Tablet PO PRN (06:27)
[2021-02-01] MEDS: Aripiprazole 10 MG TAB PO SCH (08:08)
[2021-02-01] MEDS: Carvedilol 6.25 MG TAB PO SCH ×2 (08:09→15:44)
[2021-02-01] MEDS: Amlodipine 10 MG TAB PO SCH (08:09)
[2021-02-01] MEDS: Lisinopril 20 MG TAB PO SCH (08:09)
[2021-02-01] MEDS: Insulin Regular 300 UNITS/3 ML VIAL SC PRN ×3 (11:54→20:56)
[2021-02-01] MEDS: Lantus 1000 UNITS/10 ML VIAL SC SCH ×2 (11:55→20:55)
[2021-02-01] MEDS: cefTRIAXone\\ROCEPHIN 1 GM in Sodium Chloride 0.9% 100 ML IVPB SCH (12:43)
[2021-02-01] MEDS: HYDROcodone/Acetaminophen 10/325 mg Tablet PO PRN ×2 (15:44→20:56)
[2021-02-02] MEDS: HYDROcodone/Acetaminophen 10/325 mg Tablet PO PRN ×3 (00:34→09:51)
[2021-02-02] MEDS ORDERED: Labetalol HCl 100 MG/20 ML VIAL SLOW IVP SCH (01:00)
[2021-02-02] MEDS: Insulin Regular 300 UNITS/3 ML VIAL SC PRN ×3 (05:39→17:32)
[2021-02-02] MEDS: Amlodipine 10 MG TAB PO SCH (06:53)
[2021-02-02 08:01] LABS: #Eosinphils 0.3 thou/uL (0.0-0.7); #Lymphocytes 1.8 thou/uL (1.20-3.40); %Basophils 0.2 % (0.0-1.0); %Eosinophils 2.5 % (0.0-10.0); %Lymphocytes 14.7 % (21.0-51.0); %Monocytes 8.4 % (0.0-10.0); %Neutrophils 74.3 % (42.0-75.0); Hemoglobin 12.8 g/dL (14.0-18.0); Mean Corpuscular HGB CONC 32.5 g/dL (32.0-36.0); Mean Corpuscular Hemoglobin 25.5 pg (27.0-31.0); Mean Corpuscular Volume 78.3 fL (78.0-98.0); Mean Platelet Volume 7.5 fL (7.4-10.4); Platelet Count 378 thou/uL (130-400); RBC Distribution Width 14.1 % (11.5-14.5); Red Blood Cell (RBC) Count 5.01 mill/uL (4.70-6.10); White Blood Cell (WBC) Count 12.1 thou/uL (4.8-10.8)
[2021-02-02] MEDS: Aripiprazole 10 MG TAB PO SCH (08:25)
[2021-02-02] MEDS: Carvedilol 25 MG TAB PO SCH ×2 (08:25→16:24)
[2021-02-02] MEDS: hydrALAZINE 25 MG TAB PO SCH ×3 (08:25→20:24)
[2021-02-02] MEDS: Lisinopril 20 MG TAB PO SCH (08:26)
[2021-02-02 09:17] LABS: Anion Gap 9 mmol/L (10-20); BUN (Urea Nitrogen) 15 mg/dL (8.9-20.6); Calc. Creatinine Clearance 179 mL/min (70-130); Calcium 8.7 mg/dL (7.8-10.44); Carbon Dioxide 24 mmol/L (22-29); Chloride 105 mmol/L (98-107); Glucose 222 mg/dL (70-105); Potassium 3.3 mmol/L (3.5-5.1); Sodium 135 mmol/L (136-145)
[2021-02-02] MEDS: Lantus 1000 UNITS/10 ML VIAL SC SCH ×2 (14:41→21:53)
[2021-02-02] MEDS: cefTRIAXone\\ROCEPHIN 1 GM in Sodium Chloride 0.9% 100 ML IVPB SCH (14:44)
[2021-02-02] MEDS ORDERED: Furosemide 100 MG/10 ML VIAL SLOW IVP SCH (14:45)
[2021-02-02] MEDS: metroNIDAZOLE 500 MG TAB PO SCH ×2 (16:24→20:25)
[2021-02-02] MEDS ORDERED: Furosemide 80 MG TAB PO SCH (17:45)
[2021-02-02] MEDS: hydrALAZINE 20 MG/ML VIAL SLOW IVP PRN ×2 (17:48→21:54)
[2021-02-02] MEDS: HYDROcodone/Acetaminophen 5/325 mg Tablet PO PRN (20:25)
[2021-02-02] MEDS ORDERED: metroNIDAZOLE 500 MG TAB PO SCH (21:00)
[2021-02-02] MEDS: Morphine 4 MG/ML VIAL SLOW IVP PRN (23:47)
[2021-02-02] MEDS ORDERED: hydrALAZINE 20 MG/ML VIAL SLOW IVP SCH (23:59)
[2021-02-03] MEDS: HYDROcodone/Acetaminophen 5/325 mg Tablet PO PRN (04:45)
[2021-02-03] MEDS: hydrALAZINE 20 MG/ML VIAL SLOW IVP PRN (05:50)
[2021-02-03] MEDS: Amlodipine 10 MG TAB PO SCH (08:35)
[2021-02-03] MEDS: Carvedilol 25 MG TAB PO SCH ×2 (08:36→16:57)
[2021-02-03] MEDS: metroNIDAZOLE 500 MG TAB PO SCH ×2 (08:36→14:28)
[2021-02-03] MEDS: Aripiprazole 10 MG TAB PO SCH (08:36)
[2021-02-03] MEDS: Lisinopril 20 MG TAB PO SCH (08:37)
[2021-02-03] MEDS: hydrALAZINE 25 MG TAB PO SCH ×2 (08:37→16:57)
[2021-02-03] MEDS: Morphine 4 MG/ML VIAL SLOW IVP PRN (10:23)
[2021-02-03] MEDS ORDERED: Labetalol HCl 100 MG/20 ML VIAL SLOW IVP SCH (13:00)
[2021-02-03] MEDS: cefTRIAXone\\ROCEPHIN 1 GM in Sodium Chloride 0.9% 100 ML IVPB SCH ×2 (14:22→14:48)
[2021-02-03] MEDS: Lantus 1000 UNITS/10 ML VIAL SC SCH (14:28)
[2021-02-03] MEDS: Insulin Regular 300 UNITS/3 ML VIAL SC PRN ×2 (14:31→17:30)
[2021-02-03 17:27] VITALS: TEMP 97.7
[2021-02-03 19:16] VITALS: BP 118/68
== END 2021-02-03 17:42 | disposition home health service (06) | DRG 854 ==
LOC: ERS 18:16 → SDC/OP 20:22 → IMCU/EMU 23:01 → T4-A 01-29 16:25
PROVIDERS: ADMIT Urology; ATTEND Hospitalist
PROC: 0JBB0ZZ Excision of Perineum Subcutaneous Tissue and Fascia, Open Approach (ICD-10-PCS; principal; 2021-01-28)
DX: A41.9 Sepsis, unspecified organism (principal); L02.215 Cutaneous abscess of perineum; E87.1 Hypo-osmolality and hyponatremia; B37.49 Other urogenital candidiasis; Z68.41 Body mass index [BMI] 40.0-44.9, adult; E11.9 Type 2 diabetes mellitus without complications; Z79.4 Long term (current) use of insulin; F32.9 Major depressive disorder, single episode, unspecified; E78.5 Hyperlipidemia, unspecified; Z83.3 Family history of diabetes mellitus; F17.220 Nicotine dependence, chewing tobacco, uncomplicated; I10 Essential (primary) hypertension; E11.65 Type 2 diabetes mellitus with hyperglycemia; Z90.49 Acquired absence of other specified parts of digestive tract; Z89.432 Acquired absence of left foot; E66.01 Morbid (severe) obesity due to excess calories; N49.2 Inflammatory disorders of scrotum; E11.628 Type 2 diabetes mellitus with other skin complications; B95.1 Streptococcus, group B, as the cause of diseases classified elsewhere
CPT/HCPCS: 36415; 36416; 71045; 80048; 81001; 83605; 85025; 87070; 87077; 87086; 87205; 87635; 96365; 96375; J0360; J0696; J1815; J2175; J2250; J2270; J2405; J2543; J2704; J3010; J3370; J3490; U0003; U0005

== ENCOUNTER 2021-07-04 14:45 | Inpatient (IN) | payer OTHER, SELFPAY ==
[2021-07-04 15:34] LABS: Mean Corpuscular Hemoglobin 24.7 pg (27.0-31.0); Mean Corpuscular Volume 77.1 fL (78.0-98.0); Mean Platelet Volume 9.5 fL (7.4-10.4); Platelet Count 370 thou/uL (130-400); RBC Distribution Width 15.2 % (11.5-14.5); Red Blood Cell (RBC) Count 4.05 mill/uL (4.70-6.10); White Blood Cell (WBC) Count 40.1 thou/uL (4.8-10.8)
[2021-07-04 15:47] LABS: Reflex for Review?? YES
[2021-07-04 15:48] LABS: Band 21 % (5-11); Lymphocytes 2 % (21-51); MDiff Complete? YES; Monocytes 6 % (0-10); Neutrophil 71 % (42-75); Platelet Morphology Comment Appears Adequate; Polychromasia SLIGHT = 2-3 cells (100X) (0-2/hpf)
[2021-07-04 16:37] LABS: ALT (SGPT) 16 U/L (8-55); AST (SGOT) 28 U/L (5-34); Alkaline Phosphatase 225 U/L (40-110); Anion Gap 16 mmol/L (10-20); BUN (Urea Nitrogen) 61 mg/dL (8.9-20.6); Calc. Creatinine Clearance 0 mL/min (70-130); Calcium 8.1 mg/dL (7.8-10.44); Carbon Dioxide 15 mmol/L (22-29); Chloride 82 mmol/L (98-107); Globulin 4.5 g/dL (2.4-3.5); Protein, Total 6.5 g/dL (6.0-8.3)
[2021-07-04] MEDS ORDERED: metroNIDAZOLE 500 MG/100 ML BAG ONE (16:42)
[2021-07-04] MEDS ORDERED: Vancomycin 1 GM/200 ML BAG ONE (16:42)
[2021-07-04 16:48] LABS: Glucose 648 mg/dL (70-105); Sodium 109 mmol/L (136-145)
[2021-07-04] MEDS ORDERED: Insulin Regular 300 UNITS/3 ML VIAL ONE ×3 (17:05→22:17)
[2021-07-04] MEDS ORDERED: Acetaminophen 325 MG TAB PO PRN (18:19)
[2021-07-04] MEDS ORDERED: Sodium Chloride 0.9% 1,000 ML IV PRN ×4 (18:19)
[2021-07-04] MEDS ORDERED: Electrolyte Replacement Protocol 1 EACH FS PRN (18:19)
[2021-07-04] MEDS ORDERED: NS 0.9% w/ 20 MEQ KCL 1,000 ML IV PRN ×2 (18:19)
[2021-07-04] MEDS ORDERED: HYDROcodone/Acetaminophen 5/325 mg Tablet PO PRN (18:19)
[2021-07-04] MEDS ORDERED: Ondansetron PF 4 MG/2 ML Vial IVP PRN (18:19)
[2021-07-04] MEDS ORDERED: Dextrose 5 %-0.45 % NaCl 1,000 ML IV PRN (18:19)
[2021-07-04] MEDS ORDERED: D5 1/2 NS w/20 mEq KCL 1,000 ML IV PRN (18:19)
[2021-07-04] MEDS ORDERED: HUMULIN R 100 UNITS in Sodium Chloride 0.9% 100 ML IVPB SCH (18:30)
[2021-07-04] MEDS ORDERED: Piperacillin/Tazobactam 3.375 GM in Sodium Chloride 0.9% 100 ML IVPB SCH (19:00)
[2021-07-04 19:31] LABS: SARS-CoV-2 NAA Rapid Test Not Detected (NotDetected)
[2021-07-04 19:45] LABS: Lactic Acid 2.5 mmol/L (0.5-2.2)
[2021-07-04 19:46] LABS: Anion Gap 13 mmol/L (10-20); BUN (Urea Nitrogen) 58 mg/dL (8.9-20.6); Calc. Creatinine Clearance 0 mL/min (70-130); Calcium 7.8 mg/dL (7.8-10.44); Carbon Dioxide 16 mmol/L (22-29); Chloride 88 mmol/L (98-107); Glucose 505 mg/dL (70-105); Potassium 3.4 mmol/L (3.5-5.1)
[2021-07-04 19:50] LABS: Sodium 114 mmol/L (136-145)
[2021-07-04 20:17] LABS: Actual Bicarbonate (HCO3v) 18 mEq/L (22-28); Analyzer IN Cardio ER; Base Excess -6.4 mEq/L (-2.0 to +3.0); Calcium, Ionized (venous) 0.97 mmol/L (1.16-1.32); Chloride (VBG) 88 mmol/L (98-106); Hemoglobin (Hb) 10.6 g/dL (13.2-17.3); Potassium (VBG) 3.56 mmol/L (3.70-5.30); Sodium 114.7 mmol/L (133-146); pH (venous) 7.36 (7.32-7.43)
[2021-07-04 20:33] LABS: Bacteria/HPF 4+ HPF (None Seen); Bilirubin Negative (Negative); Blood, Urine 3+ (Negative); Glucose, Urine (Dipstick) Greater than 1000 mg/dL (Negative); Ketone, Urine Negative (Negative); Leukocyte 25 Leu/uL (Negative); Nitrite Negative (Negative); Protein, Urine (Dipstick) 100 mg/dL (Neg-Trace); Specific Gravity, Urine 1.014 (1.002-1.036); Squamous Epithelial 0-3 HPF (0-3); Urobilinogen Normal mg/dL (Less than 2)
[2021-07-04 20:35] LABS: Clarity Cloudy (Clear)
[2021-07-04] MEDS ORDERED: Potassium Chloride 20 MEQ/100 ML PREMIX BAG ONE (21:12)
[2021-07-04] MEDS: Famotidine/PF 20 mg/2ml Vial SLOW IVP SCH (22:30)
[2021-07-04] MEDS: Vancomycin HCl 25 MG/ML Oral PO SCH (22:48)
[2021-07-04 23:09] LABS: Anion Gap 14 mmol/L (10-20); BUN (Urea Nitrogen) 62 mg/dL (8.9-20.6); Calc. Creatinine Clearance 0 mL/min (70-130); Carbon Dioxide 16 mmol/L (22-29); Chloride 90 mmol/L (98-107); Glucose 497 mg/dL (70-105); Potassium 3.8 mmol/L (3.5-5.1)
[2021-07-04 23:18] LABS: Sodium 116 mmol/L (136-145)
[2021-07-05] MEDS ORDERED: Famotidine/PF 20 mg/2ml Vial ONE ×2 (00:02→05:21)
[2021-07-05] MEDS ORDERED: Piperacillin/Tazobactam 3.375 GM VIAL ONE ×2 (03:00→08:19)
[2021-07-05] MEDS: Vancomycin 1.5 GRAM/300 ML BAG 1.5 GM in Premix Bag 1 BAG IVPB SCH (03:00)
[2021-07-05 03:08] LABS: Hemoglobin 9.3 g/dL (14.0-18.0); Mean Corpuscular HGB CONC 32.9 g/dL (32.0-36.0); Mean Corpuscular Hemoglobin 25.2 pg (27.0-31.0); Mean Corpuscular Volume 76.8 fL (78.0-98.0); Mean Platelet Volume 8.7 fL (7.4-10.4); Platelet Count 399 thou/uL (130-400); RBC Distribution Width 14.6 % (11.5-14.5); Red Blood Cell (RBC) Count 3.67 mill/uL (4.70-6.10); White Blood Cell (WBC) Count 26.1 thou/uL (4.8-10.8)
[2021-07-05 03:14] LABS: INR-International Normal Ratio 1.4; Prothrombin Time 17.5 sec (12.0-14.7)
[2021-07-05 03:20] LABS: Hemoglobin A1c 10.5 % (4.0-6.0)
[2021-07-05 03:27] LABS: Band 17 % (5-11); Lymphocytes 7 % (21-51); MDiff Complete? YES; Monocytes 10 % (0-10); Neutrophil 66 % (42-75); Toxic Granulation SLIGHT; Vacuoles SLIGHT
[2021-07-05 03:30] LABS: ALT (SGPT) 17 U/L (8-55); AST (SGOT) 30 U/L (5-34); Albumin 1.7 g/dL (3.5-5.0); Alkaline Phosphatase 178 U/L (40-110); Anion Gap 16 mmol/L (10-20); BUN (Urea Nitrogen) 61 mg/dL (8.9-20.6); Bilirubin, Total 0.5 mg/dL (0.2-1.2); Calc. Creatinine Clearance 0 mL/min (70-130); Calcium 7.5 mg/dL (7.8-10.44); Carbon Dioxide 18 mmol/L (22-29); Chloride 93 mmol/L (98-107); Globulin 3.6 g/dL (2.4-3.5); Glucose 205 mg/dL (70-105); Potassium 3.6 mmol/L (3.5-5.1); Protein, Total 5.3 g/dL (6.0-8.3); Sodium 123 mmol/L (136-145)
[2021-07-05 03:33] LABS: CRP (Inflammatory) 23.87 mg/dL (= or < 0.5); Cholesterol 104 mg/dl (< 200 Desired); HDL Cholesterol Less than 8 mg/dL (>60 Neg Risk); Triglycerides 208 mg/dL (Less than 150)
[2021-07-05 03:57] LABS: Phosphorus 4.4 mg/dL (2.3-4.7)
[2021-07-05] MEDS: Piperacillin/Tazobactam 3.375 GM in Sodium Chloride 0.9% 100 ML IVPB SCH ×3 (04:00→15:30)
[2021-07-05] MEDS ORDERED: Insulin Regular 300 UNITS/3 ML VIAL ONE (04:16)
[2021-07-05] MEDS: Vancomycin HCl 25 MG/ML Oral PO SCH ×3 (04:25→16:25)
[2021-07-05] MEDS ORDERED: Dextrose 5% in Water 1,000 ML IV SCH (04:45)
[2021-07-05] MEDS ORDERED: Magnesium 2 GM/50 ML 2 GM in Premix Bag 1 BAG IVPB SCH (05:45)
[2021-07-05] MEDS ORDERED: Magnesium 2 GM/50 ML BAG (IN WATER) ONE (05:50)
[2021-07-05] MEDS ORDERED: Enoxaparin Sodium 40 MG/0.4 ML SYRINGE ONE (08:19)
[2021-07-05] MEDS: Aripiprazole 10 MG TAB PO SCH (08:36)
[2021-07-05] MEDS: Famotidine/PF 20 mg/2ml Vial SLOW IVP SCH (08:37)
[2021-07-05] MEDS: Potassium Chloride 20 MEQ in Premix Bag 1 BAG IVPB SCH ×2 (08:41→08:42)
[2021-07-05] MEDS ORDERED: Dextrose 50% Abboject 50 ML SYRINGE SLOW IVP PRN (08:57)
[2021-07-05] MEDS ORDERED: Dextrose 5% in Water 1,000 ML IV PRN (08:57)
[2021-07-05] MEDS ORDERED: Enoxaparin Sodium 40 MG/0.4 ML SYRINGE SC SCH (09:00)
[2021-07-05] MEDS ORDERED: Fenofibrate 48 MG TAB PO SCH (09:00)
[2021-07-05 11:17] LABS: Hemoglobin 9.3 g/dL (14.0-18.0); Mean Corpuscular HGB CONC 31.7 g/dL (32.0-36.0); Mean Corpuscular Hemoglobin 24.4 pg (27.0-31.0); Mean Platelet Volume 8.9 fL (7.4-10.4); Platelet Count 379 thou/uL (130-400); RBC Distribution Width 14.9 % (11.5-14.5); Red Blood Cell (RBC) Count 3.79 mill/uL (4.70-6.10); White Blood Cell (WBC) Count 33.1 thou/uL (4.8-10.8)
[2021-07-05 11:21] LABS: Anion Gap 15 mmol/L (10-20); BUN (Urea Nitrogen) 55 mg/dL (8.9-20.6); Calc. Creatinine Clearance 62 mL/min (70-130); Calcium 7.7 mg/dL (7.8-10.44); Carbon Dioxide 15 mmol/L (22-29); Chloride 94 mmol/L (98-107); Glucose 244 mg/dL (70-105); Potassium 3.6 mmol/L (3.5-5.1); Sodium 120 mmol/L (136-145)
[2021-07-05 11:26] LABS: Actual Bicarbonate (HCO3a) 17.8 mEq/L (22-28); Base Excess (BEa) -6.1 mEq/L (-2.0 to +3.0); CO2 Tension 29.6 mmHg (35.0-45.0); Carboxyhemoglobin (COHb) 0.3 gm% (0.0-3.0); Hemoglobin (Hb) 9.5 g/dL (14.0-18.0)
[2021-07-05 11:27] LABS: Calcium, Ionized (arterial) 1.08 mmol/L (1.12-1.30); Potassium - ABG Lab 3.45 mmol/L (3.70-5.30)
[2021-07-05 11:36] LABS: O2 Tension (PaO2), arterial 44.3 mmHg (80.0-100.0); Puncture Site LRA
[2021-07-05 11:57] LABS: Band 13 % (5-11); Hypochromia SLIGHT = 6-15 cells (100X) (0-5/hpf); Lymphocytes 10 % (21-51); MDiff Complete? YES; Microcytosis SLIGHT = 6-15 cells (100X) (0-5/hpf); Monocytes 13 % (0-10); Neutrophil 65 % (42-75); Platelet Morphology Comment Appears Adequate; Polychromasia SLIGHT = 2-3 cells (100X) (0-2/hpf); Toxic Granulation SLIGHT; Vacuoles MODERATE
[2021-07-05] MEDS ORDERED: Fentanyl 100 MCG/2 ML VIAL ONE (12:42)
[2021-07-05] MEDS ORDERED: Midazolam HCl 2 mg/2 ml Vial ONE (13:21)
[2021-07-05] MEDS ORDERED: Phenylephrine 10 MG/ML VIAL ONE (13:21)
[2021-07-05] MEDS ORDERED: PROPOFOL 200 MG/20 ML VIAL ONE (13:30)
[2021-07-05] MEDS ORDERED: PHENYLEPHRINE-NS 100 MCG/ML 10 ML SYRINGE ONE (13:30)
[2021-07-05] MEDS ORDERED: Lidocaine 1% PF 5 ML VIAL ONE (13:30)
[2021-07-05] MEDS ORDERED: Rocuronium Bromide 10 MG/ML (10ML VIAL) ONE (13:30)
[2021-07-05] MEDS ORDERED: Succinylcholine 200 MG/10 ml SYRINGE FS ONE (13:30)
[2021-07-05] MEDS ORDERED: Sodium Chloride 0.9% 20 ML ONE (13:51)
[2021-07-05] MEDS ORDERED: Promethazine HCl 25 MG/ML VIAL IVPB PRN (14:04)
[2021-07-05] MEDS ORDERED: Ondansetron HCl/PF 4 MG/2 ML Vial IVP PRN (14:04)
[2021-07-05] MEDS ORDERED: Promethazine HCl 25 MG/ML VIAL IM PRN (14:04)
[2021-07-05] MEDS ORDERED: Ventilator Sedation Protocol 1 EACH FS SCH (14:53)
[2021-07-05 15:15] LABS: Actual Bicarbonate (HCO3a) 18.4 mEq/L (22-28); Base Excess (BEa) -7.1 mEq/L (-2.0 to +3.0); CO2 Tension 36.8 mmHg (35.0-45.0); Calcium, Ionized (arterial) 1.08 mmol/L (1.12-1.30); Carboxyhemoglobin (COHb) 0.3 gm% (0.0-3.0); Hemoglobin (Hb) 9.2 g/dL (14.0-18.0); O2 Tension (PaO2), arterial 86.4 mmHg (80.0-100.0); Potassium - ABG Lab 3.79 mmol/L (3.70-5.30); pH, Arterial 7.32 (7.35-7.45)
[2021-07-05] MEDS ORDERED: DISCONTINUE PREVIOUS NARCOTIC PAIN MEDICATIONS AND BENZODIAZEPINES FS SCH (15:15)
[2021-07-05] MEDS ORDERED: Propofol BOLUS 1,000 MG/100 ML VIAL IV PRN (15:15)
[2021-07-05] MEDS ORDERED: fentaNYL Citrate/PF 2,000 MCG in Sodium Chloride 0.9% 60 ML IV SCH (15:15)
[2021-07-05] MEDS ORDERED: Lorazepam 2 MG/ML VIAL SLOW IVP PRN (15:15)
[2021-07-05] MEDS ORDERED: Fentanyl BOLUS 250 ML IVPB PRN (15:15)
[2021-07-05 15:16] LABS: Puncture Site RRA
[2021-07-05] MEDS ORDERED: Fentanyl CADD 100 ML ONE (15:27)
[2021-07-05] MEDS: Propofol 1,000 MG/100 ML VIAL IV PRN (15:30)
[2021-07-05 16:22] LABS: Anion Gap 15 mmol/L (10-20); BUN (Urea Nitrogen) 56 mg/dL (8.9-20.6); Calc. Creatinine Clearance 61 mL/min (70-130); Calcium 7.2 mg/dL (7.8-10.44); Carbon Dioxide 19 mmol/L (22-29); Chloride 92 mmol/L (98-107); Glucose 285 mg/dL (70-105); Potassium 4.3 mmol/L (3.5-5.1); Sodium 122 mmol/L (136-145)
[2021-07-05] MEDS: HumaLOG 300 UNITS/3 ML VIAL SC PRN (16:27)
[2021-07-05] MEDS: Sodium Bicarbonate 70 MEQ in Sodium Chloride 0.45% 1,000 ML IV SCH (16:36)
[2021-07-05 17:21] LABS: Hemoglobin 7.8 g/dL (14.0-18.0); Mean Corpuscular HGB CONC 32.4 g/dL (32.0-36.0); Mean Corpuscular Hemoglobin 25.1 pg (27.0-31.0); Mean Corpuscular Volume 77.4 fL (78.0-98.0); Mean Platelet Volume 8.9 fL (7.4-10.4); Platelet Count 333 thou/uL (130-400); RBC Distribution Width 14.8 % (11.5-14.5); Red Blood Cell (RBC) Count 3.09 mill/uL (4.70-6.10); White Blood Cell (WBC) Count 27.1 thou/uL (4.8-10.8)
[2021-07-05 17:39] LABS: Band 24 % (5-11); Lymphocytes 2 % (21-51); MDiff Complete? YES; Metamyelocyte 2 % (0-0); Microcytosis SLIGHT = 6-15 cells (100X) (0-5/hpf); Monocytes 8 % (0-10); Neutrophil 64 % (42-75); Platelet Morphology Comment Appears Adequate; Polychromasia SLIGHT = 2-3 cells (100X) (0-2/hpf); Toxic Granulation SLIGHT
[2021-07-05 17:57] LABS: Glucose 330 mg/dL (70-105)
[2021-07-05 19:51] LABS: Anion Gap 11 mmol/L (10-20); BUN (Urea Nitrogen) 59 mg/dL (8.9-20.6); Calc. Creatinine Clearance 55 mL/min (70-130); Calcium 6.8 mg/dL (7.8-10.44); Carbon Dioxide 20 mmol/L (22-29); Chloride 93 mmol/L (98-107); Glucose 314 mg/dL (70-105); Potassium 3.6 mmol/L (3.5-5.1); Sodium 120 mmol/L (136-145)
[2021-07-05] MEDS: NPH, Human Insulin Isophane 300 UNIT/3 ML VIAL SC SCH (21:07)
[2021-07-06 00:16] LABS: Anion Gap 13 mmol/L (10-20); BUN (Urea Nitrogen) 64 mg/dL (8.9-20.6); Calc. Creatinine Clearance 54 mL/min (70-130); Calcium 6.8 mg/dL (7.8-10.44); Carbon Dioxide 21 mmol/L (22-29); Chloride 95 mmol/L (98-107); Glucose 312 mg/dL (70-105); Potassium 3.8 mmol/L (3.5-5.1); Sodium 125 mmol/L (136-145)
[2021-07-06] MEDS: HumaLOG 300 UNITS/3 ML VIAL SC PRN ×4 (00:36→17:05)
[2021-07-06] MEDS: Piperacillin/Tazobactam 3.375 GM in Sodium Chloride 0.9% 100 ML IVPB SCH (02:04)
[2021-07-06] MEDS: Vancomycin 1.5 GRAM/300 ML BAG 1.5 GM in Premix Bag 1 BAG IVPB SCH (02:04)
[2021-07-06] MEDS: Sodium Bicarbonate 70 MEQ in Sodium Chloride 0.45% 1,000 ML IV SCH ×2 (02:05→13:25)
[2021-07-06] MEDS ORDERED: Fentanyl CADD 100 ML ONE ×2 (03:12→15:57)
[2021-07-06] MEDS: Propofol 1,000 MG/100 ML VIAL IV PRN ×2 (03:32→11:59)
[2021-07-06 05:14] LABS: Hemoglobin 6.6 g/dL (14.0-18.0); Mean Corpuscular HGB CONC 32.3 g/dL (32.0-36.0); Mean Corpuscular Volume 77.4 fL (78.0-98.0); Mean Platelet Volume 9.1 fL (7.4-10.4); Platelet Count 283 thou/uL (130-400); RBC Distribution Width 14.9 % (11.5-14.5); Red Blood Cell (RBC) Count 2.62 mill/uL (4.70-6.10); White Blood Cell (WBC) Count 18.1 thou/uL (4.8-10.8)
[2021-07-06 05:24] LABS: ALT (SGPT) 12 U/L (8-55); AST (SGOT) 15 U/L (5-34); Albumin 1.4 g/dL (3.5-5.0); Alkaline Phosphatase 101 U/L (40-110); Anion Gap 15 mmol/L (10-20); BUN (Urea Nitrogen) 65 mg/dL (8.9-20.6); Bilirubin, Total 0.5 mg/dL (0.2-1.2); Calc. Creatinine Clearance 53 mL/min (70-130); Calcium 6.8 mg/dL (7.8-10.44); Carbon Dioxide 20 mmol/L (22-29); Chloride 94 mmol/L (98-107); Globulin 2.9 g/dL (2.4-3.5); Glucose 284 mg/dL (70-105); Potassium 3.5 mmol/L (3.5-5.1); Protein, Total 4.3 g/dL (6.0-8.3); Sodium 125 mmol/L (136-145)
[2021-07-06 06:07] LABS: Band 18 % (5-11); Eosinophils 1 % (0-10); Lymphocytes 11 % (21-51); MDiff Complete? YES; Monocytes 7 % (0-10); Myelocyte 3 % (0-0); Neutrophil 60 % (42-75); Platelet Morphology Comment Appears Adequate; RBC Morphology Normal
[2021-07-06 07:24] LABS: CO2 Tension 32.4 mmHg (35.0-45.0); Calcium, Ionized (arterial) 1.02 mmol/L (1.12-1.30); Carboxyhemoglobin (COHb) 0.4 gm% (0.0-3.0); Hemoglobin (Hb) 7.4 g/dL (14.0-18.0); O2 Tension (PaO2), arterial 163.3 mmHg (80.0-100.0); Potassium - ABG Lab 3.04 mmol/L (3.70-5.30); pH, Arterial 7.43 (7.35-7.45)
[2021-07-06 07:40] LABS: Glucose 243 mg/dL (70-105)
[2021-07-06] MEDS ORDERED: Potassium Chloride 40 MEQ in Sodium Chloride 0.9% 250 ML 250 ML IVPB SCH (08:00)
[2021-07-06] MEDS: Cefepime 1 GM in Sodium Chloride 0.9% 100 ML IVPB SCH (08:03)
[2021-07-06] MEDS: metroNIDAZOLE 250 MG in Admixture Fee 2 EACH IVPB SCH ×2 (08:04→17:05)
[2021-07-06] MEDS: Aripiprazole 10 MG TAB PO SCH (08:04)
[2021-07-06] MEDS: NPH, Human Insulin Isophane 300 UNIT/3 ML VIAL SC SCH ×2 (08:05→21:05)
[2021-07-06 09:46] LABS: Puncture Site LRA
[2021-07-06] MEDS: Albumin 25% 25 GM/100 ML BOT IVPB SCH ×3 (12:00→23:45)
[2021-07-06 12:09] LABS: Glucose 206 mg/dL (70-105)
[2021-07-06 16:36] LABS: Hemoglobin 7.6 g/dL (14.0-18.0); Mean Corpuscular HGB CONC 32.7 g/dL (32.0-36.0); Mean Corpuscular Hemoglobin 26.3 pg (27.0-31.0); Mean Corpuscular Volume 80.6 fL (78.0-98.0); Mean Platelet Volume 8.3 fL (7.4-10.4); Platelet Count 297 thou/uL (130-400); RBC Distribution Width 16.9 % (11.5-14.5); Red Blood Cell (RBC) Count 2.89 mill/uL (4.70-6.10); White Blood Cell (WBC) Count 16.5 thou/uL (4.8-10.8)
[2021-07-06 17:02] LABS: Anisocytosis SLIGHT = 6-15 cells (100X) (0-5/hpf); Band 6 % (5-11); Eosinophils 2 % (0-10); Lymphocytes 20 % (21-51); MDiff Complete? YES; Metamyelocyte 1 % (0-0); Monocytes 3 % (0-10); Neutrophil 67 % (42-75); Platelet Morphology Comment Appears Adequate; Polychromasia SLIGHT = 2-3 cells (100X) (0-2/hpf); Reactive Lymphocytes 1 % (0-10); Toxic Granulation SLIGHT
[2021-07-06 17:05] LABS: Glucose 159 mg/dL (70-105)
[2021-07-06] MEDS: Enoxaparin Sodium 30 MG/0.3 ML SYRINGE SC SCH (20:32)
[2021-07-06] MEDS: Famotidine/PF 20 mg/2ml Vial SLOW IVP SCH (20:32)
[2021-07-06 21:24] LABS: Glucose 138 mg/dL (70-105)
[2021-07-07] MEDS: Sodium Bicarbonate 70 MEQ in Sodium Chloride 0.45% 1,000 ML IV SCH ×3 (00:20→18:26)
[2021-07-07] MEDS: metroNIDAZOLE 250 MG in Admixture Fee 2 EACH IVPB SCH ×4 (00:58→23:25)
[2021-07-07] MEDS: Propofol 1,000 MG/100 ML VIAL IV PRN ×3 (01:24→23:24)
[2021-07-07] MEDS: Vancomycin 1.5 GRAM/300 ML BAG 1.5 GM in Premix Bag 1 BAG IVPB SCH (01:58)
[2021-07-07] MEDS ORDERED: Fentanyl CADD 100 ML ONE ×2 (03:34→18:35)
[2021-07-07 04:09] LABS: #Basophils 0.1 thou/uL (0.0-0.2); #Eosinphils 0.1 thou/uL (0.0-0.7); #Lymphocytes 2.1 thou/uL (1.20-3.40); #Monocytes 0.7 thou/uL (0.11-0.59); #Neutrophils 7.5 thou/uL (1.40-6.50); %Basophils 0.7 % (0.0-1.0); %Eosinophils 1.4 % (0.0-10.0); %Lymphocytes 19.8 % (21.0-51.0); %Monocytes 6.5 % (0.0-10.0); %Neutrophils 71.6 % (42.0-75.0); Hemoglobin 7.4 g/dL (14.0-18.0); Mean Corpuscular HGB CONC 32.7 g/dL (32.0-36.0); Mean Corpuscular Hemoglobin 26.4 pg (27.0-31.0); Mean Corpuscular Volume 80.6 fL (78.0-98.0); Mean Platelet Volume 8.5 fL (7.4-10.4); Platelet Count 283 thou/uL (130-400); RBC Distribution Width 16.5 % (11.5-14.5); Red Blood Cell (RBC) Count 2.82 mill/uL (4.70-6.10); White Blood Cell (WBC) Count 10.5 thou/uL (4.8-10.8)
[2021-07-07] MEDS: Fentanyl CADD 100 ML IV SCH ×2 (04:17→18:45)
[2021-07-07 04:23] LABS: Anion Gap 15 mmol/L (10-20); BUN (Urea Nitrogen) 56 mg/dL (8.9-20.6); Calc. Creatinine Clearance 73 mL/min (70-130); Calcium 6.8 mg/dL (7.8-10.44); Carbon Dioxide 19 mmol/L (22-29); Chloride 96 mmol/L (98-107); Glucose 126 mg/dL (70-105); Potassium 3.1 mmol/L (3.5-5.1); Sodium 127 mmol/L (136-145)
[2021-07-07] MEDS: Albumin 25% 25 GM/100 ML BOT IVPB SCH ×4 (05:32→23:06)
[2021-07-07] MEDS ORDERED: Potassium Chloride 40 MEQ in Sodium Chloride 0.9% 250 ML 250 ML IVPB SCH (06:45)
[2021-07-07 07:57] LABS: Actual Bicarbonate (HCO3a) 18.4 mEq/L (22-28); Base Excess (BEa) -5.3 mEq/L (-2.0 to +3.0); CO2 Tension 28.3 mmHg (35.0-45.0); Calcium, Ionized (arterial) 1.01 mmol/L (1.12-1.30); Carboxyhemoglobin (COHb) 0.3 gm% (0.0-3.0); Hemoglobin (Hb) 7.4 g/dL (14.0-18.0); O2 Tension (PaO2), arterial 180.4 mmHg (80.0-100.0); pH, Arterial 7.43 (7.35-7.45)
[2021-07-07 08:00] LABS: ALV-art Gradient 69.425 mmHg (0-20); Puncture Site RRA
[2021-07-07] MEDS: Cefepime 1 GM in Sodium Chloride 0.9% 100 ML IVPB SCH (08:41)
[2021-07-07] MEDS: Aripiprazole 10 MG TAB PO SCH (09:12)
[2021-07-07] MEDS: NPH, Human Insulin Isophane 300 UNIT/3 ML VIAL SC SCH ×2 (09:13→20:38)
[2021-07-07] MEDS ORDERED: Fentanyl 250 MCG/5 ML VIAL ONE (13:53)
[2021-07-07] MEDS ORDERED: Midazolam HCl 5 mg/5 ml Vial ONE (13:53)
[2021-07-07] MEDS ORDERED: Rocuronium Bromide 10 MG/ML (10ML VIAL) ONE (14:15)
[2021-07-07] MEDS ORDERED: PROPOFOL 200 MG/20 ML VIAL ONE (14:15)
[2021-07-07] MEDS ORDERED: Fentanyl 100 MCG/2 ML VIAL ONE (14:43)
[2021-07-07] MEDS ORDERED: Dexmedetomidine 200 MCG/2 ML VIAL ONE (14:44)
[2021-07-07 20:20] LABS: Red Blood Cell (RBC) Count 3.35 mill/uL (4.70-6.10); White Blood Cell (WBC) Count 12.3 thou/uL (4.8-10.8)
[2021-07-07 20:21] LABS: #Eosinphils 0.2 thou/uL (0.0-0.7); #Lymphocytes 1.7 thou/uL (1.20-3.40); #Monocytes 0.5 thou/uL (0.11-0.59); #Neutrophils 9.9 thou/uL (1.40-6.50); %Basophils 0.3 % (0.0-1.0); %Eosinophils 1.3 % (0.0-10.0); %Lymphocytes 13.8 % (21.0-51.0); %Monocytes 4.2 % (0.0-10.0); %Neutrophils 80.4 % (42.0-75.0); Hemoglobin 9.4 g/dL (14.0-18.0); Mean Corpuscular HGB CONC 33.5 g/dL (32.0-36.0); Mean Corpuscular Volume 83.5 fL (78.0-98.0); Mean Platelet Volume 8.6 fL (7.4-10.4); Platelet Count 312 thou/uL (130-400); RBC Distribution Width 17.3 % (11.5-14.5)
[2021-07-07] MEDS: Enoxaparin Sodium 30 MG/0.3 ML SYRINGE SC SCH (20:31)
[2021-07-07] MEDS: Famotidine/PF 20 mg/2ml Vial SLOW IVP SCH (20:31)
[2021-07-07 21:39] LABS: Anion Gap 14 mmol/L (10-20); BUN (Urea Nitrogen) 44 mg/dL (8.9-20.6); Calc. Creatinine Clearance 90 mL/min (70-130); Carbon Dioxide 22 mmol/L (22-29); Chloride 102 mmol/L (98-107); Potassium 3.1 mmol/L (3.5-5.1); Sodium 135 mmol/L (136-145)
[2021-07-07 21:40] LABS: Calcium 7.5 mg/dL (7.8-10.44); Glucose 148 mg/dL (70-105)
[2021-07-07] MEDS: Morphine 2 MG/ML VIAL SLOW IVP PRN (23:24)
[2021-07-08] MEDS ORDERED: Fentanyl CADD 100 ML ONE (05:08)
[2021-07-08] MEDS: Vancomycin 1.5 GRAM/300 ML BAG 1.5 GM in Premix Bag 1 BAG IVPB SCH (08:02)
[2021-07-08] MEDS: Albumin 25% 25 GM/100 ML BOT IVPB SCH (08:03)
[2021-07-08] MEDS: Propofol 1,000 MG/100 ML VIAL IV PRN (08:20)
[2021-07-08] MEDS: Aripiprazole 10 MG TAB PO SCH (08:20)
[2021-07-08 08:35] LABS: Vancomycin, Trough 25.6 ug/mL
[2021-07-08 08:52] LABS: Actual Bicarbonate (HCO3a) 21.7 mEq/L (22-28); Base Excess (BEa) -2.1 mEq/L (-2.0 to +3.0); CO2 Tension 33.3 mmHg (35.0-45.0); Calcium, Ionized (arterial) 0.99 mmol/L (1.12-1.30); Carboxyhemoglobin (COHb) 0.3 gm% (0.0-3.0); O2 Tension (PaO2), arterial 179.3 mmHg (80.0-100.0); Potassium - ABG Lab 3.24 mmol/L (3.70-5.30); pH, Arterial 7.43 (7.35-7.45)
[2021-07-08 08:54] LABS: ALV-art Gradient 64.275 mmHg (0-20); Puncture Site LRA
[2021-07-08] MEDS ORDERED: Potassium Chloride 40 MEQ in Sodium Chloride 0.9% 250 ML 250 ML IVPB SCH (09:00)
[2021-07-08] MEDS: Cefepime 1 GM in Sodium Chloride 0.9% 100 ML IVPB SCH (09:00)
[2021-07-08] MEDS: NPH, Human Insulin Isophane 300 UNIT/3 ML VIAL SC SCH ×2 (09:25→20:56)
[2021-07-08] MEDS: metroNIDAZOLE 250 MG in Admixture Fee 2 EACH IVPB SCH ×2 (09:30→15:35)
[2021-07-08] MEDS: Sodium Bicarbonate 70 MEQ in Sodium Chloride 0.45% 1,000 ML IV SCH (09:31)
[2021-07-08] MEDS: Morphine 2 MG/ML VIAL SLOW IVP PRN ×2 (09:34→11:24)
[2021-07-08] MEDS ORDERED: Vancomycin 1.5 GRAM/300 ML BAG 1.5 GM in Premix Bag 1 BAG IVPB SCH (10:30)
[2021-07-08 10:49] LABS: Anion Gap 11 mmol/L (10-20); BUN (Urea Nitrogen) 40 mg/dL (8.9-20.6); Calc. Creatinine Clearance 109 mL/min (70-130); Calcium 7.3 mg/dL (7.8-10.44); Carbon Dioxide 23 mmol/L (22-29); Chloride 104 mmol/L (98-107); Glucose 127 mg/dL (70-105); Potassium 3.2 mmol/L (3.5-5.1); Sodium 135 mmol/L (136-145)
[2021-07-08] MEDS ORDERED: Morphine 2 MG/ML VIAL SLOW IVP PRN (11:28)
[2021-07-08] MEDS ORDERED: HYDROcodone/Acetaminophen 10/325 mg Tablet PO PRN (11:28)
[2021-07-08 12:22] LABS: White Blood Cell (WBC) Count 9.5 thou/uL (4.8-10.8)
[2021-07-08 12:23] LABS: #Basophils 0.1 thou/uL (0.0-0.2); #Lymphocytes 1.5 thou/uL (1.20-3.40); #Monocytes 0.6 thou/uL (0.11-0.59); #Neutrophils 7.3 thou/uL (1.40-6.50); %Basophils 0.5 % (0.0-1.0); %Eosinophils 0.4 % (0.0-10.0); %Lymphocytes 15.7 % (21.0-51.0); %Monocytes 6.3 % (0.0-10.0); Hemoglobin 8.5 g/dL (14.0-18.0); Mean Corpuscular HGB CONC 32.7 g/dL (32.0-36.0); Mean Corpuscular Hemoglobin 27.3 pg (27.0-31.0); Mean Corpuscular Volume 83.4 fL (78.0-98.0); Mean Platelet Volume 8.5 fL (7.4-10.4); Platelet Count 290 thou/uL (130-400); RBC Distribution Width 16.9 % (11.5-14.5)
[2021-07-08] MEDS: hydrALAZINE 20 MG/ML VIAL SLOW IVP PRN (13:06)
[2021-07-08] MEDS ORDERED: Amlodipine 10 MG TAB PO SCH (13:30)
[2021-07-08] MEDS ORDERED: Labetalol HCl 100 MG/20 ML VIAL SLOW IVP PRN (15:19)
[2021-07-08] MEDS: Morphine 4 MG/ML VIAL SLOW IVP PRN ×2 (15:23→21:04)
[2021-07-08] MEDS: HumaLOG 300 UNITS/3 ML VIAL SC PRN ×2 (15:57→20:57)
[2021-07-08] MEDS: Labetalol HCl 100 MG/20 ML VIAL SLOW IVP PRN (17:36)
[2021-07-08] MEDS: HYDROcodone/Acetaminophen 10/325 mg Tablet PO PRN (17:37)
[2021-07-08] MEDS: Enoxaparin Sodium 30 MG/0.3 ML SYRINGE SC SCH (20:56)
[2021-07-08] MEDS: Famotidine/PF 20 mg/2ml Vial SLOW IVP SCH (20:56)
[2021-07-09] MEDS: metroNIDAZOLE 250 MG in Admixture Fee 2 EACH IVPB SCH ×3 (00:05→17:25)
[2021-07-09] MEDS: HumaLOG 300 UNITS/3 ML VIAL SC PRN ×2 (00:07→11:17)
[2021-07-09] MEDS: Labetalol HCl 100 MG/20 ML VIAL SLOW IVP PRN ×4 (01:05→09:53)
[2021-07-09] MEDS: hydrALAZINE 20 MG/ML VIAL SLOW IVP PRN (02:13)
[2021-07-09] MEDS: Morphine 4 MG/ML VIAL SLOW IVP PRN (02:24)
[2021-07-09 04:42] LABS: #Eosinphils 0.2 thou/uL (0.0-0.7); #Lymphocytes 1.4 thou/uL (1.20-3.40); #Monocytes 0.8 thou/uL (0.11-0.59); #Neutrophils 10.1 thou/uL (1.40-6.50); %Basophils 0.3 % (0.0-1.0); %Eosinophils 1.4 % (0.0-10.0); %Lymphocytes 11.2 % (21.0-51.0); %Monocytes 6.3 % (0.0-10.0); %Neutrophils 80.9 % (42.0-75.0); Hemoglobin 9.9 g/dL (14.0-18.0); Mean Corpuscular HGB CONC 33.4 g/dL (32.0-36.0); Mean Corpuscular Hemoglobin 27.8 pg (27.0-31.0); Mean Corpuscular Volume 83.3 fL (78.0-98.0); Mean Platelet Volume 7.7 fL (7.4-10.4); Platelet Count 352 thou/uL (130-400); RBC Distribution Width 17.5 % (11.5-14.5); Red Blood Cell (RBC) Count 3.56 mill/uL (4.70-6.10); White Blood Cell (WBC) Count 12.5 thou/uL (4.8-10.8)
[2021-07-09 05:01] LABS: Anion Gap 11 mmol/L (10-20); BUN (Urea Nitrogen) 23 mg/dL (8.9-20.6); Calc. Creatinine Clearance 145 mL/min (70-130); Calcium 7.6 mg/dL (7.8-10.44); Carbon Dioxide 25 mmol/L (22-29); Chloride 105 mmol/L (98-107); Glucose 155 mg/dL (70-105); Potassium 3.6 mmol/L (3.5-5.1); Sodium 137 mmol/L (136-145)
[2021-07-09] MEDS: Cefepime 1 GM in Sodium Chloride 0.9% 100 ML IVPB SCH (07:50)
[2021-07-09] MEDS: Aripiprazole 10 MG TAB PO SCH (08:03)
[2021-07-09] MEDS: NPH, Human Insulin Isophane 300 UNIT/3 ML VIAL SC SCH ×2 (08:04→21:33)
[2021-07-09] MEDS: Amlodipine 10 MG TAB PO SCH (08:04)
[2021-07-09] MEDS ORDERED: Amlodipine 10 MG TAB PO SCH (09:00)
[2021-07-09] MEDS: HYDROcodone/Acetaminophen 10/325 mg Tablet PO PRN ×3 (09:22→21:48)
[2021-07-09] MEDS: Famotidine/PF 20 mg/2ml Vial SLOW IVP SCH (21:32)
[2021-07-09] MEDS: Enoxaparin Sodium 30 MG/0.3 ML SYRINGE SC SCH (21:33)
[2021-07-10] MEDS: hydrALAZINE 20 MG/ML VIAL SLOW IVP PRN (00:42)
[2021-07-10] MEDS: metroNIDAZOLE 250 MG in Admixture Fee 2 EACH IVPB SCH ×2 (00:43→10:17)
[2021-07-10 05:45] LABS: #Eosinphils 0.4 thou/uL (0.0-0.7); #Lymphocytes 1.9 thou/uL (1.20-3.40); #Monocytes 0.8 thou/uL (0.11-0.59); #Neutrophils 8.1 thou/uL (1.40-6.50); %Basophils 0.3 % (0.0-1.0); %Eosinophils 3.3 % (0.0-10.0); %Lymphocytes 16.9 % (21.0-51.0); %Monocytes 7.2 % (0.0-10.0); %Neutrophils 72.3 % (42.0-75.0); Mean Corpuscular HGB CONC 32.5 g/dL (32.0-36.0); Mean Corpuscular Hemoglobin 27.5 pg (27.0-31.0); Mean Corpuscular Volume 84.8 fL (78.0-98.0); Mean Platelet Volume 7.3 fL (7.4-10.4); Platelet Count 442 thou/uL (130-400); RBC Distribution Width 17.8 % (11.5-14.5); White Blood Cell (WBC) Count 11.2 thou/uL (4.8-10.8)
[2021-07-10 06:20] LABS: Anion Gap 10 mmol/L (10-20); BUN (Urea Nitrogen) 16 mg/dL (8.9-20.6); Calc. Creatinine Clearance 163 mL/min (70-130); Calcium 7.4 mg/dL (7.8-10.44); Carbon Dioxide 29 mmol/L (22-29); Chloride 102 mmol/L (98-107); Glucose 120 mg/dL (70-105); Potassium 3.9 mmol/L (3.5-5.1); Sodium 137 mmol/L (136-145)
[2021-07-10] MEDS: Cefepime 1 GM in Sodium Chloride 0.9% 100 ML IVPB SCH (06:33)
[2021-07-10 06:52] LABS: Vancomycin, Trough 10.5 ug/mL
[2021-07-10] MEDS: Aripiprazole 10 MG TAB PO SCH (08:57)
[2021-07-10] MEDS: Amlodipine 10 MG TAB PO SCH (08:58)
[2021-07-10] MEDS: HYDROcodone/Acetaminophen 10/325 mg Tablet PO PRN (08:58)
[2021-07-10] MEDS: Vancomycin 1 GM in Premix Bag 1 BAG IVPB SCH (08:59)
[2021-07-10] MEDS: NPH, Human Insulin Isophane 300 UNIT/3 ML VIAL SC SCH ×2 (08:59→21:56)
[2021-07-10] MEDS: HumaLOG 300 UNITS/3 ML VIAL SC PRN (12:31)
[2021-07-10 13:17] LABS: Glucose 171 mg/dL (70-105)
[2021-07-10] MEDS: metroNIDAZOLE 250 MG TAB PO SCH ×2 (14:45→21:56)
[2021-07-10] MEDS: Enoxaparin Sodium 30 MG/0.3 ML SYRINGE SC SCH (21:54)
[2021-07-10] MEDS: hydrALAZINE 25 MG TAB PO SCH (21:55)
[2021-07-11] MEDS: metroNIDAZOLE 250 MG TAB PO SCH ×3 (05:27→20:36)
[2021-07-11 08:43] LABS: Glucose 162 mg/dL (70-105)
[2021-07-11] MEDS: Cefepime 1 GM in Sodium Chloride 0.9% 100 ML IVPB SCH (08:46)
[2021-07-11] MEDS: hydrALAZINE 25 MG TAB PO SCH ×3 (08:47→20:37)
[2021-07-11] MEDS: Amlodipine 10 MG TAB PO SCH (08:47)
[2021-07-11] MEDS: Aripiprazole 10 MG TAB PO SCH (08:47)
[2021-07-11 08:48] LABS: Anion Gap 12 mmol/L (10-20); BUN (Urea Nitrogen) 13 mg/dL (8.9-20.6); Calc. Creatinine Clearance 0 mL/min (70-130); Calcium 7.6 mg/dL (7.8-10.44); Carbon Dioxide 25 mmol/L (22-29); Chloride 101 mmol/L (98-107); Glucose 165 mg/dL (70-105); Potassium 3.7 mmol/L (3.5-5.1); Sodium 134 mmol/L (136-145)
[2021-07-11] MEDS: NPH, Human Insulin Isophane 300 UNIT/3 ML VIAL SC SCH ×2 (08:55→20:38)
[2021-07-11] MEDS: Vancomycin 1 GM in Premix Bag 1 BAG IVPB SCH (09:34)
[2021-07-11] MEDS: HYDROcodone/Acetaminophen 10/325 mg Tablet PO PRN (11:39)
[2021-07-11] MEDS: HumaLOG 300 UNITS/3 ML VIAL SC PRN ×2 (12:41→17:29)
[2021-07-11 13:29] LABS: Glucose 176 mg/dL (70-105)
[2021-07-11] MEDS ORDERED: Carvedilol 3.125 MG TAB PO SCH (17:00)
[2021-07-11] MEDS: Enoxaparin Sodium 30 MG/0.3 ML SYRINGE SC SCH (20:36)
[2021-07-11] MEDS: Gabapentin 100 MG CAP PO SCH (20:37)
[2021-07-12] MEDS: metroNIDAZOLE 250 MG TAB PO SCH ×3 (05:30→21:19)
[2021-07-12 06:04] LABS: #Basophils 0.1 thou/uL (0.0-0.2); #Eosinphils 0.2 thou/uL (0.0-0.7); #Lymphocytes 1.6 thou/uL (1.20-3.40); #Monocytes 0.6 thou/uL (0.11-0.59); #Neutrophils 3.8 thou/uL (1.40-6.50); %Basophils 0.8 % (0.0-1.0); %Lymphocytes 25.4 % (21.0-51.0); %Monocytes 9.5 % (0.0-10.0); %Neutrophils 61.3 % (42.0-75.0); Hemoglobin 10.4 g/dL (14.0-18.0); Mean Corpuscular HGB CONC 31.5 g/dL (32.0-36.0); Mean Corpuscular Hemoglobin 26.9 pg (27.0-31.0); Mean Corpuscular Volume 85.4 fL (78.0-98.0); Mean Platelet Volume 6.4 fL (7.4-10.4); Platelet Count 426 thou/uL (130-400); Red Blood Cell (RBC) Count 3.86 mill/uL (4.70-6.10); White Blood Cell (WBC) Count 6.2 thou/uL (4.8-10.8)
[2021-07-12 06:25] LABS: Anion Gap 10 mmol/L (10-20); BUN (Urea Nitrogen) 12 mg/dL (8.9-20.6); Calc. Creatinine Clearance 0 mL/min (70-130); Calcium 7.6 mg/dL (7.8-10.44); Carbon Dioxide 27 mmol/L (22-29); Chloride 102 mmol/L (98-107); Glucose 101 mg/dL (70-105); Sodium 136 mmol/L (136-145)
[2021-07-12] MEDS ORDERED: Potassium Chloride 20 MEQ TAB PO SCH (07:00)
[2021-07-12] MEDS ORDERED: Loratadine 10 MG TAB PO PRN (07:33)
[2021-07-12] MEDS ORDERED: Loperamide HCl 2 MG CAP PO PRN (07:33)
[2021-07-12] MEDS ORDERED: Ondansetron ODT 4 MG TAB PO PRN (07:33)
[2021-07-12] MEDS ORDERED: HYDROcodone/Acetaminophen 5/325 mg Tablet PO PRN (07:33)
[2021-07-12] MEDS ORDERED: Calcium Carbonate 500 MG ChewTAB PO PRN (07:33)
[2021-07-12] MEDS ORDERED: Senokot S 8.6-50 MG TAB PO PRN (07:33)
[2021-07-12] MEDS ORDERED: Hydrocerin (Eucerin) Cream 120 gm Jar TOP PRN (07:33)
[2021-07-12] MEDS ORDERED: GUAIFENESIN SF SOLN 200 MG/10 ML UDCUP PO PRN (07:33)
[2021-07-12] MEDS ORDERED: Sodium Chloride 0.65% Nasal 44 ML BOT EA NARE PRN (07:33)
[2021-07-12] MEDS ORDERED: Bisacodyl 5 MG TAB PO PRN (07:33)
[2021-07-12] MEDS ORDERED: Cepastat Lozenges 1 LOZ PO PRN (08:00)
[2021-07-12 08:11] LABS: Glucose 107 mg/dL (70-105)
[2021-07-12] MEDS: Carvedilol 6.25 MG TAB PO SCH ×2 (09:29→16:08)
[2021-07-12] MEDS: Famotidine 20 MG TAB PO SCH ×2 (09:30→21:19)
[2021-07-12] MEDS: Multivitamin W/ Minerals 1 TAB PO SCH (09:30)
[2021-07-12] MEDS: Aripiprazole 10 MG TAB PO SCH (09:30)
[2021-07-12] MEDS: Amlodipine 10 MG TAB PO SCH (09:30)
[2021-07-12] MEDS: hydrALAZINE 25 MG TAB PO SCH ×3 (09:30→21:19)
[2021-07-12] MEDS: NPH, Human Insulin Isophane 300 UNIT/3 ML VIAL SC SCH ×2 (09:31→21:28)
[2021-07-12] MEDS: Ferrous Sulfate 325 MG TAB PO SCH (09:32)
[2021-07-12 12:38] LABS: SARS-CoV-2 PCR by NAA Not Detected (NotDetected)
[2021-07-12] MEDS: HYDROcodone/Acetaminophen 10/325 mg Tablet PO PRN ×2 (13:29→23:16)
[2021-07-12 17:19] LABS: Glucose 161 mg/dL (70-105)
[2021-07-12 21:17] LABS: Glucose 201 mg/dL (70-105)
[2021-07-12] MEDS: Enoxaparin Sodium 30 MG/0.3 ML SYRINGE SC SCH (21:19)
[2021-07-12] MEDS: Gabapentin 100 MG CAP PO SCH (21:20)
[2021-07-13] MEDS: metroNIDAZOLE 250 MG TAB PO SCH ×2 (05:48→13:56)
[2021-07-13] MEDS: HumaLOG 300 UNITS/3 ML VIAL SC PRN ×3 (05:50→21:58)
[2021-07-13 07:56] LABS: Glucose 152 mg/dL (70-105)
[2021-07-13 09:09] VITALS: BMI 45.0
[2021-07-13] MEDS: Multivitamin W/ Minerals 1 TAB PO SCH (10:01)
[2021-07-13] MEDS: Famotidine 20 MG TAB PO SCH ×2 (10:01→21:54)
[2021-07-13] MEDS: Ferrous Sulfate 325 MG TAB PO SCH (10:02)
[2021-07-13] MEDS: Aripiprazole 10 MG TAB PO SCH (10:02)
[2021-07-13] MEDS: Amlodipine 10 MG TAB PO SCH (10:02)
[2021-07-13] MEDS: hydrALAZINE 25 MG TAB PO SCH ×3 (10:02→21:55)
[2021-07-13] MEDS: Carvedilol 6.25 MG TAB PO SCH ×2 (10:03→17:37)
[2021-07-13] MEDS: NPH, Human Insulin Isophane 300 UNIT/3 ML VIAL SC SCH ×2 (10:11→21:58)
[2021-07-13 12:21] LABS: Glucose 187 mg/dL (70-105)
[2021-07-13] MEDS: HYDROcodone/Acetaminophen 10/325 mg Tablet PO PRN ×2 (13:55→22:02)
[2021-07-13] MEDS: Gabapentin 100 MG CAP PO SCH (21:54)
[2021-07-13] MEDS: Enoxaparin Sodium 30 MG/0.3 ML SYRINGE SC SCH (21:56)
[2021-07-14 07:48] LABS: Glucose 137 mg/dL (70-105)
[2021-07-14 15:22] VITALS: BP 153/86; TEMP 98.7
== END 2021-07-14 14:00 | disposition home or self-care (01) | DRG 853 ==
LOC: SUATTDRO 14:45 → ERS 14:45 → ERHOLD 18:29 → T4-B 07-05 10:04 → SURG A 07-05 14:25 → CCU 07-05 14:50 → SURG A 07-09 13:34
PROVIDERS: ADMIT Internal Medicine; ATTEND Internal Medicine
PROC: 8E0ZXY6 Isolation (ICD-10-PCS; 2021-07-04)
PROC: 0Y6J0Z1 Detachment at Left Lower Leg, High, Open Approach (ICD-10-PCS; principal; 2021-07-05)
PROC: 02H633Z Insertion of Infusion Device into Right Atrium, Percutaneous Approach (ICD-10-PCS; 2021-07-05)
PROC: B548ZZA Ultrasonography of Superior Vena Cava, Guidance (ICD-10-PCS; 2021-07-05)
PROC: 5A1945Z Respiratory Ventilation, 24-96 Consecutive Hours (ICD-10-PCS; 2021-07-05)
PROC: 0D9670Z Drainage of Stomach with Drainage Device, Via Natural or Artificial Opening (ICD-10-PCS; 2021-07-05)
PROC: 30233N1 Transfusion of Nonautologous Red Blood Cells into Peripheral Vein, Percutaneous Approach (ICD-10-PCS; 2021-07-06)
PROC: 0Y6D0Z1 Detachment at Left Upper Leg, High, Open Approach (ICD-10-PCS; 2021-07-07)
DX: A40.8 Other streptococcal sepsis (principal); E11.10 Type 2 diabetes mellitus with ketoacidosis without coma; A48.0 Gas gangrene; J96.01 Acute respiratory failure with hypoxia; R65.21 Severe sepsis with septic shock; E11.52 Type 2 diabetes mellitus with diabetic peripheral angiopathy with gangrene; Z68.42 Body mass index [BMI] 45.0-49.9, adult; E87.1 Hypo-osmolality and hyponatremia; M86.8X7 Other osteomyelitis, ankle and foot; L03.116 Cellulitis of left lower limb; N17.9 Acute kidney failure, unspecified; L02.612 Cutaneous abscess of left foot; A04.5 Campylobacter enteritis; Z20.822 Contact with and (suspected) exposure to COVID-19; E78.5 Hyperlipidemia, unspecified; N18.2 Chronic kidney disease, stage 2 (mild); E11.22 Type 2 diabetes mellitus with diabetic chronic kidney disease; F17.210 Nicotine dependence, cigarettes, uncomplicated; E66.01 Morbid (severe) obesity due to excess calories; E78.00 Pure hypercholesterolemia, unspecified; F41.9 Anxiety disorder, unspecified; F17.220 Nicotine dependence, chewing tobacco, uncomplicated; E11.621 Type 2 diabetes mellitus with foot ulcer; E11.69 Type 2 diabetes mellitus with other specified complication; L97.529 Non-pressure chronic ulcer of other part of left foot with unspecified severity; E86.0 Dehydration; I12.9 Hypertensive chronic kidney disease with stage 1 through stage 4 chronic kidney disease, or unspecified chronic kidney disease; E11.42 Type 2 diabetes mellitus with diabetic polyneuropathy; E11.628 Type 2 diabetes mellitus with other skin complications; D63.1 Anemia in chronic kidney disease; E87.6 Hypokalemia; Z90.49 Acquired absence of other specified parts of digestive tract; Z89.432 Acquired absence of left foot; Z79.899 Other long term (current) drug therapy; Z79.4 Long term (current) use of insulin; Z83.3 Family history of diabetes mellitus; Z71.6 Tobacco abuse counseling; Z91.14 Patient's other noncompliance with medication regimen; Z91.11 Patient's noncompliance with dietary regimen; Z78.1 Physical restraint status; F31.9 Bipolar disorder, unspecified; L89.152 Pressure ulcer of sacral region, stage 2
CPT/HCPCS: 36415; 36416; 36430; 36600; 51702; 71045; 76770; 80048; 80053; 80061; 80202; 81003; 81015; 82010; 82805; 82947; 83036; 83605; 83735; 83930; 84100; 84145; 85025; 85060; 85610; 85652; 86140; 86850; 86900; 86901; 87040; 87045; 87046; 87070; 87077; 87086; 87186; 87205; 87324; 87427; 87449; 88307; 88311; 94002; 94003; 96365; 96366; 96368; 96374; J0360; J0692; J1650; J1815; J2060; J2250; J2270; J2370; J2405; J2543; J2597; J2704; J3010; J3370; J3475; J3480; J3490; J7050; J7070; P9016; P9047; S0028; U0002; U0003; U0005

== ENCOUNTER 2021-07-16 15:28 | Inpatient (IN) | payer MEDICAID, OTHER ==
[2021-07-16] MEDS ORDERED: Ondansetron PF 4 MG/2 ML Vial IVP PRN (18:00)
[2021-07-16] MEDS ORDERED: Acetaminophen 325 MG TAB PO PRN (18:15)
[2021-07-16] MEDS ORDERED: Dextrose 5% in Water 1,000 ML IV PRN (18:45)
[2021-07-16] MEDS ORDERED: Dextrose 50% Abboject 50 ML SYRINGE SLOW IVP PRN (18:45)
[2021-07-16 18:46] VITALS: BMI 37.5
[2021-07-16] MEDS ORDERED: Carvedilol 6.25 MG TAB PO SCH (19:15)
[2021-07-16] MEDS: HYDROcodone/Acetaminophen 5/325 mg Tablet PO PRN (19:55)
[2021-07-16] MEDS: hydrALAZINE 25 MG TAB PO SCH (20:21)
[2021-07-16] MEDS: Gabapentin 100 MG CAP PO SCH (20:22)
[2021-07-16] MEDS: HumuLIN 70/30 (300 UNITS/3 ML VIAL) SC SCH (22:17)
[2021-07-17 07:11] LABS: #Eosinphils 0.1 thou/uL (0.0-0.7); #Lymphocytes 1.8 thou/uL (1.20-3.40); #Monocytes 0.6 thou/uL (0.11-0.59); #Neutrophils 5.4 thou/uL (1.40-6.50); %Basophils 0.4 % (0.0-1.0); %Eosinophils 1.2 % (0.0-10.0); %Lymphocytes 22.4 % (21.0-51.0); %Monocytes 7.8 % (0.0-10.0); %Neutrophils 68.2 % (42.0-75.0); Hemoglobin 9.4 g/dL (14.0-18.0); Mean Corpuscular HGB CONC 31.2 g/dL (32.0-36.0); Mean Corpuscular Hemoglobin 26.7 pg (27.0-31.0); Mean Corpuscular Volume 85.5 fL (78.0-98.0); Mean Platelet Volume 6.3 fL (7.4-10.4); Platelet Count 378 thou/uL (130-400); RBC Distribution Width 17.9 % (11.5-14.5); Red Blood Cell (RBC) Count 3.54 mill/uL (4.70-6.10); White Blood Cell (WBC) Count 7.9 thou/uL (4.8-10.8)
[2021-07-17 07:30] LABS: Anion Gap 9 mmol/L (10-20); BUN (Urea Nitrogen) 18 mg/dL (8.9-20.6); Calc. Creatinine Clearance 178 mL/min (70-130); Calcium 8.2 mg/dL (7.8-10.44); Carbon Dioxide 26 mmol/L (22-29); Chloride 106 mmol/L (98-107); Glucose 114 mg/dL (70-105); Potassium 3.7 mmol/L (3.5-5.1); Sodium 137 mmol/L (136-145)
[2021-07-17] MEDS: Aripiprazole 10 MG TAB PO SCH (08:39)
[2021-07-17] MEDS: Enoxaparin Sodium 30 MG/0.3 ML SYRINGE SC SCH (08:39)
[2021-07-17] MEDS: HumuLIN 70/30 (300 UNITS/3 ML VIAL) SC SCH ×2 (08:40→21:07)
[2021-07-17] MEDS: Fenofibrate 48 MG TAB PO SCH (08:40)
[2021-07-17] MEDS: hydrALAZINE 25 MG TAB PO SCH ×3 (08:40→21:01)
[2021-07-17] MEDS: Lisinopril 20 MG TAB PO SCH (08:40)
[2021-07-17] MEDS: Multivitamin W/ Minerals 1 TAB PO SCH (08:41)
[2021-07-17] MEDS: Ferrous Sulfate 325 MG TAB PO SCH (08:41)
[2021-07-17] MEDS: Carvedilol 6.25 MG TAB PO SCH ×2 (08:41→15:57)
[2021-07-17] MEDS: Amlodipine 10 MG TAB PO SCH (08:41)
[2021-07-17] MEDS: HYDROcodone/Acetaminophen 5/325 mg Tablet PO PRN ×2 (10:44→18:47)
[2021-07-17] MEDS: Gabapentin 100 MG CAP PO SCH (21:05)
[2021-07-18] MEDS: Enoxaparin Sodium 30 MG/0.3 ML SYRINGE SC SCH (08:54)
[2021-07-18] MEDS: Carvedilol 6.25 MG TAB PO SCH ×2 (08:54→16:03)
[2021-07-18] MEDS ORDERED: hydrALAZINE 20 MG/ML VIAL SLOW IVP PRN (08:54)
[2021-07-18] MEDS: HumuLIN 70/30 (300 UNITS/3 ML VIAL) SC SCH ×2 (08:54→20:09)
[2021-07-18] MEDS: Lisinopril 20 MG TAB PO SCH (08:55)
[2021-07-18] MEDS: Amlodipine 10 MG TAB PO SCH (08:55)
[2021-07-18] MEDS: hydrALAZINE 25 MG TAB PO SCH ×3 (08:55→20:08)
[2021-07-18] MEDS: Aripiprazole 10 MG TAB PO SCH (08:56)
[2021-07-18] MEDS: Ferrous Sulfate 325 MG TAB PO SCH (08:56)
[2021-07-18] MEDS: Fenofibrate 48 MG TAB PO SCH (08:56)
[2021-07-18] MEDS: Multivitamin W/ Minerals 1 TAB PO SCH (08:56)
[2021-07-18] MEDS ORDERED: Morphine 4 MG/ML VIAL SLOW IVP SCH (10:45)
[2021-07-18] MEDS ORDERED: Polyethylene Glycol 3350 17 GM Packet PO SCH (10:45)
[2021-07-18] MEDS ORDERED: Senokot S 8.6-50 MG TAB PO SCH (10:45)
[2021-07-18] MEDS: HYDROcodone/Acetaminophen 5/325 mg Tablet PO PRN ×3 (12:44→21:54)
[2021-07-18] MEDS: Acetaminophen 325 MG TAB PO PRN (14:42)
[2021-07-18] MEDS: Senokot S 8.6-50 MG TAB PO SCH (20:10)
[2021-07-18] MEDS: Gabapentin 100 MG CAP PO SCH (20:10)
[2021-07-19] MEDS: HYDROcodone/Acetaminophen 5/325 mg Tablet PO PRN ×2 (07:27→20:43)
[2021-07-19] MEDS: HumuLIN 70/30 (300 UNITS/3 ML VIAL) SC SCH ×2 (08:31→20:48)
[2021-07-19] MEDS: Aripiprazole 10 MG TAB PO SCH (08:32)
[2021-07-19] MEDS: Multivitamin W/ Minerals 1 TAB PO SCH (08:32)
[2021-07-19] MEDS: Enoxaparin Sodium 30 MG/0.3 ML SYRINGE SC SCH (08:33)
[2021-07-19] MEDS: Fenofibrate 48 MG TAB PO SCH (08:33)
[2021-07-19] MEDS: Amlodipine 10 MG TAB PO SCH (08:33)
[2021-07-19] MEDS: Carvedilol 6.25 MG TAB PO SCH ×2 (08:33→15:56)
[2021-07-19] MEDS: Ferrous Sulfate 325 MG TAB PO SCH (08:33)
[2021-07-19] MEDS: Senokot S 8.6-50 MG TAB PO SCH ×2 (08:34→21:52)
[2021-07-19] MEDS: Polyethylene Glycol 3350 17 GM Packet PO SCH (08:34)
[2021-07-19] MEDS: hydrALAZINE 25 MG TAB PO SCH ×3 (08:34→20:42)
[2021-07-19] MEDS ORDERED: Gabapentin 100 MG CAP PO SCH (12:00)
[2021-07-19] MEDS: Acetaminophen 325 MG TAB PO PRN (15:55)
[2021-07-19] MEDS: Gabapentin 100 MG CAP PO SCH (20:41)
[2021-07-20] MEDS: Multivitamin W/ Minerals 1 TAB PO SCH (08:05)
[2021-07-20] MEDS: Aripiprazole 10 MG TAB PO SCH (08:05)
[2021-07-20] MEDS: Amlodipine 10 MG TAB PO SCH (08:05)
[2021-07-20] MEDS: Gabapentin 100 MG CAP PO SCH ×2 (08:05→20:16)
[2021-07-20] MEDS: hydrALAZINE 25 MG TAB PO SCH ×3 (08:06→20:16)
[2021-07-20] MEDS: Fenofibrate 48 MG TAB PO SCH (08:06)
[2021-07-20] MEDS: Ferrous Sulfate 325 MG TAB PO SCH (08:06)
[2021-07-20] MEDS: Carvedilol 6.25 MG TAB PO SCH ×2 (08:06→17:11)
[2021-07-20] MEDS: HumuLIN 70/30 (300 UNITS/3 ML VIAL) SC SCH ×2 (08:07→20:17)
[2021-07-20] MEDS: Enoxaparin Sodium 30 MG/0.3 ML SYRINGE SC SCH (08:09)
[2021-07-20] MEDS: HYDROcodone/Acetaminophen 5/325 mg Tablet PO PRN ×3 (08:48→20:16)
[2021-07-20] MEDS: Senokot S 8.6-50 MG TAB PO SCH ×2 (09:13→20:05)
[2021-07-20] MEDS: Polyethylene Glycol 3350 17 GM Packet PO SCH (09:13)
[2021-07-21 04:06] LABS: #Basophils 0.1 thou/uL (0.0-0.2); #Eosinphils 0.2 thou/uL (0.0-0.7); #Lymphocytes 1.7 thou/uL (1.20-3.40); #Monocytes 0.8 thou/uL (0.11-0.59); #Neutrophils 6.6 thou/uL (1.40-6.50); %Basophils 0.9 % (0.0-1.0); %Eosinophils 1.8 % (0.0-10.0); %Lymphocytes 18.4 % (21.0-51.0); %Monocytes 8.4 % (0.0-10.0); %Neutrophils 70.7 % (42.0-75.0); Hemoglobin 9.1 g/dL (14.0-18.0); Mean Corpuscular HGB CONC 31.7 g/dL (32.0-36.0); Mean Corpuscular Hemoglobin 26.6 pg (27.0-31.0); Mean Corpuscular Volume 83.7 fL (78.0-98.0); Mean Platelet Volume 6.5 fL (7.4-10.4); Platelet Count 458 thou/uL (130-400); RBC Distribution Width 17.3 % (11.5-14.5); Red Blood Cell (RBC) Count 3.42 mill/uL (4.70-6.10); White Blood Cell (WBC) Count 9.3 thou/uL (4.8-10.8)
[2021-07-21 04:19] LABS: Anion Gap 9 mmol/L (10-20); BUN (Urea Nitrogen) 26 mg/dL (8.9-20.6); Calc. Creatinine Clearance 171 mL/min (70-130); Carbon Dioxide 27 mmol/L (22-29); Chloride 105 mmol/L (98-107); Glucose 102 mg/dL (70-105); Potassium 3.8 mmol/L (3.5-5.1); Sodium 137 mmol/L (136-145)
[2021-07-21] MEDS: Gabapentin 100 MG CAP PO SCH ×2 (08:21→20:00)
[2021-07-21] MEDS: Carvedilol 6.25 MG TAB PO SCH ×2 (08:21→16:00)
[2021-07-21] MEDS: Ferrous Sulfate 325 MG TAB PO SCH (08:21)
[2021-07-21] MEDS: Amlodipine 10 MG TAB PO SCH (08:21)
[2021-07-21] MEDS: Multivitamin W/ Minerals 1 TAB PO SCH (08:21)
[2021-07-21] MEDS: Fenofibrate 48 MG TAB PO SCH (08:21)
[2021-07-21] MEDS: Aripiprazole 10 MG TAB PO SCH (08:22)
[2021-07-21] MEDS: Enoxaparin Sodium 30 MG/0.3 ML SYRINGE SC SCH (08:22)
[2021-07-21] MEDS: hydrALAZINE 25 MG TAB PO SCH ×3 (08:22→20:01)
[2021-07-21] MEDS: HumuLIN 70/30 (300 UNITS/3 ML VIAL) SC SCH ×2 (08:26→20:12)
[2021-07-21] MEDS: Acetaminophen 325 MG TAB PO PRN (08:30)
[2021-07-21] MEDS: Polyethylene Glycol 3350 17 GM Packet PO SCH (09:34)
[2021-07-21] MEDS: Senokot S 8.6-50 MG TAB PO SCH ×2 (09:34→20:02)
[2021-07-21] MEDS: HYDROcodone/Acetaminophen 5/325 mg Tablet PO PRN ×2 (13:30→20:01)
[2021-07-22] MEDS: HYDROcodone/Acetaminophen 5/325 mg Tablet PO PRN ×3 (03:29→22:01)
[2021-07-22] MEDS: Amlodipine 10 MG TAB PO SCH (08:45)
[2021-07-22] MEDS: Enoxaparin Sodium 30 MG/0.3 ML SYRINGE SC SCH (08:45)
[2021-07-22] MEDS: Multivitamin W/ Minerals 1 TAB PO SCH (08:45)
[2021-07-22] MEDS: Ferrous Sulfate 325 MG TAB PO SCH (08:45)
[2021-07-22] MEDS: Carvedilol 6.25 MG TAB PO SCH ×2 (08:45→16:42)
[2021-07-22] MEDS: Gabapentin 100 MG CAP PO SCH ×2 (08:46→20:35)
[2021-07-22] MEDS: hydrALAZINE 25 MG TAB PO SCH ×3 (08:46→20:34)
[2021-07-22] MEDS: HumuLIN 70/30 (300 UNITS/3 ML VIAL) SC SCH ×2 (08:47→20:36)
[2021-07-22] MEDS: Aripiprazole 10 MG TAB PO SCH (08:57)
[2021-07-22] MEDS: Fenofibrate 48 MG TAB PO SCH (08:57)
[2021-07-22] MEDS: Polyethylene Glycol 3350 17 GM Packet PO SCH (09:02)
[2021-07-22] MEDS: Senokot S 8.6-50 MG TAB PO SCH ×2 (09:02→20:35)
[2021-07-22] MEDS: Acetaminophen 325 MG TAB PO PRN (17:44)
[2021-07-23] MEDS: Gabapentin 100 MG CAP PO SCH ×2 (08:54→20:41)
[2021-07-23] MEDS: hydrALAZINE 25 MG TAB PO SCH ×3 (08:54→20:40)
[2021-07-23] MEDS: Aripiprazole 10 MG TAB PO SCH (08:54)
[2021-07-23] MEDS: Enoxaparin Sodium 30 MG/0.3 ML SYRINGE SC SCH (08:55)
[2021-07-23] MEDS: Amlodipine 10 MG TAB PO SCH (08:55)
[2021-07-23] MEDS: Multivitamin W/ Minerals 1 TAB PO SCH (08:55)
[2021-07-23] MEDS: HYDROcodone/Acetaminophen 5/325 mg Tablet PO PRN ×3 (08:55→21:48)
[2021-07-23] MEDS: Carvedilol 6.25 MG TAB PO SCH ×2 (08:56→17:55)
[2021-07-23] MEDS: Fenofibrate 48 MG TAB PO SCH (08:56)
[2021-07-23] MEDS: Senokot S 8.6-50 MG TAB PO SCH ×2 (08:56→20:37)
[2021-07-23] MEDS: Polyethylene Glycol 3350 17 GM Packet PO SCH (08:56)
[2021-07-23] MEDS: Ferrous Sulfate 325 MG TAB PO SCH (08:56)
[2021-07-23] MEDS: HumuLIN 70/30 (300 UNITS/3 ML VIAL) SC SCH ×2 (09:26→20:39)
[2021-07-23] MEDS: Acetaminophen 325 MG TAB PO PRN (12:07)
[2021-07-24] MEDS: HYDROcodone/Acetaminophen 5/325 mg Tablet PO PRN ×3 (07:13→21:27)
[2021-07-24] MEDS: HumuLIN 70/30 (300 UNITS/3 ML VIAL) SC SCH ×2 (08:57→20:31)
[2021-07-24] MEDS: Aripiprazole 10 MG TAB PO SCH (08:57)
[2021-07-24] MEDS: hydrALAZINE 25 MG TAB PO SCH ×3 (08:57→20:31)
[2021-07-24] MEDS: Fenofibrate 48 MG TAB PO SCH (08:57)
[2021-07-24] MEDS: Enoxaparin Sodium 30 MG/0.3 ML SYRINGE SC SCH (08:57)
[2021-07-24] MEDS: Ferrous Sulfate 325 MG TAB PO SCH (08:58)
[2021-07-24] MEDS: Amlodipine 10 MG TAB PO SCH (08:58)
[2021-07-24] MEDS: Carvedilol 6.25 MG TAB PO SCH (08:58)
[2021-07-24] MEDS: Multivitamin W/ Minerals 1 TAB PO SCH (08:58)
[2021-07-24] MEDS: Gabapentin 100 MG CAP PO SCH ×2 (08:58→20:30)
[2021-07-24] MEDS: Senokot S 8.6-50 MG TAB PO SCH ×2 (08:59→20:32)
[2021-07-24] MEDS: Polyethylene Glycol 3350 17 GM Packet PO SCH (08:59)
[2021-07-24] MEDS: Acetaminophen 325 MG TAB PO PRN (10:42)
[2021-07-24] MEDS: Carvedilol 25 MG TAB PO SCH (15:58)
[2021-07-24] MEDS ORDERED: HumaLOG 300 UNITS/3 ML VIAL SC PRN (19:45)
[2021-07-25] MEDS: HumuLIN 70/30 (300 UNITS/3 ML VIAL) SC SCH ×2 (08:55→20:14)
[2021-07-25] MEDS: Amlodipine 10 MG TAB PO SCH (08:56)
[2021-07-25] MEDS: hydrALAZINE 25 MG TAB PO SCH ×3 (08:56→20:13)
[2021-07-25] MEDS: Multivitamin W/ Minerals 1 TAB PO SCH (08:56)
[2021-07-25] MEDS: Ferrous Sulfate 325 MG TAB PO SCH (08:56)
[2021-07-25] MEDS: Fenofibrate 48 MG TAB PO SCH (08:56)
[2021-07-25] MEDS: Carvedilol 25 MG TAB PO SCH ×3 (08:56→18:16)
[2021-07-25] MEDS: Gabapentin 100 MG CAP PO SCH ×2 (08:56→20:13)
[2021-07-25] MEDS: Senokot S 8.6-50 MG TAB PO SCH ×2 (08:57→20:15)
[2021-07-25] MEDS: Aripiprazole 10 MG TAB PO SCH (08:57)
[2021-07-25] MEDS: Enoxaparin Sodium 30 MG/0.3 ML SYRINGE SC SCH (08:57)
[2021-07-25] MEDS: HYDROcodone/Acetaminophen 5/325 mg Tablet PO PRN ×3 (09:48→21:20)
[2021-07-25] MEDS: Polyethylene Glycol 3350 17 GM Packet PO SCH (09:48)
[2021-07-25] MEDS ORDERED: Acetaminophen 325 MG TAB PO PRN (16:22)
[2021-07-25] MEDS ORDERED: hydrALAZINE 20 MG/ML VIAL SLOW IVP PRN (16:26)
[2021-07-25] MEDS ORDERED: Ondansetron PF 4 MG/2 ML Vial IVP PRN (16:28)
[2021-07-25] MEDS ORDERED: Dextrose 50% Abboject 50 ML SYRINGE IVP PRN (16:30)
[2021-07-25] MEDS ORDERED: Dextrose 5% in Water 1,000 ML IV PRN (16:30)
[2021-07-25] MEDS: HumaLOG 300 UNITS/3 ML VIAL SC PRN (20:15)
[2021-07-26] MEDS: Carvedilol 25 MG TAB PO SCH ×2 (09:25→17:54)
[2021-07-26] MEDS: hydrALAZINE 25 MG TAB PO SCH ×3 (09:26→21:04)
[2021-07-26] MEDS: Multivitamin W/ Minerals 1 TAB PO SCH (09:26)
[2021-07-26] MEDS: Amlodipine 10 MG TAB PO SCH (09:27)
[2021-07-26] MEDS: Senokot S 8.6-50 MG TAB PO SCH ×2 (09:27→21:03)
[2021-07-26] MEDS: Ferrous Sulfate 325 MG TAB PO SCH (09:27)
[2021-07-26] MEDS: Enoxaparin Sodium 30 MG/0.3 ML SYRINGE SC SCH (09:28)
[2021-07-26] MEDS: Gabapentin 100 MG CAP PO SCH ×2 (09:28→21:04)
[2021-07-26] MEDS: Aripiprazole 15 MG TAB PO SCH (09:29)
[2021-07-26] MEDS: HumuLIN 70/30 (300 UNITS/3 ML VIAL) SC SCH ×2 (09:30→21:04)
[2021-07-26] MEDS: Polyethylene Glycol 3350 17 GM Packet PO SCH (09:30)
[2021-07-26] MEDS: Fenofibrate 48 MG TAB PO SCH (09:30)
[2021-07-26] MEDS: HYDROcodone/Acetaminophen 5/325 mg Tablet PO PRN ×2 (09:32→22:22)
[2021-07-26 13:01] LABS: #Lymphocytes 0.9 thou/uL (1.20-3.40); #Neutrophils 8.3 thou/uL (1.40-6.50); %Basophils 0.5 % (0.0-1.0); %Eosinophils 0.5 % (0.0-10.0); %Lymphocytes 8.6 % (21.0-51.0); %Monocytes 9.6 % (0.0-10.0); %Neutrophils 80.9 % (42.0-75.0); Hemoglobin 8.8 g/dL (14.0-18.0); Mean Corpuscular HGB CONC 32.8 g/dL (32.0-36.0); Mean Corpuscular Hemoglobin 27.4 pg (27.0-31.0); Mean Corpuscular Volume 83.7 fL (78.0-98.0); Platelet Count 429 thou/uL (130-400); White Blood Cell (WBC) Count 10.2 thou/uL (4.8-10.8)
[2021-07-26 13:21] LABS: Anion Gap 10 mmol/L (10-20); BUN (Urea Nitrogen) 38 mg/dL (8.9-20.6); Calc. Creatinine Clearance 113 mL/min (70-130); Calcium 7.8 mg/dL (7.8-10.44); Carbon Dioxide 24 mmol/L (22-29); Chloride 101 mmol/L (98-107); Glucose 211 mg/dL (70-105); Potassium 4.5 mmol/L (3.5-5.1); Sodium 130 mmol/L (136-145)
[2021-07-26] MEDS ORDERED: Piperacillin/Tazobactam 3.375 GM in Sodium Chloride 0.9% 100 ML IVPB SCH ×2 (14:11→15:00)
[2021-07-26] MEDS ORDERED: Sodium Chloride 0.9% 1,000 ML IV SCH (14:15)
[2021-07-26 17:57] LABS: Bacteria/HPF 4+ HPF (None Seen); Bilirubin Negative (Negative); Blood, Urine 2+ (Negative); Clarity Turbid (Clear); Glucose, Urine (Dipstick) 200 mg/dL (Negative); Ketone, Urine Trace mg/dL (Negative); Leukocyte 500 Leu/uL (Negative); Nitrite Negative (Negative); Protein, Urine (Dipstick) 300 mg/dL (Neg-Trace); RBC/HPF 21-50 HPF (0-3); Specific Gravity, Urine 1.018 (1.002-1.036); Squamous Epithelial None Seen HPF (0-3); Urobilinogen Normal mg/dL (Less than 2); WBC/HPF Greater than 50 HPF (0-3); pH, Urine 6.5 (5.0-9.0)
[2021-07-26] MEDS: Piperacillin/Tazobactam 3.375 GM in Sodium Chloride 0.9% 100 ML IVPB SCH (18:13)
[2021-07-26] MEDS: HumaLOG 300 UNITS/3 ML VIAL SC PRN (21:04)
[2021-07-27] MEDS: Piperacillin/Tazobactam 3.375 GM in Sodium Chloride 0.9% 100 ML IVPB SCH ×3 (03:54→19:46)
[2021-07-27] MEDS: Ferrous Sulfate 325 MG TAB PO SCH (08:57)
[2021-07-27] MEDS: Carvedilol 25 MG TAB PO SCH (08:57)
[2021-07-27] MEDS: Multivitamin W/ Minerals 1 TAB PO SCH (10:13)
[2021-07-27] MEDS: Fenofibrate 48 MG TAB PO SCH (10:13)
[2021-07-27] MEDS: Gabapentin 100 MG CAP PO SCH ×2 (10:13→22:15)
[2021-07-27] MEDS: Aripiprazole 15 MG TAB PO SCH (10:13)
[2021-07-27] MEDS: HumuLIN 70/30 (300 UNITS/3 ML VIAL) SC SCH ×2 (10:14→22:15)
[2021-07-27] MEDS: Enoxaparin Sodium 30 MG/0.3 ML SYRINGE SC SCH (10:14)
[2021-07-27 10:56] LABS: #Eosinphils 0.1 thou/uL (0.0-0.7); #Lymphocytes 0.9 thou/uL (1.20-3.40); #Monocytes 0.8 thou/uL (0.11-0.59); #Neutrophils 7.4 thou/uL (1.40-6.50); %Basophils 0.1 % (0.0-1.0); %Eosinophils 1.5 % (0.0-10.0); %Lymphocytes 9.8 % (21.0-51.0); %Monocytes 8.4 % (0.0-10.0); %Neutrophils 80.3 % (42.0-75.0); Hemoglobin 10.9 g/dL (14.0-18.0); Mean Corpuscular HGB CONC 32.6 g/dL (32.0-36.0); Mean Corpuscular Hemoglobin 27.4 pg (27.0-31.0); Mean Corpuscular Volume 84.1 fL (78.0-98.0); Mean Platelet Volume 6.7 fL (7.4-10.4); Platelet Count 434 thou/uL (130-400); Red Blood Cell (RBC) Count 3.96 mill/uL (4.70-6.10); White Blood Cell (WBC) Count 9.2 thou/uL (4.8-10.8)
[2021-07-27 11:22] LABS: Anion Gap 12 mmol/L (10-20); BUN (Urea Nitrogen) 37 mg/dL (8.9-20.6); Calc. Creatinine Clearance 102 mL/min (70-130); Calcium 8.7 mg/dL (7.8-10.44); Carbon Dioxide 25 mmol/L (22-29); Chloride 102 mmol/L (98-107); Glucose 182 mg/dL (70-105); Potassium 4.6 mmol/L (3.5-5.1); Sodium 134 mmol/L (136-145)
[2021-07-27] MEDS: Polyethylene Glycol 3350 17 GM Packet PO SCH (11:56)
[2021-07-27] MEDS: Senokot S 8.6-50 MG TAB PO SCH ×2 (11:57→22:11)
[2021-07-27] MEDS: HumaLOG 300 UNITS/3 ML VIAL SC PRN (12:00)
[2021-07-27] MEDS: HYDROcodone/Acetaminophen 5/325 mg Tablet PO PRN (19:46)
[2021-07-28] MEDS: Piperacillin/Tazobactam 3.375 GM in Sodium Chloride 0.9% 100 ML IVPB SCH ×3 (03:15→18:05)
[2021-07-28 04:56] LABS: Hemoglobin 8.6 g/dL (14.0-18.0); Mean Corpuscular HGB CONC 32.5 g/dL (32.0-36.0); Mean Platelet Volume 6.8 fL (7.4-10.4); Platelet Count 357 thou/uL (130-400); RBC Distribution Width 16.9 % (11.5-14.5); Red Blood Cell (RBC) Count 3.19 mill/uL (4.70-6.10)
[2021-07-28 04:57] LABS: Anion Gap 11 mmol/L (10-20); BUN (Urea Nitrogen) 36 mg/dL (8.9-20.6); Calc. Creatinine Clearance 119 mL/min (70-130); Calcium 7.9 mg/dL (7.8-10.44); Carbon Dioxide 25 mmol/L (22-29); Chloride 106 mmol/L (98-107); Glucose 148 mg/dL (70-105); Potassium 4.1 mmol/L (3.5-5.1); Sodium 138 mmol/L (136-145)
[2021-07-28 05:27] LABS: Band 10 % (5-11); Eosinophils 5 % (0-10); Lymphocytes 20 % (21-51); MDiff Complete? YES; Monocytes 14 % (0-10); Neutrophil 51 % (42-75)
[2021-07-28] MEDS: Gabapentin 100 MG CAP PO SCH ×2 (08:56→20:59)
[2021-07-28] MEDS: Ferrous Sulfate 325 MG TAB PO SCH (08:56)
[2021-07-28] MEDS: Aripiprazole 15 MG TAB PO SCH (08:57)
[2021-07-28] MEDS: Enoxaparin Sodium 30 MG/0.3 ML SYRINGE SC SCH (08:57)
[2021-07-28] MEDS: HumuLIN 70/30 (300 UNITS/3 ML VIAL) SC SCH ×2 (08:57→21:37)
[2021-07-28] MEDS: Multivitamin W/ Minerals 1 TAB PO SCH (08:57)
[2021-07-28] MEDS: Fenofibrate 48 MG TAB PO SCH (08:57)
[2021-07-28] MEDS: Senokot S 8.6-50 MG TAB PO SCH ×2 (10:08→21:01)
[2021-07-28] MEDS: Polyethylene Glycol 3350 17 GM Packet PO SCH (10:08)
[2021-07-28] MEDS: HYDROcodone/Acetaminophen 5/325 mg Tablet PO PRN ×2 (12:05→18:03)
[2021-07-29] MEDS: Piperacillin/Tazobactam 3.375 GM in Sodium Chloride 0.9% 100 ML IVPB SCH (03:24)
[2021-07-29] MEDS: Multivitamin W/ Minerals 1 TAB PO SCH (08:22)
[2021-07-29] MEDS: Ferrous Sulfate 325 MG TAB PO SCH (08:22)
[2021-07-29] MEDS: Gabapentin 100 MG CAP PO SCH ×2 (08:22→19:39)
[2021-07-29] MEDS: Fenofibrate 48 MG TAB PO SCH (08:22)
[2021-07-29] MEDS: Aripiprazole 15 MG TAB PO SCH (08:22)
[2021-07-29] MEDS: Enoxaparin Sodium 30 MG/0.3 ML SYRINGE SC SCH (08:23)
[2021-07-29] MEDS: hydrALAZINE 25 MG TAB PO SCH ×3 (08:41→19:43)
[2021-07-29] MEDS: HumuLIN 70/30 (300 UNITS/3 ML VIAL) SC SCH ×2 (09:56→19:46)
[2021-07-29] MEDS: Senokot S 8.6-50 MG TAB PO SCH ×2 (09:59→20:52)
[2021-07-29] MEDS: Polyethylene Glycol 3350 17 GM Packet PO SCH (09:59)
[2021-07-29] MEDS: Carvedilol 25 MG TAB PO SCH (17:01)
[2021-07-29 17:18] LABS: SARS-CoV-2 PCR by NAA Not Detected (NotDetected)
[2021-07-29] MEDS: HYDROcodone/Acetaminophen 5/325 mg Tablet PO PRN ×2 (17:24→22:21)
[2021-07-30 04:17] LABS: #Eosinphils 0.3 thou/uL (0.0-0.7); #Lymphocytes 1.8 thou/uL (1.20-3.40); #Monocytes 0.8 thou/uL (0.11-0.59); #Neutrophils 4.4 thou/uL (1.40-6.50); %Basophils 0.5 % (0.0-1.0); %Eosinophils 3.7 % (0.0-10.0); %Lymphocytes 24.5 % (21.0-51.0); %Monocytes 10.4 % (0.0-10.0); %Neutrophils 60.9 % (42.0-75.0); Hemoglobin 8.6 g/dL (14.0-18.0); Mean Corpuscular HGB CONC 30.9 g/dL (32.0-36.0); Mean Corpuscular Hemoglobin 25.5 pg (27.0-31.0); Mean Corpuscular Volume 82.7 fL (78.0-98.0); Mean Platelet Volume 6.9 fL (7.4-10.4); Platelet Count 463 thou/uL (130-400); RBC Distribution Width 16.8 % (11.5-14.5); Red Blood Cell (RBC) Count 3.36 mill/uL (4.70-6.10); White Blood Cell (WBC) Count 7.2 thou/uL (4.8-10.8)
[2021-07-30 04:31] LABS: Anion Gap 10 mmol/L (10-20); BUN (Urea Nitrogen) 23 mg/dL (8.9-20.6); Calc. Creatinine Clearance 149 mL/min (70-130); Calcium 8.2 mg/dL (7.8-10.44); Carbon Dioxide 26 mmol/L (22-29); Chloride 106 mmol/L (98-107); Glucose 111 mg/dL (70-105); Potassium 4.1 mmol/L (3.5-5.1); Sodium 138 mmol/L (136-145)
[2021-07-30] MEDS: HYDROcodone/Acetaminophen 5/325 mg Tablet PO PRN ×2 (06:01→10:12)
[2021-07-30] MEDS: Multivitamin W/ Minerals 1 TAB PO SCH (09:04)
[2021-07-30] MEDS: Amlodipine 10 MG TAB PO SCH (09:04)
[2021-07-30] MEDS: Fenofibrate 48 MG TAB PO SCH (09:04)
[2021-07-30] MEDS: Aripiprazole 15 MG TAB PO SCH (09:04)
[2021-07-30] MEDS: Carvedilol 25 MG TAB PO SCH (09:05)
[2021-07-30] MEDS: hydrALAZINE 25 MG TAB PO SCH (09:05)
[2021-07-30] MEDS: Ferrous Sulfate 325 MG TAB PO SCH (09:05)
[2021-07-30] MEDS: Gabapentin 100 MG CAP PO SCH (09:05)
[2021-07-30] MEDS: Enoxaparin Sodium 30 MG/0.3 ML SYRINGE SC SCH (09:05)
[2021-07-30] MEDS: HumuLIN 70/30 (300 UNITS/3 ML VIAL) SC SCH (09:09)
[2021-07-30] MEDS: Senokot S 8.6-50 MG TAB PO SCH (09:12)
[2021-07-30] MEDS: Polyethylene Glycol 3350 17 GM Packet PO SCH (09:12)
[2021-07-30 11:47] VITALS: BP 162/80; TEMP 98.6
== END 2021-07-30 11:58 | disposition home health service (06) | DRG 640 ==
LOC: ONC 16:58 → OBSVTOIN 07-17 16:33 → UNDODISIN 07-25 10:40
PROVIDERS: ADMIT Internal Medicine; ATTEND Internal Medicine
PROC: 0HB6XZZ Excision of Back Skin, External Approach (ICD-10-PCS; principal; 2021-07-18)
DX: R62.7 Adult failure to thrive (principal); J18.9 Pneumonia, unspecified organism; N17.9 Acute kidney failure, unspecified; Z90.49 Acquired absence of other specified parts of digestive tract; Z71.6 Tobacco abuse counseling; L89.150 Pressure ulcer of sacral region, unstageable; E78.5 Hyperlipidemia, unspecified; E11.65 Type 2 diabetes mellitus with hyperglycemia; F17.220 Nicotine dependence, chewing tobacco, uncomplicated; E11.22 Type 2 diabetes mellitus with diabetic chronic kidney disease; I12.9 Hypertensive chronic kidney disease with stage 1 through stage 4 chronic kidney disease, or unspecified chronic kidney disease; N18.30 Chronic kidney disease, stage 3 unspecified; Y95 Nosocomial condition; Z89.512 Acquired absence of left leg below knee; Z68.37 Body mass index [BMI] 37.0-37.9, adult; Z79.899 Other long term (current) drug therapy; Z79.4 Long term (current) use of insulin
CPT/HCPCS: 36415; 36416; 71045; 80048; 81003; 81015; 85025; 87040; 96372; G0378; J1650; J1815; J2270; J2543; J3490; J7050; U0003; U0005

== ENCOUNTER 2021-11-17 13:31 | Emergency (ER) | payer MEDICAID ==
[2021-11-17 14:24] LABS: #Basophils 0.1 thou/uL (0.0-0.2); #Eosinphils 0.3 thou/uL (0.0-0.7); #Lymphocytes 1.5 thou/uL (1.20-3.40); #Monocytes 0.9 thou/uL (0.11-0.59); #Neutrophils 6.3 thou/uL (1.40-6.50); %Basophils 0.6 % (0.0-1.0); %Eosinophils 2.9 % (0.0-10.0); %Lymphocytes 16.9 % (21.0-51.0); %Monocytes 9.9 % (0.0-10.0); %Neutrophils 69.8 % (42.0-75.0); Hemoglobin 11.4 g/dL (14.0-18.0); Mean Corpuscular HGB CONC 31.8 g/dL (32.0-36.0); Mean Corpuscular Hemoglobin 25.5 pg (27.0-31.0); Mean Platelet Volume 7.6 fL (7.4-10.4); Platelet Count 235 thou/uL (130-400); RBC Distribution Width 17.3 % (11.5-14.5); Red Blood Cell (RBC) Count 4.48 mill/uL (4.70-6.10)
[2021-11-17 14:46] LABS: ALT (SGPT) 15 U/L (8-55); AST (SGOT) 12 U/L (5-34); Albumin 2.5 g/dL (3.5-5.0); Alkaline Phosphatase 64 U/L (40-110); Anion Gap 11 mmol/L (10-20); BUN (Urea Nitrogen) 23 mg/dL (8.9-20.6); Bilirubin, Total 0.3 mg/dL (0.2-1.2); Calc. Creatinine Clearance 0 mL/min (70-130); Calcium 8.6 mg/dL (7.8-10.44); Carbon Dioxide 25 mmol/L (22-29); Chloride 105 mmol/L (98-107); Globulin 2.9 g/dL (2.4-3.5); Glucose 199 mg/dL (70-105); Potassium 4.3 mmol/L (3.5-5.1); Protein, Total 5.4 g/dL (6.0-8.3); Sodium 137 mmol/L (136-145)
[2021-11-17] MEDS ORDERED: Furosemide 40 MG/4 ML VIAL ONE (14:57)
[2021-11-17] MEDS ORDERED: Furosemide 40 MG TAB ONE (15:11)
== END 2021-11-17 22:11 | disposition home or self-care (01) ==
LOC: ERS 13:31
DX: E87.70 Fluid overload, unspecified (principal); R60.1 Generalized edema; I13.10 Hypertensive heart and chronic kidney disease without heart failure, with stage 1 through stage 4 chronic kidney disease, or unspecified chronic kidney disease; E11.22 Type 2 diabetes mellitus with diabetic chronic kidney disease; N18.9 Chronic kidney disease, unspecified; E78.5 Hyperlipidemia, unspecified; E78.00 Pure hypercholesterolemia, unspecified; F17.220 Nicotine dependence, chewing tobacco, uncomplicated; Z89.512 Acquired absence of left leg below knee; Z79.82 Long term (current) use of aspirin; Z79.4 Long term (current) use of insulin; Z79.899 Other long term (current) drug therapy
CPT/HCPCS: 36415; 71045; 80053; 83880; 84443; 85025; 99284; J1940

== ENCOUNTER 2022-04-23 02:23 | Inpatient (IN) | payer OTHER ==
[2022-04-23] MEDS ORDERED: diphenhydrAMINE 25 MG CAP PO PRN (08:28)
[2022-04-23] MEDS ORDERED: Dextrose 5% in Water 1,000 ML IV PRN (08:28)
[2022-04-23] MEDS ORDERED: HumaLOG 300 UNITS/3 ML VIAL SC PRN (08:28)
[2022-04-23] MEDS ORDERED: Dextrose 50% Abboject 50 ML SYRINGE SLOW IVP PRN (08:28)
[2022-04-23] MEDS ORDERED: HYDROcodone/Acetaminophen 10/325 mg Tablet PO PRN (08:37)
[2022-04-23] MEDS ORDERED: Senokot S 8.6-50 MG TAB PO PRN (08:37)
[2022-04-23] MEDS ORDERED: Ondansetron ODT 4 MG TAB PO PRN (08:37)
[2022-04-23] MEDS ORDERED: Acetaminophen 325 MG TAB PO PRN (08:37)
[2022-04-23] MEDS ORDERED: Nitroglycerin 0.4 MG TAB (25 Tab Bottle) SL PRN (08:48)
[2022-04-23] MEDS ORDERED: Enoxaparin Sodium 120 MG/0.8 ML SYRINGE SC SCH (08:55)
[2022-04-23] MEDS ORDERED: Lisinopril 20 MG TAB PO SCH (09:00)
[2022-04-23] MEDS ORDERED: Enoxaparin Sodium 40 MG/0.4 ML SYRINGE SC SCH (09:00)
[2022-04-23] MEDS ORDERED: Non-Formulary Item 1 EACH (Lisinopril [Lisinopril] 40 MG Tablet) PO SCH (09:00)
[2022-04-23] MEDS ORDERED: Non-Formulary Item 1 EACH (Sertraline Hcl [Sertraline Hcl] 50 MG Tablet) PO SCH (09:00)
[2022-04-23] MEDS ORDERED: Potassium Chloride 10 MEQ TAB PO SCH (09:00)
[2022-04-23] MEDS ORDERED: Furosemide 80 MG TAB PO SCH (09:00)
[2022-04-23] MEDS ORDERED: Torsemide 10 MG TAB PO SCH (09:00)
[2022-04-23 09:23] LABS: #Eosinphils 0.1 thou/uL (0.0-0.7); #Lymphocytes 0.5 thou/uL (1.20-3.40); #Monocytes 0.1 thou/uL (0.11-0.59); %Eosinophils 0.8 % (0.0-10.0); %Lymphocytes 3.7 % (21.0-51.0); %Monocytes 0.6 % (0.0-10.0); %Neutrophils 94.9 % (42.0-75.0); Hemoglobin 11.4 g/dL (14.0-18.0); Mean Corpuscular HGB CONC 30.7 g/dL (32.0-36.0); Mean Corpuscular Hemoglobin 25.2 pg (27.0-31.0); Mean Corpuscular Volume 82.1 fL (78.0-98.0); Mean Platelet Volume 7.4 fL (7.4-10.4); Platelet Count 408 thou/uL (130-400); RBC Distribution Width 16.1 % (11.5-14.5); Red Blood Cell (RBC) Count 4.54 mill/uL (4.70-6.10); White Blood Cell (WBC) Count 13.7 thou/uL (4.8-10.8)
[2022-04-23 09:42] LABS: Anion Gap 17 mmol/L (10-20); BUN (Urea Nitrogen) 53 mg/dL (8.9-20.6); Calc. Creatinine Clearance 85 mL/min (70-130); Calcium 8.9 mg/dL (7.8-10.44); Carbon Dioxide 20 mmol/L (22-29); Chloride 98 mmol/L (98-107); Estimated GFR 33; Glucose 298 mg/dL (70-105); Potassium 6.3 mmol/L (3.5-5.1); Sodium 129 mmol/L (136-145)
[2022-04-23 09:55] LABS: Troponin I 6.282 ng/mL (< 0.028)
[2022-04-23] MEDS ORDERED: Insulin Glargine 30 UNITS/0.3 ML VIAL SC SCH (10:05)
[2022-04-23] MEDS ORDERED: Sodium Chloride 0.9% 1,000 ML IV SCH (10:15)
[2022-04-23] MEDS: Famotidine 20 MG TAB PO SCH ×2 (10:49→20:50)
[2022-04-23] MEDS: Gabapentin 400 MG CAP PO SCH (10:49)
[2022-04-23] MEDS: Nicotine 14 MG PATCH TD SCH (10:50)
[2022-04-23] MEDS: Empagliflozin 10 MG TAB PO SCH (10:50)
[2022-04-23] MEDS: hydrALAZINE 25 MG TAB PO SCH (10:50)
[2022-04-23] MEDS: Sodium Chloride 0.9% 1,000 ML IV SCH ×2 (11:03→20:51)
[2022-04-23 12:59] LABS: Critical Call Chem Troponin I RESULT DECREASING; Troponin I 5.212 ng/mL (< 0.028)
[2022-04-23 13:38] LABS: Potassium 6.6 mmol/L (3.5-5.1)
[2022-04-23] MEDS: methylPREDNISolone Sod Succ 40 MG VIAL IVP SCH ×2 (14:42→20:51)
[2022-04-23 20:09] LABS: Bilirubin Negative (Negative); Blood, Urine 1+ (Negative); Clarity Clear (Clear); Glucose, Urine (Dipstick) Greater than 1000 mg/dL (Negative); Ketone, Urine Negative (Negative); Leukocyte Negative Leu/uL (Negative); Nitrite Negative (Negative); Protein, Urine (Dipstick) 200 mg/dL (Neg-Trace); Specific Gravity, Urine 1.021 (1.002-1.036); Urobilinogen Normal mg/dL (Less than 2); pH, Urine 5.5 (5.0-9.0)
[2022-04-23 20:23] LABS: Bacteria/HPF None Seen HPF (None Seen); RBC/HPF 0-3 HPF (0-3); Squamous Epithelial 0-3 HPF (0-3); WBC/HPF 0-3 HPF (0-3)
[2022-04-23 20:25] LABS: Urine Culture Reflex No No
[2022-04-23] MEDS: HumaLOG 300 UNITS/3 ML VIAL SC PRN (20:51)
[2022-04-23] MEDS: Insulin Glargine 30 UNITS/0.3 ML VIAL SC SCH (20:51)
[2022-04-24 05:16] LABS: #Eosinphils 0.1 thou/uL (0.0-0.7); #Lymphocytes 0.8 thou/uL (1.20-3.40); #Monocytes 0.4 thou/uL (0.11-0.59); #Neutrophils 11.8 thou/uL (1.40-6.50); %Basophils 0.2 % (0.0-1.0); %Eosinophils 0.8 % (0.0-10.0); %Lymphocytes 5.8 % (21.0-51.0); %Monocytes 2.8 % (0.0-10.0); %Neutrophils 90.3 % (42.0-75.0); Hemoglobin 10.7 g/dL (14.0-18.0); Mean Corpuscular HGB CONC 31.1 g/dL (32.0-36.0); Mean Corpuscular Hemoglobin 25.9 pg (27.0-31.0); Mean Corpuscular Volume 83.2 fL (78.0-98.0); Mean Platelet Volume 7.9 fL (7.4-10.4); Platelet Count 467 thou/uL (130-400); RBC Distribution Width 16.3 % (11.5-14.5); Red Blood Cell (RBC) Count 4.15 mill/uL (4.70-6.10); White Blood Cell (WBC) Count 13.1 thou/uL (4.8-10.8)
[2022-04-24 05:36] LABS: Anion Gap 16 mmol/L (10-20); BUN (Urea Nitrogen) 68 mg/dL (8.9-20.6); Calc. Creatinine Clearance 79 mL/min (70-130); Calcium 8.9 mg/dL (7.8-10.44); Carbon Dioxide 22 mmol/L (22-29); Cardiac Risk 8.6 (Less than 4.5); Chloride 97 mmol/L (98-107); Cholesterol 189 mg/dl (< 200 Desired); Estimated GFR 31; HDL Cholesterol 22 mg/dL (>60 Neg Risk); LDL Cholesterol, Calculated 132 mg/dL; Potassium 5.3 mmol/L (3.5-5.1); Sodium 130 mmol/L (136-145); Triglycerides 176 mg/dL (Less than 150)
[2022-04-24 05:56] LABS: Glucose 602 mg/dL (70-105)
[2022-04-24] MEDS: Sodium Chloride 0.9% 1,000 ML IV SCH ×4 (05:59→21:29)
[2022-04-24] MEDS: methylPREDNISolone Sod Succ 40 MG VIAL IVP SCH (05:59)
[2022-04-24] MEDS: HumaLOG 300 UNITS/3 ML VIAL SC PRN ×5 (08:01→13:57)
[2022-04-24] MEDS: Insulin Glargine 30 UNITS/0.3 ML VIAL SC SCH ×2 (08:02→19:46)
[2022-04-24] MEDS: Aspirin 81 mg Enteric Coated Tablet PO SCH (08:03)
[2022-04-24] MEDS: Empagliflozin 10 MG TAB PO SCH (08:03)
[2022-04-24] MEDS: Enoxaparin Sodium 40 MG/0.4 ML SYRINGE SC SCH (08:03)
[2022-04-24] MEDS: hydrALAZINE 25 MG TAB PO SCH (08:03)
[2022-04-24] MEDS: Famotidine 20 MG TAB PO SCH ×2 (08:04→19:46)
[2022-04-24] MEDS: Gabapentin 400 MG CAP PO SCH (08:04)
[2022-04-24] MEDS: Nicotine 14 MG PATCH TD SCH (08:05)
[2022-04-24 13:45] LABS: Anion Gap 20 mmol/L (10-20); BUN (Urea Nitrogen) 68 mg/dL (8.9-20.6); Calc. Creatinine Clearance 85 mL/min (70-130); Calcium 8.6 mg/dL (7.8-10.44); Carbon Dioxide 15 mmol/L (22-29); Chloride 100 mmol/L (98-107); Estimated GFR 33; Glucose 518 mg/dL (70-105); Potassium 5.5 mmol/L (3.5-5.1); Sodium 129 mmol/L (136-145)
[2022-04-24] MEDS: Rosuvastatin 20 MG TAB PO SCH (19:47)
[2022-04-24 20:20] LABS: Sodium 133 mmol/L (136-145)
[2022-04-24 20:21] LABS: Anion Gap 11 mmol/L (10-20); Carbon Dioxide 27 mmol/L (22-29); Chloride 100 mmol/L (98-107)
[2022-04-24 20:22] LABS: BUN (Urea Nitrogen) 68 mg/dL (8.9-20.6); Calc. Creatinine Clearance 89 mL/min (70-130); Estimated GFR 35; Glucose 333 mg/dL (70-105)
[2022-04-24 20:23] LABS: Calcium 8.8 mg/dL (7.8-10.44)
[2022-04-25 03:39] LABS: #Eosinphils 0.1 thou/uL (0.0-0.7); #Lymphocytes 1.1 thou/uL (1.20-3.40); #Neutrophils 10.2 thou/uL (1.40-6.50); %Basophils 0.4 % (0.0-1.0); %Eosinophils 0.4 % (0.0-10.0); %Lymphocytes 8.6 % (21.0-51.0); %Monocytes 7.9 % (0.0-10.0); %Neutrophils 82.7 % (42.0-75.0); Hemoglobin 10.6 g/dL (14.0-18.0); Mean Corpuscular HGB CONC 32.1 g/dL (32.0-36.0); Mean Corpuscular Volume 81.2 fL (78.0-98.0); Mean Platelet Volume 7.5 fL (7.4-10.4); Platelet Count 402 thou/uL (130-400); Red Blood Cell (RBC) Count 4.08 mill/uL (4.70-6.10); White Blood Cell (WBC) Count 12.3 thou/uL (4.8-10.8)
[2022-04-25] MEDS: HumaLOG 300 UNITS/3 ML VIAL SC PRN ×2 (03:44→16:42)
[2022-04-25] MEDS: Sodium Chloride 0.9% 1,000 ML IV SCH ×4 (03:46→20:09)
[2022-04-25 03:51] LABS: Anion Gap 14 mmol/L (10-20); BUN (Urea Nitrogen) 66 mg/dL (8.9-20.6); Calc. Creatinine Clearance 99 mL/min (70-130); Carbon Dioxide 23 mmol/L (22-29); Chloride 103 mmol/L (98-107); Estimated GFR 40; Glucose 243 mg/dL (70-105); Potassium 4.7 mmol/L (3.5-5.1); Sodium 135 mmol/L (136-145)
[2022-04-25] MEDS ORDERED: Dextrose 50% Abboject 50 ML SYRINGE SLOW IVP PRN (08:17)
[2022-04-25] MEDS ORDERED: Dextrose 5% in Water 1,000 ML IV PRN (08:17)
[2022-04-25 09:15] LABS: Troponin I 6.448 ng/mL (< 0.028)
[2022-04-25] MEDS: Insulin Glargine 30 UNITS/0.3 ML VIAL SC SCH ×2 (09:22→20:08)
[2022-04-25] MEDS: Enoxaparin Sodium 40 MG/0.4 ML SYRINGE SC SCH (09:23)
[2022-04-25] MEDS: predniSONE 20 MG TAB PO SCH (09:23)
[2022-04-25] MEDS: Famotidine 20 MG TAB PO SCH ×2 (09:23→20:09)
[2022-04-25] MEDS: hydrALAZINE 25 MG TAB PO SCH (09:23)
[2022-04-25] MEDS: Nicotine 14 MG PATCH TD SCH (09:23)
[2022-04-25] MEDS: Aspirin 81 mg Enteric Coated Tablet PO SCH (09:23)
[2022-04-25] MEDS: Gabapentin 400 MG CAP PO SCH (09:23)
[2022-04-25] MEDS ORDERED: Cyclobenzaprine 10 MG TAB PO PRN (13:15)
[2022-04-25] MEDS ORDERED: hydrALAZINE 20 MG/ML VIAL SLOW IVP PRN (15:42)
[2022-04-25] MEDS ORDERED: NIFEdipine XL 60 MG TAB PO SCH (16:15)
[2022-04-25] MEDS: Rosuvastatin 20 MG TAB PO SCH (20:09)
[2022-04-26 04:03] LABS: #Eosinphils 0.2 thou/uL (0.0-0.7); #Monocytes 1.4 thou/uL (0.11-0.59); #Neutrophils 11.7 thou/uL (1.40-6.50); %Basophils 0.1 % (0.0-1.0); %Eosinophils 1.1 % (0.0-10.0); %Lymphocytes 13.3 % (21.0-51.0); %Monocytes 8.9 % (0.0-10.0); %Neutrophils 76.6 % (42.0-75.0); Hemoglobin 10.5 g/dL (14.0-18.0); Mean Corpuscular HGB CONC 31.7 g/dL (32.0-36.0); Mean Corpuscular Hemoglobin 25.6 pg (27.0-31.0); Mean Platelet Volume 7.8 fL (7.4-10.4); Platelet Count 425 thou/uL (130-400); RBC Distribution Width 16.1 % (11.5-14.5); Red Blood Cell (RBC) Count 4.11 mill/uL (4.70-6.10); White Blood Cell (WBC) Count 15.2 thou/uL (4.8-10.8)
[2022-04-26 04:15] LABS: Anion Gap 13 mmol/L (10-20); BUN (Urea Nitrogen) 61 mg/dL (8.9-20.6); Calc. Creatinine Clearance 115 mL/min (70-130); Calcium 8.6 mg/dL (7.8-10.44); Carbon Dioxide 21 mmol/L (22-29); Chloride 108 mmol/L (98-107); Estimated GFR 47; Glucose 217 mg/dL (70-105); Potassium 4.3 mmol/L (3.5-5.1); Sodium 138 mmol/L (136-145)
[2022-04-26] MEDS: HumaLOG 300 UNITS/3 ML VIAL SC PRN (05:31)
[2022-04-26] MEDS: Sodium Chloride 0.9% 1,000 ML IV SCH (06:46)
[2022-04-26] MEDS: Enoxaparin Sodium 40 MG/0.4 ML SYRINGE SC SCH (08:44)
[2022-04-26] MEDS: hydrALAZINE 25 MG TAB PO SCH (08:44)
[2022-04-26] MEDS: Aspirin 81 mg Enteric Coated Tablet PO SCH (08:44)
[2022-04-26] MEDS: predniSONE 20 MG TAB PO SCH (08:44)
[2022-04-26] MEDS: Nicotine 14 MG PATCH TD SCH (08:44)
[2022-04-26] MEDS: NIFEdipine XL 60 MG TAB PO SCH (08:45)
[2022-04-26] MEDS: Insulin Glargine 30 UNITS/0.3 ML VIAL SC SCH ×2 (08:45→21:55)
[2022-04-26] MEDS: Gabapentin 400 MG CAP PO SCH (08:45)
[2022-04-26] MEDS: Famotidine 20 MG TAB PO SCH ×3 (08:45→21:56)
[2022-04-26] MEDS ORDERED: Sodium Chloride 0.9% 1,000 ML IV SCH (08:50)
[2022-04-26] MEDS ORDERED: Furosemide 20 MG/2 ML VIAL SLOW IVP SCH (09:00)
[2022-04-26 15:15] VITALS: BMI 44.1
[2022-04-26] MEDS: Carvedilol 3.125 MG TAB PO SCH (17:57)
[2022-04-26] MEDS: Rosuvastatin 20 MG TAB PO SCH ×2 (21:55→21:57)
[2022-04-27 04:44] LABS: #Eosinphils 0.2 thou/uL (0.0-0.7); #Lymphocytes 2.2 thou/uL (1.20-3.40); #Monocytes 1.3 thou/uL (0.11-0.59); #Neutrophils 9.8 thou/uL (1.40-6.50); %Basophils 0.1 % (0.0-1.0); %Eosinophils 1.5 % (0.0-10.0); %Lymphocytes 16.4 % (21.0-51.0); %Monocytes 9.7 % (0.0-10.0); %Neutrophils 72.3 % (42.0-75.0); Mean Corpuscular HGB CONC 32.4 g/dL (32.0-36.0); Mean Corpuscular Hemoglobin 26.3 pg (27.0-31.0); Mean Corpuscular Volume 81.1 fL (78.0-98.0); Mean Platelet Volume 7.6 fL (7.4-10.4); Platelet Count 396 thou/uL (130-400); RBC Distribution Width 16.3 % (11.5-14.5); Red Blood Cell (RBC) Count 4.17 mill/uL (4.70-6.10); White Blood Cell (WBC) Count 13.5 thou/uL (4.8-10.8)
[2022-04-27 06:08] LABS: Anion Gap 14 mmol/L (10-20); BUN (Urea Nitrogen) 58 mg/dL (8.9-20.6); Calc. Creatinine Clearance 117 mL/min (70-130); Calcium 8.8 mg/dL (7.8-10.44); Carbon Dioxide 21 mmol/L (22-29); Chloride 109 mmol/L (98-107); Estimated GFR 48; Glucose 111 mg/dL (70-105); Sodium 140 mmol/L (136-145)
[2022-04-27 08:30] VITALS: BP 172/115
[2022-04-27] MEDS: hydrALAZINE 25 MG TAB PO SCH (10:12)
[2022-04-27] MEDS: predniSONE 20 MG TAB PO SCH (10:12)
[2022-04-27] MEDS: Carvedilol 3.125 MG TAB PO SCH (10:12)
[2022-04-27] MEDS: Famotidine 20 MG TAB PO SCH (10:12)
[2022-04-27] MEDS: Gabapentin 400 MG CAP PO SCH (10:12)
[2022-04-27] MEDS: Aspirin 81 mg Enteric Coated Tablet PO SCH (10:12)
[2022-04-27] MEDS: Enoxaparin Sodium 40 MG/0.4 ML SYRINGE SC SCH (10:12)
[2022-04-27] MEDS: Nicotine 14 MG PATCH TD SCH (10:13)
[2022-04-27] MEDS: Insulin Glargine 30 UNITS/0.3 ML VIAL SC SCH (10:13)
[2022-04-27] MEDS: NIFEdipine XL 60 MG TAB PO SCH (10:13)
[2022-04-27 13:38] VITALS: TEMP 97.6
[2022-04-27 14:02] LABS: ANA Symphony (Qualitative) Negative (Negative); ANA Symphony (Quantitative) 0.4 Ratio (< 0.7 Negative); dsDNA IgG Antibody 0.9 IU/mL (<10 Negative)
[2022-04-27 14:42] LABS: Cytoplasmic (C-ANCA) <1:20 titer (Neg:<1:20); Perinuclear (P-ANCA) <1:20 titer (Neg:<1:20)
== END 2022-04-27 14:46 | DRG 545 ==
LOC: 2NO 03:55 → IMCU/EMU 04-24 10:37 → 2NO 04-26 17:24
PROVIDERS: ADMIT Student in an Organized Health Care Education/Training Program; ATTEND Internal Medicine
DX: M31.0 Hypersensitivity angiitis (principal); I21.4 Non-ST elevation (NSTEMI) myocardial infarction; J96.00 Acute respiratory failure, unspecified whether with hypoxia or hypercapnia; E87.1 Hypo-osmolality and hyponatremia; Z68.41 Body mass index [BMI] 40.0-44.9, adult; N17.9 Acute kidney failure, unspecified; D75.838 Other thrombocytosis; Z20.822 Contact with and (suspected) exposure to COVID-19; E66.01 Morbid (severe) obesity due to excess calories; F17.210 Nicotine dependence, cigarettes, uncomplicated; E11.22 Type 2 diabetes mellitus with diabetic chronic kidney disease; N18.30 Chronic kidney disease, stage 3 unspecified; F41.9 Anxiety disorder, unspecified; G47.33 Obstructive sleep apnea (adult) (pediatric); E87.5 Hyperkalemia; E78.00 Pure hypercholesterolemia, unspecified; E11.65 Type 2 diabetes mellitus with hyperglycemia; F31.9 Bipolar disorder, unspecified; I10 Essential (primary) hypertension; Z79.4 Long term (current) use of insulin; Z89.512 Acquired absence of left leg below knee; Z89.422 Acquired absence of other left toe(s); Z90.49 Acquired absence of other specified parts of digestive tract; Z99.3 Dependence on wheelchair; Z79.84 Long term (current) use of oral hypoglycemic drugs; Z79.899 Other long term (current) drug therapy; Z88.1 Allergy status to other antibiotic agents
CPT/HCPCS: 36415; 36416; 80048; 80061; 81001; 83605; 84443; 84484; 85025; 85652; 86037; 86038; 86140; 86225; 87040; 93005; 93010; 93306; 94660; 97139; J0360; J1650; J1815; J1940; J2920; J7050; J7512; U0003; U0005

== ENCOUNTER 2022-05-07 21:49 | Inpatient (IN) | payer MEDICAID, OTHER ==
[2022-05-07 22:31] LABS: #Basophils 0.1 thou/uL (0.0-0.2); #Eosinphils 0.3 thou/uL (0.0-0.7); #Lymphocytes 1.9 thou/uL (1.20-3.40); #Monocytes 1.2 thou/uL (0.11-0.59); #Neutrophils 10.6 thou/uL (1.40-6.50); %Basophils 0.5 % (0.0-1.0); %Eosinophils 1.8 % (0.0-10.0); %Lymphocytes 13.7 % (21.0-51.0); %Monocytes 8.5 % (0.0-10.0); %Neutrophils 75.5 % (42.0-75.0); Hemoglobin 9.7 g/dL (14.0-18.0); Mean Corpuscular HGB CONC 30.2 g/dL (32.0-36.0); Mean Corpuscular Hemoglobin 24.9 pg (27.0-31.0); Mean Corpuscular Volume 82.5 fL (78.0-98.0); Mean Platelet Volume 7.6 fL (7.4-10.4); Platelet Count 364 thou/uL (130-400); RBC Distribution Width 16.8 % (11.5-14.5); Red Blood Cell (RBC) Count 3.88 mill/uL (4.70-6.10)
[2022-05-07] MEDS ORDERED: Cefepime 2 GM VIAL ONE (22:34)
[2022-05-07 22:53] LABS: Bacteria/HPF None Seen HPF (None Seen); Bilirubin Negative (Negative); Blood, Urine Negative (Negative); Clarity Clear (Clear); Glucose, Urine (Dipstick) Greater than 1000 mg/dL (Negative); Ketone, Urine Negative (Negative); Leukocyte Negative Leu/uL (Negative); Nitrite Negative (Negative); Protein, Urine (Dipstick) 70 mg/dL (Neg-Trace); RBC/HPF 0-3 HPF (0-3); Specific Gravity, Urine 1.011 (1.002-1.036); Squamous Epithelial 0-3 HPF (0-3); Urobilinogen Normal mg/dL (Less than 2); WBC/HPF 0-3 HPF (0-3)
[2022-05-07 22:54] LABS: ALT (SGPT) 15 U/L (8-55); AST (SGOT) 10 U/L (5-34); Albumin 3.1 g/dL (3.5-5.0); Alkaline Phosphatase 95 U/L (40-110); Anion Gap 15 mmol/L (10-20); BUN (Urea Nitrogen) 72 mg/dL (8.9-20.6); Bilirubin, Total 0.3 mg/dL (0.2-1.2); Calc. Creatinine Clearance 0 mL/min (70-130); Calcium 8.7 mg/dL (7.8-10.44); Carbon Dioxide 20 mmol/L (22-29); Chloride 105 mmol/L (98-107); Estimated GFR 29; Globulin 3.5 g/dL (2.4-3.5); Glucose 207 mg/dL (70-105); Potassium 5.3 mmol/L (3.5-5.1); Protein, Total 6.6 g/dL (6.0-8.3); Sodium 135 mmol/L (136-145)
[2022-05-08] MEDS ORDERED: Nitroglycerin 2% Ointment 1 INCH/1 GM Packet ONE (01:51)
[2022-05-08] MEDS ORDERED: Furosemide 40 MG/4 ML VIAL ONE (01:51)
[2022-05-08] MEDS ORDERED: Ondansetron PF 4 MG/2 ML Vial IVP PRN (03:00)
[2022-05-08] MEDS ORDERED: Ondansetron ODT 4 MG TAB SL PRN (03:00)
[2022-05-08] MEDS ORDERED: Sodium Chloride 0.9% 1,000 ML IV SCH (03:00)
[2022-05-08 04:44] LABS: Critical Call Chem Troponin I RESULT DECREASING; Troponin I 1.287 ng/mL (< 0.028)
[2022-05-08] MEDS ORDERED: Acetaminophen 325 MG TAB PO PRN (04:54)
[2022-05-08] MEDS ORDERED: Acetaminophen 650 MG Suppository PR PRN (04:54)
[2022-05-08] MEDS ORDERED: Piperacillin/Tazobactam 3.375 GM VIAL ONE ×2 (04:57→08:40)
[2022-05-08] MEDS ORDERED: Dextrose 50% Abboject 50 ML SYRINGE SLOW IVP PRN (05:04)
[2022-05-08] MEDS ORDERED: Dextrose 5% in Water 1,000 ML IV PRN (05:04)
[2022-05-08] MEDS ORDERED: Piperacillin/Tazobactam 3.375 GM in Sodium Chloride 0.9% 100 ML IVPB SCH ×2 (05:15→09:00)
[2022-05-08 05:23] LABS: #Basophils 0.1 thou/uL (0.0-0.2); #Eosinphils 0.5 thou/uL (0.0-0.7); #Lymphocytes 1.9 thou/uL (1.20-3.40); #Monocytes 1.3 thou/uL (0.11-0.59); #Neutrophils 14.5 thou/uL (1.40-6.50); %Basophils 0.4 % (0.0-1.0); %Lymphocytes 10.5 % (21.0-51.0); %Monocytes 7.2 % (0.0-10.0); %Neutrophils 78.9 % (42.0-75.0); Hemoglobin 10.2 g/dL (14.0-18.0); Mean Corpuscular Hemoglobin 25.2 pg (27.0-31.0); Mean Corpuscular Volume 83.9 fL (78.0-98.0); Mean Platelet Volume 7.9 fL (7.4-10.4); Platelet Count 351 thou/uL (130-400); Red Blood Cell (RBC) Count 4.07 mill/uL (4.70-6.10); White Blood Cell (WBC) Count 18.3 thou/uL (4.8-10.8)
[2022-05-08] MEDS ORDERED: Cefepime 2 GM in Sodium Chloride 0.9% 100 ML IVPB SCH (06:00)
[2022-05-08 06:11] LABS: SARS-CoV-2 NAA Rapid Test Not Detected (NotDetected)
[2022-05-08 07:13] LABS: Anion Gap 18 mmol/L (10-20); BUN (Urea Nitrogen) 73 mg/dL (8.9-20.6); Calc. Creatinine Clearance 61 mL/min (70-130); Calcium 8.8 mg/dL (7.8-10.44); Carbon Dioxide 18 mmol/L (22-29); Chloride 104 mmol/L (98-107); Estimated GFR 29; Glucose 168 mg/dL (70-105); Potassium 5.7 mmol/L (3.5-5.1); Sodium 134 mmol/L (136-145)
[2022-05-08] MEDS ORDERED: Heparin 10,000 UNITS/ 10 ML VIAL ONE (07:58)
[2022-05-08] MEDS ORDERED: Enoxaparin Sodium 40 MG/0.4 ML SYRINGE ONE (08:40)
[2022-05-08] MEDS ORDERED: Enoxaparin Sodium 40 MG/0.4 ML SYRINGE SC SCH (09:00)
[2022-05-08 09:13] LABS: ALT (SGPT) 15 U/L (8-55); AST (SGOT) 12 U/L (5-34); Albumin 3.1 g/dL (3.5-5.0); Alkaline Phosphatase 98 U/L (40-110); Anion Gap 17 mmol/L (10-20); BUN (Urea Nitrogen) 74 mg/dL (8.9-20.6); Bilirubin, Total 0.4 mg/dL (0.2-1.2); Calc. Creatinine Clearance 59 mL/min (70-130); Calcium 8.7 mg/dL (7.8-10.44); Carbon Dioxide 18 mmol/L (22-29); Chloride 104 mmol/L (98-107); Estimated GFR 28; Globulin 3.6 g/dL (2.4-3.5); Glucose 170 mg/dL (70-105); Protein, Total 6.7 g/dL (6.0-8.3); Sodium 133 mmol/L (136-145)
[2022-05-08 10:21] LABS: Actual Bicarbonate (HCO3a) 20.1 mEq/L (22-28); Analyzer IN Cardio ER; Base Excess (BEa) -8.7 mEq/L (-2.0 to +3.0); CO2 Tension 57.2 mmHg (35.0-45.0); Calcium, Ionized (arterial) 1.23 mmol/L (1.12-1.30); Carboxyhemoglobin (COHb) 0.1 gm% (0.0-3.0); Hemoglobin (Hb) 11.1 g/dL (14.0-18.0); O2 Tension (PaO2), arterial 94.5 mmHg (80.0-100.0); Potassium - ABG Lab 5.86 mmol/L (3.70-5.30)
[2022-05-08] MEDS ORDERED: Sodium Bicarb 50 MEQ/50 ML Abboject 8.4% SYRINGE ONE (10:29)
[2022-05-08] MEDS ORDERED: Furosemide 20 MG/2 ML VIAL ONE (10:29)
[2022-05-08] MEDS ORDERED: Sodium Bicarb 50 MEQ/50 ML Abboject 8.4% SYRINGE IVP SCH (10:30)
[2022-05-08 10:49] LABS: pH, Arterial 7.16 (7.35-7.45)
[2022-05-08 10:50] LABS: Puncture Site LRA
[2022-05-08] MEDS ORDERED: Meropenem 1 GM in Sodium Chloride 0.9% 100 ML IVPB SCH ×3 (11:00→20:00)
[2022-05-08] MEDS ORDERED: Furosemide 20 MG/2 ML VIAL SLOW IVP SCH (12:30)
[2022-05-08] MEDS ORDERED: Furosemide 40 MG/4 ML VIAL SLOW IVP SCH (12:30)
[2022-05-08 12:43] LABS: Actual Bicarbonate (HCO3a) 20.4 mEq/L (22-28); Base Excess (BEa) -7.8 mEq/L (-2.0 to +3.0); CO2 Tension 54.5 mmHg (35.0-45.0); Calcium, Ionized (arterial) 1.22 mmol/L (1.12-1.30); Carboxyhemoglobin (COHb) 0.7 gm% (0.0-3.0); Potassium - ABG Lab 5.98 mmol/L (3.70-5.30)
[2022-05-08 12:46] LABS: pH, Arterial 7.19 (7.35-7.45)
[2022-05-08 12:47] LABS: ALV-art Gradient 120.075 mmHg (0-20); Puncture Site RRA
[2022-05-08] MEDS ORDERED: Sodium Bicarb 50 MEQ/50 ML VIAL IVP SCH (13:15)
[2022-05-08] MEDS: Albumin 25% 25 GM/100 ML BOT IVPB SCH ×2 (13:25→22:00)
[2022-05-08] MEDS: Linezolid 600 MG in Premix Bag 1 BAG IVPB SCH (13:25)
[2022-05-08 15:32] LABS: Actual Bicarbonate (HCO3a) 22.6 mEq/L (22-28); Base Excess (BEa) -5.7 mEq/L (-2.0 to +3.0); CO2 Tension 58.7 mmHg (35.0-45.0); Calcium, Ionized (arterial) 1.19 mmol/L (1.12-1.30); Carboxyhemoglobin (COHb) 0.7 gm% (0.0-3.0); Hemoglobin (Hb) 10.8 g/dL (14.0-18.0); Potassium - ABG Lab 5.93 mmol/L (3.70-5.30)
[2022-05-08 15:35] LABS: ALV-art Gradient 97.825 mmHg (0-20); Puncture Site RRA
[2022-05-08] MEDS: hydrALAZINE 25 MG TAB PO SCH ×2 (16:16→22:02)
[2022-05-08] MEDS: Carvedilol 3.125 MG TAB PO SCH (17:16)
[2022-05-08] MEDS: Insulin Glargine 30 UNITS/0.3 ML VIAL SC SCH (21:00)
[2022-05-08] MEDS: Heparin 5,000 UNITS/ML VIAL SC SCH (22:01)
[2022-05-08] MEDS: Furosemide 40 MG/4 ML VIAL SLOW IVP SCH (22:01)
[2022-05-08] MEDS: Sodium Bicarbonate Tab 325 MG TAB PO SCH (22:02)
[2022-05-08 23:31] LABS: Actual Bicarbonate (HCO3a) 24.7 mEq/L (22-28); Base Excess (BEa) -3.5 mEq/L (-2.0 to +3.0); Hemoglobin (Hb) 10.2 g/dL (14.0-18.0); Potassium - ABG Lab 5.11 mmol/L (3.70-5.30)
[2022-05-08 23:32] LABS: CO2 Tension 61.1 mmHg (35.0-45.0); O2 Tension (PaO2), arterial 24.3 mmHg (80.0-100.0); pH, Arterial 7.22 (7.35-7.45)
[2022-05-08 23:33] LABS: Puncture Site LFV
[2022-05-09 00:24] LABS: HBSAB Concentration Less than 8.00 mIU/mL; HBSAg Index 0.22 S/CO (0-0.99); Hep B Core Total Ab Non-Reactive (NonReactive); Hep B Core Total Index 0.13 S/CO (0-0.79); Hep B Surf AB Non-Reactive (NonReactive); Hep B Surf Ag Non-Reactive S/CO (NonReactive); Hep C IgG Ab Non-Reactive (NonReactive)
[2022-05-09] MEDS: Albumin 25% 25 GM/100 ML BOT IVPB SCH ×2 (01:26→08:55)
[2022-05-09] MEDS: Linezolid 600 MG in Premix Bag 1 BAG IVPB SCH ×2 (01:26→15:52)
[2022-05-09 06:46] LABS: #Basophils 0.1 thou/uL (0.0-0.2); #Eosinphils 0.2 thou/uL (0.0-0.7); #Lymphocytes 1.1 thou/uL (1.20-3.40); #Monocytes 0.7 thou/uL (0.11-0.59); #Neutrophils 7.6 thou/uL (1.40-6.50); %Basophils 0.5 % (0.0-1.0); %Eosinophils 2.6 % (0.0-10.0); %Lymphocytes 10.9 % (21.0-51.0); %Monocytes 7.5 % (0.0-10.0); %Neutrophils 78.5 % (42.0-75.0); Hemoglobin 8.7 g/dL (14.0-18.0); Mean Corpuscular HGB CONC 30.5 g/dL (32.0-36.0); Mean Corpuscular Hemoglobin 25.1 pg (27.0-31.0); Mean Corpuscular Volume 82.5 fL (78.0-98.0); Mean Platelet Volume 7.9 fL (7.4-10.4); Platelet Count 205 thou/uL (130-400); RBC Distribution Width 16.9 % (11.5-14.5); Red Blood Cell (RBC) Count 3.46 mill/uL (4.70-6.10); White Blood Cell (WBC) Count 9.7 thou/uL (4.8-10.8)
[2022-05-09 06:50] LABS: Anion Gap 17 mmol/L (10-20); BUN (Urea Nitrogen) 59 mg/dL (8.9-20.6); Calc. Creatinine Clearance 96 mL/min (70-130); Calcium 8.8 mg/dL (7.8-10.44); Carbon Dioxide 23 mmol/L (22-29); Chloride 102 mmol/L (98-107); Estimated GFR 35; Glucose 126 mg/dL (70-105); Magnesium 2.1 mg/dL (1.6-2.6); Potassium 5.1 mmol/L (3.5-5.1); Sodium 137 mmol/L (136-145); Troponin I 1.065 ng/mL (< 0.028)
[2022-05-09] MEDS ORDERED: predniSONE 20 MG TAB PO SCH (08:00)
[2022-05-09] MEDS: Meropenem 1 GM in Sodium Chloride 0.9% 100 ML IVPB SCH ×4 (08:45→23:23)
[2022-05-09] MEDS: Pantoprazole 40 MG VIAL IVP SCH (08:45)
[2022-05-09] MEDS: predniSONE 20 MG TAB PO SCH (08:45)
[2022-05-09] MEDS: Sodium Bicarbonate Tab 325 MG TAB PO SCH ×2 (08:46→21:22)
[2022-05-09] MEDS: Heparin 5,000 UNITS/ML VIAL SC SCH ×2 (08:46→21:20)
[2022-05-09] MEDS: Ascorbic Acid 500 mg Chewable Tablet PO SCH (08:47)
[2022-05-09] MEDS: Furosemide 40 MG/4 ML VIAL SLOW IVP SCH (08:47)
[2022-05-09] MEDS: Carvedilol 3.125 MG TAB PO SCH ×3 (08:48→17:49)
[2022-05-09] MEDS: hydrALAZINE 25 MG TAB PO SCH ×3 (08:48→21:23)
[2022-05-09 08:58] LABS: Hep C Index 0.16 S/CO (0-0.79)
[2022-05-09] MEDS ORDERED: Heparin 10,000 UNITS/ 10 ML VIAL ONE (09:24)
[2022-05-09] MEDS: HumaLOG 300 UNITS/3 ML VIAL SC PRN (18:20)
[2022-05-09] MEDS: Insulin Glargine 30 UNITS/0.3 ML VIAL SC SCH (21:23)
[2022-05-10] MEDS: Linezolid 600 MG in Premix Bag 1 BAG IVPB SCH ×2 (03:26→14:39)
[2022-05-10 04:52] LABS: #Eosinphils 0.1 thou/uL (0.0-0.7); #Lymphocytes 1.2 thou/uL (1.20-3.40); #Monocytes 0.8 thou/uL (0.11-0.59); #Neutrophils 7.4 thou/uL (1.40-6.50); %Basophils 0.2 % (0.0-1.0); %Eosinophils 0.7 % (0.0-10.0); %Lymphocytes 12.2 % (21.0-51.0); %Monocytes 8.6 % (0.0-10.0); %Neutrophils 78.3 % (42.0-75.0); Hemoglobin 8.7 g/dL (14.0-18.0); Mean Corpuscular HGB CONC 31.2 g/dL (32.0-36.0); Mean Corpuscular Hemoglobin 25.7 pg (27.0-31.0); Mean Corpuscular Volume 82.3 fL (78.0-98.0); Mean Platelet Volume 7.8 fL (7.4-10.4); Platelet Count 182 thou/uL (130-400); RBC Distribution Width 16.5 % (11.5-14.5); Red Blood Cell (RBC) Count 3.39 mill/uL (4.70-6.10); White Blood Cell (WBC) Count 9.4 thou/uL (4.8-10.8)
[2022-05-10 05:12] LABS: Anion Gap 18 mmol/L (10-20); BUN (Urea Nitrogen) 50 mg/dL (8.9-20.6); Calc. Creatinine Clearance 100 mL/min (70-130); Carbon Dioxide 23 mmol/L (22-29); Chloride 100 mmol/L (98-107); Estimated GFR 39; Glucose 175 mg/dL (70-105); Potassium 4.7 mmol/L (3.5-5.1); Sodium 136 mmol/L (136-145)
[2022-05-10] MEDS: Pantoprazole 40 MG VIAL IVP SCH (08:39)
[2022-05-10] MEDS: hydrALAZINE 25 MG TAB PO SCH ×3 (08:39→20:34)
[2022-05-10] MEDS: predniSONE 20 MG TAB PO SCH (08:39)
[2022-05-10] MEDS: Heparin 5,000 UNITS/ML VIAL SC SCH ×2 (08:40→20:31)
[2022-05-10] MEDS: Ascorbic Acid 500 mg Chewable Tablet PO SCH (08:40)
[2022-05-10] MEDS: Sodium Bicarbonate Tab 325 MG TAB PO SCH (08:40)
[2022-05-10] MEDS: Meropenem 1 GM in Sodium Chloride 0.9% 100 ML IVPB SCH ×2 (08:47→14:51)
[2022-05-10] MEDS ORDERED: Aspirin 81 mg Enteric Coated Tablet PO SCH (09:15)
[2022-05-10] MEDS ORDERED: Heparin 10,000 UNITS/ 10 ML VIAL ONE (09:22)
[2022-05-10] MEDS ORDERED: Bupivacaine/Epinephrine 0.25% 30 ML VIAL ONE (12:38)
[2022-05-10] MEDS ORDERED: Ketamine 50 MG/ML (10ML VIAL) ONE (12:55)
[2022-05-10] MEDS ORDERED: Midazolam HCl 2 mg/2 ml Vial ONE (12:58)
[2022-05-10] MEDS: Acetaminophen 325 MG TAB PO PRN (15:44)
[2022-05-10] MEDS: Carvedilol 3.125 MG TAB PO SCH (16:43)
[2022-05-10] MEDS: Insulin Glargine 30 UNITS/0.3 ML VIAL SC SCH (20:35)
[2022-05-11] MEDS: Linezolid 600 MG in Premix Bag 1 BAG IVPB SCH (01:48)
[2022-05-11 04:18] LABS: #Eosinphils 0.2 thou/uL (0.0-0.7); #Lymphocytes 1.7 thou/uL (1.20-3.40); #Monocytes 1.1 thou/uL (0.11-0.59); #Neutrophils 7.7 thou/uL (1.40-6.50); %Basophils 0.2 % (0.0-1.0); %Eosinophils 1.9 % (0.0-10.0); %Lymphocytes 15.7 % (21.0-51.0); %Monocytes 10.3 % (0.0-10.0); %Neutrophils 71.9 % (42.0-75.0); Hemoglobin 9.4 g/dL (14.0-18.0); Mean Corpuscular HGB CONC 30.9 g/dL (32.0-36.0); Mean Corpuscular Hemoglobin 25.5 pg (27.0-31.0); Mean Corpuscular Volume 82.5 fL (78.0-98.0); Mean Platelet Volume 8.3 fL (7.4-10.4); Platelet Count 204 thou/uL (130-400); RBC Distribution Width 16.9 % (11.5-14.5); Red Blood Cell (RBC) Count 3.68 mill/uL (4.70-6.10); White Blood Cell (WBC) Count 10.7 thou/uL (4.8-10.8)
[2022-05-11 04:44] LABS: Anion Gap 13 mmol/L (10-20); BUN (Urea Nitrogen) 34 mg/dL (8.9-20.6); CRP (Inflammatory) 2.11 mg/dL (= or < 0.5); Calc. Creatinine Clearance 0 mL/min (70-130); Carbon Dioxide 27 mmol/L (22-29); Chloride 99 mmol/L (98-107); Estimated GFR 51; Glucose 168 mg/dL (70-105); Potassium 3.8 mmol/L (3.5-5.1); Sodium 135 mmol/L (136-145)
[2022-05-11] MEDS ORDERED: Carvedilol 6.25 MG TAB PO SCH ×2 (09:15→17:00)
[2022-05-11] MEDS: Heparin 5,000 UNITS/ML VIAL SC SCH ×2 (09:39→20:41)
[2022-05-11] MEDS: Ascorbic Acid 500 mg Chewable Tablet PO SCH ×2 (09:42→09:45)
[2022-05-11] MEDS: Aspirin 81 mg Enteric Coated Tablet PO SCH (09:43)
[2022-05-11] MEDS: predniSONE 20 MG TAB PO SCH (09:43)
[2022-05-11] MEDS: hydrALAZINE 25 MG TAB PO SCH ×5 (09:43→20:33)
[2022-05-11] MEDS: Carvedilol 3.125 MG TAB PO SCH (09:46)
[2022-05-11] MEDS: Carvedilol 6.25 MG TAB PO SCH (16:29)
[2022-05-11] MEDS: Meropenem 1 GM in Sodium Chloride 0.9% 100 ML IVPB SCH (16:29)
[2022-05-11] MEDS: HumaLOG 300 UNITS/3 ML VIAL SC PRN (18:31)
[2022-05-11] MEDS: Linezolid 600 MG TAB PER TUBE SCH (20:36)
[2022-05-11] MEDS: Insulin Glargine 30 UNITS/0.3 ML VIAL SC SCH (20:37)
[2022-05-12 06:23] LABS: #Basophils 0.1 thou/uL (0.0-0.2); #Eosinphils 0.2 thou/uL (0.0-0.7); #Lymphocytes 1.2 thou/uL (1.20-3.40); #Monocytes 0.9 thou/uL (0.11-0.59); #Neutrophils 6.6 thou/uL (1.40-6.50); %Basophils 0.6 % (0.0-1.0); %Eosinophils 1.7 % (0.0-10.0); %Lymphocytes 13.3 % (21.0-51.0); %Monocytes 9.8 % (0.0-10.0); %Neutrophils 74.6 % (42.0-75.0); Hemoglobin 9.3 g/dL (14.0-18.0); Mean Corpuscular HGB CONC 30.5 g/dL (32.0-36.0); Mean Corpuscular Hemoglobin 25.3 pg (27.0-31.0); Mean Platelet Volume 8.2 fL (7.4-10.4); Platelet Count 177 thou/uL (130-400); RBC Distribution Width 16.8 % (11.5-14.5); Red Blood Cell (RBC) Count 3.67 mill/uL (4.70-6.10); White Blood Cell (WBC) Count 8.8 thou/uL (4.8-10.8)
[2022-05-12 06:38] LABS: Anion Gap 16 mmol/L (10-20); BUN (Urea Nitrogen) 39 mg/dL (8.9-20.6); Calc. Creatinine Clearance 120 mL/min (70-130); Carbon Dioxide 22 mmol/L (22-29); Chloride 102 mmol/L (98-107); Estimated GFR 51; Glucose 152 mg/dL (70-105); Sodium 136 mmol/L (136-145)
[2022-05-12] MEDS ORDERED: Heparin 10,000 UNITS/ 10 ML VIAL ONE (09:25)
[2022-05-12] MEDS: Carvedilol 6.25 MG TAB PO SCH ×2 (13:24→14:54)
[2022-05-12] MEDS: Heparin 5,000 UNITS/ML VIAL SC SCH ×2 (13:25→20:26)
[2022-05-12] MEDS: Ascorbic Acid 500 mg Chewable Tablet PO SCH ×2 (13:25→13:29)
[2022-05-12] MEDS: hydrALAZINE 25 MG TAB PO SCH ×3 (13:25→20:25)
[2022-05-12] MEDS: Aspirin 81 mg Enteric Coated Tablet PO SCH (13:25)
[2022-05-12] MEDS: predniSONE 20 MG TAB PO SCH (13:25)
[2022-05-12] MEDS: Linezolid 600 MG TAB PER TUBE SCH ×2 (13:26→20:25)
[2022-05-12] MEDS: Acetaminophen 325 MG TAB PO PRN (13:28)
[2022-05-12] MEDS: Meropenem 1 GM in Sodium Chloride 0.9% 100 ML IVPB SCH (14:53)
[2022-05-12] MEDS: Insulin Glargine 30 UNITS/0.3 ML VIAL SC SCH (20:26)
[2022-05-13 06:28] LABS: #Basophils 0.1 thou/uL (0.0-0.2); #Eosinphils 0.1 thou/uL (0.0-0.7); #Lymphocytes 1.6 thou/uL (1.20-3.40); #Monocytes 0.9 thou/uL (0.11-0.59); %Basophils 0.9 % (0.0-1.0); %Lymphocytes 16.4 % (21.0-51.0); %Monocytes 9.6 % (0.0-10.0); %Neutrophils 72.1 % (42.0-75.0); Mean Corpuscular Hemoglobin 24.9 pg (27.0-31.0); Mean Corpuscular Volume 83.1 fL (78.0-98.0); Mean Platelet Volume 8.3 fL (7.4-10.4); Platelet Count 201 thou/uL (130-400); RBC Distribution Width 17.3 % (11.5-14.5); Red Blood Cell (RBC) Count 3.99 mill/uL (4.70-6.10); White Blood Cell (WBC) Count 9.7 thou/uL (4.8-10.8)
[2022-05-13 06:44] LABS: Anion Gap 14 mmol/L (10-20); BUN (Urea Nitrogen) 30 mg/dL (8.9-20.6); Calc. Creatinine Clearance 114 mL/min (70-130); Calcium 9.1 mg/dL (7.8-10.44); Carbon Dioxide 29 mmol/L (22-29); Chloride 101 mmol/L (98-107); Estimated GFR 51; Glucose 133 mg/dL (70-105); Potassium 4.3 mmol/L (3.5-5.1); Sodium 140 mmol/L (136-145)
[2022-05-13] MEDS: Heparin 5,000 UNITS/ML VIAL SC SCH ×2 (08:20→20:34)
[2022-05-13] MEDS: Aspirin 81 mg Enteric Coated Tablet PO SCH (08:21)
[2022-05-13] MEDS: Ascorbic Acid 500 mg Chewable Tablet PO SCH (08:21)
[2022-05-13] MEDS: predniSONE 20 MG TAB PO SCH (08:22)
[2022-05-13] MEDS: hydrALAZINE 25 MG TAB PO SCH ×3 (08:22→20:34)
[2022-05-13] MEDS: Linezolid 600 MG TAB PER TUBE SCH ×2 (08:25→20:35)
[2022-05-13] MEDS: Carvedilol 6.25 MG TAB PO SCH ×2 (08:25→18:05)
[2022-05-13] MEDS: NIFEdipine XL 60 MG TAB PO SCH (09:53)
[2022-05-13] MEDS: Meropenem 1 GM in Sodium Chloride 0.9% 100 ML IVPB SCH (14:42)
[2022-05-13] MEDS: Insulin Glargine 30 UNITS/0.3 ML VIAL SC SCH (20:34)
[2022-05-13] MEDS: HumaLOG 300 UNITS/3 ML VIAL SC PRN (23:18)
[2022-05-14 06:12] LABS: #Basophils 0.1 thou/uL (0.0-0.2); #Eosinphils 0.2 thou/uL (0.0-0.7); #Lymphocytes 1.6 thou/uL (1.20-3.40); #Monocytes 0.8 thou/uL (0.11-0.59); #Neutrophils 6.5 thou/uL (1.40-6.50); %Basophils 0.7 % (0.0-1.0); %Eosinophils 1.8 % (0.0-10.0); %Monocytes 8.6 % (0.0-10.0); Hemoglobin 9.7 g/dL (14.0-18.0); Mean Corpuscular Hemoglobin 25.1 pg (27.0-31.0); Mean Corpuscular Volume 83.8 fL (78.0-98.0); Mean Platelet Volume 8.2 fL (7.4-10.4); Platelet Count 173 thou/uL (130-400); RBC Distribution Width 17.4 % (11.5-14.5); Red Blood Cell (RBC) Count 3.85 mill/uL (4.70-6.10); White Blood Cell (WBC) Count 9.1 thou/uL (4.8-10.8)
[2022-05-14 06:33] LABS: Anion Gap 14 mmol/L (10-20); BUN (Urea Nitrogen) 37 mg/dL (8.9-20.6); Calc. Creatinine Clearance 100 mL/min (70-130); Calcium 8.7 mg/dL (7.8-10.44); Carbon Dioxide 28 mmol/L (22-29); Chloride 101 mmol/L (98-107); Estimated GFR 43; Glucose 185 mg/dL (70-105); Potassium 4.2 mmol/L (3.5-5.1); Sodium 139 mmol/L (136-145)
[2022-05-14] MEDS: Carvedilol 6.25 MG TAB PO SCH ×2 (08:29→18:12)
[2022-05-14] MEDS: NIFEdipine XL 60 MG TAB PO SCH (08:29)
[2022-05-14] MEDS: Aspirin 81 mg Enteric Coated Tablet PO SCH (08:29)
[2022-05-14] MEDS: Linezolid 600 MG TAB PER TUBE SCH ×2 (08:30→20:55)
[2022-05-14] MEDS: hydrALAZINE 25 MG TAB PO SCH ×3 (08:31→20:55)
[2022-05-14] MEDS: predniSONE 20 MG TAB PO SCH (08:32)
[2022-05-14] MEDS: Heparin 5,000 UNITS/ML VIAL SC SCH ×2 (08:33→20:54)
[2022-05-14] MEDS: Acetaminophen 325 MG TAB PO PRN ×2 (08:37→18:14)
[2022-05-14] MEDS: Ascorbic Acid 500 mg Chewable Tablet PO SCH (08:39)
[2022-05-14] MEDS: HumaLOG 300 UNITS/3 ML VIAL SC PRN ×3 (11:18→23:32)
[2022-05-14] MEDS: Meropenem 1 GM in Sodium Chloride 0.9% 100 ML IVPB SCH (16:12)
[2022-05-14] MEDS: Insulin Glargine 30 UNITS/0.3 ML VIAL SC SCH (20:54)
[2022-05-15 06:20] LABS: #Eosinphils 0.1 thou/uL (0.0-0.7); #Lymphocytes 1.5 thou/uL (1.20-3.40); #Monocytes 0.6 thou/uL (0.11-0.59); #Neutrophils 8.4 thou/uL (1.40-6.50); %Basophils 0.1 % (0.0-1.0); %Eosinophils 1.3 % (0.0-10.0); %Lymphocytes 13.9 % (21.0-51.0); %Neutrophils 78.7 % (42.0-75.0); Hemoglobin 9.8 g/dL (14.0-18.0); Mean Corpuscular HGB CONC 29.9 g/dL (32.0-36.0); Mean Corpuscular Hemoglobin 25.3 pg (27.0-31.0); Mean Corpuscular Volume 84.7 fL (78.0-98.0); Mean Platelet Volume 8.2 fL (7.4-10.4); Platelet Count 171 thou/uL (130-400); RBC Distribution Width 18.1 % (11.5-14.5); Red Blood Cell (RBC) Count 3.89 mill/uL (4.70-6.10); White Blood Cell (WBC) Count 10.7 thou/uL (4.8-10.8)
[2022-05-15 06:41] LABS: Anion Gap 12 mmol/L (10-20); BUN (Urea Nitrogen) 42 mg/dL (8.9-20.6); Calc. Creatinine Clearance 44 mL/min (70-130); Calcium 8.6 mg/dL (7.8-10.44); Carbon Dioxide 29 mmol/L (22-29); Chloride 102 mmol/L (98-107); Estimated GFR 41; Glucose 205 mg/dL (70-105); Potassium 4.1 mmol/L (3.5-5.1); Sodium 139 mmol/L (136-145)
[2022-05-15] MEDS: Sodium Chloride 0.9% 1,000 ML IV SCH ×2 (08:55→21:23)
[2022-05-15] MEDS: Carvedilol 6.25 MG TAB PO SCH ×2 (08:55→18:43)
[2022-05-15] MEDS: Aspirin 81 mg Enteric Coated Tablet PO SCH (08:56)
[2022-05-15] MEDS: predniSONE 20 MG TAB PO SCH (08:56)
[2022-05-15] MEDS: hydrALAZINE 25 MG TAB PO SCH ×3 (08:56→21:23)
[2022-05-15] MEDS: NIFEdipine XL 60 MG TAB PO SCH (08:56)
[2022-05-15] MEDS: Linezolid 600 MG TAB PER TUBE SCH (08:57)
[2022-05-15] MEDS: Ascorbic Acid 500 mg Chewable Tablet PO SCH (08:57)
[2022-05-15] MEDS: Heparin 5,000 UNITS/ML VIAL SC SCH ×2 (08:57→21:23)
[2022-05-15] MEDS: HumaLOG 300 UNITS/3 ML VIAL SC PRN ×2 (12:43→18:43)
[2022-05-15] MEDS ORDERED: Rosuvastatin 20 MG TAB PO SCH (21:00)
[2022-05-15] MEDS: Linezolid 600 MG TAB PO SCH (21:23)
[2022-05-15] MEDS: Insulin Glargine 30 UNITS/0.3 ML VIAL SC SCH (21:23)
[2022-05-15] MEDS: Amoxicillin/Potassium Clav 875 MG TAB PO SCH (21:23)
[2022-05-16] MEDS: HumaLOG 300 UNITS/3 ML VIAL SC PRN ×2 (00:17→06:31)
[2022-05-16 08:47] LABS: #Eosinphils 0.1 thou/uL (0.0-0.7); #Lymphocytes 1.6 thou/uL (1.20-3.40); #Monocytes 0.8 thou/uL (0.11-0.59); #Neutrophils 8.5 thou/uL (1.40-6.50); %Basophils 0.4 % (0.0-1.0); %Lymphocytes 14.4 % (21.0-51.0); %Neutrophils 77.2 % (42.0-75.0); Mean Corpuscular HGB CONC 30.2 g/dL (32.0-36.0); Mean Corpuscular Hemoglobin 25.1 pg (27.0-31.0); Mean Corpuscular Volume 83.3 fL (78.0-98.0); Mean Platelet Volume 7.9 fL (7.4-10.4); Platelet Count 161 thou/uL (130-400); RBC Distribution Width 18.3 % (11.5-14.5); Red Blood Cell (RBC) Count 3.98 mill/uL (4.70-6.10)
[2022-05-16] MEDS: Heparin 5,000 UNITS/ML VIAL SC SCH (08:50)
[2022-05-16] MEDS: Carvedilol 6.25 MG TAB PO SCH (08:51)
[2022-05-16] MEDS: Ascorbic Acid 500 mg Chewable Tablet PO SCH (08:51)
[2022-05-16] MEDS: Amoxicillin/Potassium Clav 875 MG TAB PO SCH (08:51)
[2022-05-16] MEDS: predniSONE 20 MG TAB PO SCH (08:51)
[2022-05-16] MEDS: Aspirin 81 mg Enteric Coated Tablet PO SCH (08:51)
[2022-05-16] MEDS: Linezolid 600 MG TAB PO SCH (08:52)
[2022-05-16] MEDS: NIFEdipine XL 60 MG TAB PO SCH (08:52)
[2022-05-16] MEDS: hydrALAZINE 25 MG TAB PO SCH (08:52)
[2022-05-16] MEDS ORDERED: Insulin Glargine 30 UNITS/0.3 ML VIAL SC SCH (09:00)
[2022-05-16 09:06] LABS: Anion Gap 14 mmol/L (10-20); BUN (Urea Nitrogen) 39 mg/dL (8.9-20.6); Calc. Creatinine Clearance 115 mL/min (70-130); Calcium 8.5 mg/dL (7.8-10.44); Carbon Dioxide 23 mmol/L (22-29); Chloride 106 mmol/L (98-107); Estimated GFR 49; Glucose 171 mg/dL (70-105); Potassium 4.4 mmol/L (3.5-5.1); Sodium 139 mmol/L (136-145)
[2022-05-16] MEDS ORDERED: Potassium Chloride 20 MEQ TAB PO SCH (09:15)
[2022-05-16] MEDS ORDERED: Furosemide 40 MG/4 ML VIAL SLOW IVP SCH (09:15)
[2022-05-16 11:53] VITALS: TEMP 98.5
[2022-05-16 15:32] VITALS: BMI 43.0
[2022-05-16 15:37] VITALS: BP 168/112
[2022-05-17] MEDS ORDERED: Furosemide 40 MG TAB PO SCH (07:30)
== END 2022-05-16 17:00 | DRG 853 ==
LOC: ERS 21:49 → ERHOLD 05-08 02:23 → CCU 05-08 11:56 → SURG B 05-11 11:55
PROVIDERS: ADMIT Internal Medicine; ATTEND Internal Medicine
PROC: 5A1D70Z Performance of Urinary Filtration, Intermittent, Less than 6 Hours Per Day (ICD-10-PCS; 2022-05-08)
PROC: 3E03329 Introduction of Other Anti-infective into Peripheral Vein, Percutaneous Approach (ICD-10-PCS; 2022-05-08)
PROC: 06HY33Z Insertion of Infusion Device into Lower Vein, Percutaneous Approach (ICD-10-PCS; 2022-05-08)
PROC: 06HY33Z Insertion of Infusion Device into Lower Vein, Percutaneous Approach (ICD-10-PCS; 2022-05-08)
PROC: 5A09357 Assistance with Respiratory Ventilation, Less than 24 Consecutive Hours, Continuous Positive Airway Pressure (ICD-10-PCS; 2022-05-08)
PROC: 0Y6M0ZD Detachment at Right Foot, Partial 4th Ray, Open Approach (ICD-10-PCS; principal; 2022-05-10)
DX: A41.02 Sepsis due to Methicillin resistant Staphylococcus aureus (principal); J96.01 Acute respiratory failure with hypoxia; G93.41 Metabolic encephalopathy; I50.33 Acute on chronic diastolic (congestive) heart failure; R65.21 Severe sepsis with septic shock; J96.02 Acute respiratory failure with hypercapnia; I21.4 Non-ST elevation (NSTEMI) myocardial infarction; E66.2 Morbid (severe) obesity with alveolar hypoventilation; Z68.41 Body mass index [BMI] 40.0-44.9, adult; M86.171 Other acute osteomyelitis, right ankle and foot; L03.115 Cellulitis of right lower limb; M00.9 Pyogenic arthritis, unspecified; N17.9 Acute kidney failure, unspecified; E87.4 Mixed disorder of acid-base balance; L02.611 Cutaneous abscess of right foot; I13.0 Hypertensive heart and chronic kidney disease with heart failure and stage 1 through stage 4 chronic kidney disease, or unspecified chronic kidney disease; N18.4 Chronic kidney disease, stage 4 (severe); M00.071 Staphylococcal arthritis, right ankle and foot; A41.4 Sepsis due to anaerobes; Z20.822 Contact with and (suspected) exposure to COVID-19; E11.69 Type 2 diabetes mellitus with other specified complication; E11.22 Type 2 diabetes mellitus with diabetic chronic kidney disease; E78.5 Hyperlipidemia, unspecified; F17.220 Nicotine dependence, chewing tobacco, uncomplicated; R77.8 Other specified abnormalities of plasma proteins; E11.40 Type 2 diabetes mellitus with diabetic neuropathy, unspecified; E87.5 Hyperkalemia; F41.9 Anxiety disorder, unspecified; E11.51 Type 2 diabetes mellitus with diabetic peripheral angiopathy without gangrene; F31.9 Bipolar disorder, unspecified; D63.1 Anemia in chronic kidney disease; E78.2 Mixed hyperlipidemia; E11.65 Type 2 diabetes mellitus with hyperglycemia; E87.6 Hypokalemia; Z91.19 Patient's noncompliance with other medical treatment and regimen; Z99.89 Dependence on other enabling machines and devices; Z88.1 Allergy status to other antibiotic agents; Z89.512 Acquired absence of left leg below knee; Z89.421 Acquired absence of other right toe(s); Z79.899 Other long term (current) drug therapy; Z79.82 Long term (current) use of aspirin; Z79.4 Long term (current) use of insulin; Z79.52 Long term (current) use of systemic steroids; Z90.49 Acquired absence of other specified parts of digestive tract; Z83.3 Family history of diabetes mellitus
CPT/HCPCS: 36415; 36416; 36600; 51702; 71045; 76770; 80048; 80053; 81003; 81015; 82550; 82553; 82805; 83605; 83735; 83880; 84484; 85025; 85652; 86140; 86704; 87040; 87070; 87086; 87205; 87340; 88305; 88311; 90935; 93005; 93010; 93306; 93970; 94660; 96361; 96365; 96375; 96376; 97139; C9113; G0257; J0692; J1642; J1644; J1650; J1815; J1940; J2020; J2185; J2250; J2543; J3490; J7050; J7512; P9047; U0003; U0005

== ENCOUNTER 2022-05-20 10:38 | Inpatient (IN) | payer OTHER ==
[2022-05-20] MEDS ORDERED: Calcium Gluc 4.6 MEQ/10 ML (100 MG/ML) ONE (10:48)
[2022-05-20] MEDS ORDERED: Rocuronium Bromide 10 MG/ML (10ML VIAL) ONE ×2 (10:55→10:59)
[2022-05-20] MEDS ORDERED: Ketamine 50 MG/ML (10ML VIAL) ONE (10:55)
[2022-05-20] MEDS ORDERED: Magnesium 2 GM/50 ML(in water) 2 GM in Premix Bag 1 BAG IVPB SCH (11:00)
[2022-05-20] MEDS ORDERED: Fentanyl CADD 100 ML IV SCH (11:00)
[2022-05-20 11:44] LABS: ALT (SGPT) 17 U/L (8-55); AST (SGOT) 13 U/L (5-34); Albumin 3.5 g/dL (3.5-5.0); Alkaline Phosphatase 80 U/L (40-110); Anion Gap 15 mmol/L (10-20); BUN (Urea Nitrogen) 55 mg/dL (8.9-20.6); Bilirubin, Total 0.4 mg/dL (0.2-1.2); Calc. Creatinine Clearance 0 mL/min (70-130); Calcium 8.4 mg/dL (7.8-10.44); Carbon Dioxide 23 mmol/L (22-29); Chloride 102 mmol/L (98-107); Estimated GFR 24; Globulin 2.7 g/dL (2.4-3.5); Glucose 206 mg/dL (70-105); Potassium 5.9 mmol/L (3.5-5.1); Protein, Total 6.2 g/dL (6.0-8.3); Sodium 134 mmol/L (136-145)
[2022-05-20] MEDS ORDERED: Ondansetron ODT 4 MG TAB PO PRN (13:10)
[2022-05-20] MEDS ORDERED: HumaLOG 300 UNITS/3 ML VIAL SC PRN (13:10)
[2022-05-20] MEDS ORDERED: Dextrose 50% Abboject 50 ML SYRINGE SLOW IVP PRN (13:10)
[2022-05-20] MEDS ORDERED: Acetaminophen 325 MG TAB PO PRN (13:10)
[2022-05-20] MEDS ORDERED: cloNIDine 0.1 MG TAB PO PRN (13:10)
[2022-05-20] MEDS ORDERED: Ondansetron PF 4 MG/2 ML Vial IVP PRN (13:10)
[2022-05-20] MEDS ORDERED: hydrALAZINE 20 MG/ML VIAL SLOW IVP PRN (13:10)
[2022-05-20] MEDS ORDERED: Dextrose 5% in Water 1,000 ML IV PRN (13:10)
[2022-05-20] MEDS ORDERED: Heparin 10,000 UNITS/ 10 ML VIAL ONE (13:38)
[2022-05-20 13:49] LABS: Actual Bicarbonate (HCO3a) 22.6 mEq/L (22-28); Base Excess (BEa) -6.7 mEq/L (-2.0 to +3.0); Calcium, Ionized (arterial) 1.23 mmol/L (1.12-1.30); Carboxyhemoglobin (COHb) 0.7 gm% (0.0-3.0); Hemoglobin (Hb) 11.5 g/dL (14.0-18.0); O2 Tension (PaO2), arterial 125.1 mmHg (80.0-100.0); Potassium - ABG Lab 6.49 mmol/L (3.70-5.30)
[2022-05-20 14:01] LABS: CO2 Tension 65.2 mmHg (35.0-45.0); pH, Arterial 7.16 (7.35-7.45)
[2022-05-20 14:02] LABS: Puncture Site RBA
[2022-05-20] MEDS ORDERED: Sodium Bicarb 50 MEQ/50 ML VIAL ONE (15:00)
[2022-05-20] MEDS: Heparin 5,000 UNITS/ML VIAL SC SCH ×2 (15:36→21:58)
[2022-05-20 17:53] LABS: Potassium 6.2 mmol/L (3.5-5.1)
[2022-05-20 18:07] LABS: Troponin I 0.369 ng/mL (< 0.028)
[2022-05-20 18:26] LABS: Actual Bicarbonate (HCO3a) 20.8 mEq/L (22-28); Base Excess (BEa) -4.4 mEq/L (-2.0 to +3.0); CO2 Tension 38.7 mmHg (35.0-45.0); Calcium, Ionized (arterial) 1.19 mmol/L (1.12-1.30); Carboxyhemoglobin (COHb) 0.4 gm% (0.0-3.0); Hemoglobin (Hb) 10.5 g/dL (14.0-18.0); O2 Tension (PaO2), arterial 109.7 mmHg (80.0-100.0); Potassium - ABG Lab 5.87 mmol/L (3.70-5.30); pH, Arterial 7.35 (7.35-7.45)
[2022-05-20 18:27] LABS: ALV-art Gradient 41.565 mmHg (0-20); Puncture Site LRA
[2022-05-20] MEDS ORDERED: Furosemide 40 MG/4 ML VIAL SLOW IVP SCH (18:30)
[2022-05-21 00:15] LABS: Troponin I 0.447 ng/mL (< 0.028)
[2022-05-21] MEDS ORDERED: Nystatin Powder 15 GM BOT TOP SCH (01:00)
[2022-05-21 04:28] LABS: Anion Gap 17 mmol/L (10-20); BUN (Urea Nitrogen) 50 mg/dL (8.9-20.6); Calc. Creatinine Clearance 78 mL/min (70-130); Calcium 8.9 mg/dL (7.8-10.44); Carbon Dioxide 23 mmol/L (22-29); Chloride 104 mmol/L (98-107); Estimated GFR 28; Glucose 160 mg/dL (70-105); Potassium 5.7 mmol/L (3.5-5.1); Sodium 138 mmol/L (136-145)
[2022-05-21 04:43] LABS: #Lymphocytes 0.9 thou/uL (1.20-3.40); #Monocytes 0.6 thou/uL (0.11-0.59); #Neutrophils 7.9 thou/uL (1.40-6.50); %Basophils 0.1 % (0.0-1.0); %Eosinophils 0.1 % (0.0-10.0); %Monocytes 6.4 % (0.0-10.0); %Neutrophils 84.4 % (42.0-75.0); Hemoglobin 9.9 g/dL (14.0-18.0); Mean Corpuscular HGB CONC 31.6 g/dL (32.0-36.0); Mean Corpuscular Hemoglobin 26.3 pg (27.0-31.0); Mean Corpuscular Volume 83.3 fL (78.0-98.0); Mean Platelet Volume 8.8 fL (7.4-10.4); Platelet Count 113 thou/uL (130-400); Platelet Morphology Comment Appears Decreased; RBC Distribution Width 18.2 % (11.5-14.5); Red Blood Cell (RBC) Count 3.77 mill/uL (4.70-6.10); White Blood Cell (WBC) Count 9.4 thou/uL (4.8-10.8)
[2022-05-21] MEDS: Heparin 5,000 UNITS/ML VIAL SC SCH ×3 (08:59→21:14)
[2022-05-21] MEDS: Carvedilol 6.25 MG TAB PO SCH ×2 (09:02→16:17)
[2022-05-21] MEDS: hydrALAZINE 25 MG TAB PO SCH ×3 (09:02→21:13)
[2022-05-21] MEDS: Saccharomyces boulardii 250 MG CAP PO SCH ×2 (09:02→21:13)
[2022-05-21] MEDS: Aspirin 81 mg Enteric Coated Tablet PO SCH (09:03)
[2022-05-21] MEDS: Nystatin Powder 15 GM BOT TOP SCH ×2 (09:04→21:15)
[2022-05-21] MEDS: Pantoprazole 40 MG VIAL IVP SCH (09:04)
[2022-05-21] MEDS ORDERED: Albuterol Sulfate 2.5 mg/3 ml Neb NEB PRN (13:28)
[2022-05-21] MEDS ORDERED: Heparin 10,000 UNITS/ 10 ML VIAL ONE (13:40)
[2022-05-22 06:17] LABS: #Lymphocytes 0.5 thou/uL (1.20-3.40); #Monocytes 0.6 thou/uL (0.11-0.59); #Neutrophils 3.6 thou/uL (1.40-6.50); %Eosinophils 0.7 % (0.0-10.0); %Lymphocytes 9.8 % (21.0-51.0); %Monocytes 11.8 % (0.0-10.0); %Neutrophils 77.6 % (42.0-75.0); Hemoglobin 9.2 g/dL (14.0-18.0); Mean Corpuscular HGB CONC 31.8 g/dL (32.0-36.0); Mean Corpuscular Hemoglobin 26.6 pg (27.0-31.0); Mean Corpuscular Volume 83.5 fL (78.0-98.0); Mean Platelet Volume 8.3 fL (7.4-10.4); Platelet Count 104 thou/uL (130-400); RBC Distribution Width 18.2 % (11.5-14.5); Red Blood Cell (RBC) Count 3.48 mill/uL (4.70-6.10); White Blood Cell (WBC) Count 4.6 thou/uL (4.8-10.8)
[2022-05-22 06:36] LABS: Anion Gap 10 mmol/L (10-20); BUN (Urea Nitrogen) 36 mg/dL (8.9-20.6); Calc. Creatinine Clearance 100 mL/min (70-130); Calcium 8.6 mg/dL (7.8-10.44); Carbon Dioxide 30 mmol/L (22-29); Chloride 101 mmol/L (98-107); Estimated GFR 41; Glucose 143 mg/dL (70-105); Potassium 4.2 mmol/L (3.5-5.1); Sodium 137 mmol/L (136-145)
[2022-05-22] MEDS: Heparin 5,000 UNITS/ML VIAL SC SCH ×3 (08:43→20:58)
[2022-05-22] MEDS: hydrALAZINE 25 MG TAB PO SCH ×3 (08:44→20:59)
[2022-05-22] MEDS: Nystatin Powder 15 GM BOT TOP SCH ×2 (08:44→21:00)
[2022-05-22] MEDS: Aspirin 81 mg Enteric Coated Tablet PO SCH (08:44)
[2022-05-22] MEDS: Carvedilol 6.25 MG TAB PO SCH ×2 (08:44→16:12)
[2022-05-22] MEDS: Pantoprazole 40 MG VIAL IVP SCH (08:44)
[2022-05-22] MEDS: Saccharomyces boulardii 250 MG CAP PO SCH ×2 (08:44→20:59)
[2022-05-22] MEDS ORDERED: Heparin 10,000 UNITS/ 10 ML VIAL ONE (08:58)
[2022-05-22] MEDS: HumaLOG 300 UNITS/3 ML VIAL SC PRN (11:11)
[2022-05-23 05:35] LABS: Anion Gap 13 mmol/L (10-20); BUN (Urea Nitrogen) 27 mg/dL (8.9-20.6); Calc. Creatinine Clearance 122 mL/min (70-130); Calcium 8.4 mg/dL (7.8-10.44); Carbon Dioxide 29 mmol/L (22-29); Chloride 101 mmol/L (98-107); Estimated GFR 52; Glucose 136 mg/dL (70-105); Potassium 3.9 mmol/L (3.5-5.1); Sodium 139 mmol/L (136-145)
[2022-05-23 07:16] LABS: Band 5 % (5-11); Hemoglobin 8.5 g/dL (14.0-18.0); Lymphocytes 19 % (21-51); MDiff Complete? YES; Mean Corpuscular HGB CONC 31.5 g/dL (32.0-36.0); Mean Corpuscular Hemoglobin 26.2 pg (27.0-31.0); Mean Corpuscular Volume 83.2 fL (78.0-98.0); Monocytes 18 % (0-10); Neutrophil 58 % (42-75); Platelet Count 101 thou/uL (130-400); Platelet Morphology Comment Appears Decreased; RBC Distribution Width 18.3 % (11.5-14.5); Red Blood Cell (RBC) Count 3.25 mill/uL (4.70-6.10); White Blood Cell (WBC) Count 4.3 thou/uL (4.8-10.8)
[2022-05-23] MEDS: Heparin 5,000 UNITS/ML VIAL SC SCH ×3 (08:38→20:54)
[2022-05-23] MEDS: Aspirin 81 mg Enteric Coated Tablet PO SCH (08:39)
[2022-05-23] MEDS: Saccharomyces boulardii 250 MG CAP PO SCH ×2 (08:39→20:54)
[2022-05-23] MEDS: hydrALAZINE 25 MG TAB PO SCH ×3 (08:39→20:55)
[2022-05-23] MEDS: Carvedilol 6.25 MG TAB PO SCH ×2 (08:39→17:11)
[2022-05-23] MEDS: Nystatin Powder 15 GM BOT TOP SCH ×2 (08:40→21:08)
[2022-05-23] MEDS ORDERED: Epoetin (ESRD) 20,000 UNITS/ML SC SCH (08:45)
[2022-05-23] MEDS: Epoetin (ESRD) 10,000 UNITS/ML VIAL SC SCH (12:48)
[2022-05-23] MEDS: HumaLOG 300 UNITS/3 ML VIAL SC PRN (17:12)
[2022-05-23] MEDS: Ferrous Sulfate 325 MG TAB PO SCH (17:12)
[2022-05-24 04:51] LABS: Anion Gap 10 mmol/L (10-20); BUN (Urea Nitrogen) 25 mg/dL (8.9-20.6); Calc. Creatinine Clearance 100 mL/min (70-130); Calcium 8.3 mg/dL (7.8-10.44); Carbon Dioxide 31 mmol/L (22-29); Chloride 101 mmol/L (98-107); Estimated GFR 42; Glucose 112 mg/dL (70-105); Sodium 138 mmol/L (136-145)
[2022-05-24 05:59] LABS: Mean Corpuscular HGB CONC 30.9 g/dL (32.0-36.0); Mean Corpuscular Hemoglobin 25.6 pg (27.0-31.0); Mean Corpuscular Volume 82.9 fL (78.0-98.0); Mean Platelet Volume 8.4 fL (7.4-10.4); Platelet Count 95 thou/uL (130-400); RBC Distribution Width 17.9 % (11.5-14.5); Red Blood Cell (RBC) Count 3.13 mill/uL (4.70-6.10)
[2022-05-24 06:00] LABS: Band 9 % (5-11); Eosinophils 2 % (0-10); Lymphocytes 20 % (21-51); MDiff Complete? YES; Monocytes 11 % (0-10); Neutrophil 58 % (42-75); Platelet Morphology Comment Appears Decreased
[2022-05-24] MEDS: Ferrous Sulfate 325 MG TAB PO SCH ×2 (08:14→16:57)
[2022-05-24] MEDS: Saccharomyces boulardii 250 MG CAP PO SCH ×2 (08:14→20:38)
[2022-05-24] MEDS: Aspirin 81 mg Enteric Coated Tablet PO SCH (08:14)
[2022-05-24] MEDS: hydrALAZINE 25 MG TAB PO SCH ×3 (08:16→20:38)
[2022-05-24] MEDS: Heparin 5,000 UNITS/ML VIAL SC SCH ×3 (08:16→20:49)
[2022-05-24] MEDS: Carvedilol 6.25 MG TAB PO SCH ×2 (08:16→16:57)
[2022-05-24] MEDS ORDERED: Heparin 10,000 UNITS/ 10 ML VIAL ONE (09:21)
[2022-05-24] MEDS: Nystatin Powder 15 GM BOT TOP SCH ×2 (09:30→20:49)
[2022-05-25 07:12] LABS: Anion Gap 12 mmol/L (10-20); BUN (Urea Nitrogen) 17 mg/dL (8.9-20.6); Calc. Creatinine Clearance 117 mL/min (70-130); Calcium 8.2 mg/dL (7.8-10.44); Carbon Dioxide 29 mmol/L (22-29); Chloride 100 mmol/L (98-107); Estimated GFR 50; Glucose 102 mg/dL (70-105); Potassium 3.8 mmol/L (3.5-5.1); Sodium 137 mmol/L (136-145)
[2022-05-25 07:19] LABS: Band 2 % (5-11); Eosinophils 5 % (0-10); Hemoglobin 8.4 g/dL (14.0-18.0); Hypochromia SLIGHT = 6-15 cells (100X) (0-5/hpf); Lymphocytes 12 % (21-51); MDiff Complete? YES; Mean Corpuscular HGB CONC 31.1 g/dL (32.0-36.0); Mean Corpuscular Hemoglobin 25.8 pg (27.0-31.0); Mean Corpuscular Volume 82.9 fL (78.0-98.0); Mean Platelet Volume 9.5 fL (7.4-10.4); Monocytes 18 % (0-10); Neutrophil 51 % (42-75); Platelet Count 102 thou/uL (130-400); Platelet Morphology Comment Appears Decreased; Polychromasia SLIGHT = 2-3 cells (100X) (0-2/hpf); RBC Distribution Width 18.1 % (11.5-14.5); Reactive Lymphocytes 10 % (0-10); Red Blood Cell (RBC) Count 3.27 mill/uL (4.70-6.10); White Blood Cell (WBC) Count 4.7 thou/uL (4.8-10.8)
[2022-05-25] MEDS: Carvedilol 6.25 MG TAB PO SCH ×2 (09:18→17:57)
[2022-05-25] MEDS: Aspirin 81 mg Enteric Coated Tablet PO SCH (09:18)
[2022-05-25] MEDS: Heparin 5,000 UNITS/ML VIAL SC SCH ×3 (09:18→21:09)
[2022-05-25] MEDS: Saccharomyces boulardii 250 MG CAP PO SCH ×2 (09:18→21:10)
[2022-05-25] MEDS: hydrALAZINE 25 MG TAB PO SCH ×3 (09:18→21:09)
[2022-05-25] MEDS: Ferrous Sulfate 325 MG TAB PO SCH ×2 (09:18→17:57)
[2022-05-25] MEDS: Nystatin Powder 15 GM BOT TOP SCH ×2 (10:31→21:10)
[2022-05-26 06:52] LABS: BUN (Urea Nitrogen) 15 mg/dL (8.9-20.6); Calc. Creatinine Clearance 133 mL/min (70-130); Calcium 6.3 mg/dL (7.8-10.44); Carbon Dioxide 25 mmol/L (22-29); Estimated GFR 65; Glucose 128 mg/dL (70-105)
[2022-05-26 07:01] LABS: Anion Gap 9 mmol/L (10-20); Chloride 111 mmol/L (98-107); Sodium 140 mmol/L (136-145)
[2022-05-26 07:02] LABS: Potassium 2.8 mmol/L (3.5-5.1)
[2022-05-26 08:02] LABS: Band 1 % (5-11); Eosinophils 6 % (0-10); Lymphocytes 18 % (21-51); Monocytes 16 % (0-10); Myelocyte 2 % (0-0); Neutrophil 56 % (42-75); Platelet Morphology Comment Appears Decreased; RBC Morphology Normal; Reactive Lymphocytes 1 % (0-10)
[2022-05-26 08:03] LABS: MDiff Complete? YES; Mean Corpuscular HGB CONC 31.2 g/dL (32.0-36.0); Mean Corpuscular Hemoglobin 25.8 pg (27.0-31.0); Mean Corpuscular Volume 82.7 fL (78.0-98.0); Platelet Count 82 thou/uL (130-400); RBC Distribution Width 17.7 % (11.5-14.5); Red Blood Cell (RBC) Count 2.72 mill/uL (4.70-6.10)
[2022-05-26] MEDS ORDERED: Potassium Chloride 20 MEQ TAB PO SCH (08:30)
[2022-05-26] MEDS: Heparin 5,000 UNITS/ML VIAL SC SCH ×3 (08:40→19:59)
[2022-05-26] MEDS: hydrALAZINE 25 MG TAB PO SCH ×3 (08:41→19:58)
[2022-05-26] MEDS: Nystatin Powder 15 GM BOT TOP SCH ×3 (08:42→23:30)
[2022-05-26] MEDS: Carvedilol 6.25 MG TAB PO SCH ×2 (08:42→17:56)
[2022-05-26] MEDS: Ferrous Sulfate 325 MG TAB PO SCH ×2 (08:42→17:56)
[2022-05-26] MEDS: Saccharomyces boulardii 250 MG CAP PO SCH ×2 (08:42→19:58)
[2022-05-26] MEDS: Aspirin 81 mg Enteric Coated Tablet PO SCH (08:42)
[2022-05-26] MEDS ORDERED: Heparin 10,000 UNITS/ 10 ML VIAL ONE (09:37)
[2022-05-26 12:13] LABS: Potassium 4.1 mmol/L (3.5-5.1)
[2022-05-26] MEDS: Calcium Carbonate 500 MG ChewTAB PO SCH (19:57)
[2022-05-27] MEDS ORDERED: CEFAZOLIN 2 GM in Sodium Chloride 0.9% 100 ML IVPB SCH (08:45)
[2022-05-27 09:06] LABS: Anion Gap 12 mmol/L (10-20); BUN (Urea Nitrogen) 17 mg/dL (8.9-20.6); Calc. Creatinine Clearance 96 mL/min (70-130); Calcium 8.2 mg/dL (7.8-10.44); Carbon Dioxide 28 mmol/L (22-29); Chloride 103 mmol/L (98-107); Estimated GFR 45; Glucose 126 mg/dL (70-105); Potassium 3.9 mmol/L (3.5-5.1); Sodium 139 mmol/L (136-145)
[2022-05-27] MEDS: Heparin 5,000 UNITS/ML VIAL SC SCH ×3 (09:18→20:35)
[2022-05-27] MEDS: Saccharomyces boulardii 250 MG CAP PO SCH ×2 (09:18→20:37)
[2022-05-27] MEDS: Calcium Carbonate 500 MG ChewTAB PO SCH ×2 (09:18→20:35)
[2022-05-27] MEDS: Ferrous Sulfate 325 MG TAB PO SCH ×2 (09:19→16:17)
[2022-05-27] MEDS: Aspirin 81 mg Enteric Coated Tablet PO SCH (09:19)
[2022-05-27] MEDS: hydrALAZINE 25 MG TAB PO SCH ×3 (09:19→20:36)
[2022-05-27] MEDS: Carvedilol 6.25 MG TAB PO SCH ×2 (09:19→16:17)
[2022-05-27] MEDS: Nystatin Powder 15 GM BOT TOP SCH ×2 (09:20→20:36)
[2022-05-27 09:33] LABS: Band 4 % (5-11); Eosinophils 3 % (0-10); Hemoglobin 9.2 g/dL (14.0-18.0); Large Platelets SLIGHT; Lymphocytes 20 % (21-51); MDiff Complete? YES; Mean Corpuscular HGB CONC 31.1 g/dL (32.0-36.0); Mean Corpuscular Hemoglobin 25.4 pg (27.0-31.0); Mean Corpuscular Volume 81.5 fL (78.0-98.0); Mean Platelet Volume 8.3 fL (7.4-10.4); Metamyelocyte 1 % (0-0); Monocytes 9 % (0-10); Neutrophil 61 % (42-75); Platelet Count 130 thou/uL (130-400); Platelet Morphology Comment Appears Adequate; RBC Distribution Width 17.8 % (11.5-14.5); RBC Morphology Normal; Reactive Lymphocytes 2 % (0-10); Red Blood Cell (RBC) Count 3.62 mill/uL (4.70-6.10); White Blood Cell (WBC) Count 6.1 thou/uL (4.8-10.8)
[2022-05-28 03:37] LABS: SARS-CoV-2 NAA Rapid Test Not Detected (NotDetected)
[2022-05-28] MEDS ORDERED: Midazolam HCl 5 mg/5 ml Vial ONE (06:44)
[2022-05-28] MEDS ORDERED: fentaNYL Citrate/PF 100 MCG/2 ML SYRINGE ONE (06:44)
[2022-05-28] MEDS ORDERED: Propofol 1,000 MG/100 ML VIAL IV ONE (06:44)
[2022-05-28] MEDS ORDERED: EPINEPHrine 1 MG/ML AMP ONE (06:58)
[2022-05-28] MEDS ORDERED: Heparin 10,000 UNITS/ 10 ML VIAL ONE (06:58)
[2022-05-28] MEDS ORDERED: Bupivacaine PF 0.5% 30 ML VIAL ONE (06:58)
[2022-05-28] MEDS ORDERED: Heparin 5,000 UNITS/ML VIAL ONE (06:58)
[2022-05-28] MEDS ORDERED: Protamine Sulfate 50 MG/5 ML VIAL ONE (06:58)
[2022-05-28] MEDS ORDERED: CEFAZOLIN 2 GM VIAL ONE (07:23)
[2022-05-28] MEDS ORDERED: Sodium Chloride 0.9% 100 ML ONE (07:23)
[2022-05-28] MEDS ORDERED: Neostigmine Methylsulfate 3 MG/3 ML SYRINGE ONE (07:41)
[2022-05-28] MEDS ORDERED: Glycopyrrolate 0.2 MG/ML 5 ML SYRINGE ONE (07:41)
[2022-05-28] MEDS ORDERED: PROPOFOL 200 MG/20 ML VIAL ONE (07:41)
[2022-05-28] MEDS ORDERED: Lidocaine 1% PF 5 ML VIAL ONE (07:41)
[2022-05-28] MEDS ORDERED: Ondansetron PF 4 MG/2 ML Vial ONE (07:41)
[2022-05-28] MEDS ORDERED: Rocuronium Bromide 10 MG/ML (10ML VIAL) ONE (07:41)
[2022-05-28] MEDS: hydrALAZINE 25 MG TAB PO SCH ×3 (08:17→21:13)
[2022-05-28] MEDS: Ferrous Sulfate 325 MG TAB PO SCH ×2 (08:17→16:27)
[2022-05-28] MEDS: Heparin 5,000 UNITS/ML VIAL SC SCH ×3 (08:17→21:14)
[2022-05-28] MEDS: Aspirin 81 mg Enteric Coated Tablet PO SCH (08:17)
[2022-05-28] MEDS: Calcium Carbonate 500 MG ChewTAB PO SCH ×2 (08:17→21:14)
[2022-05-28] MEDS: Carvedilol 6.25 MG TAB PO SCH ×2 (08:17→16:29)
[2022-05-28] MEDS: Saccharomyces boulardii 250 MG CAP PO SCH ×2 (08:18→21:13)
[2022-05-28] MEDS: Nystatin Powder 15 GM BOT TOP SCH ×2 (08:18→21:14)
[2022-05-28] MEDS ORDERED: Promethazine HCl 25 MG/ML VIAL IVPB PRN (09:40)
[2022-05-28] MEDS ORDERED: Ondansetron HCl/PF 4 MG/2 ML Vial IVP PRN (09:40)
[2022-05-28] MEDS ORDERED: Promethazine HCl 25 MG/ML VIAL IM PRN (09:40)
[2022-05-28 13:13] LABS: #Eosinphils 0.2 thou/uL (0.0-0.7); #Lymphocytes 2.1 thou/uL (1.20-3.40); #Monocytes 1.2 thou/uL (0.11-0.59); #Neutrophils 7.6 thou/uL (1.40-6.50); %Basophils 0.4 % (0.0-1.0); %Eosinophils 1.9 % (0.0-10.0); %Lymphocytes 18.5 % (21.0-51.0); %Monocytes 10.5 % (0.0-10.0); %Neutrophils 68.7 % (42.0-75.0); Hemoglobin 9.8 g/dL (14.0-18.0); Mean Corpuscular HGB CONC 31.4 g/dL (32.0-36.0); Mean Corpuscular Hemoglobin 25.4 pg (27.0-31.0); Mean Corpuscular Volume 81.1 fL (78.0-98.0); Mean Platelet Volume 8.4 fL (7.4-10.4); Platelet Count 218 thou/uL (130-400); RBC Distribution Width 18.2 % (11.5-14.5); Red Blood Cell (RBC) Count 3.84 mill/uL (4.70-6.10); White Blood Cell (WBC) Count 11.1 thou/uL (4.8-10.8)
[2022-05-28] MEDS ORDERED: ceFAZolin 2 GM/Dextrose 50 ML 2 GM in Premix Bag 1 BAG IVPB SCH (13:30)
[2022-05-28 13:46] LABS: Anion Gap 13 mmol/L (10-20); BUN (Urea Nitrogen) 20 mg/dL (8.9-20.6); Calc. Creatinine Clearance 83 mL/min (70-130); Calcium 8.3 mg/dL (7.8-10.44); Carbon Dioxide 25 mmol/L (22-29); Chloride 103 mmol/L (98-107); Estimated GFR 37; Glucose 174 mg/dL (70-105); Potassium 4.3 mmol/L (3.5-5.1); Sodium 137 mmol/L (136-145)
[2022-05-28] MEDS ORDERED: Polyethylene Glycol 3350 17 GM Packet PO PRN (17:21)
[2022-05-28] MEDS ORDERED: Non-Formulary Item 1 EACH (Acetaminophen [Tylenol] 325 MG Capsule) PO PRN (17:21)
[2022-05-28] MEDS ORDERED: Cyclobenzaprine 10 MG TAB PO PRN (17:21)
[2022-05-28] MEDS ORDERED: Senokot S 8.6-50 MG TAB PO PRN (17:21)
[2022-05-28] MEDS: Nicotine 14 MG PATCH TD SCH (18:24)
[2022-05-28] MEDS ORDERED: Nystatin Powder 15 GM BOT TOP SCH (21:00)
[2022-05-28] MEDS: Rosuvastatin 20 MG TAB PO SCH (21:13)
[2022-05-28] MEDS: Acetaminophen/Codeine 30-300mg Tablet PO SCH (21:15)
[2022-05-29 06:42] LABS: #Eosinphils 0.2 thou/uL (0.0-0.7); #Lymphocytes 1.5 thou/uL (1.20-3.40); #Monocytes 1.2 thou/uL (0.11-0.59); #Neutrophils 7.4 thou/uL (1.40-6.50); %Basophils 0.3 % (0.0-1.0); %Lymphocytes 14.7 % (21.0-51.0); %Monocytes 11.6 % (0.0-10.0); %Neutrophils 71.4 % (42.0-75.0); Hemoglobin 8.8 g/dL (14.0-18.0); Mean Corpuscular HGB CONC 31.5 g/dL (32.0-36.0); Mean Corpuscular Hemoglobin 25.4 pg (27.0-31.0); Mean Corpuscular Volume 80.6 fL (78.0-98.0); Mean Platelet Volume 8.2 fL (7.4-10.4); Platelet Count 237 thou/uL (130-400); RBC Distribution Width 17.8 % (11.5-14.5); Red Blood Cell (RBC) Count 3.45 mill/uL (4.70-6.10); White Blood Cell (WBC) Count 10.4 thou/uL (4.8-10.8)
[2022-05-29 07:04] LABS: Anion Gap 15 mmol/L (10-20); BUN (Urea Nitrogen) 22 mg/dL (8.9-20.6); Calc. Creatinine Clearance 82 mL/min (70-130); Calcium 8.1 mg/dL (7.8-10.44); Carbon Dioxide 22 mmol/L (22-29); Chloride 102 mmol/L (98-107); Estimated GFR 36; Glucose 157 mg/dL (70-105); Potassium 4.2 mmol/L (3.5-5.1); Sodium 135 mmol/L (136-145)
[2022-05-29] MEDS: Carvedilol 6.25 MG TAB PO SCH ×2 (08:26→17:49)
[2022-05-29] MEDS: Furosemide 40 MG TAB PO SCH (08:26)
[2022-05-29] MEDS: Gabapentin 400 MG CAP PO SCH (08:27)
[2022-05-29] MEDS: Aspirin 81 mg Enteric Coated Tablet PO SCH (08:27)
[2022-05-29] MEDS: Ferrous Sulfate 325 MG TAB PO SCH ×2 (08:27→17:49)
[2022-05-29] MEDS: Calcium Carbonate 500 MG ChewTAB PO SCH ×2 (08:27→19:46)
[2022-05-29] MEDS: Empagliflozin 10 MG TAB PO SCH (08:27)
[2022-05-29] MEDS: Acetaminophen/Codeine 30-300mg Tablet PO SCH ×2 (08:27→19:46)
[2022-05-29] MEDS: Ascorbic Acid 500 mg Chewable Tablet PO SCH (08:27)
[2022-05-29] MEDS: Heparin 5,000 UNITS/ML VIAL SC SCH ×3 (08:27→19:46)
[2022-05-29] MEDS: Multivitamin W/ Minerals 1 TAB PO SCH (08:28)
[2022-05-29] MEDS: Lisinopril 20 MG TAB PO SCH (08:28)
[2022-05-29] MEDS: hydrALAZINE 25 MG TAB PO SCH ×3 (08:28→19:45)
[2022-05-29] MEDS: Saccharomyces boulardii 250 MG CAP PO SCH ×2 (08:29→19:45)
[2022-05-29] MEDS: Nystatin Powder 15 GM BOT TOP SCH ×2 (08:29→19:58)
[2022-05-29] MEDS: Potassium Chloride 10 MEQ TAB PO SCH (08:29)
[2022-05-29] MEDS: NIFEdipine XL 60 MG TAB PO SCH (08:29)
[2022-05-29] MEDS: Zinc Sulfate 220 MG CAP PO SCH (08:29)
[2022-05-29] MEDS ORDERED: Heparin 10,000 UNITS/ 10 ML VIAL ONE (09:29)
[2022-05-29] MEDS ORDERED: Tuberculin PPD 0.1 ML VIAL I-DERMAL SCH (10:00)
[2022-05-29 14:23] VITALS: BMI 44.0
[2022-05-29] MEDS: Nicotine 14 MG PATCH TD SCH (17:56)
[2022-05-29] MEDS: Rosuvastatin 20 MG TAB PO SCH (19:45)
[2022-05-29] MEDS ORDERED: Acetaminophen 325 MG TAB PO SCH (20:15)
[2022-05-30 06:27] LABS: #Eosinphils 0.1 thou/uL (0.0-0.7); #Lymphocytes 1.9 thou/uL (1.20-3.40); #Monocytes 1.4 thou/uL (0.11-0.59); #Neutrophils 6.8 thou/uL (1.40-6.50); %Basophils 0.3 % (0.0-1.0); %Eosinophils 1.2 % (0.0-10.0); %Lymphocytes 18.6 % (21.0-51.0); %Monocytes 13.6 % (0.0-10.0); %Neutrophils 66.3 % (42.0-75.0); Hemoglobin 8.8 g/dL (14.0-18.0); Mean Corpuscular HGB CONC 30.3 g/dL (32.0-36.0); Mean Corpuscular Hemoglobin 24.9 pg (27.0-31.0); Mean Corpuscular Volume 82.1 fL (78.0-98.0); Mean Platelet Volume 8.3 fL (7.4-10.4); Platelet Count 252 thou/uL (130-400); RBC Distribution Width 18.1 % (11.5-14.5); Red Blood Cell (RBC) Count 3.53 mill/uL (4.70-6.10); White Blood Cell (WBC) Count 10.2 thou/uL (4.8-10.8)
[2022-05-30 06:59] LABS: Anion Gap 14 mmol/L (10-20); BUN (Urea Nitrogen) 16 mg/dL (8.9-20.6); Calc. Creatinine Clearance 78 mL/min (70-130); Calcium 8.3 mg/dL (7.8-10.44); Carbon Dioxide 26 mmol/L (22-29); Chloride 100 mmol/L (98-107); Estimated GFR 34; Glucose 141 mg/dL (70-105); Potassium 4.2 mmol/L (3.5-5.1); Sodium 136 mmol/L (136-145)
[2022-05-30] MEDS: Calcium Carbonate 500 MG ChewTAB PO SCH ×2 (08:28→20:45)
[2022-05-30] MEDS: Aspirin 81 mg Enteric Coated Tablet PO SCH (08:28)
[2022-05-30] MEDS: Carvedilol 6.25 MG TAB PO SCH ×2 (08:28→17:19)
[2022-05-30] MEDS: NIFEdipine XL 60 MG TAB PO SCH (08:28)
[2022-05-30] MEDS: Saccharomyces boulardii 250 MG CAP PO SCH ×2 (08:28→20:48)
[2022-05-30] MEDS: Gabapentin 400 MG CAP PO SCH (08:29)
[2022-05-30] MEDS: Zinc Sulfate 220 MG CAP PO SCH (08:29)
[2022-05-30] MEDS: Heparin 5,000 UNITS/ML VIAL SC SCH ×3 (08:29→20:48)
[2022-05-30] MEDS: Ferrous Sulfate 325 MG TAB PO SCH ×2 (08:29→17:20)
[2022-05-30] MEDS: Furosemide 40 MG TAB PO SCH (08:29)
[2022-05-30] MEDS: Multivitamin W/ Minerals 1 TAB PO SCH (08:29)
[2022-05-30] MEDS: Ascorbic Acid 500 mg Chewable Tablet PO SCH (08:30)
[2022-05-30] MEDS: Acetaminophen/Codeine 30-300mg Tablet PO SCH ×2 (08:30→20:47)
[2022-05-30] MEDS: Empagliflozin 10 MG TAB PO SCH (08:30)
[2022-05-30] MEDS: Potassium Chloride 10 MEQ TAB PO SCH (08:30)
[2022-05-30] MEDS: Lisinopril 20 MG TAB PO SCH (08:30)
[2022-05-30] MEDS: hydrALAZINE 25 MG TAB PO SCH ×3 (08:30→20:49)
[2022-05-30] MEDS: Nystatin Powder 15 GM BOT TOP SCH ×2 (08:31→20:48)
[2022-05-30] MEDS: Epoetin (ESRD) 10,000 UNITS/ML VIAL SC SCH (13:22)
[2022-05-30] MEDS: Nicotine 14 MG PATCH TD SCH (17:20)
[2022-05-30] MEDS: Rosuvastatin 20 MG TAB PO SCH (20:48)
[2022-05-31] MEDS: Acetaminophen/Codeine 30-300mg Tablet PO SCH ×2 (10:53→20:00)
[2022-05-31] MEDS: Ferrous Sulfate 325 MG TAB PO SCH ×2 (10:53→17:31)
[2022-05-31] MEDS: Furosemide 40 MG TAB PO SCH (10:53)
[2022-05-31] MEDS: Carvedilol 6.25 MG TAB PO SCH ×2 (10:53→17:31)
[2022-05-31] MEDS: Calcium Carbonate 500 MG ChewTAB PO SCH ×2 (10:54→20:01)
[2022-05-31] MEDS: Ascorbic Acid 500 mg Chewable Tablet PO SCH (10:54)
[2022-05-31] MEDS: Empagliflozin 10 MG TAB PO SCH (10:54)
[2022-05-31] MEDS: Lisinopril 20 MG TAB PO SCH (10:54)
[2022-05-31] MEDS: Aspirin 81 mg Enteric Coated Tablet PO SCH (10:54)
[2022-05-31] MEDS: Heparin 5,000 UNITS/ML VIAL SC SCH ×3 (10:54→20:00)
[2022-05-31] MEDS: hydrALAZINE 25 MG TAB PO SCH ×3 (10:54→20:00)
[2022-05-31] MEDS: Gabapentin 400 MG CAP PO SCH (10:54)
[2022-05-31] MEDS: Potassium Chloride 10 MEQ TAB PO SCH (10:55)
[2022-05-31] MEDS: Nystatin Powder 15 GM BOT TOP SCH ×2 (10:55→20:01)
[2022-05-31] MEDS: Zinc Sulfate 220 MG CAP PO SCH (10:55)
[2022-05-31] MEDS: Multivitamin W/ Minerals 1 TAB PO SCH (10:55)
[2022-05-31] MEDS: NIFEdipine XL 60 MG TAB PO SCH (10:55)
[2022-05-31] MEDS: Saccharomyces boulardii 250 MG CAP PO SCH ×2 (10:55→20:00)
[2022-05-31 12:39] LABS: #Eosinphils 0.2 thou/uL (0.0-0.7); #Lymphocytes 1.5 thou/uL (1.20-3.40); #Monocytes 1.2 thou/uL (0.11-0.59); #Neutrophils 7.5 thou/uL (1.40-6.50); %Basophils 0.2 % (0.0-1.0); %Eosinophils 1.7 % (0.0-10.0); %Monocytes 11.5 % (0.0-10.0); %Neutrophils 72.6 % (42.0-75.0); Hemoglobin 8.5 g/dL (14.0-18.0); Mean Corpuscular HGB CONC 30.5 g/dL (32.0-36.0); Mean Corpuscular Hemoglobin 24.9 pg (27.0-31.0); Mean Corpuscular Volume 81.7 fL (78.0-98.0); Mean Platelet Volume 8.6 fL (7.4-10.4); Platelet Count 396 thou/uL (130-400); RBC Distribution Width 18.1 % (11.5-14.5); White Blood Cell (WBC) Count 10.4 thou/uL (4.8-10.8)
[2022-05-31 12:57] LABS: Anion Gap 14 mmol/L (10-20); BUN (Urea Nitrogen) 22 mg/dL (8.9-20.6); Calc. Creatinine Clearance 71 mL/min (70-130); Calcium 8.5 mg/dL (7.8-10.44); Carbon Dioxide 28 mmol/L (22-29); Chloride 98 mmol/L (98-107); Estimated GFR 30; Glucose 128 mg/dL (70-105); Potassium 3.8 mmol/L (3.5-5.1); Sodium 136 mmol/L (136-145)
[2022-05-31] MEDS: Nicotine 14 MG PATCH TD SCH (17:46)
[2022-05-31] MEDS: Rosuvastatin 20 MG TAB PO SCH (20:01)
[2022-06-01 06:53] LABS: #Eosinphils 0.2 thou/uL (0.0-0.7); #Monocytes 1.3 thou/uL (0.11-0.59); #Neutrophils 5.5 thou/uL (1.40-6.50); %Basophils 0.5 % (0.0-1.0); %Lymphocytes 22.6 % (21.0-51.0); %Monocytes 14.3 % (0.0-10.0); %Neutrophils 60.6 % (42.0-75.0); Hemoglobin 9.3 g/dL (14.0-18.0); Mean Corpuscular HGB CONC 30.9 g/dL (32.0-36.0); Mean Corpuscular Volume 80.9 fL (78.0-98.0); Platelet Count 389 thou/uL (130-400)
[2022-06-01 07:22] LABS: Anion Gap 15 mmol/L (10-20); BUN (Urea Nitrogen) 20 mg/dL (8.9-20.6); Calc. Creatinine Clearance 85 mL/min (70-130); Calcium 8.3 mg/dL (7.8-10.44); Carbon Dioxide 27 mmol/L (22-29); Chloride 99 mmol/L (98-107); Estimated GFR 38; Glucose 187 mg/dL (70-105); Magnesium 1.8 mg/dL (1.6-2.6); Potassium 3.5 mmol/L (3.5-5.1); Sodium 137 mmol/L (136-145)
[2022-06-01] MEDS: Aspirin 81 mg Enteric Coated Tablet PO SCH (08:21)
[2022-06-01] MEDS: Multivitamin W/ Minerals 1 TAB PO SCH (08:21)
[2022-06-01] MEDS: Saccharomyces boulardii 250 MG CAP PO SCH ×2 (08:21→21:31)
[2022-06-01] MEDS: Zinc Sulfate 220 MG CAP PO SCH (08:21)
[2022-06-01] MEDS: Gabapentin 400 MG CAP PO SCH (08:21)
[2022-06-01] MEDS: NIFEdipine XL 60 MG TAB PO SCH (08:22)
[2022-06-01] MEDS: Empagliflozin 10 MG TAB PO SCH (08:22)
[2022-06-01] MEDS: Acetaminophen/Codeine 30-300mg Tablet PO SCH ×2 (08:22→21:31)
[2022-06-01] MEDS: Furosemide 40 MG TAB PO SCH (08:23)
[2022-06-01] MEDS: Potassium Chloride 10 MEQ TAB PO SCH (08:23)
[2022-06-01] MEDS: Ferrous Sulfate 325 MG TAB PO SCH ×2 (08:23→16:59)
[2022-06-01] MEDS: Heparin 5,000 UNITS/ML VIAL SC SCH ×3 (08:24→21:31)
[2022-06-01] MEDS: Carvedilol 6.25 MG TAB PO SCH ×2 (08:24→16:21)
[2022-06-01] MEDS: Lisinopril 20 MG TAB PO SCH (08:24)
[2022-06-01] MEDS: hydrALAZINE 25 MG TAB PO SCH ×3 (08:24→21:32)
[2022-06-01] MEDS: Ascorbic Acid 500 mg Chewable Tablet PO SCH (08:25)
[2022-06-01] MEDS: Nystatin Powder 15 GM BOT TOP SCH ×2 (08:56→21:32)
[2022-06-01] MEDS: Calcium Carbonate 500 MG ChewTAB PO SCH ×2 (08:56→21:31)
[2022-06-01] MEDS: HumaLOG 300 UNITS/3 ML VIAL SC PRN ×2 (12:16→17:00)
[2022-06-01] MEDS: Nicotine 14 MG PATCH TD SCH (16:59)
[2022-06-01] MEDS: Rosuvastatin 20 MG TAB PO SCH (21:30)
[2022-06-02 04:11] LABS: #Eosinphils 0.2 thou/uL (0.0-0.7); #Lymphocytes 2.5 thou/uL (1.20-3.40); #Monocytes 1.1 thou/uL (0.11-0.59); #Neutrophils 6.4 thou/uL (1.40-6.50); %Basophils 0.3 % (0.0-1.0); %Eosinophils 2.1 % (0.0-10.0); %Lymphocytes 24.1 % (21.0-51.0); %Monocytes 10.7 % (0.0-10.0); %Neutrophils 62.8 % (42.0-75.0); Hemoglobin 8.9 g/dL (14.0-18.0); Mean Corpuscular HGB CONC 31.3 g/dL (32.0-36.0); Mean Corpuscular Volume 79.8 fL (78.0-98.0); Mean Platelet Volume 7.3 fL (7.4-10.4); Platelet Count 506 thou/uL (130-400); RBC Distribution Width 18.1 % (11.5-14.5); Red Blood Cell (RBC) Count 3.56 mill/uL (4.70-6.10); White Blood Cell (WBC) Count 10.2 thou/uL (4.8-10.8)
[2022-06-02 04:16] LABS: Anion Gap 15 mmol/L (10-20); BUN (Urea Nitrogen) 23 mg/dL (8.9-20.6); Calc. Creatinine Clearance 69 mL/min (70-130); Calcium 8.7 mg/dL (7.8-10.44); Carbon Dioxide 28 mmol/L (22-29); Chloride 100 mmol/L (98-107); Estimated GFR 29; Glucose 144 mg/dL (70-105); Potassium 3.6 mmol/L (3.5-5.1); Sodium 139 mmol/L (136-145)
[2022-06-02] MEDS: Empagliflozin 10 MG TAB PO SCH (09:57)
[2022-06-02] MEDS: Calcium Carbonate 500 MG ChewTAB PO SCH ×2 (09:57→20:57)
[2022-06-02] MEDS: Acetaminophen/Codeine 30-300mg Tablet PO SCH ×2 (09:58→21:15)
[2022-06-02] MEDS: Ferrous Sulfate 325 MG TAB PO SCH ×2 (09:58→16:36)
[2022-06-02] MEDS: Aspirin 81 mg Enteric Coated Tablet PO SCH (09:59)
[2022-06-02] MEDS: Saccharomyces boulardii 250 MG CAP PO SCH ×2 (09:59→21:15)
[2022-06-02] MEDS: Gabapentin 400 MG CAP PO SCH (09:59)
[2022-06-02] MEDS: Potassium Chloride 10 MEQ TAB PO SCH (09:59)
[2022-06-02] MEDS: Multivitamin W/ Minerals 1 TAB PO SCH (10:00)
[2022-06-02] MEDS: Zinc Sulfate 220 MG CAP PO SCH (10:00)
[2022-06-02] MEDS: Ascorbic Acid 500 mg Chewable Tablet PO SCH (10:03)
[2022-06-02] MEDS: Lisinopril 20 MG TAB PO SCH (10:03)
[2022-06-02] MEDS: Carvedilol 6.25 MG TAB PO SCH ×2 (10:03→16:36)
[2022-06-02] MEDS: hydrALAZINE 25 MG TAB PO SCH ×3 (10:03→19:37)
[2022-06-02] MEDS: NIFEdipine XL 60 MG TAB PO SCH (10:03)
[2022-06-02] MEDS: Heparin 5,000 UNITS/ML VIAL SC SCH ×3 (10:03→21:15)
[2022-06-02] MEDS: Furosemide 40 MG TAB PO SCH (10:03)
[2022-06-02] MEDS: Nystatin Powder 15 GM BOT TOP SCH ×2 (10:04→19:38)
[2022-06-02] MEDS: Nicotine 14 MG PATCH TD SCH (16:36)
[2022-06-02] MEDS: Amoxicillin/Potassium Clav 875 MG TAB PO SCH (21:15)
[2022-06-02] MEDS: Doxycycline 100 MG CAP PO SCH (21:15)
[2022-06-02] MEDS: Rosuvastatin 20 MG TAB PO SCH (21:15)
[2022-06-03 06:37] LABS: #Basophils 0.1 thou/uL (0.0-0.2); #Eosinphils 0.2 thou/uL (0.0-0.7); #Lymphocytes 1.9 thou/uL (1.20-3.40); #Monocytes 1.2 thou/uL (0.11-0.59); #Neutrophils 6.6 thou/uL (1.40-6.50); %Basophils 0.6 % (0.0-1.0); %Eosinophils 1.8 % (0.0-10.0); %Lymphocytes 19.3 % (21.0-51.0); %Monocytes 11.7 % (0.0-10.0); %Neutrophils 66.6 % (42.0-75.0); Hemoglobin 9.8 g/dL (14.0-18.0); Mean Corpuscular HGB CONC 31.1 g/dL (32.0-36.0); Mean Corpuscular Volume 80.3 fL (78.0-98.0); Mean Platelet Volume 7.2 fL (7.4-10.4); Platelet Count 462 thou/uL (130-400); RBC Distribution Width 18.2 % (11.5-14.5); White Blood Cell (WBC) Count 9.9 thou/uL (4.8-10.8)
[2022-06-03 07:06] LABS: ALT (SGPT) Less than 7 U/L (8-55); AST (SGOT) 9 U/L (5-34); Alkaline Phosphatase 74 U/L (40-110); Anion Gap 15 mmol/L (10-20); BUN (Urea Nitrogen) 18 mg/dL (8.9-20.6); Bilirubin, Direct 0.2 mg/dL (0.1-0.3); Bilirubin, Total 0.4 mg/dL (0.2-1.2); Calc. Creatinine Clearance 79 mL/min (70-130); Calcium 8.8 mg/dL (7.8-10.44); Carbon Dioxide 28 mmol/L (22-29); Chloride 98 mmol/L (98-107); Estimated GFR 35; Glucose 179 mg/dL (70-105); Magnesium 1.8 mg/dL (1.6-2.6); Potassium 3.6 mmol/L (3.5-5.1); Protein, Total 6.5 g/dL (6.0-8.3); Sodium 137 mmol/L (136-145)
[2022-06-03] MEDS: Empagliflozin 10 MG TAB PO SCH (09:02)
[2022-06-03] MEDS: Doxycycline 100 MG CAP PO SCH (09:03)
[2022-06-03] MEDS: Amoxicillin/Potassium Clav 875 MG TAB PO SCH (09:03)
[2022-06-03] MEDS: Calcium Carbonate 500 MG ChewTAB PO SCH (09:03)
[2022-06-03] MEDS: hydrALAZINE 25 MG TAB PO SCH (09:03)
[2022-06-03] MEDS: NIFEdipine XL 60 MG TAB PO SCH (09:03)
[2022-06-03] MEDS: Carvedilol 6.25 MG TAB PO SCH (09:04)
[2022-06-03] MEDS: Saccharomyces boulardii 250 MG CAP PO SCH (09:04)
[2022-06-03] MEDS: Multivitamin W/ Minerals 1 TAB PO SCH (09:04)
[2022-06-03] MEDS: Aspirin 81 mg Enteric Coated Tablet PO SCH (09:04)
[2022-06-03] MEDS: Lisinopril 20 MG TAB PO SCH (09:04)
[2022-06-03] MEDS: Ferrous Sulfate 325 MG TAB PO SCH (09:05)
[2022-06-03] MEDS: Heparin 5,000 UNITS/ML VIAL SC SCH (09:05)
[2022-06-03] MEDS: Ascorbic Acid 500 mg Chewable Tablet PO SCH (09:05)
[2022-06-03] MEDS: Gabapentin 400 MG CAP PO SCH (09:05)
[2022-06-03] MEDS: Nystatin Powder 15 GM BOT TOP SCH (09:05)
[2022-06-03] MEDS: Zinc Sulfate 220 MG CAP PO SCH (09:05)
[2022-06-03] MEDS: Acetaminophen/Codeine 30-300mg Tablet PO SCH (09:07)
[2022-06-03 12:23] VITALS: BP 112/72; TEMP 98.4
== END 2022-06-03 12:14 | disposition home or self-care (01) | DRG 853 ==
LOC: ERS 10:38 → CCU 11:32 → IMCU/EMU 05-23 02:12 → T4-A 05-24 07:38
PROVIDERS: ADMIT Internal Medicine; ATTEND Family Medicine
PROC: 06HY33Z Insertion of Infusion Device into Lower Vein, Percutaneous Approach (ICD-10-PCS; principal; 2022-05-20)
PROC: 5A1D70Z Performance of Urinary Filtration, Intermittent, Less than 6 Hours Per Day (ICD-10-PCS; 2022-05-20)
PROC: 5A09457 Assistance with Respiratory Ventilation, 24-96 Consecutive Hours, Continuous Positive Airway Pressure (ICD-10-PCS; 2022-05-20)
PROC: 5A1D70Z Performance of Urinary Filtration, Intermittent, Less than 6 Hours Per Day (ICD-10-PCS; 2022-05-21)
PROC: 5A1D70Z Performance of Urinary Filtration, Intermittent, Less than 6 Hours Per Day (ICD-10-PCS; 2022-05-22)
PROC: 5A1D70Z Performance of Urinary Filtration, Intermittent, Less than 6 Hours Per Day (ICD-10-PCS; 2022-05-24)
PROC: 5A1D70Z Performance of Urinary Filtration, Intermittent, Less than 6 Hours Per Day (ICD-10-PCS; 2022-05-26)
PROC: 031B0ZF Bypass Right Radial Artery to Lower Arm Vein, Open Approach (ICD-10-PCS; 2022-05-28)
PROC: 0Y6T0Z1 Detachment at Right 3rd Toe, High, Open Approach (ICD-10-PCS; 2022-05-28)
PROC: 0JH63XZ Insertion of Tunneled Vascular Access Device into Chest Subcutaneous Tissue and Fascia, Percutaneous Approach (ICD-10-PCS; 2022-05-28)
PROC: 02HV33Z Insertion of Infusion Device into Superior Vena Cava, Percutaneous Approach (ICD-10-PCS; 2022-05-28)
PROC: B5181ZA Fluoroscopy of Superior Vena Cava using Low Osmolar Contrast, Guidance (ICD-10-PCS; 2022-05-28)
PROC: B548ZZA Ultrasonography of Superior Vena Cava, Guidance (ICD-10-PCS; 2022-05-28)
PROC: 5A1D70Z Performance of Urinary Filtration, Intermittent, Less than 6 Hours Per Day (ICD-10-PCS; 2022-05-31)
PROC: 5A1D70Z Performance of Urinary Filtration, Intermittent, Less than 6 Hours Per Day (ICD-10-PCS; 2022-06-02)
DX: A41.81 Sepsis due to Enterococcus (principal); J96.01 Acute respiratory failure with hypoxia; N18.6 End stage renal disease; I50.33 Acute on chronic diastolic (congestive) heart failure; J96.02 Acute respiratory failure with hypercapnia; J44.1 Chronic obstructive pulmonary disease with (acute) exacerbation; N17.9 Acute kidney failure, unspecified; I24.8 Other forms of acute ischemic heart disease; Z68.41 Body mass index [BMI] 40.0-44.9, adult; E87.4 Mixed disorder of acid-base balance; E66.2 Morbid (severe) obesity with alveolar hypoventilation; D61.818 Other pancytopenia; M86.8X7 Other osteomyelitis, ankle and foot; I13.2 Hypertensive heart and chronic kidney disease with heart failure and with stage 5 chronic kidney disease, or end stage renal disease; A41.2 Sepsis due to unspecified staphylococcus; A41.59 Other Gram-negative sepsis; E87.5 Hyperkalemia; G47.33 Obstructive sleep apnea (adult) (pediatric); E11.628 Type 2 diabetes mellitus with other skin complications; L08.9 Local infection of the skin and subcutaneous tissue, unspecified; E11.51 Type 2 diabetes mellitus with diabetic peripheral angiopathy without gangrene; D69.6 Thrombocytopenia, unspecified; E83.51 Hypocalcemia; E11.69 Type 2 diabetes mellitus with other specified complication; E11.22 Type 2 diabetes mellitus with diabetic chronic kidney disease; Z20.822 Contact with and (suspected) exposure to COVID-19; Z88.1 Allergy status to other antibiotic agents; Z79.51 Long term (current) use of inhaled steroids; Z79.899 Other long term (current) drug therapy; Z79.82 Long term (current) use of aspirin; Z79.4 Long term (current) use of insulin; Z89.512 Acquired absence of left leg below knee; Z90.49 Acquired absence of other specified parts of digestive tract; Z91.19 Patient's noncompliance with other medical treatment and regimen
CPT/HCPCS: 36415; 36416; 36600; 51702; 71045; 80048; 80076; 82805; 83735; 85025; 85060; 86580; 87324; 87449; 88305; 88311; 90935; 93005; 94640; 94660; 94760; 96374; 97139; C1713; C1752; C1776; C9113; G0257; J0171; J0610; J0690; J1644; J1815; J1940; J2250; J2405; J2704; J2720; J3010; J3490; Q4081; S0020; U0002

== ENCOUNTER 2022-08-23 19:00 | Outpatient (CLI) | payer OTHER | END 2022-08-23 19:01 | disposition home or self-care (01) | LOC: SLEEPLAB 19:00 | PROVIDERS: ATTEND Internal Medicine | DX: G47.33 Obstructive sleep apnea (adult) (pediatric) (principal); R53.83 Other fatigue; F32.A Depression, unspecified; I11.0 Hypertensive heart disease with heart failure; I50.9 Heart failure, unspecified; F41.9 Anxiety disorder, unspecified; E11.9 Type 2 diabetes mellitus without complications; E66.9 Obesity, unspecified; R06.83 Snoring; Z68.39 Body mass index [BMI] 39.0-39.9, adult | CPT/HCPCS: 95811 ==

== ENCOUNTER 2022-09-04 12:07 | Inpatient (IN) | payer OTHER ==
[2022-09-03 09:53] VITALS: BMI 41.3
[2022-09-04] MEDS ORDERED: Acetaminophen 325 MG TAB ONE (13:06)
[2022-09-04] MEDS ORDERED: Acetaminophen 500 MG TAB ONE (13:08)
[2022-09-04 13:35] LABS: #Basophils 0.1 thou/uL (0.0-0.2); #Eosinphils 0.4 thou/uL (0.0-0.7); #Lymphocytes 2.1 thou/uL (1.20-3.40); #Monocytes 1.3 thou/uL (0.11-0.59); #Neutrophils 10.4 thou/uL (1.40-6.50); %Basophils 0.6 % (0.0-1.0); %Lymphocytes 14.9 % (21.0-51.0); %Monocytes 9.1 % (0.0-10.0); %Neutrophils 72.4 % (42.0-75.0); Hemoglobin 10.7 g/dL (14.0-18.0); Mean Corpuscular HGB CONC 32.4 g/dL (32.0-36.0); Mean Corpuscular Hemoglobin 27.4 pg (27.0-31.0); Mean Corpuscular Volume 84.6 fl (78.0-98.0); Mean Platelet Volume 7.4 fL (7.4-10.4); Platelet Count 321 10x3/uL (130-400); Red Blood Cell (RBC) Count 3.91 mill/uL (4.70-6.10); White Blood Cell (WBC) Count 14.3 10x3/uL (4.8-10.8)
[2022-09-04 13:59] LABS: Anion Gap 18 mmol/L (10-20); BUN (Urea Nitrogen) 44 mg/dL (8.9-20.6); Calc. Creatinine Clearance 32 mL/min (70-130); Calcium 9.9 mg/dL (7.8-10.44); Carbon Dioxide 26 mmol/L (22-29); Chloride 95 mmol/L (98-107); Estimated GFR 13; Glucose 172 mg/dL (70-105); Potassium 3.6 mmol/L (3.5-5.1); Sodium 135 mmol/L (136-145)
[2022-09-04 14:24] LABS: SARS-CoV-2 NAA Rapid Test Not Detected (NotDetected)
[2022-09-04] MEDS ORDERED: Lorazepam 2 MG/ML VIAL SLOW IVP PRN (15:54)
[2022-09-04] MEDS ORDERED: Dextrose 5% in Water 1,000 ML IV PRN (15:54)
[2022-09-04] MEDS ORDERED: Morphine 4 MG/ML VIAL SLOW IVP PRN ×2 (15:54→17:12)
[2022-09-04] MEDS ORDERED: Dextrose 50% Abboject 50 ML SYRINGE SLOW IVP PRN (15:54)
[2022-09-04] MEDS ORDERED: hydrALAZINE 20 MG/ML VIAL SLOW IVP PRN (15:54)
[2022-09-04] MEDS ORDERED: Acetaminophen 325 MG TAB PO PRN (15:59)
[2022-09-04] MEDS ORDERED: Methocarbamol 500 MG TAB PO PRN (15:59)
[2022-09-04] MEDS ORDERED: Polyethylene Glycol 3350 17 GM Packet PO PRN (15:59)
[2022-09-04] MEDS ORDERED: Acetaminophen/Codeine 30-300mg Tablet PO PRN (15:59)
[2022-09-04] MEDS ORDERED: Senokot S 8.6-50 MG TAB PO PRN (15:59)
[2022-09-04] MEDS ORDERED: hydrALAZINE 25 MG TAB PO SCH (16:00)
[2022-09-04] MEDS ORDERED: Albuterol Sulfate 2.5 mg/3 ml Neb NEB PRN (16:28)
[2022-09-04] MEDS ORDERED: TETANUS, DIPHTHERIA TOX,ADULT (TDVAX) 0.5 ML VIAL IM ONE (17:00)
[2022-09-04] MEDS: Ferrous Sulfate 325 MG TAB PO SCH (17:22)
[2022-09-04] MEDS ORDERED: HumaLOG 300 UNITS/3 ML VIAL SC PRN (17:44)
[2022-09-04] MEDS ORDERED: Calcium Acetate 667 MG CAP PO SCH (17:45)
[2022-09-04] MEDS ORDERED: Heparin 10,000 UNITS/ 10 ML VIAL CATH PRN (18:01)
[2022-09-04] MEDS: HYDROcodone/Acetaminophen 10/325 mg Tablet PO PRN (18:03)
[2022-09-04] MEDS ORDERED: Heparin 5,000 UNITS/ML VIAL CATH SCH (18:15)
[2022-09-04] MEDS: Heparin 10,000 UNITS/ 10 ML VIAL CATH PRN (18:37)
[2022-09-04] MEDS: Cefepime 2 GM in Sodium Chloride 0.9% 100 ML IVPB SCH (20:14)
[2022-09-04] MEDS: Carvedilol 25 MG TAB PO SCH (20:15)
[2022-09-04] MEDS: Calcium Carbonate 500 MG ChewTAB PO SCH (20:15)
[2022-09-04] MEDS: Saccharomyces boulardii 250 MG CAP PO SCH (20:17)
[2022-09-04] MEDS: hydrALAZINE 25 MG TAB PO SCH (20:17)
[2022-09-04] MEDS: Rosuvastatin 10 MG TAB PO SCH (20:18)
[2022-09-04] MEDS ORDERED: Rosuvastatin 20 MG TAB PO SCH (21:00)
[2022-09-04] MEDS ORDERED: Famotidine 20 MG TAB PO SCH (21:00)
[2022-09-04] MEDS: Clindamycin/D5W 600 MG in Premix Bag 1 BAG IVPB SCH (22:39)
[2022-09-05] MEDS: Heparin 10,000 UNITS/ 10 ML VIAL CATH PRN ×4 (01:22→22:52)
[2022-09-05] MEDS: Clindamycin/D5W 600 MG in Premix Bag 1 BAG IVPB SCH ×3 (05:01→21:50)
[2022-09-05] MEDS: HumaLOG 300 UNITS/3 ML VIAL SC PRN (05:04)
[2022-09-05 06:45] LABS: #Basophils 0.1 thou/uL (0.0-0.2); #Eosinphils 0.5 thou/uL (0.0-0.7); #Lymphocytes 2.4 thou/uL (1.20-3.40); #Monocytes 1.3 thou/uL (0.11-0.59); %Basophils 0.5 % (0.0-1.0); %Eosinophils 4.3 % (0.0-10.0); %Lymphocytes 19.5 % (21.0-51.0); %Monocytes 10.3 % (0.0-10.0); %Neutrophils 65.4 % (42.0-75.0); Hemoglobin 9.7 g/dL (14.0-18.0); Mean Corpuscular HGB CONC 31.9 g/dL (32.0-36.0); Mean Corpuscular Hemoglobin 26.9 pg (27.0-31.0); Mean Corpuscular Volume 84.3 fl (78.0-98.0); Mean Platelet Volume 7.3 fL (7.4-10.4); Platelet Count 311 10x3/uL (130-400); RBC Distribution Width 16.1 % (11.5-14.5); Red Blood Cell (RBC) Count 3.62 mill/uL (4.70-6.10); White Blood Cell (WBC) Count 12.2 10x3/uL (4.8-10.8)
[2022-09-05 06:52] LABS: Hemoglobin A1c 7.9 % (4.0-6.0)
[2022-09-05 07:04] LABS: Anion Gap 14 mmol/L (10-20); BUN (Urea Nitrogen) 56 mg/dL (8.9-20.6); Calc. Creatinine Clearance 29 mL/min (70-130); Calcium 9.5 mg/dL (7.8-10.44); Carbon Dioxide 29 mmol/L (22-29); Chloride 94 mmol/L (98-107); Estimated GFR 11; Glucose 180 mg/dL (70-105); Potassium 3.3 mmol/L (3.5-5.1); Sodium 134 mmol/L (136-145)
[2022-09-05] MEDS ORDERED: Heparin 10,000 UNITS/ 10 ML VIAL ONE (08:21)
[2022-09-05] MEDS: Calcium Acetate 667 MG CAP PO SCH ×3 (08:36→16:47)
[2022-09-05] MEDS: Ferrous Sulfate 325 MG TAB PO SCH ×2 (08:36→16:47)
[2022-09-05] MEDS: Cefepime 2 GM in Sodium Chloride 0.9% 100 ML IVPB SCH (08:37)
[2022-09-05] MEDS: Famotidine 20 MG TAB PO SCH (08:37)
[2022-09-05] MEDS: Aspirin 81 mg Enteric Coated Tablet PO SCH (08:37)
[2022-09-05] MEDS: Calcium Carbonate 500 MG ChewTAB PO SCH ×2 (08:37→20:17)
[2022-09-05] MEDS: Ascorbic Acid 500 mg Chewable Tablet PO SCH (08:37)
[2022-09-05] MEDS: Saccharomyces boulardii 250 MG CAP PO SCH ×2 (08:38→20:16)
[2022-09-05] MEDS: Multivitamin W/ Minerals 1 TAB PO SCH (08:38)
[2022-09-05] MEDS: Sertraline 100 MG TAB PO SCH (08:38)
[2022-09-05] MEDS: Gabapentin 400 MG CAP PO SCH (08:38)
[2022-09-05] MEDS: HYDROcodone/Acetaminophen 10/325 mg Tablet PO PRN (08:51)
[2022-09-05] MEDS ORDERED: Epoetin (ESRD) 10,000 UNITS/ML VIAL SC SCH (10:00)
[2022-09-05] MEDS ORDERED: EPOETIN ALFA-EPBX (ESRD) 10,000 UNIT/ML VIAL SC SCH ×2 (10:15→11:00)
[2022-09-05] MEDS ORDERED: methylPREDNISolone Acetate 40 mg/ml Vial ONE ×3 (17:08→17:55)
[2022-09-05] MEDS ORDERED: Lidocaine 1% (PF) 30 ML VIAL ONE ×2 (17:08→17:55)
[2022-09-05] MEDS ORDERED: fentaNYL PF 100 MCG/2 ML SYRINGE ONE (17:33)
[2022-09-05] MEDS ORDERED: PHENYLEPHRINE-NS 100 MCG/ML 10 ML SYRINGE ONE (17:45)
[2022-09-05] MEDS ORDERED: PROPOFOL 200 MG/20 ML VIAL ONE (17:45)
[2022-09-05] MEDS ORDERED: Promethazine HCl 25 MG/ML VIAL IVPB PRN (18:35)
[2022-09-05] MEDS ORDERED: Ondansetron HCl/PF 4 MG/2 ML Vial IVP PRN (18:35)
[2022-09-05] MEDS ORDERED: Morphine Sulfate 2 MG/ML SYRINGE SLOW IVP PRN (18:35)
[2022-09-05] MEDS ORDERED: Promethazine HCl 25 MG/ML VIAL IM PRN (18:35)
[2022-09-05] MEDS: Rosuvastatin 10 MG TAB PO SCH (20:16)
[2022-09-05] MEDS: Carvedilol 25 MG TAB PO SCH (20:17)
[2022-09-05] MEDS: Insulin Glargine 30 UNITS/0.3 ML VIAL SC SCH (20:17)
[2022-09-05] MEDS: Lisinopril 20 MG TAB PO SCH (20:18)
[2022-09-05] MEDS: NIFEdipine XL 60 MG TAB PO SCH (20:18)
[2022-09-05] MEDS ORDERED: hydrALAZINE 25 MG TAB PO SCH (21:00)
[2022-09-05] MEDS: FIBER PO SCH ×2 (22:06→22:08)
[2022-09-05] MEDS: AMINO ACIDS PO SCH ×2 (22:06→22:08)
[2022-09-05] MEDS: PROTEIN HYDR PO SCH ×2 (22:06→22:08)
[2022-09-06] MEDS: Clindamycin/D5W 600 MG in Premix Bag 1 BAG IVPB SCH ×2 (05:18→15:04)
[2022-09-06] MEDS: Heparin 10,000 UNITS/ 10 ML VIAL CATH PRN (06:45)
[2022-09-06] MEDS ORDERED: FENTANYL 50 MCG/ML 1 ML VIAL ONE (07:30)
[2022-09-06] MEDS ORDERED: Lidocaine 2% PF 5 ML VIAL ONE (07:31)
[2022-09-06] MEDS ORDERED: Midazolam HCl 2 mg/2 ml Vial ONE (07:31)
[2022-09-06] MEDS ORDERED: Sodium Bicarbonate 2.5 MEQ/5 ML VIAL ONE (07:31)
[2022-09-06] MEDS ORDERED: Cefepime 1 GM in Sodium Chloride 0.9% 100 ML IVPB SCH (09:00)
[2022-09-06] MEDS: Multivitamin W/ Minerals 1 TAB PO SCH (09:21)
[2022-09-06] MEDS: Ascorbic Acid 500 mg Chewable Tablet PO SCH (09:21)
[2022-09-06] MEDS: hydrALAZINE 25 MG TAB PO SCH ×3 (09:21→20:38)
[2022-09-06] MEDS: Gabapentin 400 MG CAP PO SCH (09:22)
[2022-09-06] MEDS: Aspirin 81 mg Enteric Coated Tablet PO SCH (09:22)
[2022-09-06] MEDS: Saccharomyces boulardii 250 MG CAP PO SCH ×2 (09:22→20:36)
[2022-09-06] MEDS: Calcium Acetate 667 MG CAP PO SCH ×3 (09:22→16:30)
[2022-09-06] MEDS: Ferrous Sulfate 325 MG TAB PO SCH ×2 (09:22→16:30)
[2022-09-06] MEDS: Calcium Carbonate 500 MG ChewTAB PO SCH ×2 (09:22→20:37)
[2022-09-06] MEDS: Famotidine 20 MG TAB PO SCH (09:23)
[2022-09-06] MEDS: Carvedilol 25 MG TAB PO SCH ×2 (09:23→20:36)
[2022-09-06] MEDS: Sertraline 100 MG TAB PO SCH (09:23)
[2022-09-06] MEDS: Insulin Glargine 30 UNITS/0.3 ML VIAL SC SCH ×2 (09:24→20:38)
[2022-09-06] MEDS ORDERED: Iopamidol 300 61% 100 ML VIAL FS ONE (10:59)
[2022-09-06] MEDS: HumaLOG 300 UNITS/3 ML VIAL SC PRN (16:30)
[2022-09-06] MEDS: Amoxicillin/Potassium Clav 500 MG TAB PO SCH (20:36)
[2022-09-06] MEDS: Rosuvastatin 10 MG TAB PO SCH (20:36)
[2022-09-07] MEDS: HumaLOG 300 UNITS/3 ML VIAL SC PRN ×2 (05:39→12:16)
[2022-09-07] MEDS: Calcium Acetate 667 MG CAP PO SCH ×3 (08:34→17:03)
[2022-09-07] MEDS: Saccharomyces boulardii 250 MG CAP PO SCH ×2 (08:34→20:33)
[2022-09-07] MEDS: Ferrous Sulfate 325 MG TAB PO SCH ×2 (08:34→17:03)
[2022-09-07] MEDS: Famotidine 20 MG TAB PO SCH (08:37)
[2022-09-07] MEDS: Ascorbic Acid 500 mg Chewable Tablet PO SCH (08:37)
[2022-09-07] MEDS: Gabapentin 400 MG CAP PO SCH (08:37)
[2022-09-07] MEDS: Multivitamin W/ Minerals 1 TAB PO SCH (08:37)
[2022-09-07] MEDS: Calcium Carbonate 500 MG ChewTAB PO SCH ×2 (08:37→20:31)
[2022-09-07] MEDS: Amoxicillin/Potassium Clav 500 MG TAB PO SCH ×2 (08:37→20:32)
[2022-09-07] MEDS: Aspirin 81 mg Enteric Coated Tablet PO SCH (08:37)
[2022-09-07] MEDS: Sertraline 100 MG TAB PO SCH (08:38)
[2022-09-07] MEDS: Insulin Glargine 30 UNITS/0.3 ML VIAL SC SCH ×2 (08:38→20:41)
[2022-09-07] MEDS: NIFEdipine XL 60 MG TAB PO SCH (20:31)
[2022-09-07] MEDS: Carvedilol 25 MG TAB PO SCH (20:32)
[2022-09-07] MEDS: Rosuvastatin 10 MG TAB PO SCH (20:34)
[2022-09-07] MEDS: Lisinopril 20 MG TAB PO SCH (20:41)
[2022-09-07 23:53] VITALS: BP 113/75; TEMP 98.2
== END 2022-09-08 00:15 | DRG 617 ==
LOC: SDC 12:07 → T4-A 15:19
PROVIDERS: ADMIT Specialist; ATTEND Specialist
PROC: 0Y6M0ZB Detachment at Right Foot, Partial 2nd Ray, Open Approach (ICD-10-PCS; principal; 2022-09-05)
PROC: 0QBN0ZZ Excision of Right Metatarsal, Open Approach (ICD-10-PCS; 2022-09-05)
PROC: 0R9K3ZZ Drainage of Left Shoulder Joint, Percutaneous Approach (ICD-10-PCS; 2022-09-05)
PROC: 3E0U33Z Introduction of Anti-inflammatory into Joints, Percutaneous Approach (ICD-10-PCS; 2022-09-05)
PROC: 5A1D70Z Performance of Urinary Filtration, Intermittent, Less than 6 Hours Per Day (ICD-10-PCS; 2022-09-05)
PROC: B50W1ZZ Plain Radiography of Dialysis Shunt/Fistula using Low Osmolar Contrast (ICD-10-PCS; 2022-09-06)
DX: E11.69 Type 2 diabetes mellitus with other specified complication (principal); I12.0 Hypertensive chronic kidney disease with stage 5 chronic kidney disease or end stage renal disease; M86.8X7 Other osteomyelitis, ankle and foot; Z68.41 Body mass index [BMI] 40.0-44.9, adult; Z20.822 Contact with and (suspected) exposure to COVID-19; E11.22 Type 2 diabetes mellitus with diabetic chronic kidney disease; M75.42 Impingement syndrome of left shoulder; D63.1 Anemia in chronic kidney disease; E78.5 Hyperlipidemia, unspecified; F39 Unspecified mood [affective] disorder; E66.01 Morbid (severe) obesity due to excess calories; I82.611 Acute embolism and thrombosis of superficial veins of right upper extremity; M75.52 Bursitis of left shoulder; N18.6 End stage renal disease; Z99.2 Dependence on renal dialysis; Z89.612 Acquired absence of left leg above knee; Z89.421 Acquired absence of other right toe(s); Z88.1 Allergy status to other antibiotic agents; Z79.899 Other long term (current) drug therapy; Z79.4 Long term (current) use of insulin; Z90.49 Acquired absence of other specified parts of digestive tract
CPT/HCPCS: 36416; 36901; 76937; 80048; 83036; 85025; 87070; 87186; 87205; 88305; 97139; J0692; J1030; J1644; J1815; J2001; J2250; J2704; J3010; J3490; Q5105; Q9967; U0002

== ENCOUNTER 2022-09-06 09:25 | Day surgery (SDC) | payer OTHER ==
[2022-08-23 11:07] VITALS: BMI 36.9
[~2022-09-06 09:25] MED LIST changes: +AMINO ACIDS PO SCH; +Acetaminophen 325 MG TAB PO PRN; +Albuterol 200 PUFF (6.7GM INHALER) INH PRN; +Aspirin 81 mg Enteric Coated Tablet PO SCH; +Calcium Carbonate 500 MG ChewTAB PO SCH; +Carvedilol 6.25 MG TAB PO SCH; +Cefepime 2 GM in Sodium Chloride 0.9% 100 ML IVPB SCH; +Clindamycin/D5W 900 MG in Premix Bag 1 BAG IVPB SCH; +Dextrose 5% in Water 1,000 ML IV PRN; +Dextrose 50% Abboject 50 ML SYRINGE SLOW IVP PRN; +FIBER PO SCH; +FLU VACC QS2022-23(6MOS UP)/PF 60 MCG/0.5 ML SYRINGE IM ONE; +Famotidine 20 MG TAB PO SCH; +Ferrous Sulfate 325 MG TAB PO SCH; +Gabapentin 400 MG CAP PO SCH; +HYDROcodone/Acetaminophen 10/325 mg Tablet PO PRN; +Insulin Regular 300 UNITS/3 ML VIAL SC PRN; -Iopamidol 300 61% 50 ML VIAL FS ONE; +Methocarbamol 500 MG TAB PO PRN; +NIFEdipine XL 60 MG TAB PO SCH; +Non-Formulary Item 1 EACH (Ascorbic Acid [Vitamin C] 1,000 MG Tablet) PO SCH; +Non-Formulary Item 1 EACH (Calcium Acetate [Calcium Acetate] 667 MG Tablet) PO SCH; +Non-Formulary Item 1 EACH (Famotidine [Famotidine] 10 MG Tablet) PO SCH; +Non-Formulary Item 1 EACH (Insulin Aspart [Insulin Aspart] 100 UNIT/ML Vial) SQ PRN; +Non-Formulary Item 1 EACH (Lisinopril [Lisinopril] 40 MG Tablet) PO SCH; +Non-Formulary Item 1 EACH (Multivitamin With Minerals [Multiple Vitamin] 1 TABLET Tablet) PO SCH; +Non-Formulary Item 1 EACH (Sertraline Hcl [Sertraline Hcl] 50 MG Tablet) PO SCH; +PROTEIN HYDR PO SCH; +Polyethylene Glycol 3350 17 GM Packet PO PRN; +Saccharomyces boulardii 250 MG CAP PO SCH; +Senokot S 8.6-50 MG TAB PO PRN; +TETANUS, DIPHTHERIA TOX,ADULT (TDVAX) 0.5 ML VIAL IM ONE; +[UNRECOGNIZED DRUG - OTHER] PO SCH; +hydrALAZINE 25 MG TAB PO SCH
== END 2022-09-06 09:26 | disposition home or self-care (01) ==
LOC: SPEC 09:25
PROVIDERS: ATTEND Specialist
DX: M75.102 Unspecified rotator cuff tear or rupture of left shoulder, not specified as traumatic (principal); S43.432A Superior glenoid labrum lesion of left shoulder, initial encounter; Z88.1 Allergy status to other antibiotic agents

== ENCOUNTER 2022-11-01 09:50 | Day surgery (SDC) | payer OTHER ==
[2022-10-31 15:22] VITALS: BMI 36.9
[2022-11-01] MEDS ORDERED: Insulin Regular 300 UNITS/3 ML VIAL ONE (11:09)
[2022-11-01 11:14] LABS: #Basophils 0.1 thou/uL (0.0-0.2); #Eosinphils 0.6 thou/uL (0.0-0.7); #Lymphocytes 2.1 thou/uL (1.20-3.40); #Neutrophils 6.8 thou/uL (1.40-6.50); %Basophils 0.6 % (0.0-1.0); %Eosinophils 5.3 % (0.0-10.0); %Lymphocytes 20.1 % (21.0-51.0); %Monocytes 9.5 % (0.0-10.0); %Neutrophils 64.5 % (42.0-75.0); Hemoglobin 11.2 g/dL (14.0-18.0); Mean Corpuscular Hemoglobin 30.6 pg (27.0-31.0); Mean Platelet Volume 6.8 fL (7.4-10.4); Platelet Count 268 10x3/uL (130-400); RBC Distribution Width 15.6 % (11.5-14.5); Red Blood Cell (RBC) Count 3.67 mill/uL (4.70-6.10); White Blood Cell (WBC) Count 10.5 10x3/uL (4.8-10.8)
[2022-11-01 11:30] LABS: Anion Gap 13 mmol/L (10-20); BUN (Urea Nitrogen) 43 mg/dL (8.9-20.6); Calc. Creatinine Clearance 40 mL/min (70-130); Calcium 9.5 mg/dL (7.8-10.44); Carbon Dioxide 27 mmol/L (22-29); Chloride 97 mmol/L (98-107); Estimated GFR 16; Glucose 254 mg/dL (70-105); Sodium 133 mmol/L (136-145)
[2022-11-01] MEDS ORDERED: Carvedilol 25 MG TAB PO SCH (11:30)
[2022-11-01] MEDS ORDERED: Insulin Regular 300 UNITS/3 ML VIAL SC SCH (11:30)
[2022-11-01] MEDS ORDERED: PROPOFOL 0 ML ONE (11:37)
[2022-11-01] MEDS ORDERED: Famotidine/PF 20 mg/2ml Vial ONE (11:37)
[2022-11-01] MEDS ORDERED: Propofol 500 MG/50 ML VIAL ONE (11:37)
[2022-11-01] MEDS ORDERED: Fentanyl 100 MCG/2 ML VIAL ONE (11:40)
[2022-11-01] MEDS ORDERED: Ondansetron PF 4 MG/2 ML Vial ONE (11:42)
[2022-11-01] MEDS ORDERED: PROPOFOL 200 MG/20 ML VIAL ONE (11:42)
[2022-11-01] MEDS ORDERED: Metoclopramide HCl 10 MG/2 ML VIAL ONE (11:42)
[2022-11-01] MEDS ORDERED: Bupivacaine HCl 0.5%/Epinephrine 1:200,000/PF 30 ml Vial ONE (11:45)
[2022-11-01] MEDS ORDERED: Protamine Sulfate 50 MG/5 ML VIAL ONE (11:45)
[2022-11-01] MEDS ORDERED: Heparin 5,000 UNITS/ML VIAL ONE (11:45)
[2022-11-01] MEDS ORDERED: Heparin 10,000 UNITS/ 10 ML VIAL ONE (11:45)
[2022-11-01] MEDS ORDERED: Lidocaine 2% PF 5 ML VIAL ONE (11:45)
[2022-11-01] MEDS ORDERED: Sodium Chloride 0.9% 100 ML ONE (12:03)
[2022-11-01] MEDS ORDERED: CEFAZOLIN 2 GM VIAL ONE (12:03)
[2022-11-01] MEDS ORDERED: Fentanyl 250 MCG/5 ML VIAL ONE (12:07)
[2022-11-01] MEDS ORDERED: Propofol 1,000 MG/100 ML VIAL IV ONE (12:08)
== END 2022-11-01 15:23 | disposition home or self-care (01) ==
LOC: SDC 09:50
PROVIDERS: ATTEND Specialist
PROC: 0JPT3XZ Removal of Tunneled Vascular Access Device from Trunk Subcutaneous Tissue and Fascia, Percutaneous Approach (ICD-10-PCS; principal; 2022-11-01)
PROC: 031C0ZF Bypass Left Radial Artery to Lower Arm Vein, Open Approach (ICD-10-PCS; principal; 2022-11-01)
PROC: 02HV33Z Insertion of Infusion Device into Superior Vena Cava, Percutaneous Approach (ICD-10-PCS; principal; 2022-11-01)
PROC: 02PY33Z Removal of Infusion Device from Great Vessel, Percutaneous Approach (ICD-10-PCS; principal; 2022-11-01)
PROC: 0JH63XZ Insertion of Tunneled Vascular Access Device into Chest Subcutaneous Tissue and Fascia, Percutaneous Approach (ICD-10-PCS; principal; 2022-11-01)
DX: T82.868A Thrombosis due to vascular prosthetic devices, implants and grafts, initial encounter (principal); T80.211A Bloodstream infection due to central venous catheter, initial encounter; L03.90 Cellulitis, unspecified; I12.0 Hypertensive chronic kidney disease with stage 5 chronic kidney disease or end stage renal disease; E11.22 Type 2 diabetes mellitus with diabetic chronic kidney disease; N18.6 End stage renal disease; E66.01 Morbid (severe) obesity due to excess calories; Z68.36 Body mass index [BMI] 36.0-36.9, adult; Z79.4 Long term (current) use of insulin; Z79.82 Long term (current) use of aspirin; Z79.899 Other long term (current) drug therapy; Z88.1 Allergy status to other antibiotic agents; Z89.421 Acquired absence of other right toe(s); Z89.612 Acquired absence of left leg above knee; Z99.2 Dependence on renal dialysis; Y81.3 Surgical instruments, materials and general- and plastic-surgery devices (including sutures) associated with adverse incidents
CPT/HCPCS: 36416; 71045; 80048; 85025; C1752; C1776; J1644; J1815; J2001; J2405; J2704; J2720; J2765; J3010; J3490; S0028

== ENCOUNTER 2022-12-23 13:45 | Emergency (ER) | payer OTHER | END 2022-12-23 18:21 | disposition home or self-care (01) | LOC: ERS 13:45 | DX: R20.2 Paresthesia of skin (principal); E11.22 Type 2 diabetes mellitus with diabetic chronic kidney disease; N18.6 End stage renal disease; I12.0 Hypertensive chronic kidney disease with stage 5 chronic kidney disease or end stage renal disease; E78.5 Hyperlipidemia, unspecified; K21.9 Gastro-esophageal reflux disease without esophagitis; E66.9 Obesity, unspecified; F17.220 Nicotine dependence, chewing tobacco, uncomplicated; Z99.2 Dependence on renal dialysis | CPT/HCPCS: 99284 ==

== ENCOUNTER 2023-01-15 15:37 | Inpatient (IN) | payer OTHER ==
[2023-01-15] MEDS ORDERED: Cefepime 2 GM VIAL ONE (16:02)
[2023-01-15] MEDS ORDERED: Vancomycin 1 GM/200 ML (FROZEN) BAG ONE (16:45)
[2023-01-15 16:52] LABS: ALT (SGPT) 24 U/L (8-55); AST (SGOT) 16 U/L (5-34); Alkaline Phosphatase 83 U/L (40-110); Anion Gap 17 mmol/L (10-20); BUN (Urea Nitrogen) 53 mg/dL (8.9-20.6); Bilirubin, Total 0.3 mg/dL (0.2-1.2); CK (CPK) 89 U/L (30-200); Calc. Creatinine Clearance 0 mL/min (70-130); Calcium 9.6 mg/dL (7.8-10.44); Carbon Dioxide 23 mmol/L (22-29); Chloride 96 mmol/L (98-107); Estimated GFR 10; Globulin 3.7 g/dL (2.4-3.5); Glucose 197 mg/dL (70-105); Lipase 23 U/L (8-78); Potassium 4.1 mmol/L (3.5-5.1); Protein, Total 7.7 g/dL (6.0-8.3); Sodium 132 mmol/L (136-145)
[2023-01-15 16:57] LABS: Bacteria/HPF None Seen HPF (None Seen); Bilirubin Negative (Negative); Blood, Urine Trace (Negative); Clarity Turbid (Clear); Glucose, Urine (Dipstick) 200 mg/dL (Negative); Ketone, Urine Trace mg/dL (Negative); Leukocyte Negative Leu/uL (Negative); Nitrite Negative (Negative); Protein, Urine (Dipstick) 100 mg/dL (Neg-Trace); Specific Gravity, Urine 1.021 (1.002-1.036)
[2023-01-15 17:09] LABS: CKMB 1.5 ng/mL (0-6.6)
[2023-01-15 17:12] LABS: Squamous Epithelial 0-3 HPF (0-3)
[2023-01-15 17:19] LABS: Hemoglobin 12.5 g/dL (14.0-18.0); Mean Corpuscular HGB CONC 33.2 g/dL (32.0-36.0); Mean Corpuscular Hemoglobin 30.3 pg (27.0-31.0); Mean Corpuscular Volume 91.1 fl (78.0-98.0); Mean Platelet Volume 7.5 fL (7.4-10.4); Platelet Count 184 10x3/uL (130-400); RBC Distribution Width 13.4 % (11.5-14.5); Red Blood Cell (RBC) Count 4.12 mill/uL (4.70-6.10); White Blood Cell (WBC) Count 22.4 10x3/uL (4.8-10.8)
[2023-01-15 17:23] LABS: SARS-CoV-2 NAA Rapid Test Not Detected (NotDetected)
[2023-01-15 17:32] LABS: Band 3 % (5-11); Eosinophils 1 % (0-10); Lymphocytes 4 % (21-51); MDiff Complete? YES; Monocytes 8 % (0-10); Neutrophil 84 % (42-75); Platelet Morphology Comment Appears Adequate; Polychromasia SLIGHT = 2-3 cells (100X) (0-2/hpf); Stomatocytes SLIGHT = 2-5 cells (100X) (0-1/hpf)
[2023-01-15] MEDS ORDERED: NOREPINEPHRINE 8 MG/250 ML-D5W 250 ML ONE (17:46)
[2023-01-15] MEDS ORDERED: Polyethylene Glycol 3350 17 GM Packet PO PRN (19:42)
[2023-01-15] MEDS ORDERED: Albuterol 200 PUFF (6.7GM INHALER) INH PRN (19:42)
[2023-01-15] MEDS ORDERED: Senokot S 8.6-50 MG TAB PO PRN (19:42)
[2023-01-15] MEDS ORDERED: Acetaminophen/Codeine 30-300mg Tablet PO PRN (19:42)
[2023-01-15 19:47] LABS: Lactic Acid 1.6 mmol/L (0.5-2.2)
[2023-01-15] MEDS ORDERED: Dextrose 5% in Water 1,000 ML IV PRN (19:55)
[2023-01-15] MEDS ORDERED: Dextrose 50% Abboject 50 ML SYRINGE SLOW IVP PRN (19:55)
[2023-01-15] MEDS ORDERED: NOREPINEPHRINE 8 MG/250 ML-D5W 250 ML IVPB SCH (20:00)
[2023-01-15 20:27] VITALS: BMI 38.0
[2023-01-15] MEDS ORDERED: Ondansetron ODT 4 MG TAB PO PRN (20:37)
[2023-01-15] MEDS ORDERED: Ondansetron PF 4 MG/2 ML Vial IVP PRN (20:37)
[2023-01-15] MEDS: Sodium Chloride 0.9% 1,000 ML IV SCH (20:42)
[2023-01-15] MEDS ORDERED: Vancomycin HCl 1.5 GM in Sodium Chloride 0.9% 250 ML 300 ML IVPB SCH (21:00)
[2023-01-15] MEDS ORDERED: Vancomycin Dialysis Sliding Scale (Wt > 99) FS SCH (21:30)
[2023-01-15] MEDS: Saccharomyces boulardii 250 MG CAP PO SCH (21:33)
[2023-01-15] MEDS: Atorvastatin Calcium 40 MG TAB PO SCH (21:33)
[2023-01-15 21:39] LABS: Glucose 199 mg/dL (70-105)
[2023-01-15 21:45] LABS: Magnesium 1.4 mg/dL (1.6-2.6); Phosphorus 3.1 mg/dL (2.3-4.7)
[2023-01-15] MEDS ORDERED: Magnesium Sulfate In Water 4 GM in Premix Bag 1 BAG IVPB SCH (22:30)
[2023-01-15] MEDS: Acetaminophen 325 MG TAB PO PRN (22:45)
[2023-01-16] MEDS ORDERED: Sodium Chloride 0.9% 500 ML IV SCH (00:45)
[2023-01-16] MEDS ORDERED: Acetaminophen 325 MG TAB PO SCH (01:00)
[2023-01-16] MEDS: Acetaminophen 325 MG TAB PO PRN (03:31)
[2023-01-16] MEDS: Sodium Chloride 0.9% 1,000 ML IV SCH (03:31)
[2023-01-16 05:20] LABS: Hemoglobin 11.2 g/dL (14.0-18.0); Mean Corpuscular HGB CONC 33.3 g/dL (32.0-36.0); Mean Corpuscular Hemoglobin 30.8 pg (27.0-31.0); Mean Corpuscular Volume 92.4 fl (78.0-98.0); Mean Platelet Volume 7.9 fL (7.4-10.4); Platelet Count 192 10x3/uL (130-400); RBC Distribution Width 13.6 % (11.5-14.5); Red Blood Cell (RBC) Count 3.64 mill/uL (4.70-6.10)
[2023-01-16 05:30] LABS: ALT (SGPT) 17 U/L (8-55); AST (SGOT) 14 U/L (5-34); Alkaline Phosphatase 69 U/L (40-110); Anion Gap 14 mmol/L (10-20); BUN (Urea Nitrogen) 58 mg/dL (8.9-20.6); Bilirubin, Total 0.4 mg/dL (0.2-1.2); Calc. Creatinine Clearance 26 mL/min (70-130); Calcium 8.8 mg/dL (7.8-10.44); Carbon Dioxide 23 mmol/L (22-29); Chloride 100 mmol/L (98-107); Estimated GFR 10; Globulin 3.5 g/dL (2.4-3.5); Glucose 180 mg/dL (70-105); Magnesium 2.4 mg/dL (1.6-2.6); Potassium 4.3 mmol/L (3.5-5.1); Protein, Total 6.5 g/dL (6.0-8.3); Sodium 133 mmol/L (136-145)
[2023-01-16 06:03] LABS: Band 7 % (5-11); Lymphocytes 4 % (21-51); MDiff Complete? YES; Monocytes 7 % (0-10); Neutrophil 82 % (42-75); Platelet Morphology Comment Appears Adequate; Polychromasia SLIGHT = 2-3 cells (100X) (0-2/hpf); Stomatocytes SLIGHT = 2-5 cells (100X) (0-1/hpf)
[2023-01-16] MEDS: Sertraline 25 MG TAB PO SCH ×2 (08:30→09:47)
[2023-01-16] MEDS ORDERED: Heparin 10,000 UNITS/ 10 ML VIAL ONE (08:54)
[2023-01-16 08:55] LABS: Vancomycin, Random 12.9 ug/mL (See Comment)
[2023-01-16] MEDS: Heparin 5,000 UNITS/ML VIAL SC SCH ×3 (09:46→21:34)
[2023-01-16] MEDS: Pantoprazole 40 MG VIAL IVP SCH (09:46)
[2023-01-16] MEDS: Multivitamin W/ Minerals 1 TAB PO SCH (09:47)
[2023-01-16] MEDS: Gabapentin 400 MG CAP PO SCH (09:47)
[2023-01-16] MEDS: Saccharomyces boulardii 250 MG CAP PO SCH ×2 (09:47→21:34)
[2023-01-16] MEDS: Ferrous Sulfate 325 MG TAB PO SCH ×2 (09:49→17:32)
[2023-01-16] MEDS: Calcium Acetate 667 MG CAP PO SCH ×3 (09:49→17:32)
[2023-01-16] MEDS: Ascorbic Acid 500 mg Chewable Tablet PO SCH (09:50)
[2023-01-16 10:27] LABS: HBSAg Index 0.21 S/CO (0-0.99); Hep B Core Total Ab Non-Reactive (NonReactive); Hep B Core Total Index 0.09 S/CO (0-0.79); Hep B Surf Ag Non-Reactive S/CO (NonReactive); Hep C IgG Ab Non-Reactive (NonReactive); Hep C Index 0.14 S/CO (0-0.79)
[2023-01-16 10:28] LABS: HBSAB Concentration 38.74 mIU/mL; Hep B Surf AB Reactive (NonReactive)
[2023-01-16] MEDS ORDERED: Morphine 2 MG/ML VIAL SLOW IVP PRN (13:42)
[2023-01-16] MEDS ORDERED: Albumin 25% 25 GM/100 ML BOT IVPB SCH (15:00)
[2023-01-16] MEDS: Cefepime 0.5 GM, Admixture Fee 1 EACH in Sodium Chloride 0.9% 100 ML IVPB SCH (15:30)
[2023-01-16] MEDS ORDERED: Lidocaine 1% (PF) 30 ML VIAL ONE (15:40)
[2023-01-16] MEDS ORDERED: Vancomycin 1.5 GRAM/300 ML BAG 1.5 GM in Premix Bag 1 BAG IVPB SCH (17:00)
[2023-01-16] MEDS ORDERED: Acetaminophen 325 MG Suppository PR PRN (17:31)
[2023-01-16] MEDS: HumaLOG 300 UNITS/3 ML VIAL SC PRN (17:51)
[2023-01-16] MEDS: Atorvastatin Calcium 40 MG TAB PO SCH (21:34)
[2023-01-17 04:44] LABS: #Eosinphils 0.1 thou/uL (0.0-0.7); #Lymphocytes 1.4 thou/uL (1.20-3.40); #Monocytes 1.3 thou/uL (0.11-0.59); #Neutrophils 6.9 thou/uL (1.40-6.50); %Basophils 0.3 % (0.0-1.0); %Eosinophils 0.9 % (0.0-10.0); %Lymphocytes 13.9 % (21.0-51.0); %Monocytes 13.5 % (0.0-10.0); %Neutrophils 71.4 % (42.0-75.0); Hemoglobin 9.7 g/dL (14.0-18.0); Mean Corpuscular HGB CONC 33.2 g/dL (32.0-36.0); Mean Corpuscular Hemoglobin 31.1 pg (27.0-31.0); Mean Corpuscular Volume 93.7 fl (78.0-98.0); Mean Platelet Volume 7.7 fL (7.4-10.4); Platelet Count 120 10x3/uL (130-400); RBC Distribution Width 13.5 % (11.5-14.5); Red Blood Cell (RBC) Count 3.13 mill/uL (4.70-6.10); White Blood Cell (WBC) Count 9.7 10x3/uL (4.8-10.8)
[2023-01-17 05:07] LABS: ALT (SGPT) 17 U/L (8-55); AST (SGOT) 16 U/L (5-34); Albumin 2.8 g/dL (3.5-5.0); Alkaline Phosphatase 55 U/L (40-110); Anion Gap 13 mmol/L (10-20); BUN (Urea Nitrogen) 43 mg/dL (8.9-20.6); Bilirubin, Total 0.5 mg/dL (0.2-1.2); Calc. Creatinine Clearance 33 mL/min (70-130); Calcium 8.9 mg/dL (7.8-10.44); Carbon Dioxide 26 mmol/L (22-29); Chloride 102 mmol/L (98-107); Estimated GFR 12; Globulin 3.4 g/dL (2.4-3.5); Glucose 138 mg/dL (70-105); Magnesium 2.3 mg/dL (1.6-2.6); Phosphorus 3.8 mg/dL (2.3-4.7); Potassium 4.1 mmol/L (3.5-5.1); Protein, Total 6.2 g/dL (6.0-8.3); Sodium 137 mmol/L (136-145)
[2023-01-17] MEDS ORDERED: EPOETIN ALFA-EPBX (ESRD) 10,000 UNIT/ML VIAL SC SCH ×2 (09:00)
[2023-01-17] MEDS: Heparin 5,000 UNITS/ML VIAL SC SCH ×3 (09:35→20:47)
[2023-01-17] MEDS: Sertraline 25 MG TAB PO SCH (09:35)
[2023-01-17] MEDS: Pantoprazole 40 MG VIAL IVP SCH (09:35)
[2023-01-17] MEDS: Multivitamin W/ Minerals 1 TAB PO SCH (10:13)
[2023-01-17] MEDS: Acetaminophen 325 MG TAB PO PRN (10:15)
[2023-01-17] MEDS: Saccharomyces boulardii 250 MG CAP PO SCH ×2 (10:16→20:48)
[2023-01-17] MEDS: Calcium Acetate 667 MG CAP PO SCH ×3 (10:17→16:50)
[2023-01-17] MEDS: Ascorbic Acid 500 mg Chewable Tablet PO SCH (10:17)
[2023-01-17] MEDS: Ferrous Sulfate 325 MG TAB PO SCH ×2 (10:17→16:50)
[2023-01-17] MEDS: Gabapentin 400 MG CAP PO SCH (10:17)
[2023-01-17] MEDS: Cefepime 0.5 GM, Admixture Fee 1 EACH in Sodium Chloride 0.9% 100 ML IVPB SCH (15:55)
[2023-01-17] MEDS: HumaLOG 300 UNITS/3 ML VIAL SC PRN (16:51)
[2023-01-17] MEDS: Atorvastatin Calcium 40 MG TAB PO SCH (20:48)
[2023-01-18] MEDS: Acetaminophen/Codeine 30-300mg Tablet PO PRN ×2 (01:28→20:28)
[2023-01-18 07:20] LABS: Vancomycin, Random 18.5 ug/mL (See Comment)
[2023-01-18] MEDS: Pantoprazole 40 MG VIAL IVP SCH (08:07)
[2023-01-18] MEDS: Ferrous Sulfate 325 MG TAB PO SCH ×2 (08:07→16:36)
[2023-01-18] MEDS: Heparin 5,000 UNITS/ML VIAL SC SCH ×3 (08:07→20:28)
[2023-01-18] MEDS: Ascorbic Acid 500 mg Chewable Tablet PO SCH (08:07)
[2023-01-18] MEDS: Sertraline 25 MG TAB PO SCH (08:08)
[2023-01-18] MEDS: Calcium Acetate 667 MG CAP PO SCH ×3 (08:08→16:36)
[2023-01-18] MEDS: Multivitamin W/ Minerals 1 TAB PO SCH (08:08)
[2023-01-18] MEDS: Saccharomyces boulardii 250 MG CAP PO SCH ×2 (08:08→20:27)
[2023-01-18] MEDS: Gabapentin 400 MG CAP PO SCH (08:08)
[2023-01-18 12:24] LABS: Chloride 102 mmol/L (98-107); Potassium 4.6 mmol/L (3.5-5.1); Sodium 137 mmol/L (136-145)
[2023-01-18 12:25] LABS: Calcium 9.2 mg/dL (7.8-10.44); Glucose 147 mg/dL (70-105)
[2023-01-18 12:27] LABS: Anion Gap 11 mmol/L (10-20); Carbon Dioxide 29 mmol/L (22-29)
[2023-01-18 12:29] LABS: Calc. Creatinine Clearance 38 mL/min (70-130); Estimated GFR 15
[2023-01-18 12:30] LABS: BUN (Urea Nitrogen) 54 mg/dL (8.9-20.6)
[2023-01-18] MEDS: Atorvastatin Calcium 40 MG TAB PO SCH (20:27)
[2023-01-19 06:57] LABS: #Eosinphils 0.2 thou/uL (0.0-0.7); #Lymphocytes 1.3 thou/uL (1.20-3.40); #Monocytes 0.9 thou/uL (0.11-0.59); #Neutrophils 4.2 thou/uL (1.40-6.50); %Basophils 0.6 % (0.0-1.0); %Eosinophils 3.5 % (0.0-10.0); %Lymphocytes 19.7 % (21.0-51.0); %Monocytes 13.2 % (0.0-10.0); %Neutrophils 62.9 % (42.0-75.0); Hemoglobin 10.6 g/dL (14.0-18.0); Mean Corpuscular HGB CONC 33.1 g/dL (32.0-36.0); Mean Corpuscular Hemoglobin 30.9 pg (27.0-31.0); Mean Corpuscular Volume 93.3 fl (78.0-98.0); Mean Platelet Volume 7.9 fL (7.4-10.4); Platelet Count 143 10x3/uL (130-400); RBC Distribution Width 13.3 % (11.5-14.5); Red Blood Cell (RBC) Count 3.42 mill/uL (4.70-6.10); White Blood Cell (WBC) Count 6.6 10x3/uL (4.8-10.8)
[2023-01-19 07:10] LABS: Anion Gap 15 mmol/L (10-20); BUN (Urea Nitrogen) 55 mg/dL (8.9-20.6); Calc. Creatinine Clearance 44 mL/min (70-130); Calcium 9.3 mg/dL (7.8-10.44); Carbon Dioxide 24 mmol/L (22-29); Chloride 101 mmol/L (98-107); Estimated GFR 18; Glucose 193 mg/dL (70-105); Potassium 4.2 mmol/L (3.5-5.1); Sodium 136 mmol/L (136-145)
[2023-01-19 07:23] LABS: Vancomycin, Random 14.4 ug/mL (See Comment)
[2023-01-19] MEDS: Ferrous Sulfate 325 MG TAB PO SCH ×2 (09:05→17:59)
[2023-01-19] MEDS: Heparin 5,000 UNITS/ML VIAL SC SCH ×3 (09:05→20:30)
[2023-01-19] MEDS: Calcium Acetate 667 MG CAP PO SCH ×3 (09:05→17:59)
[2023-01-19] MEDS: Pantoprazole 40 MG VIAL IVP SCH (09:06)
[2023-01-19] MEDS: Multivitamin W/ Minerals 1 TAB PO SCH (09:06)
[2023-01-19] MEDS: Ascorbic Acid 500 mg Chewable Tablet PO SCH (09:06)
[2023-01-19] MEDS: Saccharomyces boulardii 250 MG CAP PO SCH ×2 (09:06→20:29)
[2023-01-19] MEDS: Gabapentin 400 MG CAP PO SCH (09:06)
[2023-01-19] MEDS: Sertraline 25 MG TAB PO SCH (09:06)
[2023-01-19] MEDS ORDERED: Vancomycin 1 GM in Premix Bag 1 BAG IVPB SCH (12:15)
[2023-01-19] MEDS ORDERED: Vancomycin Dose by Levels Sliding Scale (Wt > 99) FS SCH (12:15)
[2023-01-19] MEDS ORDERED: FENTANYL 50 MCG/ML 1 ML VIAL ONE ×3 (13:50→16:19)
[2023-01-19] MEDS ORDERED: Bupivacaine/Epinephrine 0.25% 30 ML VIAL ONE (13:56)
[2023-01-19] MEDS ORDERED: Lidocaine 1% (PF) 30 ML VIAL ONE (13:56)
[2023-01-19] MEDS ORDERED: Heparin 10,000 UNITS/ 10 ML VIAL ONE (14:13)
[2023-01-19] MEDS ORDERED: Ketamine 50 MG/ML (10ML VIAL) ONE (14:27)
[2023-01-19] MEDS ORDERED: Lidocaine 1% PF 5 ML VIAL ONE (14:30)
[2023-01-19] MEDS ORDERED: Rocuronium Bromide 10 MG/ML (10ML VIAL) ONE (14:30)
[2023-01-19] MEDS ORDERED: PROPOFOL 200 MG/20 ML VIAL ONE (14:30)
[2023-01-19] MEDS ORDERED: Ondansetron PF 4 MG/2 ML Vial ONE (14:30)
[2023-01-19] MEDS ORDERED: Succinylcholine Chloride 100 MG/5 ML SYRINGE FS ONE (14:30)
[2023-01-19] MEDS ORDERED: SUGAMMADEX SODIUM 200 MG/2 ML VIAL ONE (15:00)
[2023-01-19] MEDS ORDERED: Ondansetron HCl/PF 4 MG/2 ML Vial IVP PRN (15:01)
[2023-01-19] MEDS ORDERED: Promethazine HCl 25 MG/ML VIAL IM PRN (15:01)
[2023-01-19] MEDS: Atorvastatin Calcium 40 MG TAB PO SCH (20:29)
[2023-01-19] MEDS: Acetaminophen/Codeine 30-300mg Tablet PO PRN (20:29)
[2023-01-20] MEDS: HumaLOG 300 UNITS/3 ML VIAL SC PRN ×2 (00:53→06:01)
[2023-01-20] MEDS: Heparin 5,000 UNITS/ML VIAL SC SCH ×3 (08:34→20:42)
[2023-01-20] MEDS: Calcium Acetate 667 MG CAP PO SCH ×3 (08:35→16:38)
[2023-01-20] MEDS: Pantoprazole 40 MG VIAL IVP SCH (08:35)
[2023-01-20] MEDS: Gabapentin 400 MG CAP PO SCH (08:35)
[2023-01-20] MEDS: Multivitamin W/ Minerals 1 TAB PO SCH (08:36)
[2023-01-20] MEDS: Saccharomyces boulardii 250 MG CAP PO SCH ×2 (08:36→20:42)
[2023-01-20] MEDS: Ferrous Sulfate 325 MG TAB PO SCH ×2 (08:36→16:38)
[2023-01-20] MEDS: Sertraline 25 MG TAB PO SCH (08:36)
[2023-01-20] MEDS: Ascorbic Acid 500 mg Chewable Tablet PO SCH (08:36)
[2023-01-20] MEDS ORDERED: Vancomycin Dialysis Sliding Scale (Wt > 99) FS SCH (13:15)
[2023-01-20 16:09] LABS: Vancomycin, Random 7.9 ug/mL (See Comment)
[2023-01-20] MEDS ORDERED: VANCOMYCIN 1.25 GM/250 ML BAG 1.25 GM in Premix Bag 1 BAG IVPB SCH (16:30)
[2023-01-20] MEDS: Atorvastatin Calcium 40 MG TAB PO SCH (20:41)
[2023-01-21] MEDS: HumaLOG 300 UNITS/3 ML VIAL SC PRN ×2 (06:13→21:03)
[2023-01-21 07:29] LABS: Vancomycin, Random 18.4 ug/mL (See Comment)
[2023-01-21] MEDS: Heparin 5,000 UNITS/ML VIAL SC SCH ×3 (08:19→20:15)
[2023-01-21] MEDS: Ferrous Sulfate 325 MG TAB PO SCH ×2 (08:19→16:45)
[2023-01-21] MEDS: Sertraline 25 MG TAB PO SCH (08:19)
[2023-01-21] MEDS: Saccharomyces boulardii 250 MG CAP PO SCH ×2 (08:19→20:15)
[2023-01-21] MEDS: Multivitamin W/ Minerals 1 TAB PO SCH (08:19)
[2023-01-21] MEDS: Ascorbic Acid 500 mg Chewable Tablet PO SCH (08:19)
[2023-01-21] MEDS: Calcium Acetate 667 MG CAP PO SCH ×3 (08:20→16:45)
[2023-01-21] MEDS: Pantoprazole 40 MG VIAL IVP SCH (08:20)
[2023-01-21] MEDS: Gabapentin 400 MG CAP PO SCH (08:20)
[2023-01-21] MEDS ORDERED: Heparin 10,000 UNITS/ 10 ML VIAL ONE (08:47)
[2023-01-21] MEDS ORDERED: Phenylephrine 10 MG/ML VIAL ONE (14:25)
[2023-01-21] MEDS ORDERED: Lidocaine 1% PF 5 ML VIAL ONE (14:25)
[2023-01-21] MEDS ORDERED: PROPOFOL 200 MG/20 ML VIAL ONE (14:25)
[2023-01-21] MEDS ORDERED: Ketamine 50 MG/ML (10ML VIAL) ONE (14:27)
[2023-01-21] MEDS ORDERED: Midazolam HCl 2 mg/2 ml Vial ONE (14:27)
[2023-01-21] MEDS ORDERED: Vancomycin 1 GM in Premix Bag 1 BAG IVPB SCH (17:00)
[2023-01-21] MEDS: Atorvastatin Calcium 40 MG TAB PO SCH (20:15)
[2023-01-22] MEDS: HumaLOG 300 UNITS/3 ML VIAL SC PRN ×2 (05:40→11:49)
[2023-01-22 07:40] LABS: Hemoglobin 10.5 g/dL (14.0-18.0); Mean Corpuscular HGB CONC 32.1 g/dL (32.0-36.0); Mean Corpuscular Hemoglobin 29.6 pg (27.0-31.0); Mean Corpuscular Volume 92.1 fl (78.0-98.0); Mean Platelet Volume 7.2 fL (7.4-10.4); Platelet Count 262 10x3/uL (130-400); Red Blood Cell (RBC) Count 3.56 mill/uL (4.70-6.10); White Blood Cell (WBC) Count 12.4 10x3/uL (4.8-10.8)
[2023-01-22 08:45] LABS: Eosinophils 3 % (0-10); Lymphocytes 23 % (21-51); MDiff Complete? YES; Monocytes 7 % (0-10); Myelocyte 3 % (0-0); Neutrophil 63 % (42-75); Platelet Morphology Comment Appears Adequate; Polychromasia SLIGHT = 2-3 cells (100X) (0-2/hpf)
[2023-01-22 08:53] LABS: Anion Gap 15 mmol/L (10-20); BUN (Urea Nitrogen) 33 mg/dL (8.9-20.6); Calc. Creatinine Clearance 67 mL/min (70-130); Calcium 8.7 mg/dL (7.8-10.44); Carbon Dioxide 23 mmol/L (22-29); Chloride 98 mmol/L (98-107); Estimated GFR 30; Glucose 242 mg/dL (70-105); Magnesium 1.9 mg/dL (1.6-2.6); Potassium 3.7 mmol/L (3.5-5.1); Sodium 132 mmol/L (136-145)
[2023-01-22] MEDS: Ascorbic Acid 500 mg Chewable Tablet PO SCH (09:18)
[2023-01-22] MEDS: Sertraline 25 MG TAB PO SCH (09:18)
[2023-01-22] MEDS: Multivitamin W/ Minerals 1 TAB PO SCH (09:18)
[2023-01-22] MEDS: Ferrous Sulfate 325 MG TAB PO SCH (09:19)
[2023-01-22] MEDS: Calcium Acetate 667 MG CAP PO SCH ×2 (09:19→11:50)
[2023-01-22] MEDS: Gabapentin 400 MG CAP PO SCH (09:20)
[2023-01-22] MEDS: Heparin 5,000 UNITS/ML VIAL SC SCH (09:20)
[2023-01-22] MEDS: Saccharomyces boulardii 250 MG CAP PO SCH (09:21)
[2023-01-22] MEDS: Pantoprazole 40 MG VIAL IVP SCH (09:21)
[2023-01-22 12:47] VITALS: BP 114/67; TEMP 98.9
== END 2023-01-22 13:19 | disposition home or self-care (01) | DRG 314 ==
LOC: ERS 15:37 → CCU 18:16 → T4-B 01-17 17:59
PROVIDERS: ADMIT Student in an Organized Health Care Education/Training Program; ATTEND Family Medicine
PROC: 3E033XZ Introduction of Vasopressor into Peripheral Vein, Percutaneous Approach (ICD-10-PCS; principal; 2023-01-15)
PROC: 3E0334Z Introduction of Serum, Toxoid and Vaccine into Peripheral Vein, Percutaneous Approach (ICD-10-PCS; 2023-01-15)
PROC: 0JPT3XZ Removal of Tunneled Vascular Access Device from Trunk Subcutaneous Tissue and Fascia, Percutaneous Approach (ICD-10-PCS; 2023-01-16)
PROC: 0JH63XZ Insertion of Tunneled Vascular Access Device into Chest Subcutaneous Tissue and Fascia, Percutaneous Approach (ICD-10-PCS; 2023-01-19)
PROC: 02HV33Z Insertion of Infusion Device into Superior Vena Cava, Percutaneous Approach (ICD-10-PCS; 2023-01-19)
PROC: B518ZZA Fluoroscopy of Superior Vena Cava, Guidance (ICD-10-PCS; 2023-01-19)
DX: T82.7XXA Infection and inflammatory reaction due to other cardiac and vascular devices, implants and grafts, initial encounter (principal); A41.02 Sepsis due to Methicillin resistant Staphylococcus aureus; N18.6 End stage renal disease; R65.21 Severe sepsis with septic shock; I12.0 Hypertensive chronic kidney disease with stage 5 chronic kidney disease or end stage renal disease; E87.1 Hypo-osmolality and hyponatremia; E66.2 Morbid (severe) obesity with alveolar hypoventilation; Z68.41 Body mass index [BMI] 40.0-44.9, adult; F41.9 Anxiety disorder, unspecified; E11.22 Type 2 diabetes mellitus with diabetic chronic kidney disease; E78.5 Hyperlipidemia, unspecified; E11.51 Type 2 diabetes mellitus with diabetic peripheral angiopathy without gangrene; Z20.822 Contact with and (suspected) exposure to COVID-19; D63.1 Anemia in chronic kidney disease; F17.220 Nicotine dependence, chewing tobacco, uncomplicated; Y83.8 Other surgical procedures as the cause of abnormal reaction of the patient, or of later complication, without mention of misadventure at the time of the procedure; Z79.899 Other long term (current) drug therapy; Z79.82 Long term (current) use of aspirin; Z79.4 Long term (current) use of insulin; Z99.2 Dependence on renal dialysis; Z79.51 Long term (current) use of inhaled steroids
CPT/HCPCS: 36415; 36416; 36556; 71045; 80048; 80053; 80202; 81003; 81015; 82010; 82550; 82553; 83605; 83690; 83735; 83880; 84100; 84443; 84484; 85025; 86704; 87040; 87070; 87071; 87077; 87086; 87149; 87186; 87205; 90935; 93005; 93306; 93312; 94660; 96365; 96367; C1752; C9113; G0257; J0692; J1642; J1644; J2001; J2250; J2272; J2370; J2405; J2704; J3010; J3370; J3370-JW; J3475; J3490; J7050; P9047; Q5105

== ENCOUNTER 2023-02-17 19:13 | Inpatient (IN) | payer OTHER ==
[2023-02-17 20:19] LABS: Hemoglobin 12.1 g/dL (14.0-18.0); Mean Corpuscular Hemoglobin 32.4 pg (27.0-31.0); Mean Corpuscular Volume 90.2 fl (78.0-98.0); Mean Platelet Volume 6.9 fL (7.4-10.4); Platelet Count 255 10x3/uL (130-400); Red Blood Cell (RBC) Count 3.74 mill/uL (4.70-6.10); White Blood Cell (WBC) Count 11.8 10x3/uL (4.8-10.8)
[2023-02-17 20:32] LABS: ALT (SGPT) 31 U/L (8-55); AST (SGOT) 34 U/L (5-34); Albumin 3.8 g/dL (3.5-5.0); Alkaline Phosphatase 81 U/L (40-110); Anion Gap 19 mmol/L (10-20); BUN (Urea Nitrogen) 63 mg/dL (8.9-20.6); Bilirubin, Total 0.3 mg/dL (0.2-1.2); Calc. Creatinine Clearance 0 mL/min (70-130); Calcium 9.3 mg/dL (7.8-10.44); Carbon Dioxide 21 mmol/L (22-29); Chloride 96 mmol/L (98-107); Estimated GFR 10; Globulin 3.6 g/dL (2.4-3.5); Glucose 266 mg/dL (70-105); Potassium 5.4 mmol/L (3.5-5.1); Protein, Total 7.4 g/dL (6.0-8.3); Sodium 131 mmol/L (136-145)
[2023-02-17 21:12] LABS: #Basophils 0.1 thou/uL (0.0-0.2); #Eosinphils 0.6 thou/uL (0.0-0.7); #Lymphocytes 2.3 thou/uL (1.20-3.40); #Neutrophils 7.9 thou/uL (1.40-6.50); %Basophils 0.6 % (0.0-1.0); %Eosinophils 5.4 % (0.0-10.0); %Lymphocytes 19.3 % (21.0-51.0); %Monocytes 8.2 % (0.0-10.0); %Neutrophils 66.6 % (42.0-75.0); Eosinophils 6 % (0-10); Lymphocytes 19 % (21-51); MDiff Complete? YES; Monocytes 4 % (0-10); Myelocyte 1 % (0-0); Neutrophil 68 % (42-75); Platelet Morphology Comment Appears Adequate; RBC Morphology Normal
[2023-02-17] MEDS ORDERED: Vancomycin 1 GM/200 ML (FROZEN) BAG ONE (21:19)
[2023-02-17] MEDS ORDERED: Cefepime 2 GM VIAL ONE (22:24)
[2023-02-17] MEDS ORDERED: Ondansetron ODT 4 MG TAB PO PRN (22:31)
[2023-02-17] MEDS ORDERED: Dextrose 50% Abboject 50 ML SYRINGE SLOW IVP PRN (22:31)
[2023-02-17] MEDS ORDERED: Dextrose 5% in Water 1,000 ML IV PRN (22:31)
[2023-02-17] MEDS ORDERED: Acetaminophen 650 MG Suppository PR PRN (22:31)
[2023-02-17] MEDS ORDERED: Ondansetron PF 4 MG/2 ML Vial IVP PRN (22:31)
[2023-02-17] MEDS ORDERED: Acetaminophen 325 MG TAB PO PRN (22:31)
[2023-02-17 23:17] VITALS: BMI 33.6
[2023-02-17] MEDS ORDERED: Insulin Glargine 30 UNITS/0.3 ML VIAL SC SCH (23:30)
[2023-02-17 23:43] LABS: Lactic Acid 1.8 mmol/L (0.5-2.2)
[2023-02-17 23:45] LABS: Anion Gap 18 mmol/L (10-20); BUN (Urea Nitrogen) 67 mg/dL (8.9-20.6); Calc. Creatinine Clearance 24 mL/min (70-130); Calcium 9.1 mg/dL (7.8-10.44); Carbon Dioxide 23 mmol/L (22-29); Chloride 97 mmol/L (98-107); Estimated GFR 10; Glucose 289 mg/dL (70-105); Potassium 4.8 mmol/L (3.5-5.1); Sodium 133 mmol/L (136-145)
[2023-02-17] MEDS ORDERED: Vancomycin Dialysis Sliding Scale (Wt > 99) FS SCH (23:45)
[2023-02-18 05:14] LABS: #Basophils 0.1 thou/uL (0.0-0.2); #Eosinphils 0.5 thou/uL (0.0-0.7); #Lymphocytes 2.4 thou/uL (1.20-3.40); #Monocytes 0.8 thou/uL (0.11-0.59); #Neutrophils 4.9 thou/uL (1.40-6.50); %Basophils 0.7 % (0.0-1.0); %Eosinophils 6.2 % (0.0-10.0); %Lymphocytes 27.5 % (21.0-51.0); %Monocytes 9.2 % (0.0-10.0); %Neutrophils 56.4 % (42.0-75.0); Hemoglobin 11.8 g/dL (14.0-18.0); Mean Corpuscular HGB CONC 36.5 g/dL (32.0-36.0); Mean Corpuscular Hemoglobin 32.7 pg (27.0-31.0); Mean Corpuscular Volume 89.6 fl (78.0-98.0); Mean Platelet Volume 7.2 fL (7.4-10.4); Platelet Count 192 10x3/uL (130-400); Red Blood Cell (RBC) Count 3.61 mill/uL (4.70-6.10); White Blood Cell (WBC) Count 8.7 10x3/uL (4.8-10.8)
[2023-02-18 05:26] LABS: Anion Gap 17 mmol/L (10-20); BUN (Urea Nitrogen) 68 mg/dL (8.9-20.6); Calc. Creatinine Clearance 24 mL/min (70-130); Calcium 9.4 mg/dL (7.8-10.44); Carbon Dioxide 23 mmol/L (22-29); Chloride 99 mmol/L (98-107); Estimated GFR 10; Glucose 233 mg/dL (70-105); Sodium 134 mmol/L (136-145)
[2023-02-18] MEDS: Heparin 5,000 UNITS/ML VIAL SC SCH ×3 (06:11→20:16)
[2023-02-18] MEDS: HumaLOG 300 UNITS/3 ML VIAL SC PRN ×2 (06:14→18:04)
[2023-02-18 07:16] LABS: Vancomycin, Random 17.5 ug/mL (See Comment)
[2023-02-18] MEDS: Insulin Glargine 30 UNITS/0.3 ML VIAL SC SCH ×2 (08:33→20:13)
[2023-02-18] MEDS ORDERED: Heparin 10,000 UNITS/ 10 ML VIAL ONE (08:39)
[2023-02-18] MEDS ORDERED: VANCOMYCIN 1.25 GM/250 ML BAG 1.25 GM in Premix Bag 1 BAG IVPB SCH (09:00)
[2023-02-18] MEDS ORDERED: Cefepime 2 GM in Sodium Chloride 0.9% 100 ML IVPB SCH (09:00)
[2023-02-18] MEDS ORDERED: Acetaminophen/Codeine 30-300mg Tablet PO PRN (14:16)
[2023-02-18] MEDS ORDERED: Albuterol 200 PUFF (6.7GM INHALER) INH PRN (14:16)
[2023-02-18] MEDS: Gabapentin 100 MG CAP PO SCH ×2 (14:32→20:13)
[2023-02-18] MEDS: Calcium Acetate 667 MG CAP PO SCH (16:06)
[2023-02-18] MEDS: Ferrous Sulfate 325 MG TAB PO SCH (16:06)
[2023-02-18] MEDS ORDERED: Vancomycin 1 GM in Premix Bag 1 BAG IVPB SCH (17:00)
[2023-02-18] MEDS: Atorvastatin Calcium 40 MG TAB PO SCH (20:13)
[2023-02-18] MEDS: Saccharomyces boulardii 250 MG CAP PO SCH (20:16)
[2023-02-18] MEDS: Cefepime 0.5 GM, Admixture Fee 1 EACH in Sodium Chloride 0.9% 100 ML IVPB SCH (22:03)
[2023-02-19 04:46] LABS: #Basophils 0.1 thou/uL (0.0-0.2); #Eosinphils 0.5 thou/uL (0.0-0.7); #Lymphocytes 1.8 thou/uL (1.20-3.40); #Monocytes 0.8 thou/uL (0.11-0.59); #Neutrophils 5.2 thou/uL (1.40-6.50); %Basophils 0.8 % (0.0-1.0); %Eosinophils 6.3 % (0.0-10.0); %Lymphocytes 21.7 % (21.0-51.0); %Monocytes 9.2 % (0.0-10.0); Hemoglobin 12.8 g/dL (14.0-18.0); Mean Corpuscular Volume 88.8 fl (78.0-98.0); Platelet Count 220 10x3/uL (130-400); RBC Distribution Width 12.9 % (11.5-14.5); Red Blood Cell (RBC) Count 4.01 mill/uL (4.70-6.10); White Blood Cell (WBC) Count 8.4 10x3/uL (4.8-10.8)
[2023-02-19 05:21] LABS: Anion Gap 17 mmol/L (10-20); BUN (Urea Nitrogen) 43 mg/dL (8.9-20.6); Calc. Creatinine Clearance 37 mL/min (70-130); Calcium 9.2 mg/dL (7.8-10.44); Carbon Dioxide 23 mmol/L (22-29); Chloride 100 mmol/L (98-107); Estimated GFR 17; Glucose 195 mg/dL (70-105); Potassium 4.6 mmol/L (3.5-5.1); Sodium 135 mmol/L (136-145)
[2023-02-19] MEDS: Heparin 5,000 UNITS/ML VIAL SC SCH ×3 (06:11→21:01)
[2023-02-19] MEDS: HumaLOG 300 UNITS/3 ML VIAL SC PRN (06:11)
[2023-02-19] MEDS: Gabapentin 100 MG CAP PO SCH ×3 (10:42→20:59)
[2023-02-19] MEDS: Ferrous Sulfate 325 MG TAB PO SCH ×2 (10:42→18:22)
[2023-02-19] MEDS: Calcium Acetate 667 MG CAP PO SCH ×3 (10:42→18:22)
[2023-02-19] MEDS: Insulin Glargine 30 UNITS/0.3 ML VIAL SC SCH ×2 (10:43→21:00)
[2023-02-19] MEDS: Multivitamin W/ Minerals 1 TAB PO SCH (10:44)
[2023-02-19] MEDS: Sertraline 100 MG TAB PO SCH (10:44)
[2023-02-19] MEDS: Saccharomyces boulardii 250 MG CAP PO SCH ×2 (10:44→20:59)
[2023-02-19] MEDS ORDERED: Albuterol 200 PUFF (6.7GM INHALER) INH PRN (12:35)
[2023-02-19] MEDS ORDERED: NIFEdipine XL 60 MG TAB PO SCH (13:00)
[2023-02-19] MEDS: Atorvastatin Calcium 40 MG TAB PO SCH (20:59)
[2023-02-19] MEDS: Cefepime 0.5 GM, Admixture Fee 1 EACH in Sodium Chloride 0.9% 100 ML IVPB SCH (22:40)
[2023-02-20] MEDS: Heparin 5,000 UNITS/ML VIAL SC SCH ×3 (05:13→21:15)
[2023-02-20 06:28] LABS: #Basophils 0.1 thou/uL (0.0-0.2); #Eosinphils 0.5 thou/uL (0.0-0.7); #Lymphocytes 2.1 thou/uL (1.20-3.40); #Monocytes 0.8 thou/uL (0.11-0.59); #Neutrophils 4.4 thou/uL (1.40-6.50); %Basophils 0.8 % (0.0-1.0); %Eosinophils 5.8 % (0.0-10.0); %Lymphocytes 26.7 % (21.0-51.0); %Monocytes 10.6 % (0.0-10.0); %Neutrophils 56.1 % (42.0-75.0); Hemoglobin 11.3 g/dL (14.0-18.0); Mean Corpuscular HGB CONC 34.8 g/dL (32.0-36.0); Mean Corpuscular Hemoglobin 31.1 pg (27.0-31.0); Mean Corpuscular Volume 89.3 fl (78.0-98.0); Platelet Count 209 10x3/uL (130-400); Red Blood Cell (RBC) Count 3.63 mill/uL (4.70-6.10); White Blood Cell (WBC) Count 7.9 10x3/uL (4.8-10.8)
[2023-02-20 06:44] LABS: Anion Gap 15 mmol/L (10-20); BUN (Urea Nitrogen) 54 mg/dL (8.9-20.6); Calc. Creatinine Clearance 35 mL/min (70-130); Calcium 9.3 mg/dL (7.8-10.44); Carbon Dioxide 24 mmol/L (22-29); Chloride 100 mmol/L (98-107); Estimated GFR 16; Glucose 141 mg/dL (70-105); Potassium 4.8 mmol/L (3.5-5.1); Sodium 134 mmol/L (136-145)
[2023-02-20 06:46] LABS: Vancomycin, Random 16.6 ug/mL (See Comment)
[2023-02-20] MEDS ORDERED: Heparin 10,000 UNITS/ 10 ML VIAL ONE (09:44)
[2023-02-20] MEDS: Calcium Acetate 667 MG CAP PO SCH ×3 (13:52→16:26)
[2023-02-20] MEDS: Insulin Glargine 30 UNITS/0.3 ML VIAL SC SCH ×2 (13:53→21:14)
[2023-02-20] MEDS: Multivitamin W/ Minerals 1 TAB PO SCH (13:53)
[2023-02-20] MEDS: Gabapentin 100 MG CAP PO SCH ×3 (13:53→21:13)
[2023-02-20] MEDS: Folic Acid/Vit B Comp W-C PO SCH (13:53)
[2023-02-20] MEDS: Ferrous Sulfate 325 MG TAB PO SCH ×2 (13:53→16:26)
[2023-02-20] MEDS: Saccharomyces boulardii 250 MG CAP PO SCH ×2 (13:53→21:13)
[2023-02-20] MEDS: Sertraline 100 MG TAB PO SCH (13:53)
[2023-02-20] MEDS ORDERED: Vancomycin 1 GM in Premix Bag 1 BAG IVPB SCH (17:00)
[2023-02-20] MEDS: HumaLOG 300 UNITS/3 ML VIAL SC PRN ×2 (17:03→21:29)
[2023-02-20] MEDS: Atorvastatin Calcium 40 MG TAB PO SCH (21:13)
[2023-02-20] MEDS: Cefepime 0.5 GM, Admixture Fee 1 EACH in Sodium Chloride 0.9% 100 ML IVPB SCH (21:16)
[2023-02-21] MEDS: Heparin 5,000 UNITS/ML VIAL SC SCH ×3 (05:52→21:50)
[2023-02-21] MEDS: HumaLOG 300 UNITS/3 ML VIAL SC PRN ×2 (05:53→17:49)
[2023-02-21 07:19] LABS: Anion Gap 17 mmol/L (10-20); BUN (Urea Nitrogen) 42 mg/dL (8.9-20.6); Calc. Creatinine Clearance 41 mL/min (70-130); Calcium 9.8 mg/dL (7.8-10.44); Carbon Dioxide 22 mmol/L (22-29); Chloride 99 mmol/L (98-107); Estimated GFR 19; Glucose 201 mg/dL (70-105); Potassium 4.4 mmol/L (3.5-5.1); Sodium 134 mmol/L (136-145)
[2023-02-21 07:32] LABS: #Eosinphils 0.5 thou/uL (0.0-0.7); #Monocytes 0.8 thou/uL (0.11-0.59); #Neutrophils 5.3 thou/uL (1.40-6.50); %Basophils 0.5 % (0.0-1.0); %Eosinophils 5.5 % (0.0-10.0); %Lymphocytes 22.9 % (21.0-51.0); %Monocytes 9.6 % (0.0-10.0); %Neutrophils 61.5 % (42.0-75.0); Hemoglobin 12.8 g/dL (14.0-18.0); Mean Corpuscular HGB CONC 34.4 g/dL (32.0-36.0); Mean Corpuscular Hemoglobin 30.7 pg (27.0-31.0); Mean Corpuscular Volume 89.3 fl (78.0-98.0); Mean Platelet Volume 6.8 fL (7.4-10.4); Platelet Count 232 10x3/uL (130-400); RBC Distribution Width 12.9 % (11.5-14.5); Red Blood Cell (RBC) Count 4.16 mill/uL (4.70-6.10); White Blood Cell (WBC) Count 8.6 10x3/uL (4.8-10.8)
[2023-02-21] MEDS: Multivitamin W/ Minerals 1 TAB PO SCH (09:35)
[2023-02-21] MEDS: Gabapentin 100 MG CAP PO SCH ×3 (09:35→21:48)
[2023-02-21] MEDS: Calcium Acetate 667 MG CAP PO SCH ×3 (09:35→17:48)
[2023-02-21] MEDS: Folic Acid/Vit B Comp W-C PO SCH (09:35)
[2023-02-21] MEDS: Saccharomyces boulardii 250 MG CAP PO SCH ×2 (09:35→21:48)
[2023-02-21] MEDS: Ferrous Sulfate 325 MG TAB PO SCH ×2 (09:36→17:00)
[2023-02-21] MEDS: Sertraline 100 MG TAB PO SCH (09:36)
[2023-02-21] MEDS: NIFEdipine XL 60 MG TAB PO SCH (09:36)
[2023-02-21] MEDS: Insulin Glargine 30 UNITS/0.3 ML VIAL SC SCH ×2 (09:36→21:48)
[2023-02-21] MEDS: Cefepime 0.5 GM, Admixture Fee 1 EACH in Sodium Chloride 0.9% 100 ML IVPB SCH (21:44)
[2023-02-21] MEDS: Atorvastatin Calcium 40 MG TAB PO SCH (21:48)
[2023-02-22] MEDS: Heparin 5,000 UNITS/ML VIAL SC SCH ×3 (05:52→21:06)
[2023-02-22] MEDS: HumaLOG 300 UNITS/3 ML VIAL SC PRN ×3 (05:53→21:04)
[2023-02-22 06:19] LABS: #Basophils 0.1 thou/uL (0.0-0.2); #Eosinphils 0.5 thou/uL (0.0-0.7); #Lymphocytes 2.2 thou/uL (1.20-3.40); #Monocytes 0.8 thou/uL (0.11-0.59); #Neutrophils 6.1 thou/uL (1.40-6.50); %Basophils 0.8 % (0.0-1.0); %Eosinophils 5.3 % (0.0-10.0); %Lymphocytes 22.9 % (21.0-51.0); %Monocytes 8.4 % (0.0-10.0); %Neutrophils 62.6 % (42.0-75.0); Hemoglobin 11.8 g/dL (14.0-18.0); Mean Corpuscular HGB CONC 33.6 g/dL (32.0-36.0); Mean Corpuscular Hemoglobin 30.2 pg (27.0-31.0); Mean Corpuscular Volume 89.8 fl (78.0-98.0); Mean Platelet Volume 6.9 fL (7.4-10.4); Platelet Count 240 10x3/uL (130-400); RBC Distribution Width 12.7 % (11.5-14.5); White Blood Cell (WBC) Count 9.8 10x3/uL (4.8-10.8)
[2023-02-22 07:19] LABS: Anion Gap 17 mmol/L (10-20); BUN (Urea Nitrogen) 59 mg/dL (8.9-20.6); Calc. Creatinine Clearance 38 mL/min (70-130); Calcium 9.8 mg/dL (7.8-10.44); Carbon Dioxide 19 mmol/L (22-29); Chloride 100 mmol/L (98-107); Estimated GFR 17; Glucose 244 mg/dL (70-105); Potassium 4.2 mmol/L (3.5-5.1); Sodium 132 mmol/L (136-145)
[2023-02-22 07:20] LABS: Vancomycin, Random 18.1 ug/mL (See Comment)
[2023-02-22] MEDS: Calcium Acetate 667 MG CAP PO SCH ×3 (07:56→17:51)
[2023-02-22] MEDS ORDERED: Heparin 10,000 UNITS/ 10 ML VIAL ONE (09:09)
[2023-02-22] MEDS: Insulin Glargine 30 UNITS/0.3 ML VIAL SC SCH ×2 (13:10→21:29)
[2023-02-22] MEDS: Gabapentin 100 MG CAP PO SCH ×3 (13:11→21:07)
[2023-02-22] MEDS: Ferrous Sulfate 325 MG TAB PO SCH ×2 (13:11→17:52)
[2023-02-22] MEDS: Saccharomyces boulardii 250 MG CAP PO SCH ×2 (13:11→21:08)
[2023-02-22] MEDS: Folic Acid/Vit B Comp W-C PO SCH (14:33)
[2023-02-22] MEDS: Sertraline 100 MG TAB PO SCH (14:33)
[2023-02-22] MEDS: Multivitamin W/ Minerals 1 TAB PO SCH (14:33)
[2023-02-22] MEDS ORDERED: Vancomycin 1 GM in Premix Bag 1 BAG IVPB SCH (17:00)
[2023-02-22] MEDS ORDERED: Vancomycin HCl 125 MG/5 ML (BATCHED) UDCUP PO SCH (18:15)
[2023-02-22] MEDS: Atorvastatin Calcium 40 MG TAB PO SCH (21:07)
[2023-02-22] MEDS: Cefepime 0.5 GM, Admixture Fee 1 EACH in Sodium Chloride 0.9% 100 ML IVPB SCH (21:08)
[2023-02-23] MEDS: Vancomycin HCl 125 MG/5 ML (BATCHED) UDCUP PO SCH ×4 (00:03→18:41)
[2023-02-23 05:43] LABS: #Basophils 0.1 thou/uL (0.0-0.2); #Eosinphils 0.5 thou/uL (0.0-0.7); #Lymphocytes 2.6 thou/uL (1.20-3.40); #Neutrophils 6.1 thou/uL (1.40-6.50); %Basophils 0.7 % (0.0-1.0); %Eosinophils 4.9 % (0.0-10.0); %Lymphocytes 24.9 % (21.0-51.0); %Monocytes 9.5 % (0.0-10.0); Mean Corpuscular HGB CONC 35.5 g/dL (32.0-36.0); Mean Corpuscular Hemoglobin 31.4 pg (27.0-31.0); Mean Corpuscular Volume 88.5 fl (78.0-98.0); Mean Platelet Volume 6.7 fL (7.4-10.4); Platelet Count 210 10x3/uL (130-400); RBC Distribution Width 12.8 % (11.5-14.5); Red Blood Cell (RBC) Count 4.15 mill/uL (4.70-6.10); White Blood Cell (WBC) Count 10.2 10x3/uL (4.8-10.8)
[2023-02-23 06:01] LABS: Anion Gap 15 mmol/L (10-20); BUN (Urea Nitrogen) 42 mg/dL (8.9-20.6); Calc. Creatinine Clearance 41 mL/min (70-130); Calcium 9.4 mg/dL (7.8-10.44); Carbon Dioxide 22 mmol/L (22-29); Chloride 96 mmol/L (98-107); Estimated GFR 19; Glucose 230 mg/dL (70-105); Potassium 4.1 mmol/L (3.5-5.1); Sodium 129 mmol/L (136-145)
[2023-02-23] MEDS: HumaLOG 300 UNITS/3 ML VIAL SC PRN ×2 (06:29→21:53)
[2023-02-23] MEDS: Heparin 5,000 UNITS/ML VIAL SC SCH ×3 (06:29→21:52)
[2023-02-23] MEDS: Multivitamin W/ Minerals 1 TAB PO SCH (09:01)
[2023-02-23] MEDS: NIFEdipine XL 60 MG TAB PO SCH (09:01)
[2023-02-23] MEDS: Gabapentin 100 MG CAP PO SCH ×3 (09:01→21:51)
[2023-02-23] MEDS: Sertraline 100 MG TAB PO SCH (09:01)
[2023-02-23] MEDS: Calcium Acetate 667 MG CAP PO SCH ×3 (09:02→18:01)
[2023-02-23] MEDS: Ferrous Sulfate 325 MG TAB PO SCH ×2 (09:02→18:41)
[2023-02-23] MEDS: Saccharomyces boulardii 250 MG CAP PO SCH ×2 (09:02→21:52)
[2023-02-23] MEDS: Insulin Glargine 30 UNITS/0.3 ML VIAL SC SCH ×2 (09:02→21:52)
[2023-02-23] MEDS: Folic Acid/Vit B Comp W-C PO SCH (09:02)
[2023-02-23] MEDS: Atorvastatin Calcium 40 MG TAB PO SCH (21:51)
[2023-02-23] MEDS: Cefepime 0.5 GM, Admixture Fee 1 EACH in Sodium Chloride 0.9% 100 ML IVPB SCH (21:52)
[2023-02-24] MEDS: Vancomycin HCl 125 MG/5 ML (BATCHED) UDCUP PO SCH ×2 (00:31→05:55)
[2023-02-24 04:54] VITALS: TEMP 98.1
[2023-02-24] MEDS: Heparin 5,000 UNITS/ML VIAL SC SCH (05:32)
[2023-02-24] MEDS: HumaLOG 300 UNITS/3 ML VIAL SC PRN ×2 (05:33→12:28)
[2023-02-24 06:10] LABS: #Eosinphils 0.5 thou/uL (0.0-0.7); #Lymphocytes 2.7 thou/uL (1.20-3.40); #Neutrophils 6.6 thou/uL (1.40-6.50); %Basophils 0.4 % (0.0-1.0); %Eosinophils 4.4 % (0.0-10.0); %Lymphocytes 24.7 % (21.0-51.0); %Monocytes 9.5 % (0.0-10.0); Hemoglobin 11.4 g/dL (14.0-18.0); Mean Corpuscular HGB CONC 33.9 g/dL (32.0-36.0); Mean Corpuscular Hemoglobin 30.1 pg (27.0-31.0); Mean Corpuscular Volume 88.9 fl (78.0-98.0); Mean Platelet Volume 6.8 fL (7.4-10.4); Platelet Count 220 10x3/uL (130-400); RBC Distribution Width 12.9 % (11.5-14.5); Red Blood Cell (RBC) Count 3.79 mill/uL (4.70-6.10); White Blood Cell (WBC) Count 10.8 10x3/uL (4.8-10.8)
[2023-02-24 06:32] LABS: Anion Gap 17 mmol/L (10-20); BUN (Urea Nitrogen) 62 mg/dL (8.9-20.6); Calc. Creatinine Clearance 34 mL/min (70-130); Calcium 9.4 mg/dL (7.8-10.44); Carbon Dioxide 19 mmol/L (22-29); Chloride 97 mmol/L (98-107); Estimated GFR 15; Glucose 226 mg/dL (70-105); Potassium 4.2 mmol/L (3.5-5.1); Sodium 129 mmol/L (136-145)
[2023-02-24 07:55] VITALS: BP 117/76
[2023-02-24] MEDS: Sertraline 100 MG TAB PO SCH (08:53)
[2023-02-24] MEDS: Calcium Acetate 667 MG CAP PO SCH (08:53)
[2023-02-24] MEDS: Gabapentin 100 MG CAP PO SCH (08:54)
[2023-02-24] MEDS: Folic Acid/Vit B Comp W-C PO SCH (08:54)
[2023-02-24] MEDS: Insulin Glargine 30 UNITS/0.3 ML VIAL SC SCH (08:55)
[2023-02-24] MEDS: Ferrous Sulfate 325 MG TAB PO SCH (08:55)
[2023-02-24] MEDS: Multivitamin W/ Minerals 1 TAB PO SCH (08:55)
[2023-02-24] MEDS: Saccharomyces boulardii 250 MG CAP PO SCH (08:55)
[2023-02-24] MEDS: NIFEdipine XL 60 MG TAB PO SCH (08:59)
== END 2023-02-24 13:05 | DRG 314 ==
LOC: ERS 19:13 → ERHOLD 21:42 → 2NO 02-18 04:35 → T4-B 02-20 18:13
PROVIDERS: ADMIT Student in an Organized Health Care Education/Training Program; ATTEND Internal Medicine
PROC: 3E03329 Introduction of Other Anti-infective into Peripheral Vein, Percutaneous Approach (ICD-10-PCS; principal; 2023-02-17)
PROC: 5A1D70Z Performance of Urinary Filtration, Intermittent, Less than 6 Hours Per Day (ICD-10-PCS; 2023-02-17)
DX: T82.7XXA Infection and inflammatory reaction due to other cardiac and vascular devices, implants and grafts, initial encounter (principal); A41.9 Sepsis, unspecified organism; N18.6 End stage renal disease; I13.2 Hypertensive heart and chronic kidney disease with heart failure and with stage 5 chronic kidney disease, or end stage renal disease; E87.1 Hypo-osmolality and hyponatremia; A04.72 Enterocolitis due to Clostridium difficile, not specified as recurrent; E78.5 Hyperlipidemia, unspecified; F41.9 Anxiety disorder, unspecified; F32.A Depression, unspecified; Y84.1 Kidney dialysis as the cause of abnormal reaction of the patient, or of later complication, without mention of misadventure at the time of the procedure; E11.22 Type 2 diabetes mellitus with diabetic chronic kidney disease; E66.01 Morbid (severe) obesity due to excess calories; I50.9 Heart failure, unspecified; D63.1 Anemia in chronic kidney disease; Z99.2 Dependence on renal dialysis; Z88.8 Allergy status to other drugs, medicaments and biological substances; Z89.512 Acquired absence of left leg below knee; Z79.4 Long term (current) use of insulin; Z79.899 Other long term (current) drug therapy
CPT/HCPCS: 36415; 36416; 71045; 80048; 80053; 80202; 83605; 84484; 85025; 87040; 87077; 87149; 87324; 87449; 87493; 90935; 93005; 94660; 96365; 96375; G0257; J0692; J1644; J1815; J3370-JW; J3490

== ENCOUNTER 2023-09-13 12:22 | Emergency (ER) | payer OTHER, MEDICARE ==
[~2023-09-13 12:22] MED LIST changes: -AMINO ACIDS PO SCH; -Acetaminophen 325 MG TAB PO PRN; -Albuterol 200 PUFF (6.7GM INHALER) INH PRN; -Aspirin 81 mg Enteric Coated Tablet PO SCH; -Calcium Carbonate 500 MG ChewTAB PO SCH; -Carvedilol 6.25 MG TAB PO SCH; -Cefepime 2 GM in Sodium Chloride 0.9% 100 ML IVPB SCH; -Clindamycin/D5W 900 MG in Premix Bag 1 BAG IVPB SCH; -Dextrose 5% in Water 1,000 ML IV PRN; -Dextrose 50% Abboject 50 ML SYRINGE SLOW IVP PRN; -FIBER PO SCH; -FLU VACC QS2022-23(6MOS UP)/PF 60 MCG/0.5 ML SYRINGE IM ONE; -Famotidine 20 MG TAB PO SCH; -Ferrous Sulfate 325 MG TAB PO SCH; -Gabapentin 400 MG CAP PO SCH; -HYDROcodone/Acetaminophen 10/325 mg Tablet PO PRN; -Insulin Regular 300 UNITS/3 ML VIAL SC PRN; +Iopamidol-370 76% 500 ML MDV (1 ML CHARGE) ONE; -Methocarbamol 500 MG TAB PO PRN; -NIFEdipine XL 60 MG TAB PO SCH; -Non-Formulary Item 1 EACH (Ascorbic Acid [Vitamin C] 1,000 MG Tablet) PO SCH; -Non-Formulary Item 1 EACH (Calcium Acetate [Calcium Acetate] 667 MG Tablet) PO SCH; -Non-Formulary Item 1 EACH (Famotidine [Famotidine] 10 MG Tablet) PO SCH; -Non-Formulary Item 1 EACH (Insulin Aspart [Insulin Aspart] 100 UNIT/ML Vial) SQ PRN; -Non-Formulary Item 1 EACH (Lisinopril [Lisinopril] 40 MG Tablet) PO SCH; -Non-Formulary Item 1 EACH (Multivitamin With Minerals [Multiple Vitamin] 1 TABLET Tablet) PO SCH; -Non-Formulary Item 1 EACH (Sertraline Hcl [Sertraline Hcl] 50 MG Tablet) PO SCH; -PROTEIN HYDR PO SCH; -Polyethylene Glycol 3350 17 GM Packet PO PRN; -Saccharomyces boulardii 250 MG CAP PO SCH; -Senokot S 8.6-50 MG TAB PO PRN; -TETANUS, DIPHTHERIA TOX,ADULT (TDVAX) 0.5 ML VIAL IM ONE; -[UNRECOGNIZED DRUG - OTHER] PO SCH; -hydrALAZINE 25 MG TAB PO SCH
[2023-09-13 12:56] LABS: #Basophils 0.1 thou/uL (0.0-0.2); #Eosinphils 0.2 thou/uL (0.0-0.7); #Monocytes 0.7 thou/uL (0.11-0.59); #Neutrophils 6.2 thou/uL (1.40-6.50); %Basophils 0.6 % (0.0-1.0); %Eosinophils 1.9 % (0.0-10.0); %Lymphocytes 16.5 % (21.0-51.0); %Monocytes 8.2 % (0.0-10.0); %Neutrophils 71.5 % (42.0-75.0); Hematocrit 33.7 % (42.0-52.0); Hemoglobin 11.4 g/dL (14.0-18.0); Mean Corpuscular HGB CONC 33.8 g/dL (32.0-36.0); Mean Corpuscular Hemoglobin 31.2 pg (27.0-31.0); Mean Corpuscular Volume 92.3 fl (78.0-98.0); Mean Platelet Volume 9.6 fL (7.4-10.4); Platelet Count 219 10x3/uL (130-400); RBC Distribution Width 13.2 % (11.5-14.5); Red Blood Cell (RBC) Count 3.65 mill/uL (4.70-6.10); White Blood Cell (WBC) Count 8.6 10x3/uL (4.8-10.8)
[2023-09-13] MEDS ORDERED: Acetaminophen 500 MG TAB ONE (13:12)
[2023-09-13] MEDS ORDERED: Piperacillin/Tazobactam 4.5 GM VIAL ONE (13:13)
[2023-09-13] MEDS ORDERED: Sodium Chloride 0.9% 100 ML ONE (13:14)
[2023-09-13] MEDS ORDERED: Vancomycin (BATCH) 2 GM in Premix 1 BAG IVPB SCH (13:15)
[2023-09-13 13:22] LABS: ALT (SGPT) 11 U/L (8-55); AST (SGOT) 18 U/L (5-34); Albumin 3.6 g/dL (3.5-5.0); Alkaline Phosphatase 99 U/L (40-110); Anion Gap 19 mmol/L (10-20); BUN (Urea Nitrogen) 72 mg/dL (8.9-20.6); Bilirubin, Total 0.3 mg/dL (0.2-1.2); Calc. Creatinine Clearance 0 mL/min (70-130); Calcium 8.9 mg/dL (7.8-10.44); Carbon Dioxide 23 mmol/L (22-29); Chloride 95 mmol/L (98-107); Estimated GFR 10; Globulin 3.9 g/dL (2.4-3.5); Glucose 340 mg/dL (70-105); Potassium 4.2 mmol/L (3.5-5.1); Protein, Total 7.5 g/dL (6.0-8.3); Sodium 133 mmol/L (136-145)
[2023-09-13 13:48] LABS: Actual Bicarbonate (HCO3v) 23.8 mEq/L (22-28); Base Excess -3.1 mEq/L (-2.0 to +3.0); Calcium, Ionized (venous) 1.12 mmol/L (1.16-1.32); Chloride (VBG) 95 mmol/L (98-106); Hematocrit-VBG 44 % (42.0-52.0); Hemoglobin (Hb) 14.9 g/dL (13.2-17.3); Potassium (VBG) 4.48 mmol/L (3.70-5.30); Sodium 134 mmol/L (133-146); pH (venous) 7.301 (7.32-7.43)
[2023-09-13 14:21] LABS: Bacteria/HPF None Seen HPF (None Seen); Bilirubin Negative (Negative); Blood, Urine 1+ (Negative); CAUTI Indications for Culture Acute Hematuria; Clarity Clear (Clear); Glucose, Urine (Dipstick) Greater than 1000 mg/dL (Negative); Ketone, Urine Negative (Negative); Leukocyte Negative Leu/uL (Negative); Nitrite Negative (Negative); Protein, Urine (Dipstick) 50 mg/dL (Neg-Trace); RBC/HPF 0-3 HPF (0-3); Specific Gravity, Urine 1.014 (1.002-1.036); Squamous Epithelial None Seen HPF (0-3); Urobilinogen Normal mg/dL (Less than 2); WBC/HPF 0-3 HPF (0-3)
[2023-09-13 14:23] LABS: Urine Culture Reflex No No
== END 2023-09-13 16:43 | disposition home or self-care (01) ==
LOC: ERS 12:22
DX: L02.214 Cutaneous abscess of groin (principal); E11.22 Type 2 diabetes mellitus with diabetic chronic kidney disease; N18.6 End stage renal disease; I13.2 Hypertensive heart and chronic kidney disease with heart failure and with stage 5 chronic kidney disease, or end stage renal disease; I50.9 Heart failure, unspecified; E11.51 Type 2 diabetes mellitus with diabetic peripheral angiopathy without gangrene; F17.220 Nicotine dependence, chewing tobacco, uncomplicated; Z79.899 Other long term (current) drug therapy; Z79.4 Long term (current) use of insulin; Z79.01 Long term (current) use of anticoagulants
CPT/HCPCS: 36415; 72193; 80053; 81001; 82805; 83605; 85025; 86140; 87040; 87086; 96365; 96366; 96367; J2543; J3370; J3490; Q9967

== ENCOUNTER 2023-10-23 05:25 | Inpatient (IN) | payer MEDICARE, MEDICAID ==
[2023-10-23] MEDS ORDERED: Ondansetron PF 4 MG/2 ML Vial IVP PRN (06:45)
[2023-10-23] MEDS ORDERED: Ondansetron ODT 4 MG TAB SL PRN (06:45)
[2023-10-23] MEDS ORDERED: Acetaminophen 325 MG TAB PO PRN ×2 (06:45→07:54)
[2023-10-23] MEDS ORDERED: diphenhydrAMINE 25 MG CAP PO PRN (07:54)
[2023-10-23] MEDS ORDERED: Acetaminophen/Codeine 30-300mg Tablet PO PRN (07:54)
[2023-10-23] MEDS ORDERED: Ondansetron ODT 4 MG TAB PO PRN (07:54)
[2023-10-23] MEDS ORDERED: Dextrose 5% in Water 1,000 ML IV PRN (08:01)
[2023-10-23] MEDS ORDERED: Dextrose 50% Abboject 50 ML SYRINGE SLOW IVP PRN (08:01)
[2023-10-23] MEDS ORDERED: Glucagon 1 MG/ML KIT IM PRN (08:01)
[2023-10-23] MEDS ORDERED: Albuterol 2.5 MG (3 mL) NEB NEB PRN (08:18)
[2023-10-23] MEDS ORDERED: Gabapentin 100 MG CAP ONE (08:32)
[2023-10-23] MEDS ORDERED: Sertraline 100 MG TAB ONE (08:32)
[2023-10-23] MEDS ORDERED: Heparin 5,000 UNITS/ML VIAL ONE (08:32)
[2023-10-23] MEDS ORDERED: Famotidine 20 MG TAB ONE (08:33)
[2023-10-23 08:38] LABS: Troponin I 0.029 ng/mL (< 0.028)
[2023-10-23] MEDS ORDERED: Heparin 10,000 UNITS/ 10 ML VIAL ONE (08:45)
[2023-10-23] MEDS: Heparin 5,000 UNITS/ML VIAL SC SCH ×3 (08:55→22:03)
[2023-10-23] MEDS: Gabapentin 100 MG CAP PO SCH ×3 (08:55→22:03)
[2023-10-23] MEDS: Sertraline 100 MG TAB PO SCH (08:56)
[2023-10-23] MEDS: Sevelamer Carbonate 800 MG TAB PO SCH ×3 (08:56→22:03)
[2023-10-23] MEDS ORDERED: Famotidine 20 MG TAB PO SCH (09:00)
[2023-10-23] MEDS: Saccharomyces boulardii 250 MG CAP PO SCH ×2 (09:03→22:03)
[2023-10-23] MEDS: Calcium Acetate 667 MG CAP PO SCH ×2 (12:24→18:02)
[2023-10-23 17:23] VITALS: BMI 39.5
[2023-10-23] MEDS: Ferrous Sulfate 325 MG TAB PO SCH (18:02)
[2023-10-23] MEDS: Atorvastatin Calcium 40 MG TAB PO SCH (22:03)
[2023-10-23] MEDS: HumaLOG 300 UNITS/3 ML VIAL SC PRN (22:09)
[2023-10-24 06:33] LABS: #Eosinphils 0.2 thou/uL (0.0-0.7); #Monocytes 0.9 thou/uL (0.11-0.59); #Neutrophils 2.2 thou/uL (1.40-6.50); %Basophils 0.4 % (0.0-1.0); %Eosinophils 3.9 % (0.0-10.0); %Lymphocytes 28.4 % (21.0-51.0); %Monocytes 19.1 % (0.0-10.0); %Neutrophils 47.1 % (42.0-75.0); Hematocrit 35.4 % (42.0-52.0); Hemoglobin 11.3 g/dL (14.0-18.0); Mean Corpuscular HGB CONC 31.9 g/dL (32.0-36.0); Mean Corpuscular Hemoglobin 30.1 pg (27.0-31.0); Mean Corpuscular Volume 94.1 fl (78.0-98.0); Mean Platelet Volume 9.7 fL (7.4-10.4); Platelet Count 149 10x3/uL (130-400); RBC Distribution Width 13.3 % (11.5-14.5); Red Blood Cell (RBC) Count 3.76 mill/uL (4.70-6.10); White Blood Cell (WBC) Count 4.7 10x3/uL (4.8-10.8)
[2023-10-24 07:18] LABS: Anion Gap 14 mmol/L (10-20); BUN (Urea Nitrogen) 37 mg/dL (8.9-20.6); Calc. Creatinine Clearance 50 mL/min (70-130); Calcium 8.3 mg/dL (7.8-10.44); Carbon Dioxide 26 mmol/L (22-29); Chloride 98 mmol/L (98-107); Estimated GFR 20; Glucose 141 mg/dL (70-105); Potassium 3.9 mmol/L (3.5-5.1); Sodium 134 mmol/L (136-145)
[2023-10-24] MEDS ORDERED: Isosorbide Mononitrate 60 MG ER.TAB PO SCH (09:00)
[2023-10-24] MEDS ORDERED: NIFEdipine XL 60 MG ER.TAB PO SCH (09:00)
[2023-10-24] MEDS ORDERED: Lisinopril 20 MG TAB PO SCH (09:00)
[2023-10-24] MEDS: Saccharomyces boulardii 250 MG CAP PO SCH (10:22)
[2023-10-24] MEDS: Ferrous Sulfate 325 MG TAB PO SCH (10:22)
[2023-10-24] MEDS: Calcium Acetate 667 MG CAP PO SCH ×2 (10:26→13:27)
[2023-10-24] MEDS: Heparin 5,000 UNITS/ML VIAL SC SCH ×2 (10:28→15:45)
[2023-10-24] MEDS: Gabapentin 100 MG CAP PO SCH ×2 (10:28→15:44)
[2023-10-24] MEDS: Sertraline 100 MG TAB PO SCH (10:29)
[2023-10-24] MEDS: Sevelamer Carbonate 800 MG TAB PO SCH ×2 (10:29→15:44)
[2023-10-24] MEDS: HumaLOG 300 UNITS/3 ML VIAL SC PRN (13:27)
[2023-10-24 15:48] VITALS: BP 132/71; TEMP 98.5
== END 2023-10-24 16:25 | DRG 391 ==
LOC: ERS 05:25 → ERHOLD 06:32 → SURG B 10:22
PROVIDERS: ADMIT Student in an Organized Health Care Education/Training Program; ATTEND Internal Medicine
DX: A08.4 Viral intestinal infection, unspecified (principal); N18.6 End stage renal disease; E87.20 Acidosis, unspecified; I13.2 Hypertensive heart and chronic kidney disease with heart failure and with stage 5 chronic kidney disease, or end stage renal disease; E87.3 Alkalosis; E11.22 Type 2 diabetes mellitus with diabetic chronic kidney disease; I50.9 Heart failure, unspecified; E78.5 Hyperlipidemia, unspecified; E66.9 Obesity, unspecified; G47.33 Obstructive sleep apnea (adult) (pediatric); E86.0 Dehydration; D64.9 Anemia, unspecified; R77.8 Other specified abnormalities of plasma proteins; Z99.2 Dependence on renal dialysis; Z88.8 Allergy status to other drugs, medicaments and biological substances; Z89.612 Acquired absence of left leg above knee; Z79.899 Other long term (current) drug therapy; Z79.4 Long term (current) use of insulin; Z79.51 Long term (current) use of inhaled steroids
CPT/HCPCS: 36415; 36416; 80048; 85025; 94760; 99285; J1644; J1815

== ENCOUNTER 2024-03-11 09:51 | Emergency (ER) | payer MEDICARE, OTHER ==
[2024-03-11 10:38] LABS: #Basophils 0.04 10x3/uL (0.0-0.2); %Basophils 0.6 % (0.0-1.0); %Eosinophils 2.7 % (0.0-10.0); %Monocytes 8.5 % (0.0-10.0); %Neutrophils 66.2 % (42.0-75.0); Hematocrit 33.2 % (42.0-52.0); Mean Corpuscular HGB CONC 33.1 g/dL (32.0-36.0); Mean Corpuscular Hemoglobin 30.8 pg (27.0-31.0); Mean Platelet Volume 9.2 fL (7.4-10.4); Platelet Count 187 10x3/uL (130-400); RBC Distribution Width 14.3 % (11.5-14.5); Red Blood Cell (RBC) Count 3.57 mill/uL (4.70-6.10)
[2024-03-11] MEDS ORDERED: HYDROcodone/Acetaminophen 10/325 mg Tablet ONE (10:50)
[2024-03-11 11:00] LABS: ALT (SGPT) 37 U/L (8-55); AST (SGOT) 26 U/L (5-34); Albumin 3.4 g/dL (3.5-5.0); Alkaline Phosphatase 108 U/L (40-110); Anion Gap 19 mmol/L (10-20); BUN (Urea Nitrogen) 74 mg/dL (8.9-20.6); Bilirubin, Total 0.4 mg/dL (0.2-1.2); Calc. Creatinine Clearance 0 mL/min (70-130); Calcium 9.6 mg/dL (7.8-10.44); Carbon Dioxide 21 mmol/L (22-29); Chloride 96 mmol/L (98-107); Estimated GFR 9; Globulin 3.9 g/dL (2.4-3.5); Glucose 363 mg/dL (70-105); Lipase 55 U/L (8-78); Magnesium 2.1 mg/dL (1.6-2.6); Protein, Total 7.3 g/dL (6.0-8.3); Sodium 131 mmol/L (136-145)
[2024-03-11 11:01] LABS: Base Excess -3.4 mEq/L (-2.0 to +3.0); Chloride (VBG) 93 mmol/L (98-106); Hemoglobin (Hb) 10.6 g/dL (13.2-17.3); pH (venous) 7.485 (7.32-7.43)
[2024-03-11 12:13] LABS: Troponin I 0.025 ng/mL (< 0.028)
[2024-03-11 15:26] LABS: HBSAB Concentration 613.96 mIU/mL; HBsAg Index 0.24 S/CO (0-0.99); Hep B Core Total Ab NONREACTIVE (NonReactive); Hep B Core Total Index 0.11 S/CO (0-0.79); Hep B Surf AB REACTIVE (NonReactive); Hep B Surf Ag NONREACTIVE S/CO (NonReactive); Hep C IgG Ab NONREACTIVE S/CO (NonReactive); Hep C Index 0.15 S/CO (0-0.79)
== END 2024-03-11 20:32 ==
LOC: ERS 09:51
DX: I13.0 Hypertensive heart and chronic kidney disease with heart failure and stage 1 through stage 4 chronic kidney disease, or unspecified chronic kidney disease (principal); E11.22 Type 2 diabetes mellitus with diabetic chronic kidney disease; N18.4 Chronic kidney disease, stage 4 (severe); I50.9 Heart failure, unspecified; E11.51 Type 2 diabetes mellitus with diabetic peripheral angiopathy without gangrene; F17.220 Nicotine dependence, chewing tobacco, uncomplicated; Z99.2 Dependence on renal dialysis; Z79.4 Long term (current) use of insulin; Z79.899 Other long term (current) drug therapy
CPT/HCPCS: 36415; 71045; 80053; 82805; 83690; 83735; 83880; 84484; 85025; 86704; 86706; 86803; 87340; 93005